=== PATIENT | male | born 1935 | race Caucasian/White ===

== ENCOUNTER 2020-06-28 17:13 | Outpatient (REF) | payer MEDICARE, SELFPAY | END 2020-06-28 17:14 | disposition home or self-care (01) | LOC: HO.LAB 17:13 | PROVIDERS: Visit Provider Internal Medicine | DX: Z20.828 Contact with and (suspected) exposure to other viral communicable diseases (principal) | CPT/HCPCS: C9803; U0003 ==

== ENCOUNTER 2020-11-05 11:07 | Outpatient (REF) | payer MEDICARE, SELFPAY ==
[2020-11-05 11:54] LABS: Estimated Average Glucose 114 mg/dL; Hemoglobin A1c % 5.6 %
[2020-11-05 12:15] LABS: Alanine Aminotransferase 16 U/L (0-40); Albumin Level 4.5 g/dL (3.5-5.0); Alkaline Phosphatase 118 U/L (39-117); Aspartate Amino Transferase 27 U/L (5-37); Bilirubin Direct 0.3 mg/dL (0.0-0.5); Bilirubin Total 0.9 mg/dL (0.0-1.0); Cholesterol 135 mg/dL; Glucose Fasting 92 mg/dL (60-99); HDL Cholesterol 53 mg/dL; LDL Cholesterol Calculated 69 mg/dl; Total Protein 6.8 g/dL (6.5-8.0); Triglycerides 65 mg/dL
[2020-11-05 13:54] LABS: Reflex LDLD? No
== END 2020-11-05 11:08 | disposition home or self-care (01) ==
LOC: HO.LNP 11:07
PROVIDERS: Visit Provider Internal Medicine
DX: R73.03 Prediabetes (principal); E78.00 Pure hypercholesterolemia, unspecified
CPT/HCPCS: 80061; 80076; 82947; 83036

== ENCOUNTER 2020-12-27 13:09 | Outpatient (REF) | payer MEDICARE, SELFPAY ==
--- NOTE | ~2020-12-27 | XR_ITS ---
EXAMINATION: XR CHEST CLINICAL INFORMATION: COPD COMPARISON: Previous chest x-ray August 2019 TECHNIQUE: 2 views of the chest were obtained. FINDINGS: The cardiac and mediastinal contours are stable. The lungs are well inflated. The lungs are clear. There is no pleural effusion or pneumothorax. There are degenerative changes of the spine. XR/XR chest 2V IMPRESSION: Well-inflated lungs. No evidence for acute disease in the chest.
== END 2020-12-27 13:10 | disposition home or self-care (01) ==
LOC: HO.XRAY 13:09
PROVIDERS: PCP Internal Medicine; Visit Provider Hospitalist
DX: J44.9 Chronic obstructive pulmonary disease, unspecified (principal); J84.9 Interstitial pulmonary disease, unspecified; Z79.82 Long term (current) use of aspirin; Z87.891 Personal history of nicotine dependence; Z79.51 Long term (current) use of inhaled steroids
CPT/HCPCS: 71046; 99202

== ENCOUNTER 2021-01-07 09:48 | Outpatient (REF) | payer MEDICARE, SELFPAY ==
--- NOTE | 2021-01-07 15:29 | PFT_ITS ---
Forced vital capacity moderately decreased. FEV1, YPB69-50, and MVV are markedly decreased. Post bronchodilator therapy, there is a minimal improvement in FEV1 and [id number]. Total lung capacity slightly increased. Residual volume is markedly increased. Diffusion capacity is markedly decreased. CONCLUSION: Severe obstructive airway disorder. There is evidence of air trapping. Minimal response to bronchodilator therapy is noted. Clinical correlation recommended. MD DOMINGO Villanueva/MODL / [id number]
== END 2021-01-07 09:49 | disposition home or self-care (01) ==
LOC: HO.RESP 09:48
PROVIDERS: Visit Provider Hospitalist
DX: J44.9 Chronic obstructive pulmonary disease, unspecified (principal); J84.9 Interstitial pulmonary disease, unspecified
CPT/HCPCS: 94060; 94727; 94729

== ENCOUNTER → 2021-01-14 14:05 | Outpatient (BNVA) | payer MEDICARE, SELFPAY | PROVIDERS: PCP Internal Medicine; Visit Provider Hospitalist | DX: J84.9 Interstitial pulmonary disease, unspecified (principal); J41.0 Simple chronic bronchitis; J96.11 Chronic respiratory failure with hypoxia; Z79.899 Other long term (current) drug therapy; Z87.891 Personal history of nicotine dependence | CPT/HCPCS: 99212 ==

== ENCOUNTER 2021-04-29 11:33 | Outpatient (REF) | payer MEDICARE, SELFPAY ==
[2021-04-29 11:38] LABS: MANUAL DIFF FLAG NO
[2021-04-29 11:44] LABS: Basophils Absolute Auto 0.1 X10*3/uL (0.0-0.2); Basophils Percent Auto 0.8 % (0-2); Eosinophils Absolute Auto 0.3 X10*3/uL (0.0-0.4); Eosinophils Percent Auto 3.2 % (0-4); Hematocrit 43.5 % (42-52); Hemoglobin 14.3 g/dl (14.0-18.0); Imm Gran Abs Auto 0.03 X10*3/uL (0.00-0.03); Imm Gran Pct Auto 0.3 % (0.0-0.4); Lymphocytes Absolute Auto 2.9 X10*3/uL (1.2-4.9); Lymphocytes Percent Auto 28.4 % (20-40); Mean Corpuscular HGB Conc 32.9 g/dl (31.0-36.0); Mean Corpuscular Hemoglobin 28.8 pg (27.0-33.0); Mean Corpuscular Volume 87.5 fL (80-98); Mean Platelet Volume 10.5 fL (9.4-12.4); Monocytes Absolute Auto 0.7 X10*3/uL (0.1-1.2); Monocytes Percent Auto 7.2 % (2-11); Neutrophils Absolute Auto 6.1 X10*3/uL (2.0-8.3); Neutrophils Percent Auto 60.1 % (45-73); Platelet Count 224 X10*3/uL (160-400); Red Blood Count 4.97 X10*6/uL (4.60-5.80); Red Cell Distribution Width 13.9 % (11.0-16.0); White Blood Count 10.2 X10*3/uL (4.8-10.8)
[2021-04-29 11:57] LABS: Estimated Average Glucose 120 mg/dL; Hemoglobin A1c % 5.8 %
[2021-04-29 11:58] LABS: Alanine Aminotransferase 22 U/L (0-40); Albumin Level 4.4 g/dL (3.5-5.0); Alkaline Phosphatase 118 U/L (39-117); Anion Gap 10 (12-20); Aspartate Amino Transferase 28 U/L (5-37); Bilirubin Total 1.1 mg/dL (0.0-1.0); Blood Urea Nitrogen 17 mg/dL (9-16); Calcium 9.5 mg/dL (8.4-10.2); Carbon Dioxide 29 mmol/L (22-29); Chloride 104 mmol/L (96-108); Cholesterol 121 mg/dL; Estimated Glomerular Filt Rate > 60; Glucose Fasting 98 mg/dL (60-99); HDL Cholesterol 49 mg/dL; LDL Cholesterol Calculated 61 mg/dl; Potassium 4.2 mmol/L (3.3-5.1); Sodium 139 mmol/L (135-145); Total Protein 6.7 g/dL (6.5-8.0); Triglycerides 55 mg/dL
[2021-04-29 12:06] LABS: Appearance Urine CLEAR; Color Urine YELLOW; Creatinine Urine 69.98 mg/dL; Glucose Urine UA NEG (NEG); Leukocyte Esterase Urine NEG (NEG); Microalbumin Urine < 5.0 mg/L; Nitrite Urine NEG (NEG); Specific Gravity - Urine 1.015 (1.005-1.025); Urine Blood NEG (NEG); Urine Ketones NEG (NEG); Urine Protein NEG (NEG-TRACE)
[2021-04-29 12:15] LABS: PSA,Total (Free>4and<10) 3.13 ng/mL (0.00-4.00)
== END 2021-04-29 11:34 | disposition home or self-care (01) ==
LOC: HO.LNP 11:33
PROVIDERS: Visit Provider Internal Medicine
DX: Z12.5 Encounter for screening for malignant neoplasm of prostate (principal); E78.00 Pure hypercholesterolemia, unspecified; R73.03 Prediabetes; I25.83 Coronary atherosclerosis due to lipid rich plaque; I10 Essential (primary) hypertension; N40.0 Benign prostatic hyperplasia without lower urinary tract symptoms
CPT/HCPCS: 80053; 80061; 81003; 82043; 83036; 84153; 85025

== ENCOUNTER 2021-06-04 14:24 | Inpatient (IN) | payer MEDICARE, SELFPAY ==
[2021-06-04] VITALS (10 sets, daily range): BP systolic 126–183; BP diastolic 55–85; PULSE 34–106; RESP 12–34; TEMP 36.4–36.9; O2SAT 87–95; BMI 22.3
--- NOTE | ~2021-06-04 | XR_ITS ---
EXAMINATION: XR CHEST CLINICAL INFORMATION: Shortness of breath COMPARISON: Chest x-ray on 12/27/2020 TECHNIQUE: Frontal view of the chest was obtained. FINDINGS: No significant abnormality is noted involving the heart, lungs, mediastinum, bony thorax or soft tissues. Mild chronic bilateral interstitial changes with mid and lower lung zone predominance. XR/XR chest 1V IMPRESSION: No acute disease.
--- NOTE | 2021-06-04 14:33 | ECG_ITS ---
Test Reason : SHORTNESS OF BREATH Blood Pressure : / mmHG Vent. Rate : 100 BPM Atrial Rate : 100 BPM P-R Int : 254 ms QRS Dur : 118 ms QT Int : 316 ms P-R-T Axes : 092 052 -67 degrees QTc Int : 407 ms Sinus rhythm with 1st degree A-V block Inferior infarct , age undetermined Intra-ventricular conduction delay Nonspecific T wave abnormality Inferior leads Abnormal ECG T wave inversion no longer evident in Lateral leads T wave inversion more evident in Inferior leads Premature ventricular complexes is no longer Present Referred By: Rosa Christianson Electronically Signed By:JAMES PINZON MD
--- NOTE | 2021-06-04 14:41 | ED.SOB ---
HPI - SOB/Dyspnea General Chief Complaint: Upper Respiratory Symptoms Stated Complaint: sob Time Seen by Provider: 06/04/21 14:32 Source: patient and EMS Mode of arrival: EMS Limitations: no limitations History of Present Illness HPI Narrative: 86-year-old male came in by ambulance for evaluation of shortness of breath. Patient with history of COPD follow with Dr. Valdovinos, patient normally uses 2 L of oxygen at home, for the past 2 days patient has been using his COPD treatment with no improvement, found to be hypoxic by EMS at 85% room air O2 oxygenation was improved with 4 L of oxygen given by the, and patient was given bronchodilator by EMS, patient reported no improvement, patient declined any chest pain or history of cardiac disease, no recent travel or lower extremity swelling or tenderness. No recent exposure to sick contacts, no fever, no chills. Coughing with yellow phlegm. Related Data Home Medications Medication Instructions Recorded Confirmed albuterol sulfate 90 mcg/actuation 2 puff INHALATION QID 12/27/20 06/04/21 aerosol inhaler atorvastatin 40 mg tablet 40 mg PO DAILY 12/27/20 06/04/21 budesonide-formoterol HFA 160 2 puff INHALATION BID 12/27/20 06/04/21 mcg-4.5 mcg/actuation aerosol inhaler (Symbicort) ipratropium 0.5 mg-albuterol 3 mg 3 ml INHALATION QID PRN 12/27/20 06/04/21 (2.5 mg base)/3 mL nebulization soln metoprolol succinate 25 mg 25 mg PO DAILY 12/27/20 06/04/21 tablet,extended release 24 hr tamsulosin 0.4 mg capsule 0.4 mg PO DAILY 12/27/20 06/04/21 umeclidinium 62.5 mcg/actuation 1 inh INHALATION DAILY 12/27/20 06/04/21 blister powder for inhalation (Incruse Ellipta) multivitamin 1 tab PO DAILY 06/04/21 06/04/21 Allergies Allergy/AdvReac Type Severity Reaction Status Date / Time No Known Allergies Allergy Verified 01/17/21 21:33 [No Known Allergies*] Review of Systems Review of Systems: All other systems are reviewed and are negative Constitutional: Reports as per HPI and Reports no additional constitutional complaints Eyes: Reports as per HPI and Reports no additional eye complaints Reports system reviewed and no additional complaints, except as documented Cardiovascular: Reports as per HPI and Reports no additional cardiovascular complaints Respiratory: Reports as per HPI and Reports no additional respiratory complaints Gastrointestinal: Reports as per HPI and Reports no additional gastrointestinal complaints Genitourinary: Reports no additional female genitourinary complaints Musculoskeletal: Reports no additional musculoskeletal complaints Skin/Breast: Reports system reviewed and no additional complaints, except as docu Psychiatric: Reports no additional psychiatric complaints Endocrine: Reports no additional endocrine complaints Hematologic/Lymphatic: Reports no additional hematologic/lymphatic complaints Allergic/Immunologic: Reports no additional allergic/immunologic complaints Reports system reviewed and no additional complaints, except as documented and Reports Abnormal speech present [facility] Past Medical History Medical History Chronic respiratory failure COPD (chronic obstructive pulmonary disease) ILD (interstitial lung disease) Family History Family History (Updated 06/04/21 @ 16:09 by Jose Luis Fisher MD) Sister Cancer Social History Social History Household Members: Spouse Patient Tobacco Use Status: Former Tobacco user Tobacco use type: Cigarette Years Smoked: 30 yrs Second Hand Smoke Exposure: No Advance Directives: No Advance Directives Information Provided: No Physical Exam Vital Signs: Vital Signs: Last Vital Signs Temp 98.4 F 06/04/21 14:36 Pulse 106 H 06/04/21 14:52 Resp 34 H 06/04/21 14:36 BP 183/85 H 06/04/21 14:36 Pulse Ox 92 06/04/21 14:36 Oxygen Flow Rate 4 06/04/21 14:36 Body Mass Index 22.3 Vital signs have been reviewed as appeared to be correct. Blood pressure elevated. Heart rate elevated. Respiration rate elevated. Temperature normal. Oxygen saturation normal. Appearance: Alert. Oriented X3. Moderate acute respiratory distress. Head: Normal external exam. Normocephalic. Atraumatic. No Santana signs noted. No raccoon eyes noted Eyes: PERRLA. EOMI. Conjunctiva and sclera normal. Eyelids normal. ENT: TM's Normal. Pharynx normal. Uvula midline. Moist mucous membranes. No trismus noted. No drooling noted. No muffled voice noted. Neck: Normal inspection. Neck supple. FROM. No adenopathy. Thyroid Normal. No meningeal signs. No neck mass noted. CVS: Normal heart rate and rhythm. Heart sound normal. No murmurs noted. Pulses normal throughout. Respiratory: Moderate respiratory distress. Painless inspiration. Breath sounds normal. Diffuse expiratory wheezing with prolonged expiratory phase, Chest nontender. accessory muscle usage was noted and decreased air movement noted. Abdomen: Soft and nontender. Bowel sounds normal in all 4 quadrants. No distention noted. No organomegaly noted. No visible injury noted. Back: No CVA tenderness. Full range of motion noted. Skin: Skin warm and dry. Normal skin color. Normal skin turgor. No rashes/lesions/lacerations noted. Extremities: No lower extremity edema. Extremities exhibit normal range of motion. Extremities nontender. Neuro: Oriented X 3. Cranial nerve exam: II-XII are grossly intact No motor deficit. No sensory deficit. Reflexes normal. Course Course Course Narrative: Assessment and plan. 86-year-old male with history of COPD came in with COPD exacerbation and hypoxia, patient received multiple doses of bronchodilator, magnesium, and Solu-Medrol, patient showing partial improvement, patient met SIRS criteria will give patient ceftriaxone, no septic shock or severe sepsis. MDM - SOB/Dyspnea Medical Records Attestation: I reviewed the patient's medical records. Lab Data Attestation: I reviewed the patient's lab results. Result diagrams: 06/04/21 15:20 06/04/21 15:19 Labs: Lab Results 06/04/21 06/04/21 06/04/21 Range/Units 14:57 15:19 15:19 WBC (4.8-10.8) X10*3/uL RBC (4.60-5.80) X10*6/uL Hgb (14.0-18.0) g/dl Hct (42-52) % MCV (80-98) fL MCH (27.0-33.0) pg MCHC (31.0-36.0) g/dl RDW (11.0-16.0) % Plt Count (160-400) X10*3/uL MPV (9.4-12.4) fL Immature Gran % (Auto) (0.0-0.4) % Neut % (Auto) (45-73) % Lymph % (Auto) (20-40) % [place] % (Auto) (2-11) % Eos % (Auto) (0-4) % Baso % (Auto) (0-2) % Lymph # (Auto) (1.2-4.9) X10*3/uL [place] # (Auto) (0.1-1.2) X10*3/uL Eos # (Auto) (0.0-0.4) X10*3/uL Baso # (Auto) (0.0-0.2) X10*3/uL Abs Immat Gran (auto) (0.00-0.03) X10*3/uL Absolute Neuts (auto) (2.0-8.3) X10*3/uL Absolute Nucleated RBC (0.0-0.012) X10*3/uL Nucleated RBC % (auto) (0.0-0.2) /100WBC O2 Saturation 96.0 % ABG pH at Pt Temp 7.43 (7.35-7.45) ABG pH (Temp Correct) 7.43 (7.35-7.45) ABG pCO2 at Pt Temp 34 (32-45) mmHg ABG pCO2 (Temp Corrct 33 (32-45) mmHg ABG pO2 at Pt Temp 91 (83-108) mmHg ABG pO2 (Temp Correct 91 (83-108) ABG HCO3 22 (22-26) mmol/L ABG Base Excess (Actual) -0.7 mmol/L Sodium 129 L (135-145) mmol/L Potassium 4.3 (3.3-5.1) mmol/L Chloride 93 L (96-108) mmol/L Carbon Dioxide 25 (22-29) mmol/L Anion Gap 15 (12-20) BUN 17 H (9-16) mg/dL Creatinine 0.81 (0.5-1.4) mg/dL Estim Creat Clear Calc 66.6 Estimated GFR > 60 Random Glucose 119 H (60-115) mg/dL Lactic Acid 1.1 (0.5-2.0) mmol/L Calcium 8.8 D (8.4-10.2) mg/dL Total Bilirubin 1.4 H (0.0-1.0) mg/dL Direct Bilirubin 0.6 H (0.0-0.5) mg/dL AST 37 (5-37) U/L ALT 22 (0-40) U/L Alkaline Phosphatase 114 (39-117) U/L Troponin I High Sens (<3.5-35.0) ng/L B-Natriuretic Peptide (<100) pg/mL Total Protein 6.8 (6.5-8.0) g/dL Albumin 4.4 (3.5-5.0) g/dL Lipase 11 (8-78) U/L COVID-19 (СЕРГЕЙ) (Negative) COVID-19 Clin Com 06/04/21 06/04/21 06/04/21 Range/Units 15:19 15:20 15:22 WBC 10.2 (4.8-10.8) X10*3/uL RBC 4.95 (4.60-5.80) X10*6/uL Hgb 14.4 (14.0-18.0) g/dl Hct 41.4 L (42-52) % MCV 83.6 (80-98) fL MCH 29.1 (27.0-33.0) pg MCHC 34.8 (31.0-36.0) g/dl RDW 12.9 (11.0-16.0) % Plt Count 185 (160-400) X10*3/uL MPV 9.7 (9.4-12.4) fL Immature Gran % (Auto) 0.3 (0.0-0.4) % Neut % (Auto) 77.4 H (45-73) % Lymph % (Auto) 15.4 L (20-40) % [place] % (Auto) 6.5 (2-11) % Eos % (Auto) 0.0 (0-4) % Baso % (Auto) 0.4 (0-2) % Lymph # (Auto) 1.6 (1.2-4.9) X10*3/uL [place] # (Auto) 0.7 (0.1-1.2) X10*3/uL Eos # (Auto) 0.0 (0.0-0.4) X10*3/uL Baso # (Auto) 0.0 (0.0-0.2) X10*3/uL Abs Immat Gran (auto) 0.03 (0.00-0.03) X10*3/uL Absolute Neuts (auto) 7.9 (2.0-8.3) X10*3/uL Absolute Nucleated RBC 0.000 (0.0-0.012) X10*3/uL Nucleated RBC % (auto) 0.0 (0.0-0.2) /100WBC O2 Saturation % ABG pH at Pt Temp (7.35-7.45) ABG pH (Temp Correct) (7.35-7.45) ABG pCO2 at Pt Temp (32-45) mmHg ABG pCO2 (Temp Corrct (32-45) mmHg ABG pO2 at Pt Temp (83-108) mmHg ABG pO2 (Temp Correct (83-108) ABG HCO3 (22-26) mmol/L ABG Base Excess (Actual) mmol/L Sodium (135-145) mmol/L Potassium (3.3-5.1) mmol/L Chloride (96-108) mmol/L Carbon Dioxide (22-29) mmol/L Anion Gap (12-20) BUN (9-16) mg/dL Creatinine (0.5-1.4) mg/dL Estim Creat Clear Calc Estimated GFR Random Glucose (60-115) mg/dL Lactic Acid (0.5-2.0) mmol/L Calcium (8.4-10.2) mg/dL Total Bilirubin (0.0-1.0) mg/dL Direct Bilirubin (0.0-0.5) mg/dL AST (5-37) U/L ALT (0-40) U/L Alkaline Phosphatase (39-117) U/L Troponin I High Sens 16.3 (<3.5-35.0) ng/L B-Natriuretic Peptide 171 H (<100) pg/mL Total Protein (6.5-8.0) g/dL Albumin (3.5-5.0) g/dL Lipase (8-78) U/L COVID-19 (СЕРГЕЙ) Negative (Negative) COVID-19 Clin Com See Note Imaging Data Chest x-ray: Radiologist's impression: No acute disease. ECG Data Interpretation: Sinus tachycardia at 100 beats per minutes with first-degree AV block, prolongation of QT is in diffuse ST-T changes, artifact patient is receiving albuterol. Discharge Plan Discharge Clinical Impression: COPD (chronic obstructive pulmonary disease) Patient Disposition: Admitted As Inpatient Prescriptions: No Action multivitamin Tablet 1 tab PO DAILY RF: 0 ipratropium-albuterol 0.5 mg-3 mg(2.5 mg base)/3 mL solution for nebulization 3 ml inhalation QID PRN (Reason: Wheezing) RF: 0 Incruse Ellipta 62.5 mcg/actuation blister with device 1 inh inhalation DAILY RF: 0 budesonide-formoterol [Symbicort] 160-4.5 mcg/actuation HFA aerosol inhaler 2 puff inhalation BID RF: 0 albuterol sulfate 90 mcg/actuation HFA aerosol inhaler 2 puff inhalation QID RF: 0 atorvastatin 40 mg tablet 40 mg PO DAILY RF: 0 metoprolol succinate 25 mg tablet extended release 24 hr 25 mg PO DAILY RF: 0 tamsulosin 0.4 mg capsule 0.4 mg PO DAILY RF: 0
[2021-06-04] MEDS: Albuterol/Iprat 2.5/0.5MG 3 ML AMPUL.NEB INHALE ×2 (14:50→20:02)
[2021-06-04] MEDS: Albuterol Sulfate (0.083%) 2.5 MG/3 ML VIAL.NEB INHALE (14:50)
[2021-06-04] MEDS: Albuterol Sulfate (0.083%) 2.5 MG/3 ML VIAL.NEB 5 MG INHALE (14:50)
[2021-06-04 15:03] LABS: ABG Base Excess -0.7 mmol/L; ABG HCO3 22 mmol/L (22-26); ABG pCO2 34 mmHg (32-45); ABG pCO2 TC 33 mmHg (32-45); ABG pH 7.43 (7.35-7.45); ABG pH TC 7.43 (7.35-7.45); ABG pO2 91 mmHg (83-108); ABG pO2 TC 91 (83-108)
[2021-06-04] MEDS: methylPREDNISolone Sod Succ 125 MG/2 ML VIAL IVPUSH (15:10)
[2021-06-04] MEDS: Magnesium Sulfate/H2O 2 GM/50 ML PIGGYBACK IV (15:10)
--- NOTE | 2021-06-04 15:21 | PHA.MEDREC ---
Pharmacy Consult ? Medication Reconciliation Pharmacy has completed the medication reconciliation. Patient reports taking a brown medication for his prostate. The only medication it could be is tamsulosin however it was last filled in December. It was filled for 180 tablet for 90 day so he could still be taking one tablet a day instead of 2. Amada Ziegler, PharmD
[2021-06-04 15:27] LABS: MANUAL DIFF FLAG NO
[2021-06-04 15:28] LABS: ABG Refer to POC result
[2021-06-04 15:31] LABS: Basophils Percent Auto 0.4 % (0-2); Hematocrit 41.4 % (42-52); Hemoglobin 14.4 g/dl (14.0-18.0); Imm Gran Abs Auto 0.03 X10*3/uL (0.00-0.03); Imm Gran Pct Auto 0.3 % (0.0-0.4); Lymphocytes Absolute Auto 1.6 X10*3/uL (1.2-4.9); Lymphocytes Percent Auto 15.4 % (20-40); Mean Corpuscular HGB Conc 34.8 g/dl (31.0-36.0); Mean Corpuscular Hemoglobin 29.1 pg (27.0-33.0); Mean Corpuscular Volume 83.6 fL (80-98); Mean Platelet Volume 9.7 fL (9.4-12.4); Monocytes Absolute Auto 0.7 X10*3/uL (0.1-1.2); Monocytes Percent Auto 6.5 % (2-11); Neutrophils Absolute Auto 7.9 X10*3/uL (2.0-8.3); Neutrophils Percent Auto 77.4 % (45-73); Platelet Count 185 X10*3/uL (160-400); Red Blood Count 4.95 X10*6/uL (4.60-5.80); Red Cell Distribution Width 12.9 % (11.0-16.0); White Blood Count 10.2 X10*3/uL (4.8-10.8)
[2021-06-04 15:39] LABS: Lactic Acid 1.1 mmol/L (0.5-2.0)
[2021-06-04 15:44] LABS: COVID-19 Test Negative (Negative)
[2021-06-04 15:50] LABS: Alanine Aminotransferase 22 U/L (0-40); Albumin Level 4.4 g/dL (3.5-5.0); Alkaline Phosphatase 114 U/L (39-117); Anion Gap 15 (12-20); Aspartate Amino Transferase 37 U/L (5-37); B Type Natriuretic Peptide 171 pg/mL (<100); Bilirubin Direct 0.6 mg/dL (0.0-0.5); Bilirubin Total 1.4 mg/dL (0.0-1.0); Blood Urea Nitrogen 17 mg/dL (9-16); Calcium 8.8 mg/dL (8.4-10.2); Carbon Dioxide 25 mmol/L (22-29); Chloride 93 mmol/L (96-108); Creatinine Clr Calc Pharmacy 66.6; Estimated Glomerular Filt Rate > 60; Glucose Random 119 mg/dL (60-115); Lipase 11 U/L (8-78); Potassium 4.3 mmol/L (3.3-5.1); Sodium 129 mmol/L (135-145); Total Protein 6.8 g/dL (6.5-8.0); Troponin-I High Sensitivity 16.3 ng/L (<3.5-35.0)
--- NOTE | 2021-06-04 16:35 | PM.IMHP ---
History of Present Illness Date of Service: 06/04/21 Chief Complaint: sob 86M with chronic hypoxic respiratory failure due to copd on 2L home o2, though does not always wear. complaining of 2 days shortness of breath, air hunger, desaturation, worse on exertion, only partially releived by rest. denies chest pain. notes spouse is sick with viral illness, has had subjective fevers, cough. Review of Systems Review of Systems: Constitutional: subjective fevers Eyes: denies blurry vision ENT: denies sore throat CVS: denies chest pain Respiratory: dyspnea GI: no abdominal pain : denies dysuria MSK: denies neck pain Skin: denies rash Neuro: denies specific motor weakness Psych: denies suicidal ideation Endocrine: denies heat/cold intolerance Hematologic: denies easy bleeding Allergy: denies hives [facility] [place] Medical History (Updated 06/04/21 @ 16:43 by Jose Luis Fisher MD) BPH (benign prostatic hyperplasia) Chronic respiratory failure COPD (chronic obstructive pulmonary disease) HLD (hyperlipidemia) HTN (hypertension) ILD (interstitial lung disease) Family History Sister Cancer Pertinent family history: . Social History (Updated 06/04/21 @ 16:40 by Jose Luis Fisher MD) Household Members: Spouse Alcohol intake: never Patient Tobacco Use Status: Former Tobacco user Tobacco use type: Cigarette Years Smoked: 30 yrs Second Hand Smoke Exposure: No Use of substances other than those prescribed or required for medical reasons: No Advance Directives: No Advance Directives Information Provided: No Meds Allergies Allergy/AdvReac Type Severity Reaction Status Date / Time No Known Allergies Allergy Verified 01/17/21 21:33 [No Known Allergies*] Active Medications: Current Medications Albuterol/Ipratropium (Albuterol/Iprat 2.5/0.5mg 3 Ml Ampul.Neb) 3 ml INHALE RQ4H WHILE AWAKE HOA Albuterol/Ipratropium (Albuterol/Iprat 2.5/0.5mg 3 Ml Ampul.Neb) 3 ml INHALE RQ4H PRN PRN Reason: sob Atorvastatin Calcium (Atorvastatin Calcium 40 Mg Tablet) 40 mg PO DAILY HOA Ceftriaxone Sodium 1 gm/ (Sodium Chloride) 50 mls @ 100 mls/hr IV ONCE ONE Stop: 06/04/21 16:58 Sodium Chloride (Ns) 1,000 mls @ 500 mls/hr IVCONT .Q2H [facility] Stop: 06/04/21 18:29 Methylprednisolone Sodium Succinate (Methylprednisolone Sod Succ 125 Mg/2 Ml Vial) 60 mg IVPUSH Q12H [facility] Metoprolol Succinate (Metoprolol Succinate Er 25 Mg Tab.Er.24h) 25 mg PO DAILY HOA; Protocol Morphine Sulfate (Morphine Sulfate 2 Mg/Ml Cartridge) 2 mg IVPUSH Q3H PRN; Protocol PRN Reason: sob Multivitamins/Vitamin C (Multivitamin Tablet) 1 tab PO DAILY [facility] Non-Formulary Medication (Budesonide-Formoterol [Symbicort]) 2 puff INHALE BID [facility] Non-Formulary Medication (Umeclidinium [Incruse Ellipta]) 1 inhalation INHALE DAILY [facility] Pharmacy Consult (Consult Rx Perform Med Rec) 1 each MISCELLANE ONCE PRN PRN Reason: Consult order Tamsulosin HCl (Tamsulosin Hcl 0.4 Mg Capsule) 0.4 mg PO DAILY [facility] Home Medications Medication Instructions Recorded Confirmed Last Taken Type albuterol sulfate 90 mcg/actuation 2 puff INHALATION QID 12/27/20 06/04/21 06/03/21 History aerosol inhaler atorvastatin 40 mg tablet 40 mg PO DAILY 12/27/20 06/04/21 06/03/21 History budesonide-formoterol HFA 160 2 puff INHALATION BID 12/27/20 06/04/21 06/03/21 History mcg-4.5 mcg/actuation aerosol inhaler (Symbicort) ipratropium 0.5 mg-albuterol 3 mg 3 ml INHALATION QID PRN 12/27/20 06/04/21 Unknown History (2.5 mg base)/3 mL nebulization soln metoprolol succinate 25 mg 25 mg PO DAILY 12/27/20 06/04/21 06/03/21 History tablet,extended release 24 hr tamsulosin 0.4 mg capsule 0.4 mg PO DAILY 12/27/20 06/04/21 06/03/21 History umeclidinium 62.5 mcg/actuation 1 inh INHALATION DAILY 12/27/20 06/04/21 06/03/21 History blister powder for inhalation (Incruse Ellipta) multivitamin 1 tab PO DAILY 06/04/21 06/04/21 06/03/21 History Physical Exam Vital Signs and Narrative: Vital Signs: Last Vital Signs Temp 98.4 F 06/04/21 14:36 Pulse 106 H 06/04/21 14:52 Resp 34 H 06/04/21 14:36 BP 183/85 H 06/04/21 14:36 Pulse Ox 92 06/04/21 14:36 Oxygen Flow Rate 4 06/04/21 14:36 Body Mass Index 22.3 General: dyspneic HEENT: atraumatic Neck: normal to visual inspection CVS: S1, S2, RRR Resp: diminished, wheezing, accessory muscles used Chest: non tender GI: soft, non tender, non distended : no CVA tenderness Skin: no rashes Extremities: no edema Neuro: Oriented X3, grossly intact Psych: cooperative Results Labs CBC and Chem 7: 06/04/21 15:20 06/04/21 15:19 Labs: Laboratory Results - last 24 hr 06/04/21 06/04/21 06/04/21 14:57 15:19 15:19 MCV MCH MCHC RDW Plt Count MPV Immature Gran % (Auto) Neut % (Auto) Lymph % (Auto) [place] % (Auto) Eos % (Auto) Baso % (Auto) Lymph # (Auto) [place] # (Auto) Eos # (Auto) Baso # (Auto) Abs Immat Gran (auto) Absolute Neuts (auto) Absolute Nucleated RBC Nucleated RBC % (auto) O2 Saturation 96.0 ABG pH at Pt Temp 7.43 ABG pH (Temp Correct) 7.43 ABG pCO2 at Pt Temp 34 ABG pCO2 (Temp Corrct 33 ABG pO2 at Pt Temp 91 ABG pO2 (Temp Correct 91 ABG HCO3 22 ABG Base Excess (Actual) -0.7 Anion Gap 15 Estim Creat Clear Calc 66.6 Estimated GFR > 60 Random Glucose 119 H Lactic Acid 1.1 Calcium 8.8 D Total Bilirubin 1.4 H Direct Bilirubin 0.6 H AST 37 ALT 22 Alkaline Phosphatase 114 Troponin I High Sens B-Natriuretic Peptide Total Protein 6.8 Albumin 4.4 Lipase 11 COVID-19 (СЕРГЕЙ) COVID-19 Clin Com 06/04/21 06/04/21 06/04/21 15:19 15:20 15:22 MCV 83.6 MCH 29.1 MCHC 34.8 RDW 12.9 Plt Count 185 MPV 9.7 Immature Gran % (Auto) 0.3 Neut % (Auto) 77.4 H Lymph % (Auto) 15.4 L [place] % (Auto) 6.5 Eos % (Auto) 0.0 Baso % (Auto) 0.4 Lymph # (Auto) 1.6 [place] # (Auto) 0.7 Eos # (Auto) 0.0 Baso # (Auto) 0.0 Abs Immat Gran (auto) 0.03 Absolute Neuts (auto) 7.9 Absolute Nucleated RBC 0.000 Nucleated RBC % (auto) 0.0 O2 Saturation ABG pH at Pt Temp ABG pH (Temp Correct) ABG pCO2 at Pt Temp ABG pCO2 (Temp Corrct ABG pO2 at Pt Temp ABG pO2 (Temp Correct ABG HCO3 ABG Base Excess (Actual) Anion Gap Estim Creat Clear Calc Estimated GFR Random Glucose Lactic Acid Calcium Total Bilirubin Direct Bilirubin AST ALT Alkaline Phosphatase Troponin I High Sens 16.3 B-Natriuretic Peptide 171 H Total Protein Albumin Lipase COVID-19 (СЕРГЕЙ) Negative COVID-19 Clin Com See Note Imaging Radiologist's Impressions: Impressions Chest X-Ray 06/04/21 14:33 IMPRESSION: No acute disease. Assessment and Plan (1) Acute on chronic respiratory failure with hypoxemia: Status: Acute (2) COPD (chronic obstructive pulmonary disease): Status: Acute (3) HLD (hyperlipidemia): Status: Acute (4) HTN (hypertension): Status: Acute (5) BPH (benign prostatic hyperplasia): Status: Acute 86M presented with sob sepsis due to copd exacerbation complicated by acute on chronic hypoxic respiratory failure solumedrol, duonebs, inhaled steroids, azithro, morphine, wean o2 as tolerated hld statin htn toprol bph flomax dvt prophylaxis - lovenox full code Quality Stroke Does the patient have a stroke diagnosis?: No VTE Prior VTE?: No VTE Risk Level:: Medical - moderate - high VTE Device Contraindication: Treatment Not Indicated VTE Drug Contraindication: N/A - Med Ordered
[2021-06-04] MEDS: cefTRIAXone sodium 1 GM in 0.9 % Sodium Chloride 50 ML IV (16:50)
[2021-06-04] MEDS: 0.9 % Sodium Chloride 1,000 ML 500 ML IVCONT (16:50)
[2021-06-04] MEDS: Enoxaparin Sodium 40 MG/0.4 ML SYRINGE SUBCUT (17:19)
--- NOTE | 2021-06-04 19:57 | PC.NURSE ---
RN assumed care at 1900. Pt alert and oriented x4, calm and cooperative. Pt denies pain, denies chest pain. Pt states SOB continues, denies distress at this time. Pt remains on 2 liters O2 nasal cannula. Pt resting in stretcher without issue, will continue to monitor.
[2021-06-04 20:50] LABS: Glucose, Whole Blood 234 mg/dL (60-115)
[2021-06-04] MEDS: methylPREDNISolone Sod Succ 125 MG/2 ML VIAL 60 MG IVPUSH (22:54)
[2021-06-04] MEDS: Morphine Sulfate 2 MG/ML CARTRIDGE IVPUSH (23:09)
[2021-06-05] VITALS (11 sets, daily range): BP systolic 115–147; BP diastolic 51–71; PULSE 83–103; RESP 16–22; TEMP 36.3–36.7; O2SAT 92–97
[2021-06-05] MEDS: Morphine Sulfate 2 MG/ML CARTRIDGE IVPUSH (02:24)
[2021-06-05] MEDS: Albuterol/Iprat 2.5/0.5MG 3 ML AMPUL.NEB INHALE ×5 (02:38→20:25)
[2021-06-05 06:14] LABS: Hematocrit 38.9 % (42-52); Hemoglobin 13.4 g/dl (14.0-18.0); Mean Corpuscular HGB Conc 34.4 g/dl (31.0-36.0); Mean Corpuscular Volume 84.2 fL (80-98); Mean Platelet Volume 9.7 fL (9.4-12.4); Platelet Count 204 X10*3/uL (160-400); Red Blood Count 4.62 X10*6/uL (4.60-5.80); Red Cell Distribution Width 12.9 % (11.0-16.0); White Blood Count 8.2 X10*3/uL (4.8-10.8)
[2021-06-05 06:31] LABS: Anion Gap 13 (12-20); Blood Urea Nitrogen 22 mg/dL (9-16); Calcium 8.7 mg/dL (8.4-10.2); Carbon Dioxide 27 mmol/L (22-29); Chloride 98 mmol/L (96-108); Creatinine Clr Calc Pharmacy 62.7; Estimated Glomerular Filt Rate > 60; Glucose Fasting 189 mg/dL (60-99); Potassium 4.9 mmol/L (3.3-5.1); Sodium 133 mmol/L (135-145)
[2021-06-05 08:07] LABS: Estimated Average Glucose 117 mg/dL; Hemoglobin A1c % 5.7 %
[2021-06-05] MEDS: Fluticasone/Vilanterol 200/25 BLST.W.DEV 1 PUFF INHALE (08:50)
[2021-06-05] MEDS: Metoprolol Succinate ER 25 MG TAB.ER.24H PO (09:03)
[2021-06-05] MEDS: Atorvastatin Calcium 40 MG TABLET PO (09:03)
[2021-06-05] MEDS: Multivitamin TABLET 1 TAB PO (09:03)
[2021-06-05] MEDS: Tamsulosin HCL 0.4 MG CAPSULE PO (09:03)
[2021-06-05] MEDS: Azithromycin 500 MG TABLET PO (09:03)
[2021-06-05] MEDS: methylPREDNISolone Sod Succ 125 MG/2 ML VIAL 60 MG IVPUSH ×2 (09:07→23:39)
--- NOTE | 2021-06-05 09:37 | P.PNIM_ITS ---
Subjective Subjective Date of Service: 06/05/21 Interval History: cc: sob interval history: a bit better, still very sob Cardiovascular Cardiovascular: Reports no additional cardiovascular complaints Gastrointestinal Gastrointestinal: Reports no additional gastrointestinal complaints Physical Exam Vital Signs: Vital Signs: Last Vital Signs Temp 97.6 F 06/05/21 08:00 Pulse 103 H 06/05/21 09:03 Resp 18 06/05/21 08:00 BP 147/71 H 06/05/21 09:03 Pulse Ox 94 06/05/21 08:00 Oxygen Flow Rate 2 06/04/21 17:32 Body Mass Index 22.3 General: AO X 3, dyspneic Resp: poor air movement, accessory muscles used CVS: S1,S2,RRR GI: soft, non tender, non distended Neuro: motor grossly intact, alert Psych: appropriate affect, appropriate insight Objective Data Active Medications Acetaminophen (Acetaminophen 325 Mg Tablet) 650 mg PO Q6H PRN PRN Reason: Pain, Mild (Pain Scale 1-3) Albuterol/Ipratropium (Albuterol/Iprat 2.5/0.5mg 3 Ml Ampul.Neb) 3 ml INHALE RQ4H WHILE AWAKE [facility] Last Admin: 06/05/21 08:56 Dose: 3 ml Documented by: JUAN ALBERTO Albuterol/Ipratropium (Albuterol/Iprat 2.5/0.5mg 3 Ml Ampul.Neb) 3 ml INHALE RQ4H PRN PRN Reason: sob Last Admin: 06/05/21 02:38 Dose: 3 ml Documented by: BOO Atorvastatin Calcium (Atorvastatin Calcium 40 Mg Tablet) 40 mg PO DAILY [facility] Last Admin: 06/05/21 09:03 Dose: 40 mg Documented by: CLAUDINE Azithromycin (Azithromycin 500 Mg Tablet) 500 mg PO DAILY [facility] Last Admin: 06/05/21 09:03 Dose: 500 mg Documented by: CLAUDINE Enoxaparin Sodium (Enoxaparin Sodium 40 Mg/0.4 Ml Syringe) 40 mg SUBCUT Q24H [facility] Last Admin: 06/04/21 17:19 Dose: 40 mg Documented by: BRADY Fluticasone/Vilanterol (Fluticasone/Vilanterol 200/25 Blst.W.Dev) 1 puff INHALE DAILY [facility] Last Admin: 06/05/21 08:50 Dose: 1 puff Documented by: JUAN ALBERTO Guaifenesin (Guaifenesin La 600 Mg Tab.Er.12h) 1,200 mg PO BID [facility] Methylprednisolone Sodium Succinate (Methylprednisolone Sod Succ 125 Mg/2 Ml Vial) 60 mg IVPUSH Q12H [facility] Last Admin: 06/05/21 09:07 Dose: 60 mg Documented by: CLAUDINE Metoprolol Succinate (Metoprolol Succinate Er 25 Mg Tab.Er.24h) 25 mg PO DAILY [facility]; Protocol Last Admin: 06/05/21 09:03 Dose: 25 mg Documented by: CLAUDINE Morphine Sulfate (Morphine Sulfate 2 Mg/Ml Cartridge) 2 mg IVPUSH Q3H PRN; Pr otocol PRN Reason: sob Last Admin: 06/05/21 02:24 Dose: 2 mg Documented by: XAVIER Multivitamins/Vitamin C (Multivitamin Tablet) 1 tab PO DAILY [facility] Last Admin: 06/05/21 09:03 Dose: 1 tab Documented by: CLAUDINE Non-Formulary Medication (Umeclidinium [Incruse Ellipta]) 1 inhalation INHALE DAILY [facility] Pharmacy Consult (Consult Rx Perform Med Rec) 1 each MISCELLANE ONCE PRN PRN Reason: Consult order Tamsulosin HCl (Tamsulosin Hcl 0.4 Mg Capsule) 0.4 mg PO DAILY [facility] Last Admin: 06/05/21 09:03 Dose: 0.4 mg Documented by: CLAUDINE Labs CBC & Chem 7: 06/05/21 05:43 06/05/21 05:43 Labs: Laboratory Results - last 24 hr 06/04/21 06/04/21 06/04/21 14:57 15:19 15:19 MCV MCH MCHC RDW Plt Count MPV Immature Gran % (Auto) Neut % (Auto) Lymph % (Auto) [place] % (Auto) Eos % (Auto) Baso % (Auto) Lymph # (Auto) [place] # (Auto) Eos # (Auto) Baso # (Auto) Abs Immat Gran (auto) Absolute Neuts (auto) Absolute Nucleated RBC Nucleated RBC % (auto) O2 Saturation 96.0 ABG pH at Pt Temp 7.43 ABG pH (Temp Correct) 7.43 ABG pCO2 at Pt Temp 34 ABG pCO2 (Temp Corrct 33 ABG pO2 at Pt Temp 91 ABG pO2 (Temp Correct 91 ABG HCO3 22 ABG Base Excess (Actual) -0.7 Anion Gap 15 Estim Creat Clear Calc 66.6 Estimated GFR > 60 POC Glucose Random Glucose 119 H Fasting Glucose Estimat Average Glucose Hemoglobin A1c % Lactic Acid 1.1 Calcium 8.8 D Total Bilirubin 1.4 H Direct Bilirubin 0.6 H AST 37 ALT 22 Alkaline Phosphatase 114 Troponin I High Sens B-Natriuretic Peptide Total Protein 6.8 Albumin 4.4 Lipase 11 COVID-19 (СЕРГЕЙ) COVID-[facility] 06/04/21 06/04/21 06/04/21 15:19 15:20 15:22 MCV 83.6 MCH 29.1 MCHC 34.8 RDW 12.9 Plt Count 185 MPV 9.7 Immature Gran % (Auto) 0.3 Neut % (Auto) 77.4 H Lymph % (Auto) 15.4 L [place] % (Auto) 6.5 Eos % (Auto) 0.0 Baso % (Auto) 0.4 Lymph # (Auto) 1.6 [place] # (Auto) 0.7 Eos # (Auto) 0.0 Baso # (Auto) 0.0 Abs Immat Gran (auto) 0.03 Absolute Neuts (auto) 7.9 Absolute Nucleated RBC 0.000 Nucleated RBC % (auto) 0.0 O2 Saturation ABG pH at Pt Temp ABG pH (Temp Correct) ABG pCO2 at Pt Temp ABG pCO2 (Temp Corrct ABG pO2 at Pt Temp ABG pO2 (Temp Correct ABG HCO3 ABG Base Excess (Actual) Anion Gap Estim Creat Clear Calc Estimated GFR POC Glucose Random Glucose Fasting Glucose Estimat Average Glucose Hemoglobin A1c % Lactic Acid Calcium Total Bilirubin Direct Bilirubin AST ALT Alkaline Phosphatase Troponin I High Sens 16.3 B-Natriuretic Peptide 171 H Total Protein Albumin Lipase COVID-19 (СЕРГЕЙ) Negative COVID-19 [facility] See Note 06/04/21 06/05/21 06/05/21 20:46 05:43 05:43 MCV 84.2 MCH 29.0 MCHC 34.4 RDW 12.9 Plt Count 204 MPV 9.7 Immature Gran % (Auto) Neut % (Auto) Lymph % (Auto) [place] % (Auto) Eos % (Auto) Baso % (Auto) Lymph # (Auto) [place] # (Auto) Eos # (Auto) Baso # (Auto) Abs Immat Gran (auto) Absolute Neuts (auto) Absolute Nucleated RBC 0.000 Nucleated RBC % (auto) 0.0 O2 Saturation ABG pH at Pt Temp ABG pH (Temp Correct) ABG pCO2 at Pt Temp ABG pCO2 (Temp Corrct ABG pO2 at Pt Temp ABG pO2 (Temp Correct ABG HCO3 ABG Base Excess (Actual) Anion Gap 13 Estim Creat Clear Calc 62.7 Estimated GFR > 60 POC Glucose 234 H Random Glucose Fasting Glucose 189 H D Estimat Average Glucose Hemoglobin A1c % Lactic Acid Calcium 8.7 Total Bilirubin Direct Bilirubin AST ALT Alkaline Phosphatase Troponin I High Sens B-Natriuretic Peptide Total Protein Albumin Lipase COVID-19 (СЕРГЕЙ) COVID-19 Clin Com 06/05/21 05:43 MCV MCH MCHC RDW Plt Count MPV Immature Gran % (Auto) Neut % (Auto) Lymph % (Auto) [place] % (Auto) Eos % (Auto) Baso % (Auto) Lymph # (Auto) [place] # (Auto) Eos # (Auto) Baso # (Auto) Abs Immat Gran (auto) Absolute Neuts (auto) Absolute Nucleated RBC Nucleated RBC % (auto) O2 Saturation ABG pH at Pt Temp ABG pH (Temp Correct) ABG pCO2 at Pt Temp ABG pCO2 (Temp Corrct ABG pO2 at Pt Temp ABG pO2 (Temp Correct ABG HCO3 ABG Base Excess (Actual) Anion Gap Estim Creat Clear Calc Estimated GFR POC Glucose Random Glucose Fasting Glucose Estimat Average Glucose 117 Hemoglobin A1c % 5.7 Lactic Acid Calcium Total Bilirubin Direct Bilirubin AST ALT Alkaline Phosphatase Troponin I High Sens B-Natriuretic Peptide Total Protein Albumin Lipase COVID-19 (СЕРГЕЙ) COVID-19 Clin Com Assessment and Plan (1) COPD (chronic obstructive pulmonary disease): Status: Acute (2) Acute on chronic respiratory failure with hypoxemia: Status: Acute Assessment and Plan: 66M presented with sob sepsis due to copd exacerbation complicated by acute on chronic hypoxic respiratory failure solumedrol, duonebs, inhaled steroids, azithro, morphine, wean o2 as tolerated having trouble getting stuff up , will add mucinex hld statin htn toprol bph flomax dvt prophylaxis - lovenox full code Quality Stroke Does the patient have a stroke diagnosis?: No VTE Prior VTE?: No VTE Risk Level:: Medical - moderate - high VTE Device Contraindication: Treatment Not Indicated VTE Drug Contraindication: N/A - Med Ordered
[2021-06-05] MEDS: guaiFENesin LA 600 MG TAB.ER.12H 1200 MG PO ×2 (10:38→23:40)
--- NOTE | 2021-06-05 12:40 | MHC.CM.PN ---
CASE MANAGEMENT MET WITH PATIENT AND DAUGHTER WITH PERMISSION FROM PATIENT.PATIENT LIVES WITH HIS /HCP (ON FILE AND VERIFIED) NO DME FOR AMBULATION AND NO VNA SERVICES IN THE HOME. HE DOES USE HOME O2 ON OCCASION BUT DOES NOT REMEMBER THE NAME OF THE COMPANY THAT SUPPLIES THIS. DAUGHTER JULIANN (IN ROOM) STATES THAT PATIENT AND HAVE BEEN VACCINATED AGAINST COVID-19 WITH BOTH DOSES CASE MANAGEMENT FOLLOWING FOR DISCHARGE PLANS. HE HOPES TO RETURN HOME WITH NO SERVICES. FAMILY TO TRANSPORT. IMM 06/05 IN CHART.
[2021-06-05] MEDS: Enoxaparin Sodium 40 MG/0.4 ML SYRINGE SUBCUT (15:27)
[2021-06-06] VITALS (8 sets, daily range): BP systolic 114–156; BP diastolic 64–80; PULSE 80–104; RESP 12–20; TEMP 36.2–36.5; O2SAT 93–97
[2021-06-06 06:19] LABS: Hematocrit 40.5 % (42-52); Mean Corpuscular HGB Conc 34.6 g/dl (31.0-36.0); Mean Corpuscular Hemoglobin 28.9 pg (27.0-33.0); Mean Corpuscular Volume 83.7 fL (80-98); Mean Platelet Volume 9.4 fL (9.4-12.4); Platelet Count 224 X10*3/uL (160-400); Red Blood Count 4.84 X10*6/uL (4.60-5.80); White Blood Count 17.5 X10*3/uL (4.8-10.8)
[2021-06-06 06:30] LABS: Anion Gap 12 (12-20); Blood Urea Nitrogen 21 mg/dL (9-16); Calcium 8.8 mg/dL (8.4-10.2); Carbon Dioxide 27 mmol/L (22-29); Chloride 99 mmol/L (96-108); Estimated Glomerular Filt Rate > 60; Glucose Fasting 148 mg/dL (60-99); Potassium 4.9 mmol/L (3.3-5.1); Sodium 133 mmol/L (135-145)
[2021-06-06] MEDS: Albuterol/Iprat 2.5/0.5MG 3 ML AMPUL.NEB INHALE ×4 (08:27→20:05)
[2021-06-06] MEDS: Fluticasone/Vilanterol 200/25 BLST.W.DEV 1 PUFF INHALE (08:27)
[2021-06-06] MEDS: Atorvastatin Calcium 40 MG TABLET PO (09:39)
[2021-06-06] MEDS: Azithromycin 500 MG TABLET PO (09:40)
[2021-06-06] MEDS: Metoprolol Succinate ER 25 MG TAB.ER.24H PO (09:41)
[2021-06-06] MEDS: Tamsulosin HCL 0.4 MG CAPSULE PO (09:42)
[2021-06-06] MEDS: Multivitamin TABLET 1 TAB PO (09:42)
[2021-06-06] MEDS: guaiFENesin LA 600 MG TAB.ER.12H 1200 MG PO ×2 (09:45→21:53)
[2021-06-06] MEDS: methylPREDNISolone Sod Succ 125 MG/2 ML VIAL 60 MG IVPUSH ×2 (10:00→21:54)
--- NOTE | 2021-06-06 10:18 | P.PNIM_ITS ---
Subjective Subjective Date of Service: 06/06/21 Interval History: cc: sob itnerval history: feeling better, still sob Cardiovascular Cardiovascular: Reports no additional cardiovascular complaints Respiratory Respiratory: Reports no additional respiratory complaints Physical Exam Vital Signs: Vital Signs: Last Vital Signs Temp 97.7 F 06/06/21 07:06 Pulse 85 06/06/21 08:28 Resp 18 06/06/21 07:06 BP 141/80 H 06/06/21 07:06 Pulse Ox 93 06/06/21 07:06 Oxygen Flow Rate 2 06/04/21 17:32 Body Mass Index 22.3 General: AO X 3, dyspneic Resp:? poor air movement, accessory muscles used CVS: S1,S2,RRR GI: soft, non tender, non distended Neuro:? motor grossly intact, alert Psych: appropriate affect, appropriate insight? Objective Data Active Medications Acetaminophen (Acetaminophen 325 Mg Tablet) 650 mg PO Q6H PRN PRN Reason: Pain, Mild (Pain Scale 1-3) Albuterol/Ipratropium (Albuterol/Iprat 2.5/0.5mg 3 Ml Ampul.Neb) 3 ml INHALE RQ4H WHILE AWAKE [facility] Last Admin: 06/06/21 08:27 Dose: 3 ml Documented by: KARLOS Albuterol/Ipratropium (Albuterol/Iprat 2.5/0.5mg 3 Ml Ampul.Neb) 3 ml INHALE RQ4H PRN PRN Reason: sob Last Admin: 06/05/21 02:38 Dose: 3 ml Documented by: BOO Atorvastatin Calcium (Atorvastatin Calcium 40 Mg Tablet) 40 mg PO DAILY [facility] Last Admin: 06/05/21 09:03 Dose: 40 mg Documented by: CLAUDINE Azithromycin (Azithromycin 500 Mg Tablet) 500 mg PO DAILY [facility] Last Admin: 06/05/21 09:03 Dose: 500 mg Documented by: CLAUDINE Enoxaparin Sodium (Enoxaparin Sodium 40 Mg/0.4 Ml Syringe) 40 mg SUBCUT Q24H [facility] Last Admin: 06/05/21 15:27 Dose: 40 mg Documented by: CLAUDINE Fluticasone/Vilanterol (Fluticasone/Vilanterol 200/25 Blst.W.Dev) 1 puff INHALE DAILY [facility] Last Admin: 06/06/21 08:27 Dose: 1 puff Documented by: KARLOS Guaifenesin (Guaifenesin La 600 Mg Tab.Er.12h) 1,200 mg PO BID [facility] Last Admin: 06/05/21 23:40 Dose: 1,200 mg Documented by: MARIANNA Methylprednisolone Sodium Succinate (Methylprednisolone Sod Succ 125 Mg/2 Ml Vial) 60 mg IVPUSH Q12H [facility] Last Admin: 06/05/21 23:39 Dose: 60 mg Documented by: MARIANNA Metoprolol Succinate (Metoprolol Succinate Er 25 Mg Tab.Er.24h) 25 mg PO DAILY [facility]; Protocol Last Admin: 06/05/21 09:03 Dose: 25 mg Documented by: CLAUDINE Morphine Sulfate (Morphine Sulfate 2 Mg/Ml Cartridge) 2 mg IVPUSH Q3H PRN; Protocol PRN Reason: sob Last Admin: 06/05/21 02:24 Dose: 2 mg Documented by: XAVIER Multivitamins/Vitamin C (Multivitamin Tablet) 1 tab PO DAILY [facility] Last Admin: 06/05/21 09:03 Dose: 1 tab Documented by: CLAUDINE Non-Formulary Medication (Umeclidinium [Incruse Ellipta]) 1 inhalation INHALE DAILY [facility] Pharmacy Consult (Consult Rx Perform Med Rec) 1 each MISCELLANE ONCE PRN PRN Reason: Consult order Tamsulosin HCl (Tamsulosin Hcl 0.4 Mg Capsule) 0.4 mg PO DAILY [facility] Last Admin: 06/05/21 09:03 Dose: 0.4 mg Documented by: CLAUDINE Labs CBC & Chem 7: 06/06/21 06:05 06/06/21 06:05 Labs: Laboratory Results - last 24 hr 06/06/21 06/06/21 06:05 06:05 MCV 83.7 MCH 28.9 MCHC 34.6 RDW 13.0 Plt Count 224 MPV 9.4 Absolute Nucleated RBC 0.000 Nucleated RBC % (auto) 0.0 Anion Gap 12 Estim Creat Clear Calc 65.0 Estimated GFR > 60 Fasting Glucose 148 H Calcium 8.8 Microbiology Microbiology Results: Microbiology 06/04/21 15:19 Blood Culture - Preliminary Blood - Venous No growth after 24 hours. 06/04/21 15:08 Blood Culture - Preliminary Blood - Venous No growth after 24 hours. Assessment and Plan (1) COPD (chronic obstructive pulmonary disease): Status: Acute (2) Acute on chronic respiratory failure with hypoxemia: Status: Acute Assessment and Plan: 66M presented with sob sepsis due to copd exacerbation complicated by acute on chronic hypoxic respiratory failure solumedrol, duonebs, inhaled steroids, azithro, morphine, wean o2 as tolerated reports some improvement, but still looks quite dyspneic and using accessory muscles, continue to monitor inpatient hld statin htn toprol bph flomax dvt prophylaxis - lovenox full code Quality Stroke Does the patient have a stroke diagnosis?: No VTE Prior VTE?: No VTE Risk Level:: Medical - moderate - high VTE Device Contraindication: Treatment Not Indicated VTE Drug Contraindication: N/A - Med Ordered
--- NOTE | 2021-06-06 11:40 | P.CDIC_ITS ---
CDI Concurrent Query Documentation Clarification: PHYSICIAN'S DOCUMENTATION REQUEST Date of Query: 06/06/21 1141 Patient Name: Rafael Franco Admit Date: 06/04/21 Dear Doctor, A review of the medical record indicates additional documentation may be needed. Please review below and update the documentation accordingly. Risk Factors/Clinical Indicators/Treatments NA 129 Received IVF normal saline Based on the above, could you clarify in the Progress Notes the appropriate diagnosis, if significant, that supports the above abnormalities and additional evaluation, monitoring, and/or treatment rendered: * Labs indicate a diagnosis of (please specify) * Other (please specify) * Unable to determine Use of terms such as suspected, likely, concern for, or probable (associated with a specific diagnosis that is being evaluated, monitored, or treated as if it exists) are acceptable and can be coded in the inpatient setting, when documented at the time of discharge. Thank you, Rochelle Gutierrez RN Extension: [phone] Please use your independent medical judgment in providing your response. THIS QUERY IS PART OF THE PERMANENT MEDICAL RECORD Provider Response: Other Other Diagnosis: mild hyponatremia, resolved
[2021-06-06] MEDS: Enoxaparin Sodium 40 MG/0.4 ML SYRINGE SUBCUT (15:52)
[2021-06-06] MEDS: Acetaminophen 325 MG TABLET 650 MG PO (18:19)
[2021-06-07] VITALS (8 sets, daily range): BP systolic 128–160; BP diastolic 73–84; PULSE 81–104; RESP 18–21; TEMP 36.4–36.8; O2SAT 90–98
[2021-06-07] MEDS: Fluticasone/Vilanterol 200/25 BLST.W.DEV 1 PUFF INHALE (07:41)
[2021-06-07] MEDS: Albuterol/Iprat 2.5/0.5MG 3 ML AMPUL.NEB INHALE ×4 (07:41→19:46)
[2021-06-07] MEDS: Azithromycin 500 MG TABLET PO (08:16)
[2021-06-07] MEDS: guaiFENesin LA 600 MG TAB.ER.12H 1200 MG PO ×2 (08:16→20:50)
[2021-06-07] MEDS: Multivitamin TABLET 1 TAB PO (08:16)
[2021-06-07] MEDS: Metoprolol Succinate ER 25 MG TAB.ER.24H PO (08:16)
[2021-06-07] MEDS: Tamsulosin HCL 0.4 MG CAPSULE PO (08:17)
[2021-06-07] MEDS: Atorvastatin Calcium 40 MG TABLET PO (08:17)
[2021-06-07] MEDS: methylPREDNISolone Sod Succ 125 MG/2 ML VIAL 60 MG IVPUSH ×2 (08:17→20:51)
[2021-06-07] MEDS: Acetaminophen 325 MG TABLET 650 MG PO (08:20)
--- NOTE | 2021-06-07 09:06 | P.PNIM_ITS ---
Subjective Subjective Date of Service: 06/07/21 Interval History: cc: sob interval history: notes sifnificant improvement, but not near baseline, normally able to do moderate activity (though with sob), now sob just talking Cardiovascular Cardiovascular: Reports no additional cardiovascular complaints Gastrointestinal Gastrointestinal: Reports no additional gastrointestinal complaints Physical Exam Vital Signs: Vital Signs: Last Vital Signs Temp 98.3 F 06/07/21 07:56 Pulse 81 06/07/21 07:56 Resp 21 H 06/07/21 07:56 BP 139/73 06/07/21 07:56 Pulse Ox 98 06/07/21 07:56 Oxygen Flow Rate 2 06/04/21 17:32 Body Mass Index 22.3 General: AO X 3, dyspneic Resp:? poor air movement, wheezing, accessory muscles used CVS: S1,S2,RRR GI: soft, non tender, non distended Neuro:? motor grossly intact, alert Psych: appropriate affect, appropriate insight? Objective Data Active Medications Acetaminophen (Acetaminophen 325 Mg Tablet) 650 mg PO Q6H PRN PRN Reason: Pain, Mild (Pain Scale 1-3) Last Admin: 06/07/21 08:20 Dose: 650 mg Documented by: JOSE Albuterol/Ipratropium (Albuterol/Iprat 2.5/0.5mg 3 Ml Ampul.Neb) 3 ml INHALE RQ4H WHILE AWAKE [facility] Last Admin: 06/07/21 07:41 Dose: 3 ml Documented by: KARLOS Albuterol/Ipratropium (Albuterol/Iprat 2.5/0.5mg 3 Ml Ampul.Neb) 3 ml INHALE RQ4H PRN PRN Reason: sob Last Admin: 06/05/21 02:38 Dose: 3 ml Documented by: BOO Atorvastatin Calcium (Atorvastatin Calcium 40 Mg Tablet) 40 mg PO DAILY [facility] Last Admin: 06/07/21 08:17 Dose: 40 mg Documented by: JOSE Azithromycin (Azithromycin 500 Mg Tablet) 500 mg PO DAILY [facility] Last Admin: 06/07/21 08:16 Dose: 500 mg Documented by: JOSE Enoxaparin Sodium (Enoxaparin Sodium 40 Mg/0.4 Ml Syringe) 40 mg SUBCUT Q24H [facility] Last Admin: 06/06/21 15:52 Dose: 40 mg Documented by: ALEJANDRA Fluticasone/Vilanterol (Fluticasone/Vilanterol 200/25 Blst.W.Dev) 1 puff INHALE DAILY [facility] Last Admin: 06/07/21 07:41 Dose: 1 puff Documented by: KARLOS Guaifenesin (Guaifenesin La 600 Mg Tab.Er.12h) 1,200 mg PO BID [facility] Last Admin: 06/07/21 08:16 Dose: 1,200 mg Documented by: JOSE Methylprednisolone Sodium Succinate (Methylprednisolone Sod Succ 125 Mg/2 Ml Vial) 60 mg IVPUSH Q12H [facility] Last Admin: 06/07/21 08:17 Dose: 60 mg Documented by: JOSE Metoprolol Succinate (Metoprolol Succinate Er 25 Mg Tab.Er.24h) 25 mg PO DAILY [facility]; Protocol Last Admin: 06/07/21 08:16 Dose: 25 mg Documented by: JOSE Morphine Sulfate (Morphine Sulfate 2 Mg/Ml Cartridge) 2 mg IVPUSH Q3H PRN; Protocol PRN Reason: sob Last Admin: 06/05/21 02:24 Dose: 2 mg Documented by: XAVIER Multivitamins/Vitamin C (Multivitamin Tablet) 1 tab PO DAILY [facility] Last Admin: 06/07/21 08:16 Dose: 1 tab Documented by: JOSE Non-Formulary Medication (Umeclidinium [Incruse Ellipta]) 1 inhalation INHALE DAILY [facility] Pharmacy Consult (Consult Rx Perform Med Rec) 1 each MISCELLANE ONCE PRN PRN Reason: Consult order Tamsulosin HCl (Tamsulosin Hcl 0.4 Mg Capsule) 0.4 mg PO DAILY [facility] Last Admin: 06/07/21 08:17 Dose: 0.4 mg Documented by: JOSE Labs CBC & Chem 7: 06/06/21 06:05 06/06/21 06:05 Microbiology Microbiology Results: Microbiology 06/04/21 15:19 Blood Culture - Preliminary Blood - Venous No growth after 48 hours. 06/04/21 15:08 Blood Culture - Preliminary Blood - Venous No growth after 48 hours. Assessment and Plan (1) COPD (chronic obstructive pulmonary disease): Status: Acute (2) Acute on chronic respiratory failure with hypoxemia: Status: Acute Assessment and Plan: 66M presented with sob sepsis due to copd exacerbation complicated by acute on chronic hypoxic respiratory failure (patient has o2 at home 2L, but doesnt always use) solumedrol, duonebs, inhaled steroids, azithro, morphine, wean o2 as tolerated reports some improvement, but still audibly wheezing, unable to talk fluently without stopping to catch breath and using accessory muscles hld statin htn toprol bph flomax dvt prophylaxis - lovenox full code Quality Stroke Does the patient have a stroke diagnosis?: No VTE Prior VTE?: No VTE Risk Level:: Medical - moderate - high VTE Device Contraindication: Treatment Not Indicated VTE Drug Contraindication: N/A - Med Ordered
[2021-06-07] MEDS: Enoxaparin Sodium 40 MG/0.4 ML SYRINGE SUBCUT (15:51)
[2021-06-08 04:29] LABS: Hematocrit 41.8 % (42-52); Hemoglobin 14.4 g/dl (14.0-18.0); Mean Corpuscular HGB Conc 34.4 g/dl (31.0-36.0); Mean Corpuscular Hemoglobin 28.9 pg (27.0-33.0); Mean Corpuscular Volume 83.8 fL (80-98); Mean Platelet Volume 9.6 fL (9.4-12.4); Platelet Count 257 X10*3/uL (160-400); Red Blood Count 4.99 X10*6/uL (4.60-5.80); Red Cell Distribution Width 13.1 % (11.0-16.0); White Blood Count 16.6 X10*3/uL (4.8-10.8)
[2021-06-08 04:52] LABS: Anion Gap 14 (12-20); Blood Urea Nitrogen 22 mg/dL (9-16); Calcium 9.1 mg/dL (8.4-10.2); Carbon Dioxide 30 mmol/L (22-29); Chloride 96 mmol/L (96-108); Creatinine Clr Calc Pharmacy 62.7; Estimated Glomerular Filt Rate > 60; Glucose Fasting 147 mg/dL (60-99); Potassium 4.5 mmol/L (3.3-5.1); Sodium 135 mmol/L (135-145)
[2021-06-08 07:29] VITALS: BP 154/86; PULSE 81; RESP 21; TEMP 36.3; O2SAT 93
[2021-06-08] MEDS: Atorvastatin Calcium 40 MG TABLET PO (07:29)
[2021-06-08] MEDS: methylPREDNISolone Sod Succ 125 MG/2 ML VIAL 60 MG IVPUSH (07:29)
[2021-06-08] MEDS: Tamsulosin HCL 0.4 MG CAPSULE PO (07:29)
[2021-06-08] MEDS: Multivitamin TABLET 1 TAB PO (07:29)
[2021-06-08] MEDS: guaiFENesin LA 600 MG TAB.ER.12H 1200 MG PO (07:29)
[2021-06-08] MEDS: Metoprolol Succinate ER 25 MG TAB.ER.24H PO (07:29)
[2021-06-08] MEDS: Azithromycin 500 MG TABLET PO (07:29)
--- NOTE | 2021-06-08 08:10 | PC.NURSE ---
Skin assessment completed. Patient has a bruise to bilateral upper extremities. Slight blanchable redness to buttocks. At this time no other skin issues noted.
[2021-06-08] MEDS: Albuterol/Iprat 2.5/0.5MG 3 ML AMPUL.NEB INHALE ×2 (08:52→11:44)
[2021-06-08] MEDS: Fluticasone/Vilanterol 200/25 BLST.W.DEV 1 PUFF INHALE (08:52)
[2021-06-08 08:54] VITALS: PULSE 98; O2SAT 93
[2021-06-08 11:46] VITALS: PULSE 100; O2SAT 94
--- NOTE | 2021-06-08 12:21 | PM.DS ---
DS: Providers Provider Date of Service: 06/08/21 Date of admission: 06/04/21 16:30 Date of discharge: 06/08/21 Primary care physician: Jarrell Morse MD DS: Diagnosis Discharge Diagnosis (1) COPD (chronic obstructive pulmonary disease): Status: Acute (2) Acute on chronic respiratory failure with hypoxemia: Status: Acute DS: Summary Hospital Course Hospital Course: This is a 46-year-old female with significant history of HIV who is not on any medications for the past 2 years presents to the hospital with complaints of headache.? Patient reports that her headache started about 10 days ago worsened in the past 3 days localized to the left temporal area, sharp, intermittent during the day and constant at night.? Associated with nausea but no vomiting, associated with photophobia.? Pain is 8/10. Patient denies having any chest pain, no shortness of breath, abdominal pain diarrhea constipation, no urinary symptoms and no lower extremity edema. On arrival to the ED patient vitals are significant for a temp of 98.4?, heart rate of 74, respiratory rate of 16, blood pressure of 103/71, satting 99% on room air Labs are significant for 3.7, hemoglobin of 11, ESR of 29, potassium of 3.2, labs otherwise unremarkable.? Had CT with contrast showed room enhancing lesions are seen in some of the areas of parenchymal edema.? Toxoplasmosis is a leading concern Hospital course Started on oral azithromycin/pulse dose steroids. Continued improved throughout hospital course and O2 was able to be titrated down to 2 liters/minute. At this point in time he has services and concentrator at home and wishes to be discharged. I believe he is medically stable for discharge to complete oral azithromycin and prednisone taper. Follow-up with PCP upon completion of therapies Time Spent with Patient Time attestation: Total time spent providing and/or coordinating discharge services: Discharge coordination time: Greater than 30 minutes Quality: Stroke Does the patient have a stroke diagnosis?: No Physical Exam Vital Signs: Vital Signs: Last Vital Signs Temp 97.4 F 06/08/21 07:29 Pulse 100 06/08/21 11:46 Resp 21 H 06/08/21 07:29 BP 154/86 H 06/08/21 07:29 Pulse Ox 93 06/08/21 07:29 Oxygen Flow Rate 2 06/04/21 17:32 Body Mass Index 22.3 Const: Other: No acute distress able speak in full sentences Resp: Other: Diminished at bases with scant expiratory wheezes throughout. Cardio: Other: No S4; positive S1-S2; no S3 murmurs of gallops GI: Other: Soft nontender nondistended with normoactive bowel sounds. Neuro: Other: Cranial nerves 2-12 grossly intact as tested. Motor 5/5 all extremities. Sensation is intact Extrem: Other: No edema bilaterally DS: Data Data Completed and Pending Labs on day of discharge: Laboratory Results - last 24 hr 06/08/21 06/08/21 04:18 04:18 WBC 16.6 H RBC 4.99 Hgb 14.4 Hct 41.8 L MCV 83.8 MCH 28.9 MCHC 34.4 RDW 13.1 Plt Count 257 MPV 9.6 Absolute Nucleated RBC 0.000 Nucleated RBC % (auto) 0.0 Sodium 135 Potassium 4.5 Chloride 96 Carbon Dioxide 30 H Anion Gap 14 BUN 22 H Creatinine 0.86 Estim Creat Clear Calc 62.7 Estimated GFR > 60 Fasting Glucose 147 H Calcium 9.1 Preliminary micro results at discharge 06/04/21 15:19 Blood Culture - Preliminary Blood - Venous No growth after 48 hours. 06/04/21 15:08 Blood Culture - Preliminary Blood - Venous No growth after 48 hours. Discharge Plan Discharge Patient Disposition: Home, Self-Care Discharge Diagnosis: COPD exacerbation Referrals: Jarrell Morse MD [Primary Care Provider] - 1 Week Discharge Medications: New ipratropium-albuterol 0.5 mg-3 mg(2.5 mg base)/3 mL Solution For Nebulization 3 ml inhalation RQ4H WHILE AWAKE Qty: 90 RF: 0 azithromycin 500 mg Tablet 500 mg PO DAILY Qty: 5 RF: 0 prednisone 10 mg tablet See Rx Instructions .Route .COMPLEX Qty: 45 RF: 0 Continued multivitamin Tablet 1 tab PO DAILY RF: 0 ipratropium-albuterol 0.5 mg-3 mg(2.5 mg base)/3 mL solution for nebulization 3 ml inhalation QID PRN (Reason: Wheezing) RF: 0 Incruse Ellipta 62.5 mcg/actuation blister with device 1 inh inhalation DAILY RF: 0 budesonide-formoterol [Symbicort] 160-4.5 mcg/actuation HFA aerosol inhaler 2 puff inhalation BID RF: 0 albuterol sulfate 90 mcg/actuation HFA aerosol inhaler 2 puff inhalation QID RF: 0 atorvastatin 40 mg tablet 40 mg PO DAILY RF: 0 metoprolol succinate 25 mg tablet extended release 24 hr 25 mg PO DAILY RF: 0 tamsulosin 0.4 mg capsule 0.4 mg PO DAILY RF: 0 Discharge Orders: Discharge Order (Routine); Ordered 06/08/21 Ordered By: Jimmy Carl Diet: advance to usual diet Activity on Discharge: As tolerated Stand Alone Forms: Patient Portal Discharge page Care Plan Goals: Maintain highest level of the of function Health Concerns: Titration of steroids Plan of Treatment: Resume home therapies Assessment: Improved
--- NOTE | 2021-06-08 13:32 | MHC.CM.PN ---
PATIENT IS DISCHARGED HOME- SELF CARE. HIS IS COMING IN TO PROVIDE TRANSPORT. IMM 06/07 IN CHART.
== END 2021-06-08 14:35 | disposition home or self-care (01) | DRG 871 ==
LOC: HO.ED 16:31 → HO.EDOVER 17:03 → HO.S3 19:54
PROVIDERS: Admitting Provider Internal Medicine; Emergency Provider Emergency Medicine; PCP Internal Medicine; Visit Provider Hospitalist
DX: A41.9 Sepsis, unspecified organism (principal); J96.21 Acute and chronic respiratory failure with hypoxia; J44.1 Chronic obstructive pulmonary disease with (acute) exacerbation; E87.1 Hypo-osmolality and hyponatremia; N40.0 Benign prostatic hyperplasia without lower urinary tract symptoms; E78.5 Hyperlipidemia, unspecified; Z91.14 Patient's other noncompliance with medication regimen; Z21 Asymptomatic human immunodeficiency virus [HIV] infection status; Z20.822 Contact with and (suspected) exposure to COVID-19; Z99.81 Dependence on supplemental oxygen; Z87.891 Personal history of nicotine dependence; Z79.899 Other long term (current) drug therapy
CPT/HCPCS: 36415; 71045; 80048; 80076; 82803; 82947; 83036; 83605; 83690; 83880; 84484; 85025; 85027; 87040; 87635; 93005; 94640; 94644; 99285; J0696; J1650; J2270; J2930; J3475

== ENCOUNTER → 2021-06-28 14:04 | Outpatient (BNVA) | payer MEDICARE, SELFPAY | PROVIDERS: PCP Internal Medicine; Visit Provider Hospitalist | DX: J84.9 Interstitial pulmonary disease, unspecified (principal); J44.9 Chronic obstructive pulmonary disease, unspecified; J96.11 Chronic respiratory failure with hypoxia | CPT/HCPCS: 99212 ==

== ENCOUNTER 2021-10-27 12:09 | Outpatient (REF) | payer MEDICARE, SELFPAY ==
[2021-10-27 12:57] LABS: Estimated Average Glucose 120 mg/dL; Hemoglobin A1c % 5.8 %
[2021-10-27 12:59] LABS: Alanine Aminotransferase 18 U/L (0-40); Albumin Level 4.3 g/dL (3.5-5.0); Alkaline Phosphatase 125 U/L (39-117); Aspartate Amino Transferase 31 U/L (5-37); Bilirubin Direct 0.3 mg/dL (0.0-0.5); Bilirubin Total 0.8 mg/dL (0.0-1.0); Cholesterol 133 mg/dL; Glucose Fasting 98 mg/dL (60-99); HDL Cholesterol 51 mg/dL; LDL Cholesterol Calculated 67 mg/dl; Total Protein 6.8 g/dL (6.5-8.0); Triglycerides 77 mg/dL
[2021-10-27 13:16] LABS: Reflex LDLD? No
== END 2021-10-27 12:10 | disposition home or self-care (01) ==
LOC: HO.LNP 12:09
PROVIDERS: Visit Provider Internal Medicine
DX: R73.03 Prediabetes (principal); E78.00 Pure hypercholesterolemia, unspecified
CPT/HCPCS: 80061; 80076; 82947; 83036

== ENCOUNTER → 2021-12-19 14:15 | Outpatient (BNVA) | payer MEDICARE, SELFPAY | PROVIDERS: PCP Internal Medicine; Visit Provider Hospitalist | DX: J84.9 Interstitial pulmonary disease, unspecified (principal); J44.9 Chronic obstructive pulmonary disease, unspecified; J96.11 Chronic respiratory failure with hypoxia | CPT/HCPCS: 99212 ==

== ENCOUNTER 2022-05-04 12:11 | Outpatient (REF) | payer MEDICARE, SELFPAY ==
[2022-05-04 12:15] LABS: MANUAL DIFF FLAG NO
[2022-05-04 12:24] LABS: Basophils Absolute Auto 0.1 X10*3/uL (0.0-0.2); Basophils Percent Auto 0.8 % (0-2); Eosinophils Absolute Auto 0.4 X10*3/uL (0.0-0.4); Eosinophils Percent Auto 4.1 % (0-4); Hematocrit 45.7 % (42.0-52.0); Hemoglobin 14.6 g/dl (14.0-18.0); Imm Gran Abs Auto 0.03 X10*3/uL (0.00-0.03); Imm Gran Pct Auto 0.3 % (0.0-0.4); Lymphocytes Absolute Auto 2.8 X10*3/uL (1.2-4.9); Lymphocytes Percent Auto 28.4 % (20-40); Mean Corpuscular HGB Conc 31.9 g/dl (31.0-36.0); Mean Corpuscular Hemoglobin 27.7 pg (27.0-33.0); Mean Corpuscular Volume 86.6 fL (80.0-98.0); Mean Platelet Volume 10.2 fL (9.4-12.4); Monocytes Absolute Auto 0.8 X10*3/uL (0.1-1.2); Monocytes Percent Auto 7.8 % (2-11); Neutrophils Absolute Auto 5.8 x10*3/uL (2.0-8.3); Neutrophils Percent Auto 58.6 % (45-73); Platelet Count 219 X10*3/uL (160-400); Red Blood Count 5.28 X10*6/uL (4.60-5.80); Red Cell Distribution Width 14.7 % (11.0-16.0); White Blood Count 9.9 X10*3/uL (4.8-10.8)
[2022-05-04 12:35] LABS: Alanine Aminotransferase 23 U/L (0-40); Albumin Level 4.4 g/dL (3.5-5.0); Alkaline Phosphatase 134 U/L (39-117); Anion Gap 14 (12-20); Aspartate Amino Transferase 32 U/L (5-37); Bilirubin Total 0.7 mg/dL (0.0-1.0); Blood Urea Nitrogen 19 mg/dL (9-16); Calcium 9.6 mg/dL (8.4-10.2); Carbon Dioxide 30 mmol/L (22-29); Chloride 99 mmol/L (96-108); Estimated Glomerular Filt Rate > 60; Glucose Fasting 94 mg/dL (60-99); Lipase 33 U/L (8-78); Potassium 4.6 mmol/L (3.3-5.1); Sodium 138 mmol/L (135-145); Total Protein 6.8 g/dL (6.5-8.0)
[2022-05-04 12:40] LABS: Appearance Urine Clear; Color Urine Yellow; Glucose Urine UA Negative (Negative); Leukocyte Esterase Urine Negative (Negative); Nitrite Urine Negative (Negative); PH 6.5 (5.0-9.0); Specific Gravity - Urine 1.015 (1.005-1.025); Urine Blood Negative (Negative); Urine Ketones Negative (Negative); Urine Protein Negative (Neg-Trace)
[2022-05-04 12:42] LABS: Bacteria Urine None Seen (None Seen); Estimated Average Glucose 120 mg/dL; Hemoglobin A1C 152.2689 umol/L; Hemoglobin A1c % 5.8 %; Hyaline Casts Urine 0-2 /LPF (0-2); RBC Urine 0-2 /HPF (0-2); Squamous Epithelial Cell Urine 0-2 /HPF (0-2); WBC Urine 0-5 /HPF (0-5)
[2022-05-04 12:55] LABS: PSA,Total (Free>4and<10) 2.92 ng/mL (0.00-4.00)
[2022-05-04 13:00] LABS: Creatinine Urine 73.19 mg/dL; Microalbumin Urine < 5.0 mg/L
== END 2022-05-04 12:12 | disposition home or self-care (01) ==
LOC: HO.LNP 12:11
PROVIDERS: Visit Provider Internal Medicine
DX: Z12.5 Encounter for screening for malignant neoplasm of prostate (principal); R73.03 Prediabetes; E78.00 Pure hypercholesterolemia, unspecified; I10 Essential (primary) hypertension; N40.0 Benign prostatic hyperplasia without lower urinary tract symptoms
CPT/HCPCS: 80053; 81001; 82043; 83036; 83690; 84153; 85025

== ENCOUNTER 2022-06-09 13:41 | Outpatient (REF) | payer MEDICARE, SELFPAY ==
--- NOTE | ~2022-06-09 | XR_ITS ---
EXAMINATION: XR HIP, LEFT CLINICAL INFORMATION: Left hip pain COMPARISON: None TECHNIQUE: Two views of the left hip. FINDINGS: Severe narrowing and osteophytosis of the left hip joint with subchondral cystic changes. No acute fracture or dislocation. 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
== END 2022-06-09 13:42 | disposition home or self-care (01) ==
LOC: HO.XRAY 13:41
PROVIDERS: PCP Internal Medicine; Visit Provider Internal Medicine
DX: M25.552 Pain in left hip (principal)
CPT/HCPCS: 73502

== ENCOUNTER → 2022-06-30 13:40 | Outpatient (BNVA) | payer MEDICARE, SELFPAY | PROVIDERS: PCP Internal Medicine; Visit Provider Hospitalist | DX: J43.9 Emphysema, unspecified (principal); J84.9 Interstitial pulmonary disease, unspecified; J96.11 Chronic respiratory failure with hypoxia; Z87.891 Personal history of nicotine dependence | CPT/HCPCS: 99212 ==

== ENCOUNTER 2022-07-11 | Outpatient (REF) | payer MEDICARE, SELFPAY ==
--- NOTE | ~2022-07-11 | XR_ITS ---
EXAMINATION: XR PELVIS CLINICAL INFORMATION: Pain. COMPARISON: 06/09/2022 TECHNIQUE: AP view of the pelvis. FINDINGS: Degenerative change at the lower lumbosacral spine level. The SI joints are patent. Degenerative change along the greater trochanters of the hips. The left hip show significant near-total loss of joint space superiorly and marginal osteophytes are present. The femoral head contour is fairly smooth. More [id number] degeneration in the right hip articulation. XR/XR pelvis 1-2V IMPRESSION: Degenerative changes as described. No acute finding. Once again significant degeneration left hip
== END 2022-07-11 00:01 ==
LOC: HO.HOSX
PROVIDERS: Visit Provider Physician Assistant
DX: M16.12 Unilateral primary osteoarthritis, left hip (principal)
CPT/HCPCS: 72170; 99202

== ENCOUNTER 2022-10-30 11:22 | Outpatient (REF) | payer MEDICARE, SELFPAY ==
[2022-10-30 12:46] LABS: Estimated Average Glucose 123 mg/dL; Hemoglobin A1C 150.5957 umol/L; Hemoglobin A1c % 5.9 %
[2022-10-30 13:25] LABS: Alanine Aminotransferase 16 U/L (0-40); Albumin Level 4.3 g/dL (3.5-5.0); Alkaline Phosphatase 135 U/L (39-117); Aspartate Amino Transferase 28 U/L (5-37); Bilirubin Direct 0.3 mg/dL (0.0-0.5); Bilirubin Total 1.2 mg/dL (0.0-1.0); Cholesterol 141 mg/dL; Glucose Fasting 91 mg/dL (60-99); HDL Cholesterol 48 mg/dL; LDL Cholesterol Calculated 81 mg/dl; Total Protein 6.5 g/dL (6.5-8.0); Triglycerides 64 mg/dL
[2022-10-30 13:56] LABS: Reflex LDLD? No
== END 2022-10-30 11:23 | disposition home or self-care (01) ==
LOC: HO.LNP 11:22
PROVIDERS: Visit Provider Internal Medicine
DX: R73.09 Other abnormal glucose (principal); E78.00 Pure hypercholesterolemia, unspecified
CPT/HCPCS: 80061; 80076; 82947; 83036

== ENCOUNTER → 2022-12-28 13:43 | Outpatient (BNVA) | payer MEDICARE, SELFPAY | PROVIDERS: PCP Internal Medicine; Visit Provider Hospitalist | DX: J96.11 Chronic respiratory failure with hypoxia (principal); J84.9 Interstitial pulmonary disease, unspecified; J44.9 Chronic obstructive pulmonary disease, unspecified; I10 Essential (primary) hypertension; Z87.891 Personal history of nicotine dependence | CPT/HCPCS: 99212 ==

== ENCOUNTER 2023-03-08 13:01 | Outpatient (AMB) | payer MEDICARE, SELFPAY ==
--- NOTE | 2023-03-08 13:21 | MHC.OFFVIS ---
Intake Vital Signs 03/08/23 13:23 Height 5 ft 10 in Weight 147 lb 11.355 oz BMI 21.2 BP 160/82 H Blood Pressure Location Lt brachial Position Sitting Pulse 63 Intake Visit Reasons: NPV/pre op/ DrTania Brothers/hip replacement Intake Note: NPV w/ EKG Guest Associate Required: No Accompanied by: Spouse Allergies No Known Allergies [No Known Allergies*] Allergy (Verified 03/08/23 13:26) Medication List - Last Reconciled 03/08/23 by Demetrius Zamora MD albuterol sulfate 90 mcg/actuation 2 puffs inhalation QID aspirin 81 mg PO DAILY atorvastatin 40 mg PO DAILY betamethasone dipropionate 0.05% 1 appl topical BID budesonide-formoterol 160-4.5 mcg/actuation (Symbicort) 2 puffs inhalation BID celecoxib 200 mg PO DAILY ipratropium-albuterol 0.5 mg-3 mg(2.5 mg base)/3 mL 3 mL inhalation RQ4H WHILE AWAKE lorazepam 0.5 mg PO DAILY PRN metoprolol succinate ER 25 mg PO DAILY multivitamin 1 tab PO DAILY nebulizers As directed tamsulosin 0.4 mg PO DAILY umeclidinium 62.5 mcg/actuation (Incruse Ellipta) 1 inh inhalation DAILY walker Folding front wheeled walker HPI HPI Comments History of Present Illness Details Rafael is here for consultation regarding preoperative risk stratification for hip surgery. We have seen him in consultation in the hospital in 2019. He has a history of COPD. In the , he apparently had cardiac arrest that led to catheterization. Unknown findings. 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 Overall, he is doing okay. No clear-cut angina within limits of his daily activity. Listed to have many comorbidities including COPD. Blood pressure is on the higher side today. [facility] Medical History (Updated 03/08/23 @ 13:44 by Demetrius Zamora MD) Atherosclerotic cardiovascular disease BPH (benign prostatic hyperplasia) Chronic respiratory failure COPD (chronic obstructive pulmonary disease) HLD (hyperlipidemia) HTN (hypertension) ILD (interstitial lung disease) Family History Sister Cancer Social History Household Members: Spouse Housing: House Do you presently have visiting nurse or other home services: No Alcohol intake: never Patient Tobacco Use Status: Former Tobacco user Tobacco use type: Cigarette Years Smoked: 30 yrs Second Hand Smoke Exposure: No Current occupational status: retired Review of Systems Const Denies chills, Denies daytime sleepiness, Denies fatigue, Denies fever(s), Denies frequent falls, Denies night sweats, Denies snoring, Denies weakness, Denies weight gain and Denies weight loss Eyes Denies loss of vision ENT Denies dizziness and Denies hearing loss Card Denies chest pain, Denies chest pain with activity, Denies syncope, Denies rapid heart rate, Denies edema, Denies claudication, Denies leg edema, Denies lightheadedness, Denies palpitations, Denies dyspnea, Denies dyspnea on exertion and Denies orthopnea Resp Denies cough, Denies excessive phlegm production, Denies dyspnea, Denies dyspnea on exertion, Denies snoring and Denies wheezing GI Denies abdominal pain, Denies hematochezia, Denies change in bowel habits, Denies change in stool character, Denies heartburn, Denies nausea and Denies vomiting Denies hematuria, Denies dysuria and Denies urinary frequency Musc Denies arthralgias, Denies muscle weakness, Denies numbness and Denies tingling Skin/Breast Denies nail changes and Denies rash Neuro Denies Abnormal speech present, Denies dizziness, Denies syncope, Denies frequent falls, Denies loss of vision, Denies memory loss, Denies numbness, Denies tingling and Denies weakness Psych Denies depression and Denies memory loss Endo Denies fatigue and Denies palpitations Aller/Immun Denies wheezing Physical Exam Vital Signs: Last Vital Signs Pulse 63 03/08/23 13:23 BP 160/82 H 03/08/23 13:23 BMI result Body Mass Index 21.2 Const General: comfortable and no acute distress Orientation/consciousness: patient oriented x3 HEENT Other: Unremarkable Head: Yes normal to inspection Neck Neck: Yes normal visual inspection Chest Chest palpation & inspection: normal inspection of the chest Resp Auscultation: rhonchi Cardio Other: Distant heart sounds and very difficult to listen for murmurs. Possibly from COPD. GI Palpation (GI): Soft to palpation Back/Spine/Pelvis Other: unremarkable Skin General skin exam: no rashes or lesions noted Neuro General: patient oriented x3 Speech: No Abnormal speech present Extrem General: Yes normal to inspection Psych Mental Status: mental status grossly normal Office Procedures EKG Details: EKG with sinus rhythm at 63/Min; PA prolongation to 334 millisecond; [place]. [address]-[id number], Complete Assessment & Plan Assessment & Plan (1) Preoperative cardiovascular examination: Code(s): Z01.810 - Encounter for preprocedural cardiovascular examination (2) Atherosclerotic cardiovascular disease: Code(s): I25.10 - Atherosclerotic heart disease of [place] coronary artery without angina pectoris (3) Non-rheumatic aortic stenosis: Code(s): I35.0 - Nonrheumatic aortic (valve) stenosis Plan In the last echocardiogram from 2019, LVEF about 50%. Difficult to assess wall motion but thought to have basal to mid inferior septal akinesis. Probable mild aortic stenosis. Moderate mitral annular calcification mild pulmonary hypertension. We need to repeat his echocardiogram for assessing LVEF/wall motion as well as the aortic stenosis again as it has been a few years. Following this, may need a diagnostic catheterization. To be decided. With regard to his medications, we will stop the beta-blockers as he already has fairly prolonged PA interval. Blood pressure is high today. The last few blood pressures are okay. Will need to be followed and may need meds for this. Discussed with significant other who came for appointment. Orders: Orders CA echo transthorac w con Today I25.10 - Atherosclerotic heart disease of [place] coronary artery without angina pectoris, I35.0 - Nonrheumatic aortic (valve) stenosis Coding Level of Care Code New Pt Level 4 (77549) Diagnoses Preoperative cardiovascular examination Z01.810 Atherosclerotic cardiovascular disease I25.10 Non-rheumatic aortic stenosis I35.0 CPT Codes EKG - CPT: 95445-[id number], Complete ([id number])
[2023-03-08 13:23] VITALS: BP 160/82; PULSE 63; BMI 21.2
== END 2023-03-08 14:00 | disposition home or self-care (01) ==
PROVIDERS: PCP Internal Medicine; Visit Provider Internal Medicine
DX: Z01.810 Encounter for preprocedural cardiovascular examination (principal); I25.10 Atherosclerotic heart disease of native coronary artery without angina pectoris; I35.0 Nonrheumatic aortic (valve) stenosis
CPT/HCPCS: 93010; 93306; 99204

== ENCOUNTER → 2023-03-08 13:01 | Outpatient (BNVA) | payer MEDICARE, SELFPAY | PROVIDERS: PCP Internal Medicine; Visit Provider Internal Medicine ==

== ENCOUNTER → 2023-03-08 14:05 | Outpatient (REF) | payer MEDICARE, SELFPAY ==
--- NOTE | 2023-03-08 14:24 | CA_ITS ---
Transthoracic Echocardiogram Patient (Last, First, Middle): Rafael Franco H Gender: Male Date of : 1935 Age: 87 Procedure Date: 03/08/2023 Procedure Type: Transthoracic Echocardiogram Location: OP Height: 177.8 cm Weight: 65.77 kg BSA: 1.82 m2 Heart Rate: bpm BP: 140 / 76 mmHg Pelt Dropper: YUMIKO Referring MD: Demetrius Zamora MD Symptoms: I25.10 - Atherosclerotic heart disease of [place] coronary artery without... Study Quality: Fair/Contrast ECG Rhythm: Sinus with first degree HB Conclusions: - The left ventricular systolic function is moderately decreased. The visually estimated ejection fraction is between 35-40%. - The basal inferior, mid inferior, basal anteroseptal, and mid anteroseptal segments are akinetic. - The inferoseptal wall is dyskinetic. - Paradoxical low-flow, low gradient, severe aortic stenosis. Findings Procedure Information Contrast agent, definity, is being given per protocol without apparent complications. Left Ventricle Normal left ventricular cavity size. There is normal left ventricular wall thickness. The left ventricular systolic function is moderately decreased. The visually estimated ejection fraction is between 35-40%. There is evidence of regional wall motion abnormalities. Evidence suggests grade I (mild) diastolic dysfunction. Wall Motion Rest Echo Findings The basal inferior, mid inferior, basal anteroseptal, and mid anteroseptal segments are akinetic. The inferoseptal wall is dyskinetic. Right Ventricle Normal right ventricular cavity size. There is low normal right ventricular systolic function. Atria The left atrium is normal in size. The right atrium is mildly dilated. Aortic Valve The aortic valve was not well visualized. There is moderate calcification of the aortic valve. The peak aortic gradient is 17 mmHg.The mean gradient is 9 mmHg. The aortic valve area is 0.84 cm2. Dimensionless index 0.84. Stroke volume index 24ml/m2. Paradoxical low-flow, low gradient, severe aortic stenosis. Mitral Valve There is mild mitral annular calcification. There is trace mitral valve regurgitation. There is no mitral valve stenosis. Pulmonic Valve The pulmonic valve is likely normal. Tricuspid Valve Normal tricuspid valve structure. There is mild tricuspid valve regurgitation. Mild pulmonary hypertension is present. Great Vessels The asc aorta is normal in size. Venous The inferior vena cava is mildly dilated and collapses greater than 50% with inspiration. Pericardium/Pleural There is no evidence of pericardial effusion. Prior Study Comparison Changes noted compared to prior study dated: 08/11/2019. LVEF lower. Progression of aortic stenosis. Measurements 2D Linear Measurements IVSd: 0.93 0.6-0.9/0.6-1.0 cm LVIDd: 4.61 3.9-5.3/4.2-5.9 cm LVIDd Index: 2.53 2.4-3.2/2.2-3.1 cm/m2 LVIDs: 3.46 2.0-3.6 cm LVPWd: 0.88 0.7-1.1 cm LA Diam: 3.10 2.7-3.8/3.0-4.0 cm LAIDs Index: 1.70 1.5-2.3 cm/m2 LV Mass: 173.43 67-162/88-224 g LV Mass Index: 95.29 43-95/49-115 g/m2 LVOT Diam: 2.00 3.0+(-)1.3 cm 2D Systolic Function EF 4C: 40.20 >55% Mitral Valve MV VTI: 0.36 MV Pk Jax: 1.01 MV Mn Jax: 0.65 MV Pk Grad: 4.00 MV Mn Grad: 2.00 MV Pk E: 0.69 MV PK A: 0.96 MV Decel Time: 202.00 E/A: 0.70 E'Lateral: 6.96 E'Medial: 5.22 E/E' Med: 13.20 E/E' Lat: 9.90 PHT: 59.00 MVA PHT: 3.73 MVA Continuity: 1.23 Decel [place]: 3.42 Aortic Valve AoV Pk Jax: 2.09 AoV Mn Jax: 1.39 AoV VTI: 0.53 AoV Pk Grad: 17.00 Aov Mn Grad: 9.00 JOHN Cont.VTI: 0.84 LVOT LVOT Pk Jax: 0.56 LVOT Mn Jax: 0.40 LVOT VTI: 0.14 LVOT Pk Grad: 1.00 LVOT Mn Grad: 1.00 LVOT Diam: 2.00 LVOT Area: 3.14 Diastolic Function MV Pk E: 0.69 MV Pk A: 0.96 E/A: 0.70 E'Medial: 5.22 E/E' Med: 13.20 E' Laterial: 6.96 E/E' Lat: 9.90 Right Ventricle TAPSE (mm): 18.40 TVS' Jax: 10.30 Tricuspid Valve TR Pk Jax: 2.75 TR Pk Grad: 30.00 RA Press: 8.00 RVSP: 38.00 Great Vessels Aorta Sinus of Valsalva: 3.58 2.0-3.[address] [place]: 2.60 1.7-3.4 cm Ao Asc: 3.20 2.1-3.4 cm Updated in Other Vendor System with Status of Final Demetrius Zamora MD electronically signed on 03/08/2023 4:55:46 PM with status of Final
== END ==
LOC: HO.CARD 14:05
PROVIDERS: PCP Internal Medicine; Visit Provider Internal Medicine
DX: I25.10 Atherosclerotic heart disease of native coronary artery without angina pectoris (principal); I35.0 Nonrheumatic aortic (valve) stenosis
CPT/HCPCS: 93005; 93306; 99202; Q9957

== ENCOUNTER 2023-03-16 10:38 | Outpatient (REF) | payer MEDICARE, SELFPAY ==
[2023-03-16 13:34] LABS: INTERNATIONAL NORM RATIO 1.1 (0.9-1.1); Prothrombin Time 12.9 SEC (11.1-13.3)
[2023-03-16 13:44] LABS: Hematocrit 42.6 % (42.0-52.0); Hemoglobin 13.9 g/dl (14.0-18.0); Mean Corpuscular HGB Conc 32.6 g/dl (31.0-36.0); Mean Corpuscular Volume 88.9 fL (80.0-98.0); Mean Platelet Volume 10.3 fL (9.4-12.4); Platelet Count 220 X10*3/uL (160-400); Red Blood Count 4.79 X10*6/uL (4.60-5.80); Red Cell Distribution Width 12.9 % (11.0-16.0); White Blood Count 9.6 X10*3/uL (4.8-10.8)
[2023-03-16 13:52] LABS: Anion Gap 13 (12-20); Blood Urea Nitrogen 21 mg/dL (9-16); Calcium 9.2 mg/dL (8.4-10.2); Carbon Dioxide 27 mmol/L (22-29); Chloride 100 mmol/L (96-108); Estimated Glomerular Filt Rate > 60; Glucose Random 137 mg/dL (60-115); Potassium 4.1 mmol/L (3.3-5.1); Sodium 136 mmol/L (135-145)
== END 2023-03-16 10:39 | disposition home or self-care (01) ==
LOC: HO.HMGCLDS 10:38
PROVIDERS: PCP Internal Medicine; Visit Provider Internal Medicine
DX: I25.10 Atherosclerotic heart disease of native coronary artery without angina pectoris (principal)
CPT/HCPCS: 36415; 80048; 85027; 85610

== ENCOUNTER → 2023-03-27 23:59 | Outpatient (BNV) | payer MEDICARE, SELFPAY | PROVIDERS: PCP Internal Medicine; Visit Provider Internal Medicine Cardiovascular Disease | DX: I50.20 Unspecified systolic (congestive) heart failure (principal); Z01.810 Encounter for preprocedural cardiovascular examination | CPT/HCPCS: 93460; 93566; 99152 ==

== ENCOUNTER 2023-04-04 10:18 | Outpatient (AMB) | payer MEDICARE, SELFPAY ==
[2023-04-04 10:42] VITALS: BP 140/74; PULSE 82; O2SAT 96; BMI 21.2
--- NOTE | 2023-04-04 10:42 | A.OFFVIS_ITS ---
Intake Vital Signs 04/04/23 10:42 Height 5 ft 10 in Weight 148 lb BMI 21.2 BP 140/74 H Pulse 82 Pulse Source Pulse Oximeter Pulse Oximetry (%) 96 Oxygen Delivery Method Room Air Intake Visit Reasons: [facility] - 05/03 Densitometer Reader Required: No Clinical Data Research: Clinical Data Research offered & declined Accompanied by: Spouse Allergies No Known Allergies [No Known Allergies*] Allergy (Verified 04/04/23 10:48) Medication List - Last Reconciled 04/04/23 by Missy Winslow, [employer] albuterol sulfate 90 mcg/actuation 2 puffs inhalation QID aspirin 81 mg PO DAILY atorvastatin 40 mg PO DAILY betamethasone dipropionate 0.05% 1 appl topical BID budesonide-formoterol 160-4.5 mcg/actuation (Symbicort) 2 puffs inhalation BID celecoxib 200 mg PO DAILY ipratropium-albuterol 0.5 mg-3 mg(2.5 mg base)/3 mL 3 mL inhalation RQ4H WHILE AWAKE lorazepam 0.5 mg PO DAILY PRN multivitamin 1 tab PO DAILY nebulizers As directed tamsulosin 0.4 mg PO DAILY umeclidinium 62.5 mcg/actuation (Incruse Ellipta) 1 inh inhalation DAILY walker Folding front wheeled walker HPI [facility] - 05/03 HPI Details Rafael is a very pleasant 87 year old male, former smoker, followed for severe COPD, interstitial lung disease, chronic respiratory failure and supplemental oxygen 2 L NOC. He reports his symptoms are well controlled on Incruse, Symbicort, duonebs and albuterol MDI. He reports dyspnea on exertion at baseline and intermittent productive cough with white sputum. He denies any wh eezing or chest tightness. He denies any recent respiratory infections. Today he presents for preoperative pulmonary evaluation for proposed left hip replacement scheduled on 05/03/[address] Sullivan at [facility] Medical History (Updated 04/04/23 @ 11:16 by Trang Peralta NP) Atherosclerotic cardiovascular disease BPH (benign prostatic hyperplasia) Chronic respiratory failure COPD (chronic obstructive pulmonary disease) HLD (hyperlipidemia) HTN (hypertension) ILD (interstitial lung disease) Family History Sister Cancer Social History (Updated 04/04/23 @ 10:47 by Missy Winslow LPN) Household Members: Spouse Housing: House Do you presently have visiting nurse or other home services: No Alcohol intake: never Patient Tobacco Use Status: Former Tobacco user Tobacco use type: Cigarette Years Smoked: 30 yrs Smoked in Last 30 Days: No Second Hand Smoke Exposure: No Current occupational status: retired Review of Systems Const Denies chills, Denies excessive sweating, Denies fever(s), Denies headache(s) and Denies night sweats Eyes Denies dry eyes, Denies irritation and Denies itchy eyes ENT Reports Normal hearing present, Denies headache(s), Denies nasal congestion, Denies nasal discharge, Denies post nasal drip and Denies sore throat Card Denies chest pain, Denies chest pain at rest, Denies chest pain with activity, Denies claudication, Denies leg edema, Denies orthopnea and Denies paroxysmal nocturnal dyspnea Resp Denies chest congestion, Denies excessive phlegm production, Denies pain on inspiration, Denies pain with cough, Denies stridor and Denies wheezing Neuro Reports Normal hearing present and Denies headache(s) Endo Denies excessive sweating Trevor/Lymph Denies lymphadenopathy Aller/Immun Denies itchy eyes, Denies seasonal rhinorrhea and Denies wheezing Physical Exam Vital Signs: Last Vital Signs Pulse 82 04/04/23 10:42 BP 140/74 H 04/04/23 10:42 Pulse Ox 96 04/04/23 10:42 Oxygen Delivery Method Room Air 04/04/23 10:42 BMI result Body Mass Index 21.2 Const General: cooperative, healthy appearing, comfortable, no acute distress, well developed and alert Orientation/consciousness: patient oriented x3 Limitations: ambulation with cane HEENT Head: Yes normal to inspection, Yes normocephalic and Yes atraumatic Ears: hearing grossly normal bilaterally and external ears normal Eyes General: appearance normal, both eyes and all related structures Eyelids: Yes eyelids normal Sclerae: sclerae normal EOM: EOMs intact bilaterally Neck Neck: Yes normal visual inspection and Yes no lymphadenopathy Lymphatic: no lymphadenopathy noted Chest Chest palpation & inspection: normal inspection of the chest Resp Effort & Inspection: normal respiratory effort, able to speak in complete sentences, no audible wheezes, no cough, no stridor, not tachypneic, no tripod positioning and no use of accessory muscles Auscultation: no crackles, no rhonchi, no wheezes and diminished lung sounds Cardio Jugular venous distension: no JVD Rate: regular rate Rhythm: regular rhythm Skin Other: warm, dry General skin exam: no rashes or lesions noted Neuro General: patient oriented x3 Cranial nerves: Yes Normal hearing present Cognition (Neuro): normal cognition Extrem General: Yes normal to inspection, Yes capillary refill normal, Yes no clubbing, cyanosis or edema and Yes no pedal edema Psych Appearance: grossly normal and well kempt Speech and movement: Normal speech and movement present and Clear speech present Affect: normal affect Attitude: cooperative Thought process: Normal thought process present Thought content: Normal thought content present Insight: Good insight present (Psych) Judgement: Good judgement present (Psych) Office Procedures 6 Minute Walk Time:: 11:15 SPO2 % at rest: 96 Pulse at rest: 83 SPO2 % during excercise: 89 Pulse during excercise: 110 SPO2 % after excercise: 91 Pulse after excercise: 98 Distance in yards walked: 150 Sarah Beth Score: 8 Performance Observations:: Patient walked on level ground using a cane for 150 yards. O2 saturation decreased to 89% with pulse of 110. Patient reports shortness of breath and alot of effort with walking which is worsened due to hip discomfort. 45559 - 6 Minute Walk Results Reviewed Results Reviewed: Assessment & Plan Assessment & Plan (1) Encounter for preoperative pulmonary examination: Code(s): Z01.811 - Encounter for preprocedural respiratory examination (2) COPD (chronic obstructive pulmonary disease): Code(s): J44.9 - Chronic obstructive pulmonary disease, unspecified (3) ILD (interstitial lung disease): Code(s): J84.9 - Interstitial pulmonary disease, unspecified (4) Chronic respiratory failure: Code(s): J96.10 - Chronic respiratory failure, unspecified whether with hypoxia or hy percapnia Qualifiers: Respiratory failure complication: hypoxia Qualified Code(s): J96.11 - Chronic respiratory failure with hypoxia (5) Nocturnal hypoxemia: Code(s): G47.34 - Idiopathic sleep related nonobstructive alveolar hypoventilation Plan Rafael presents for preoperative pulmonary evaluation. He reports dyspnea with moderate exertion and intermittent productive cough with white sputum at baselin e. Encouraged patient to use duoneb BID, as long as he can tolerate side effects and increase symbicort to BID. 6MWT was performed and his oxygen saturation did decrease to 89% and max heart rate of 110. He does use 2L of oxygen at [facility], otherwise does not require supplemental oxygen. Will send for overnight oximetry on 2L. Advised patient to maintain oxygen saturation of 90-92% postoperatively and encouraged deep breathing exercises as well as use of incentive spirometer. Secondary to patient's advanced COPD with severe decrease in diffusion capacity he is at high-risk for pulmonary perioperative complications including, but not limited to prolonged ventilatory support, for the proposed left hip arthroplasty with Dr. Sullivan. Consider use of bronchodilators in the perioperative period. Will follow up with Dr. Valdovinos for his regularly scheduled appointment in June or sooner if needed. Orders: Orders AMB 6 minute walk Today J44.9 - Chronic obstructive pulmonary disease, unspecified Coding Level of Care Code Est Pt Level 4 (18943) Diagnoses Encounter for preoperative pulmonary examination Z01.811 COPD (chronic obstructive pulmonary disease) J44.9 ILD (interstitial lung disease) J84.9 Chronic respiratory failure J96.11 Respiratory failure complication: hypoxia Nocturnal hypoxemia G47.34 CPT Codes Coding ([id number])
[2023-04-04 11:39] VITALS: PULSE 83; O2SAT 96
== END 2023-04-04 11:48 | disposition home or self-care (01) ==
PROVIDERS: PCP Internal Medicine; Visit Provider Nurse Practitioner Family
DX: Z01.811 Encounter for preprocedural respiratory examination (principal); J44.9 Chronic obstructive pulmonary disease, unspecified; J84.9 Interstitial pulmonary disease, unspecified; J96.11 Chronic respiratory failure with hypoxia; G47.34 Idiopathic sleep related nonobstructive alveolar hypoventilation
CPT/HCPCS: 94618; 99214

== ENCOUNTER → 2023-04-04 10:18 | Outpatient (BNVA) | payer MEDICARE, SELFPAY | PROVIDERS: PCP Internal Medicine; Visit Provider Nurse Practitioner Family | DX: J96.11 Chronic respiratory failure with hypoxia (principal); J44.9 Chronic obstructive pulmonary disease, unspecified; J84.9 Interstitial pulmonary disease, unspecified; G47.34 Idiopathic sleep related nonobstructive alveolar hypoventilation; Z87.891 Personal history of nicotine dependence | CPT/HCPCS: 94618; 99212 ==

== ENCOUNTER 2023-04-09 16:25 | Outpatient (AMB) | payer MEDICARE, SELFPAY ==
--- NOTE | 2023-04-09 16:45 | AM.OFFWIN_ITS ---
Intake Vital Signs 04/09/23 16:50 Height 5 ft 10 in Weight 149 lb BMI 21.4 BP 142/78 H Blood Pressure Location Rt brachial Position Sitting Pulse 68 Pulse Source Pulse Oximeter Temp 97.9 F Temp Source Temporal Artery Scan Pulse Oximetry (%) 97 Oxygen Delivery Method Room Air Intake Visit Reasons: EP, unable to pull out Left hearing aid Intake Note: pt is here for c/o hearing aid stuck in left ear Patient Tobacco Use Status: Former Tobacco user Allergies No Known Allergies [No Known Allergies*] Allergy (Verified 04/09/23 16:47) Do you need a note to return to daycare/school/sports/work: No HPI EP, unable to pull out Left hearing aid HPI Details 87-year-old male presents to the office for a sick visit. He has a piece of his hearing aid in the left ear canal stuck. [facility] Medical History (Updated 04/10/23 @ 09:13 by Armando French MD) Atherosclerotic cardiovascular disease BPH (benign prostatic hyperplasia) Chronic respiratory failure COPD (chronic obstructive pulmonary disease) HLD (hyperlipidemia) HTN (hypertension) ILD (interstitial lung disease) Family History Sister Cancer Social History (Updated 04/04/23 @ 10:47 by Missy Winslow LPN) Household Members: Spouse Housing: House Do you presently have visiting nurse or other home services: No Alcohol intake: never Patient Tobacco Use Status: Former Tobacco user Tobacco use type: Cigarette Years Smoked: 30 yrs Second Hand Smoke Exposure: No Current occupational status: retired Physical Exam Vital Signs: Last Vital Signs Temp 97.9 F 04/09/23 16:50 Pulse 68 04/09/23 16:50 BP 142/78 H 04/09/23 16:50 Pulse Ox 97 04/09/23 16:50 Oxygen Delivery Method Room Air 04/09/23 16:50 BMI result Body Mass Index 21.4 HEENT Other: Left ear: Ear canal: Plastic cup visualized. Office Procedures Foreign Body Removal Details: Left ear canal: Cup of the hearing aid in the ear canal. Using a pair of forceps and a flashlight, the hearing cup was removed. Patient tolerated the procedure well. 17109-Xiwzikc body removal, simple 84233 - Foreign body removal, external auditory canal Procedure code (CPT) selection complete Assessment & Plan Assessment & Plan (1) Foreign body in left ear, initial encounter: Code(s): T16.2XXA - Foreign body in left ear, initial encounter Plan: Patient tolerated the procedure well. Orders: Orders AMB Removal of foreign body Today T16.2XXA - Foreign body in left ear, initial encounter Coding Level of Care Code Est Pt Level 3 (45393) Diagnoses Foreign body in left ear, initial encounter T16.2XXA CPT Codes Details - Foreign body simple: 44475-Vwvusqy body removal, simple ([id number])
[2023-04-09 16:50] VITALS: BP 142/78; PULSE 68; TEMP 36.6; O2SAT 97; BMI 21.4
== END 2023-04-09 17:04 | disposition home or self-care (01) ==
PROVIDERS: PCP Internal Medicine; Visit Provider Internal Medicine
DX: T16.2XXA Foreign body in left ear, initial encounter (principal)
CPT/HCPCS: 99213

== ENCOUNTER 2023-04-12 12:44 | Outpatient (AMB) | payer MEDICARE, SELFPAY ==
[2023-04-12 12:47] VITALS: BP 142/60; PULSE 80; BMI 20.9
--- NOTE | 2023-04-12 12:47 | MHC.OFFVIS ---
Intake Vital Signs 04/12/23 12:47 Height 5 ft 10 in Weight 145 lb 8.081 oz BMI 20.9 BP 142/60 H Blood Pressure Location Lt brachial Position Sitting Pulse 80 Pulse Source Pulse Oximeter Intake Visit Reasons: Follow up post cardiac cath Intake Note: f/up after cath Community Arts Officer Required: No Allergies No Known Allergies [No Known Allergies*] Allergy (Verified 04/12/23 12:54) Medication List - Last Reconciled 04/12/23 by Nhung Nelson TIE IN MACHINE OPERATOR-C albuterol sulfate 90 mcg/actuation 2 puffs inhalation QID aspirin 81 mg PO DAILY atorvastatin 40 mg PO DAILY betamethasone dipropionate 0.05% 1 appl topical BID budesonide-formoterol 160-4.5 mcg/actuation (Symbicort) 2 puffs inhalation BID celecoxib 200 mg PO DAILY ipratropium-albuterol 0.5 mg-3 mg(2.5 mg base)/3 mL 3 mL inhalation RQ4H WHILE AWAKE lisinopril 5 mg PO DAILY lorazepam 0.5 mg PO DAILY PRN multivitamin 1 tab PO DAILY nebulizers As directed tamsulosin 0.4 mg PO DAILY umeclidinium 62.5 mcg/actuation (Incruse Ellipta) 1 inh inhalation DAILY walker Folding front wheeled walker HPI Follow up post cardiac cath HPI Details Rafael is an 87-year-old male with past medical history of hypertension, hyperlipidemia, COPD, remote cardiac arrest 1989, aortic stenosis who presents for follow-up after recent echocardiogram and cardiac catheterization. He is also preop for hip replacement surgery. Today he reports he has been doing well since his cardiac catheterization procedure. His right radial catheterization site feels good. He does not get chest discomfort at rest or with activity. His chronic shortness of breath with activity which he relates to his COPD. He has not had any recent changes to this symptom. He denies PND, orthopnea or edema. He has an intermittent chronic cough in the daytime. No dizziness, presyncope, syncope, falls. Takes his medications as directed. is present. Tells me that his hip surgery is scheduled for 05/03/2023 [facility] Medical History Atherosclerotic cardiovascular disease BPH (benign prostatic hyperplasia) Chronic respiratory failure COPD (chronic obstructive pulmonary disease) HLD (hyperlipidemia) HTN (hypertension) ILD (interstitial lung disease) Family History Sister Cancer Social History Household Members: Spouse Housing: House Do you presently have visiting nurse or other home services: No Alcohol intake: never Patient Tobacco Use Status: Former Tobacco user Tobacco use type: Cigarette Years Smoked: 30 yrs Second Hand Smoke Exposure: No Current occupational status: retired Review of Systems Const All systems reviewed & are unremarkable except as noted in HPI and below Card Reports dyspnea and Reports dyspnea on exertion Resp Reports cough, Reports dyspnea and Reports dyspnea on exertion Musc Details: uses cane. hip pain with walking Reports abnormal gait Neuro Reports abnormal gait Physical Exam Vital Signs: Last Vital Signs Pulse 80 04/12/23 12:47 BP 142/60 H 04/12/23 12:47 BMI result Body Mass Index 20.9 Const General: cooperative, comfortable and no acute distress Neck Neck: Yes normal visual inspection Resp Effort & Inspection: normal respiratory effort Auscultation: clear to auscultation bilaterally, no crackles, no rales, no rhonchi and no wheezes Cardio Jugular venous distension: no JVD Rate: regular rate Rhythm: regular rhythm Heart sounds: S1 normal heart sound present, S2 normal heart sound present, no gallops, Murmur heart sound present (Faint systolic) and no rubs GI Inspection: Yes normal to inspection Extrem General: Yes normal to inspection Psych Appearance: grossly normal Mental Status: mental status grossly normal Speech and movement: Normal speech and movement present Assessment & Plan Assessment & Plan (1) Non-rheumatic aortic stenosis: Code(s): I35.0 - Nonrheumatic aortic (valve) stenosis Plan: History of mild aortic stenosis as seen on echocardiogram 08/07/2019. Recent cardiac evaluation for preop hip surgery. He underwent echocardiogram on 03/08/2023 showing EF 35-40%, basal inferior mid inferior basal anterior septal and mid anterior septal akinetic, inferior septal dyskinetic, aortic valve area 0.89, mean gradient 9 mmHg, suspected low-flow severe . He then underwent cardiac catheterization on 03/27/2023 which included evaluation of aortic valve showing no gradient across valve. Findings discussed with Dr. Zamora. Patient likely has some degree of aortic stenosis however not severe. He has faint murmur on examination. Reviewed these findings with him. Signs and symptoms of severe reviewed. Cardiology follow-up in 6 months, sooner if needed. (2) Atherosclerotic cardiovascular disease: Code(s): I25.10 - Atherosclerotic heart disease of platinum coronary artery without angina pectoris Plan: Reported history of cardiac arrest 1989. Further details unknown to me at present. Recent echocardiogram with reduced EF and wall motion abnormality. He underwent cardiac catheterization on 03/27/2023 showing RCA proximal with CHILD PROTECTIVE INVESTIGATOR with right to right and left to right collaterals, no significant LAD or left circumflex disease. Patient is telling me at the time of his cardiac arrest he had cardiac catheterization that showed a blocked artery. He should continue aspirin indefinitely, atorvastatin 40 mg daily with LDL goal less than 70. He had been on beta-thaddeus however it was stopped recently due to a long [place] interval. He has no reports of anginal sounding symptoms. Signs and symptoms of angina reviewed. (3) Ischemic cardiomyopathy: Code(s): I25.5 - Ischemic cardiomyopathy Plan: Reduced EF, 35-40% on recent echocardiogram with wall motion abnormality. He denies history of congestive heart failure. He has chronic shortness of breath and cough from his COPD/interstitial lung disease. NYHA class 2 for this reason. He is not requiring diuretics. Beta-thaddeus recently stopped due to long [place] interval. Blood pressure is mildly elevated today. He is currently not on any antihypertensives. For neurohormonal modulation will add lisinopril 5 mg daily. Dose can be titrated upward as needed. (4) S/P cardiac catheterization: Comment: 03/27/2023, left main normal, lad minimal irregularities, left circumflex mild luminal irregularities, less than 30% stenosis, RCA proximal 100% stenosis, CHILD PROTECTIVE INVESTIGATOR, no gradient across the aortic valve Code(s): Z98.890 - Other specified postprocedural states Plan: Right radial catheterization site well healed (5) Preoperative cardiovascular examination: Code(s): Z01.810 - Encounter for preprocedural cardiovascular examination Plan: Preop for total hip replacement on May 03 at [facility] with Dr. Sullivan. Patient can proceed with planned surgery with intermediate cardiac risk. Condition optimized at present. Avoid fluid overload with his reduced EF. Aspirin can be held if needed and restarted once cleared by surgeon to do so. Continue statin and lisinopril. Call/consult Cardiology if needed (6) HTN (hypertension): Code(s): I10 - Essential (primary) hypertension Plan: As above (7) HLD (hyperlipidemia): Code(s): E78.5 - Hyperlipidemia, unspecified Plan: LDL goal less than 70. Last labs done 10/30/2022 show LDL 81. Prior LDLs on him have been in the 60s. Recommend recheck. Continue atorvastatin. (8) COPD (chronic obstructive pulmonary disease): Code(s): J44.9 - Chronic obstructive pulmonary disease, unspecified Plan: Follows with pulmonology, Dr. Valdovinos Orders: Orders Basic Metabolic Panel 1 Week I10 - Essential (primary) hypertension Medications: New lisinopril 5 mg PO DAILY 30 tabs 5RF Coding Level of Care Code Est Pt Level 4 (43813) Diagnoses Non-rheumatic aortic stenosis I35.0 Atherosclerotic cardiovascular disease I25.10 Ischemic cardiomyopathy I25.5 S/P cardiac catheterization Z98.890 Preoperative cardiovascular examination Z01.810 HTN (hypertension) I10 HLD (hyperlipidemia) E78.5 COPD (chronic obstructive pulmonary disease) J44.9 Time Spent (min) 28 Comment chart review, document, interview, assess
== END 2023-04-12 13:30 | disposition home or self-care (01) ==
PROVIDERS: PCP Internal Medicine; Referring Provider Internal Medicine; Visit Provider Nurse Practitioner Family
DX: I35.0 Nonrheumatic aortic (valve) stenosis (principal); I25.10 Atherosclerotic heart disease of native coronary artery without angina pectoris; I25.5 Ischemic cardiomyopathy; Z98.890 Other specified postprocedural states; Z01.810 Encounter for preprocedural cardiovascular examination; I10 Essential (primary) hypertension; E78.5 Hyperlipidemia, unspecified; J44.9 Chronic obstructive pulmonary disease, unspecified
CPT/HCPCS: 99214

== ENCOUNTER → 2023-04-12 12:44 | Outpatient (BNVA) | payer MEDICARE, SELFPAY | PROVIDERS: PCP Internal Medicine; Referring Provider Internal Medicine; Visit Provider Nurse Practitioner Family | DX: Z01.810 Encounter for preprocedural cardiovascular examination (principal); I35.0 Nonrheumatic aortic (valve) stenosis; I25.10 Atherosclerotic heart disease of native coronary artery without angina pectoris; I25.5 Ischemic cardiomyopathy; I10 Essential (primary) hypertension; J44.9 Chronic obstructive pulmonary disease, unspecified; E78.5 Hyperlipidemia, unspecified; Z98.890 Other specified postprocedural states | CPT/HCPCS: 99212 ==

== ENCOUNTER 2023-05-14 10:30 | Outpatient (REF) | payer MEDICARE, SELFPAY ==
[2023-05-14 16:26] LABS: Appearance Urine Clear; Color Urine Yellow; Glucose Urine UA Negative (Negative); Leukocyte Esterase Urine Negative (Negative); Nitrite Urine Negative (Negative); PH 6.5 (5.0-9.0); Urine Blood Negative (Negative); Urine Ketones Negative (Negative); Urine Protein Negative (Neg-Trace)
== END 2023-05-14 10:31 | disposition home or self-care (01) ==
LOC: HO.HMGCLNP 10:30
PROVIDERS: Visit Provider Internal Medicine
DX: N39.0 Urinary tract infection, site not specified (principal)
CPT/HCPCS: 81003

== ENCOUNTER 2023-06-18 15:01 | Outpatient (REF) | payer MEDICARE, SELFPAY ==
--- NOTE | ~2023-06-18 | US_ITS ---
EXAMINATION: US VENOUS ULTRASOUND WITH DOPPLER LOWER EXTREMITY, LEFT CLINICAL INFORMATION: Left leg edema. COMPARISON: None available. TECHNIQUE: Ultrasound of the deep veins is performed from the hip to the calf with compression sonography and color and pulse Doppler assessment. Spectral analysis with color-flow imaging is performed. FINDINGS: There is normal venous compression and respiratory variation and augmented flow. The visualized common femoral vein, superficial femoral vein, profunda femoral vein, popliteal vein, and the trifurcation region shows no evidence of deep venous thrombosis. There is no significant popliteal fossa cyst. If the patient's symptoms persist, followup ultrasound in 5 to 7 days might be of value to exclude proximal propagation from a nonvisualized calf vein. US/US venous duplex LE IMPRESSION: No DVT demonstrated in the left lower extremity.
== END 2023-06-18 15:02 | disposition home or self-care (01) ==
LOC: HO.HMGCX 15:01
PROVIDERS: PCP Internal Medicine; Visit Provider Internal Medicine
DX: R60.0 Localized edema (principal)
CPT/HCPCS: 93971

== ENCOUNTER 2023-06-26 10:49 | Outpatient (AMB) | payer MEDICARE, SELFPAY ==
[2023-06-26 10:54] VITALS: BP 104/62; PULSE 91; RESP 12; O2SAT 94; BMI 19.2
--- NOTE | 2023-06-26 10:54 | MHC.OFFVIS ---
Intake Vital Signs 06/26/23 10:54 Height 5 ft 10 in Weight 134 lb BMI 19.2 BP 104/62 Blood Pressure Location Rt brachial Position Sitting Respiration 12 Pulse 91 Pulse Source Pulse Oximeter Pulse Oximetry (%) 94 Oxygen Delivery Method Room Air Intake Visit Reasons: Emphysema Allergies No Known Allergies [No Known Allergies*] Allergy (Verified 06/26/23 10:54) Medication List - Last Reconciled 06/26/23 by Morena Maharaj LPN albuterol sulfate 90 mcg/actuation 2 puffs inhalation QID aspirin 81 mg PO DAILY atorvastatin 40 mg PO DAILY betamethasone dipropionate 0.05% 1 appl topical BID budesonide-formoterol 160-4.5 mcg/actuation (Symbicort) 2 puffs inhalation BID ipratropium-albuterol 0.5 mg-3 mg(2.5 mg base)/3 mL 3 mL inhalation RQ4H WHILE AWAKE lisinopril 5 mg PO DAILY lorazepam 0.5 mg PO DAILY PRN multivitamin 1 tab PO DAILY nebulizers As directed umeclidinium 62.5 mcg/actuation (Incruse Ellipta) 1 inh inhalation DAILY walker Folding front wheeled walker HPI HPI Comments History of Present Illness Details The patient is an 88-year-old gentleman with a known history of COPD. He was diagnosis COPD about 25 years ago. He is a former smoker. He also quit around the same . He has been complaining of worsening dyspnea on exertion. He states that before he could go per flutter stairs. But, now when he goes up a flight of stairs he gets very winded. Even walking holding on to 3 baskets resulting significant shortness of breath. He has had to called EMS to his house because of worsening shortness of breath. Back about a year year and a half he did go to the hospital had a chest x-ray done demonstrating some interstitial changes in addition to hyperinflated lungs consistent with COPD. He has tried multiple inhalers in the past with only partial improvement of the symptoms. He used to be an avid cyclist any states that he still can ride a bike for treated for miles without any significant shortness of breath, but, is mainly the walking. During the office visit we did go for 6 minutes walk test and the patient quickly desaturated down to about 85% with heart rate of 90 the patient was short of breath with the Sarah Beth score of 7/10. He was then placed on 2 L of oxygen maintaining a pulse ox of 91% with activity. He did feel better. The patient does qualify for oxygen. It is likely that he has combination of COPD and also interstitial lung disease. Therefore, additional testing is warranted. It appears that his respiratory therapies adequate at this time. I did recommend pulmonary rehabilitation to the patient and he is agreeable to this. Will have him undergo additional imaging testing and pulmonary function studies done will address the pulmonary rehab during the next visit. 01/14/2021 the patient is here for pulmonary follow-up visit. Overall he is feeling a little better on the respiratory medications. Continues to have dyspnea on exertion. He is starting to use the oxygen with activity with good effect. The oxygen supplementation be affecting beneficial for him. He did undergo a chest x-ray demonstrating no acute disease and also underwent pulmonary function studies demonstrating severe COPD with significant air trapping and significant for diffusion impairment. The patient is a great candidate for pulmonary rehabilitation at this time. Therefore will start the process and will get a call in order to start the program. In the meantime he is going to continue with his current respiratory regimen he continue using the oxygen with activity. 06/28/2021 the patient is here for a pulmonary follow-up visit. He recently was hospitalized at [place] with a COPD exacerbation. He was tested negative for COVID. He was likely a viral syndrome that may have exacerbated his COPD. He does have the oxygen he does use it with activity and also uses it with sleep. The therapy has been affecting beneficial. I did request a conserving valve in order for him to be able to use the oxygen with better portability outside of the home. He continues uses respiratory therapy including the Symbicort. He also has a nebulizer machine available. I did review his chest x-ray within demonstrating no acute disease. Otherwise patient is without any other complaints. His did mention that he has been more anxious lately and has required lorazepam. 12/19/2021 the patient is here for a pulmonary follow-up visit. Overall the patient has been doing well. He did have a very good response to the oxygen supplementation. However, he has not gotten the conserving valve. I will request again another conserving valve from her [employer] company, [employer]. Hopefully with the smaller be tanks he will have plan to portability outside of the home. He also continues to exercise regularly. the patient is exercising at home as he has completed pulmonary rehab. He has been having congested cough. He has been using Mucinex on a regular basis. Therefore, will go ahead and provide him with an Acapella valve to use instead of the Mucinex. He will leave the Mucinex to just as needed when he gets worse. I will request an Acapella valve from a local [employer] company. 06/30/2022 the patient is here for a pulmonary follow-up visit. He continues to uses oxygen with good effect. Does help him at nighttime and also uses it with activity. His major complaint still is productive cough. Moderate severity. He does use Mucinex on a regular basis with partial resolution of the symptoms. The mucus is usually yellowish in color. He is able to clear for most part. We did order a Acapella valve during the last visit but he has yet to receive it. Therefore we will reach out to the [employer] company again reorder. This time the hope that he gets a very good start more chest physical therapy for mucus clearance. In view of the ongoing symptoms we can also start him on a course of azithromycin just 4 months just to try to clear out some of the mucus burden. Then can stop it he does have a nebulizer and will start using the Acapella valve with hopes of providing better bronchopulmonary hygiene. The patient had an x-ray back about a year ago demonstrating no acute disease. if he continues to be symptomatic will have to repeat the chest x-ray. 12/28/2022 the patient is here for pulmonary follow-up visit. Overall the patient has been feeling better. He has a good regimen in the morning were uses the nebulizer 1st with albuterol. Followed by the Incruse inhaler and also 2 inhalations of Symbicort. After doing that he is able to go throughout the day without any significant issues. He did get the Acapella valve finally. He has not used it because he was not sure how the tenia. We did go to the instructions on how to do that. He will start using it twice a day. I do believe this will be a good exercise for his pulmonary muscles and I will be a good way to keep good bronchopulmonary hygiene. In the meantime the patient has a rescue inhaler that he has not required. He is dealing with some arthritis issues right now. Otherwise he is without any significant complaints. He has not had any x-rays in couple years therefore the patient will have 1 done hopefully soon. Will follow-up in 6-8 months or sooner if any new issues arise. 06/26/2023 the patient is here for a pulmonary follow-up visit. The patient is status post hip replacement. This was in April. He is doing better overall. He was hospitalized a little bit longer because he had other abnormalities suggest such as urinary retention and also issues with hyponatremia. During the postoperative. He did have a chest x-ray demonstrating some atelectasis. At this point clinically the patient is doing well and is not having any significant discolored phlegm or congestion. He is using the oxygen but sometimes he does not like to carry a. He has a hard time with the oxygen tanks. We did do a conserving device trial and he did well on 3 L pulse maintaining a pulse ox above 92%. Therefore, will go ahead and request a B-cell under with conserving valve but I do believe that he will do better with a battery operated portable oxygen concentrator because he has a hard time with the oxygen tanks as it is already and they do not provide enough portability for him. Therefore POC will be more effective for him. Will request both for now since the family is aware that it may take longer to get a POC from his [employer] company, [facility]. Will submit all the paperwork for them in order to start the process in the meantime. He is going to uses respiratory therapy and he knows he needs to use the oxygen because he desaturates so quickly. [facility], [facility] Medical History Atherosclerotic cardiovascular disease BPH (benign prostatic hyperplasia) Chronic respiratory failure COPD (chronic obstructive pulmonary disease) HLD (hyperlipidemia) HTN (hypertension) ILD (interstitial lung disease) Family History Sister Cancer Social History Household Members: Spouse Housing: House Do you presently have visiting nurse or other home services: No Alcohol intake: never Patient Tobacco Use Status: Former Tobacco user Tobacco use type: Cigarette Years Smoked: 30 yrs Second Hand Smoke Exposure: No Current occupational status: retired Review of Systems Const Denies night sweats ENT Denies change in voice, Denies lip swelling, Denies mouth pain, Reports nasal congestion, Reports nasal discharge and Denies tongue swelling Card Denies chest pain and Reports dyspnea on exertion Resp Denies chest congestion, Reports cough, Denies hemoptysis and Reports dyspnea on exertion GI Denies abdominal pain Musc Reports as per HPI Neuro Denies Neuro-related abnormal movements Psych Denies no additional complaints Trevor/Lymph Denies easy bleeding and Denies lymphadenopathy Aller/Immun Denies lip swelling and Denies tongue swelling Physical Exam Vital Signs: Last Vital Signs Pulse 91 06/26/23 10:54 Resp 12 06/26/23 10:54 BP 104/62 06/26/23 10:54 Pulse Ox 94 06/26/23 10:54 Oxygen Delivery Method Room Air 06/26/23 10:54 BMI result Body Mass Index 19.2 Const General: alert Neck Neck: Yes normal visual inspection, Yes full ROM and Yes no lymphadenopathy Chest Chest palpation & inspection: normal inspection of the chest Resp Auscultation: no rhonchi and diminished lung sounds Cardio Rate: regular rate Rhythm: regular rhythm Heart sounds: S1 normal heart sound present and S2 normal heart sound present GI Palpation (GI): Soft to palpation and nontender Auscultation: normal bowel sounds Skin General skin exam: rashes and/or lesions noted Office Procedures 6 Minute Walk Time:: 11:20 SPO2 % at rest: 94 Pulse at rest: 90 SPO2 % during excercise: 86 Pulse during excercise: 129 SPO2 % after excercise: 92 Pulse after excercise: 95 Distance in yards walked: 120 Sarah Beth Score: 5 Performance Observations:: Rafael walked on level ground without assistance, he walked for 2 minutes before his SPO2 decreased to 86% on room air. O2 started at setting 2 pulsed O2 his SPO2 recovered to 92% with exertion decreased to 87% O2 increased to setting 3 he maintained his SPO2 92-93% [id number] - 6 Minute Walk Assessment & Plan Assessment & Plan (1) ILD (interstitial lung disease): Code(s): J84.9 - Interstitial pulmonary disease, unspecified (2) COPD (chronic obstructive pulmonary disease): Code(s): J44.9 - Chronic obstructive pulmonary disease, unspecified Qualifiers: COPD type: chronic bronchitis Chronic bronchitis type: simple Qualified Code(s): J41.0 - Simple chronic bronchitis (3) Chronic respiratory failure: Code(s): J96.10 - Chronic respiratory failure, unspecified whether with hypoxia or hypercapnia Qualifiers: Respiratory failure complication: hypoxia Qualified Code(s): J96.11 - Chronic respiratory failure with hypoxia Plan Continue Symbicort Continue Incruse BENJAMIN as needed Oxygen supplementation with activity and sleep. Requesting conserving valve 2L/pulse with activity and 2L while sleeping. The patient requesting B cylinders with a conserving valve. Also requesiting battery operated POC based on his difficulties handleing the oxygen tanks. The POC will provide ease of use and better portability outside of the home. continue exercise at home continue acapella valve for CPT F/U 4-6 months Orders: Orders AMB 6 minute walk Today J44.9 - Chronic obstructive pulmonary disease, unspecified Coding Level of Care Code Est Pt Level 4 (63685) Diagnoses ILD (interstitial lung disease) J84.9 Simple chronic bronchitis J41.0 COPD type: chronic bronchitis Chronic bronchitis type: simple Chronic respiratory failure with hypoxia J96.11 Respiratory failure complication: hypoxia CPT Codes Coding ([id number]) Time Spent (min) 18
[2023-06-26 11:43] VITALS: PULSE 90; O2SAT 94
== END 2023-06-26 11:37 | disposition home or self-care (01) ==
PROVIDERS: PCP Internal Medicine; Visit Provider Hospitalist
DX: J84.9 Interstitial pulmonary disease, unspecified (principal); J41.0 Simple chronic bronchitis; J96.11 Chronic respiratory failure with hypoxia
CPT/HCPCS: 94618; 99213; 99214

== ENCOUNTER → 2023-06-26 10:49 | Outpatient (BNVA) | payer MEDICARE, SELFPAY | PROVIDERS: Visit Provider Hospitalist | DX: J98.2 Interstitial emphysema (principal); J41.0 Simple chronic bronchitis; J96.11 Chronic respiratory failure with hypoxia; Z87.891 Personal history of nicotine dependence; Z99.81 Dependence on supplemental oxygen | CPT/HCPCS: 94618; 99212 ==

== ENCOUNTER 2023-08-03 09:34 | Outpatient (REF) | payer MEDICARE, SELFPAY ==
[2023-08-03 13:28] LABS: MANUAL DIFF FLAG NO
[2023-08-03 13:41] LABS: Basophils Absolute Auto 0.1 X10*3/uL (0.0-0.2); Basophils Percent Auto 0.8 % (0-2); Eosinophils Absolute Auto 0.3 X10*3/uL (0.0-0.4); Eosinophils Percent Auto 2.5 % (0-4); Hematocrit 38.9 % (42.0-52.0); Hemoglobin 12.7 g/dl (14.0-18.0); Imm Gran Abs Auto 0.04 X10*3/uL (0.00-0.03); Imm Gran Pct Auto 0.4 % (0.0-0.4); Lymphocytes Absolute Auto 1.9 X10*3/uL (1.2-4.9); Lymphocytes Percent Auto 18.7 % (20-40); Mean Corpuscular HGB Conc 32.6 g/dl (31.0-36.0); Mean Corpuscular Hemoglobin 27.9 pg (27.0-33.0); Mean Corpuscular Volume 85.3 fL (80.0-98.0); Mean Platelet Volume 10.7 fL (9.4-12.4); Monocytes Absolute Auto 0.7 X10*3/uL (0.1-1.2); Monocytes Percent Auto 6.3 % (2-11); Neutrophils Absolute Auto 7.4 x10*3/uL (2.0-8.3); Neutrophils Percent Auto 71.3 % (45-73); Platelet Count 246 X10*3/uL (160-400); Red Blood Count 4.56 X10*6/uL (4.60-5.80); Red Cell Distribution Width 15.1 % (11.0-16.0); White Blood Count 10.4 X10*3/uL (4.8-10.8)
[2023-08-03 13:52] LABS: Appearance Urine Clear; Color Urine Yellow; Glucose Urine UA Negative (Negative); Leukocyte Esterase Urine Trace (Negative); Nitrite Urine Negative (Negative); PH 6.5 (5.0-9.0); Specific Gravity - Urine 1.015 (1.005-1.025); UMIC TRIGGER UACC YES; Urine Blood Negative (Negative); Urine Ketones Negative (Negative); Urine Protein Negative (Neg-Trace)
[2023-08-03 13:54] LABS: Estimated Average Glucose 117 mg/dL; Hemoglobin A1c % 5.7 % (<6.0)
[2023-08-03 13:58] LABS: Bacteria Urine None Seen (None Seen); Hyaline Casts Urine 0-2 /LPF (0-2); RBC Urine 0-2 /HPF (0-2); Squamous Epithelial Cell Urine 0-2 /HPF (0-2); WBC Urine 0-5 /HPF (0-5)
[2023-08-03 14:00] LABS: Creatinine Urine 78.98 mg/dL; Microalbum/Creatinine Ratio Ur 8.8 ug/mg cr (<30)
[2023-08-03 14:20] LABS: Alanine Aminotransferase 17 U/L (0-40); Albumin Level 4.1 g/dL (3.5-5.0); Alkaline Phosphatase 133 U/L (39-117); Anion Gap 11 (12-20); Aspartate Amino Transferase 25 U/L (5-37); Bilirubin Total 0.8 mg/dL (0.0-1.0); Blood Urea Nitrogen 15 mg/dL (9-16); Calcium 9.3 mg/dL (8.4-10.2); Carbon Dioxide 30 mmol/L (22-29); Chloride 99 mmol/L (96-108); Cholesterol 109 mg/dL (<200); Estimated Glomerular Filt Rate > 60; Glucose Random 85 mg/dL (60-115); HDL Cholesterol 56 mg/dL (>40); LDL Cholesterol Calculated 45 mg/dL (<100); Potassium 4.8 mmol/L (3.3-5.1); Sodium 135 mmol/L (135-145); Total Protein 6.7 g/dL (6.5-8.0); Triglycerides 40 mg/dL (<150)
== END 2023-08-03 09:35 | disposition home or self-care (01) ==
LOC: HO.HMGCLDS 09:34
PROVIDERS: PCP Internal Medicine; Visit Provider Internal Medicine
DX: I10 Essential (primary) hypertension (principal); E78.00 Pure hypercholesterolemia, unspecified; R73.09 Other abnormal glucose
CPT/HCPCS: 36415; 80053; 80061; 81001; 82043; 82570; 83036; 85025

== ENCOUNTER 2023-08-10 15:58 | Outpatient (REF) | payer MEDICARE, SELFPAY ==
[2023-08-10 16:59] LABS: PSA,Total (Free>4and<10) 3.34 ng/mL (0.00-4.00)
== END 2023-08-10 15:59 | disposition home or self-care (01) ==
LOC: HO.LNP 15:58
PROVIDERS: Visit Provider Internal Medicine
DX: N40.0 Benign prostatic hyperplasia without lower urinary tract symptoms (principal); Z12.5 Encounter for screening for malignant neoplasm of prostate
CPT/HCPCS: 84153

== ENCOUNTER 2023-10-09 12:45 | Outpatient (AMB) | payer MEDICARE, SELFPAY ==
[2023-10-09 12:54] VITALS: BP 164/76; PULSE 83; BMI 19.7
--- NOTE | 2023-10-09 12:54 | A.OFFVIS_ITS ---
Intake Vital Signs 10/09/23 12:54 Height 5 ft 10 in Weight 137 lb 2.04 oz BMI 19.7 BP 164/76 H Blood Pressure Location Lt brachial Position Sitting Pulse 83 Intake Visit Reasons: 6 month fu Intake Note: 6 month follow up Hyperion Administrator Required: No Accompanied by: Spouse Allergies No Known Allergies [No Known Allergies*] Allergy (Verified 10/09/23 12:56) Medication List - Last Reconciled 10/09/23 by Demetrius Zamora MD albuterol sulfate 90 mcg/actuation 2 puffs inhalation QID aspirin 81 mg PO DAILY atorvastatin 40 mg PO DAILY betamethasone dipropionate 0.05% 1 appl topical BID budesonide-formoterol 160-4.5 mcg/actuation (Symbicort) 2 puffs inhalation BID ipratropium-albuterol 0.5 mg-3 mg(2.5 mg base)/3 mL 3 mL inhalation RQ4H WHILE AWAKE lisinopril 5 mg PO DAILY lorazepam 0.5 mg PO DAILY PRN multivitamin 1 tab PO DAILY nebulizers As directed tamsulosin 0.4 mg PO BEDTIME umeclidinium 62.5 mcg/actuation (Incruse Ellipta) 1 inh inhalation DAILY walker Folding front wheeled walker HPI HPI Comments History of Present Illness Details Rafael returns for follow-up. Few months back, he was seen in consultation regarding preoperative risk stratification for hip surgery. That has now been completed. In the , he apparently had cardiac arrest that led to catheterization. Subsequently, he saw a assurance auditor for few years but none in the last 20+ years. Overall, doing well. No new complaints. Nothing cardiac. [facility] Medical History Atherosclerotic cardiovascular disease BPH (benign prostatic hyperplasia) Chronic respiratory failure COPD (chronic obstructive pulmonary disease) HLD (hyperlipidemia) HTN (hypertension) ILD (interstitial lung disease) Family History Sister Cancer Social History Household Members: Spouse Housing: House Do you presently have visiting nurse or other home services: No Alcohol intake: never Patient Tobacco Use Status: Former Tobacco user Tobacco use type: Cigarette Years Smoked: 30 yrs Second Hand Smoke Exposure: No Current occupational status: retired Review of Systems Const Denies weakness ENT Denies dizziness Card Denies chest pain, Denies chest pain with activity, Denies syncope, Denies rapid heart rate, Denies pedal edema, Denies edema, Denies leg edema, Denies lightheadedness, Denies palpitations, Denies dyspnea, Denies dyspnea on exertion and Denies orthopnea Resp Denies cough, Denies dyspnea and Denies dyspnea on exertion GI Denies hematochezia and Denies change in stool character Musc Denies abnormal gait, Denies muscle cramps, Denies muscle weakness, Denies numbness, Denies radiating pain into limb and Denies tingling Neuro Denies abnormal gait, Denies dizziness, Denies syncope, Denies numbness, Denies tingling and Denies weakness Endo Denies palpitations Physical Exam Vital Signs: Last Vital Signs Pulse 83 10/09/23 12:54 BP 164/76 H 10/09/23 12:54 BMI result Body Mass Index 19.7 Const General: comfortable and no acute distress Orientation/consciousness: patient oriented x3 HEENT Other: Unremarkable Head: Yes normal to inspection Neck Neck: Yes normal visual inspection Chest Chest palpation & inspection: normal inspection of the chest Resp Auscultation: clear to auscultation bilaterally Cardio Palpation: normal PMI Heart sounds: S1 normal heart sound present, S2 normal heart sound present, no gallops, no murmurs and no rubs GI Palpation (GI): Soft to palpation Back/Spine/Pelvis Other: unremarkable Skin General skin exam: no rashes or lesions noted Neuro General: patient oriented x3 Extrem General: Yes normal to inspection Psych Mental Status: mental status grossly normal Assessment & Plan Assessment & Plan (1) Atherosclerotic cardiovascular disease: Code(s): I25.10 - Atherosclerotic heart disease of [place] coronary artery without angina pectoris Plan: Recent cardiac catheterization reviewed. 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 Otherwise, no significant coronary disease. Clinically, he does not have any symptoms. Continue aspirin and statins. (2) Ischemic cardiomyopathy: Code(s): I25.5 - Ischemic cardiomyopathy Plan: In the echocardiogram, LVEF 35-40%; wall motion abnormalities from underlying coronary disease. Clinically, no symptoms or signs of congestive heart failure. Beta-blockers stopped in the past because of conduction system disease. He has on a small dose of lisinopril. (3) Non-rheumatic aortic stenosis: Code(s): I35.0 - Nonrheumatic aortic (valve) stenosis Plan: In the echocardiogram, thought to be paradoxical low gradient severe aortic stenosis but no significant evidence of the same on catheterization. No specific management. We can recheck on echocardiogram in a few months' time. (4) HTN (hypertension): Code(s): I10 - Essential (primary) hypertension Plan: He does run intermittently high blood pressures but when I review the home reading, they are mostly in the normal range and some are even low into the 80s/90s. Hence seems very labile. No new changes made today. Orders: Orders CA echo transthoracic complete 6 Months I25.10 - Atherosclerotic heart disease of [place] coronary artery without angina pectoris, I25.5 - Ischemic cardiomyopathy, I35.0 - Nonrheumatic aortic (valve) stenosis Coding Level of Care Code Est Pt Level 4 (42412) Diagnoses Atherosclerotic cardiovascular disease I25.10 Ischemic cardiomyopathy I25.5 Non-rheumatic aortic stenosis I35.0 HTN (hypertension) I10
== END 2023-10-09 13:16 | disposition home or self-care (01) ==
PROVIDERS: PCP Internal Medicine; Visit Provider Internal Medicine
DX: I25.10 Atherosclerotic heart disease of native coronary artery without angina pectoris (principal); I25.5 Ischemic cardiomyopathy; I35.0 Nonrheumatic aortic (valve) stenosis; I10 Essential (primary) hypertension
CPT/HCPCS: 99214

== ENCOUNTER → 2023-10-09 12:45 | Outpatient (BNVA) | payer MEDICARE, SELFPAY | PROVIDERS: PCP Internal Medicine; Visit Provider Internal Medicine | DX: I25.10 Atherosclerotic heart disease of native coronary artery without angina pectoris (principal); I25.5 Ischemic cardiomyopathy; I35.0 Nonrheumatic aortic (valve) stenosis; I10 Essential (primary) hypertension | CPT/HCPCS: 99212 ==

== ENCOUNTER 2023-10-22 13:04 | Outpatient (AMB) | payer MEDICARE, SELFPAY ==
[2023-10-22 13:11] VITALS: BP 120/70; PULSE 85; TEMP 37.3; O2SAT 96; BMI 20.1
--- NOTE | 2023-10-22 13:11 | AM.OFFWIN_ITS ---
Intake Vital Signs 10/22/23 13:11 Height 5 ft 10 in Weight 140 lb BMI 20.1 BP 120/70 Blood Pressure Location Lt brachial Position Sitting Pulse 85 Pulse Source Pulse Oximeter Temp 99.2 F Temp Source Temporal Artery Scan Pulse Oximetry (%) 96 Oxygen Delivery Method Room Air Intake Visit Reasons: EST/left ear blovked(lobby) Intake Note: pt is here today for lft ear blockage started 4 weeks ago Patient Tobacco Use Status: Former Tobacco user Allergies No Known Allergies [No Known Allergies*] Allergy (Verified 12/21/23 14:12) Do you need a note to return to daycare/school/sports/work: No HPI HPI Comments History of Present Illness Details 88-year-old man presents today complaini ng of decreased hearing on the left and is requesting ear lavage. He is a hearing aid user [facility] Medical History (Updated 04/16/24 @ 14:02 by AFTAB Mancuso) Chronic cough Atherosclerotic cardiovascular disease BPH (benign prostatic hyperplasia) HLD (hyperlipidemia) HTN (hypertension) Chronic respiratory failure ILD (interstitial lung disease) COPD (chronic obstructive pulmonary disease) Family History Sister Cancer Social History Household Members: Spouse Housing: House Do you presently have visiting nurse or other home services: No Alcohol intake: never Patient Tobacco Use Status: Former Tobacco user Tobacco use type: Cigarette Years Smoked: 30 yrs Second Hand Smoke Exposure: No Current occupational status: retired Review of Systems Const All systems reviewed & are unremarkable except as noted in HPI and below Physical Exam Vital Signs: Last Vital Signs Temp 99.2 F 10/22/23 13:11 Pulse 85 10/22/23 13:11 BP 120/70 10/22/23 13:11 Pulse Ox 96 10/22/23 13:11 Oxygen Delivery Method Room Air 10/22/23 13:11 BMI result Body Mass Index 20.1 Const General: healthy appearing and no acute distress HEENT Head: Yes normal to inspection, Yes normocephalic and Yes atraumatic Ears: Abnormal EAC present excessive cerumen bilateral General nose exam: Normal external nose present Face and sinus: Yes normal facial exam and Yes sinuses nontender Resp Effort & Inspection: normal respiratory effort Auscultation: clear to auscultation bilaterally Cardio Rate: regular rate Rhythm: regular rhythm Office Procedures Cerumen Removal From which ear canal was the cerumen removed: bilateral Removal: irrigation Notes: patient tolerated procedure well [id number] Irrigation/Lavage Assessment & Plan Assessment & Plan (1) Cerumen impaction: Code(s): H61.20 - Impacted cerumen, unspecified ear Plan: Ear canals irrigated without incident with good result. Plan See plan Medications: New carbamide peroxide 6.5% (Debrox) 5 drps otic (ears) DAILY PRN 15 mL 0RF cerumen impaction 1 week Coding Level of Care Code Est Pt Level 3 (96402) Diagnoses Cerumen impaction H61.20 CPT Codes Office Procedure - CPT: 54054-Aqc Irrigation/Lavage ([id number])
== END 2023-10-22 13:58 | disposition home or self-care (01) ==
PROVIDERS: PCP Internal Medicine; Visit Provider Physician Assistant Medical
DX: H61.23 Impacted cerumen, bilateral (principal)
CPT/HCPCS: 69209; 99213

== ENCOUNTER 2023-12-21 14:08 | Outpatient (REF) | payer MEDICARE, SELFPAY ==
--- NOTE | ~2023-12-21 | XR_ITS ---
EXAMINATION: XR CHEST CLINICAL INFORMATION: Reason for Exam R05.3 - Chronic cough COMPARISON: Chest radiograph 06/04/2021 TECHNIQUE: 2 views of the chest FINDINGS: Lines and tubes: None. A 1.2 cm nodular opacity overlying the right lung base which could reflect a pulmonary nodule, recommend correlation with dedicated CT chest. Blunting of the costophrenic angles which may reflect trace pleural effusions versus pleural parenchymal thickening. No pneumothorax. Unchanged cardiomediastinal silhouette. XR/XR chest 2V IMPRESSION: 1. A 1.2 cm nodular opacity overlying the right lung base which could reflect a pulmonary nodule, recommend correlation with dedicated CT chest. 2. Blunting of the costophrenic angles which may reflect trace pleural effusions versus pleural parenchymal thickening. A [facility] physician support system confirmed receipt of these findings and recommendations with Latisha Jett surgical services assistant at the office of ordering provider Dr. Jovanny Valdovinos, at 3:10 PM 12/28/2023 with read back confirmation and it was ascertained that the content and urgency of the report was understood at the time of direct communication.
== END 2023-12-21 14:09 | disposition home or self-care (01) ==
LOC: HO.XRAY 14:08
PROVIDERS: PCP Internal Medicine; Visit Provider Hospitalist
DX: R05.3 Chronic cough (principal)
CPT/HCPCS: 71046; 94618; 99212

== ENCOUNTER 2023-12-21 14:08 | Outpatient (AMB) | payer MEDICARE, SELFPAY ==
--- NOTE | 2023-12-21 14:11 | A.OFFVIS_ITS ---
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 He was diagnosis COPD about 25 years ago. He is a former smoker. He also quit around the same . He has been complaining of worsening dyspnea on exertion. He states that before he could go per flutter stairs. But, now when he goes up a flight of stairs he gets very winded. Even walking holding on to 3 baskets resulting significant shortness of breath. He has had to called EMS to his house because of worsening shortness of breath. Back about a year year and a half he did go to the hospital had a chest x-ray done demonstrating some interstitial changes in addition to hyperinflated lungs consistent with COPD. He has tried multiple inhalers in the past with only partial improvement of the symptoms. He used to be an avid cyclist any states that he still can ride a bike for treated for miles without any significant shortness of breath, but, is mainly the walking. During the office visit we did go for 6 minutes walk test and the patient quickly desaturated down to about 85% with heart rate of 90 the patient was short of breath with the Sarah Beth score of 7/10. He was then placed on 2 L of oxygen maintaining a pulse ox of 91% with activity. He did feel better. The patient does qualify for oxygen. It is likely that he has combination of COPD and also interstitial lung disease. Therefore, additional testing is warranted. It appears that his respiratory therapies adequate at this time. I did recommend pulmonary rehabilitation to the patient and he is agreeable to this. Will have him undergo additional imaging testing and pulmonary function studies done will address the pulmonary rehab during the next visit. 06/30/2022 the patient is here for a pulmonary follow-up visit. He continues to uses oxygen with good effect. Does help him at nighttime and also uses it with activity. His major complaint still is productive cough. Moderate severity. He does use Mucinex on a regular basis with partial resolution of the symptoms. The mucus is usually yellowish in color. He is able to clear for most part. We did order a Acapella valve during the last visit but he has yet to receive it. Therefore we will reach out to the [employer] again reorder. This time the hope that he gets a very good start more chest physical therapy for mucus clearance. In view of the ongoing symptoms we can also start him on a course of azithromycin just 4 months just to try to clear out some of the mucus burden. Then can stop it he does have a nebulizer and will start using the Acapella valve with hopes of providing better bronchopulmonary hygiene. The patient had an x-ray back about a year ago demonstrating no acute disease. if he continues to be symptomatic will have to repeat the chest x-ray. 12/28/2022 the patient is here for pulmonary follow-up visit. Overall the patient has been feeling better. He has a good regimen in the morning were uses the nebulizer 1st with albuterol. Followed by the Incruse inhaler and also 2 inhalations of Symbicort. After doing that he is able to go throughout the day without any significant issues. He did get the Acapella valve finally. He has not used it because he was not sure how the tenia. We did go to the instructions on how to do that. He will start using it twice a day. I do believe this will be a good exercise for his pulmonary muscles and I will be a good way to keep good bronchopulmonary hygiene. In the meantime the patient has a rescue inhaler that he has not required. He is dealing with some arthritis issues right now. Otherwise he is without any significant complaints. He has not had any x-rays in couple years therefore the patient will have 1 done hopefully soon. Will follow-up in 6-8 months or sooner if any new issues arise. 06/26/2023 the patient is here for a pulmonary follow-up visit. The patient is status post hip replacement. This was in April. He is doing better overall. He was hospitalized a little bit longer because he had other abnormalities suggest such as urinary retention and also issues with hyponatremia. During the postoperative. He did have a chest x-ray demonstrating some atelectasis. At this point clinically the patient is doing well and is not having any significant discolored phlegm or congestion. He is using the oxygen but sometimes he does not like to carry a. He has a hard time with the oxygen tanks. We did do a conserving device trial and he did well on 3 L pulse maintaining a pulse ox above 92%. Therefore, will go ahead and request a B-cell under with conserving valve but I do believe that he will do better with a battery operated portable oxygen concentrator because he has a hard time with the oxygen tanks as it is already and they do not provide enough portability for him. Therefore POC will be more effective for him. Will request both for now since the family is aware that it may take longer to get a POC from his DME company, [facility]. Will submit all the paperwork for them in order to start the process in the meantime. He is going to uses respiratory therapy and he knows he needs to use the oxygen because he desaturates so quickly. 12/21/2023 the patient is here for a pulmonary follow-up visit. Overall the patient is doing about the same. Still complaining of productive cough [id number] severity. In addition to that shortness of breath. Moderate severity. He does have the oxygen tank with him. Has a continuous valve and also is a medium-sized tank. Has a hard time carrying it. In addition to that he is forgetful. He does carry a but he has not using it. The is very concerned because he has really not aware of how to use it correctly. I do believe that is at this point cumbersome in dangerous. I did call the Written as I do believe he needs a portable oxygen concentrator with a conserving valve that is much marketing summer intern provides poor portability and will be easier for him to use. I did contact the Written they will see if he is eligible. I did taken for a walking oximetry. The patient did desaturate with activity and did benefit from the conserving tank. I will request again a portable oxygen concentrator for the patient and will send a script to the Written. If the Written can not provide him with a POC due to insurance issues they did mention that they will make sure to reach him how to use the oxygen tanks will provide him with the smallest tank possible, be cylinder with a conserving valve though be very like for him. based on his shortness of breath in his cough will go ahead and request a chest x-ray at this time. The patient will also continue with current respiratory therapy. COUNTS INCLUDE 234 BEDS AT THE [facility] Medical History (Updated 12/21/23 @ 14:34 by Jovanny Valdovinos MD) Chronic cough Atherosclerotic cardiovascular disease BPH (benign prostatic hyperplasia) HLD (hyperlipidemia) HTN (hypertension) Chronic respiratory failure ILD (interstitial lung disease) COPD (chronic obstructive pulmonary disease) Family History Sister Cancer Social History Household Members: Spouse Housing: House Do you presently have visiting nurse or other home services: No Alcohol intake: never Patient Tobacco Use Status: Former Tobacco user Tobacco use type: Cigarette Years Smoked: 30 yrs Second Hand Smoke Exposure: No Current occupational status: retired Review of Systems Const Denies night sweats ENT Denies change in voice, Denies lip swelling, Denies mouth pain, Reports nasal congestion, Reports nasal discharge and Denies tongue swelling Card Denies chest pain and Reports dyspnea on exertion Resp Reports chest congestion, Reports cough, Denies hemoptysis and Reports dyspnea on exertion GI Denies abdominal pain Musc Reports as per HPI Neuro Denies Neuro-related abnormal movements Psych Denies no additional complaints Trevor/Lymph Denies easy bleeding and Denies lymphadenopathy Aller/Immun Denies lip swelling and Denies tongue swelling Physical Exam Vital Signs: Last Vital Signs Pulse 90 12/21/23 14:12 BP 138/60 12/21/23 14:12 Pulse Ox 94 12/21/23 14:12 Oxygen Delivery Method Room Air 12/21/23 14:12 BMI result Body Mass Index 18.8 Const General: healthy appearing and no acute distress HEENT Head: Yes normal to inspection, Yes normocephalic and Yes atraumatic Ears: Abnormal EAC present excessive cerumen bilateral General nose exam: Normal external nose present Face and sinus: Yes normal facial exam and Yes sinuses nontender Resp Effort & Inspection: normal respiratory effort Auscultation: diminished lung sounds Cardio Rate: regular rate Rhythm: regular rhythm Office Procedures 6 Minute Walk Time:: 21:22 SPO2 % at rest: 93 Pulse at rest: 89 SPO2 % during excercise: 87 Pulse during excercise: 101 Distance in yards walked: 100 Sarah Beth Score: 6 Supplemental Oxygen: desaturated 87% on RA with activity, placed on 2L/pulse improving pox 94% with activity 97501 - 6 Minute Walk Assessment & Plan Assessment & Plan (1) ILD (interstitial lung disease): Code(s): J84.9 - Interstitial pulmonary disease, unspecified Category: Medical (2) COPD (chronic obstructive pulmonary disease): Code(s): J44.9 - Chronic obstructive pulmonary disease, unspecified Category: Medical Qualifiers: COPD type: chronic bronchitis Chronic bronchitis type: simple Qualified Code(s): J41.0 - Simple chronic bronchitis (3) Chronic respiratory failure: Code(s): J96.10 - Chronic respiratory failure, unspecified whether with hypoxia or hypercapnia Category: Medical Qualifiers: Respiratory failure complication: hypoxia Qualified Code(s): J96.11 - Chronic respiratory failure with hypoxia (4) Chronic cough: Code(s): R05.3 - Chronic cough Category: Medical Plan Continue Symbicort Continue Incruse BENJAMIN as needed Oxygen supplementation with activity and sleep. Requesting conserving valve / POC 2L/pulse with activity and 2L while sleeping. The POC will provide ease of use and better portability outside of the home. continue exercise at home continue acapella valve for CPT CXR F/U 4-6 months Orders: Orders XR chest 2V 12/21/23 R05.3 - Chronic cough Coding Level of Care Code Est Pt Level 4 (87267) Diagnoses ILD (interstitial lung disease) J84.9 Simple chronic bronchitis J41.0 COPD type: chronic bronchitis Chronic bronchitis type: simple Chronic respiratory failure with hypoxia J96.11 Respiratory failure complication: hypoxia Chronic cough R05.3 CPT Codes Coding ([id number]) Time Spent (min) 17
[2023-12-21 14:12] VITALS: BP 138/60; PULSE 90; O2SAT 94; BMI 18.8
[2023-12-23 21:21] VITALS: PULSE 89; O2SAT 93
== END 2023-12-21 14:38 | disposition home or self-care (01) ==
PROVIDERS: PCP Internal Medicine; Visit Provider Hospitalist
DX: J84.9 Interstitial pulmonary disease, unspecified (principal); J41.0 Simple chronic bronchitis; J96.11 Chronic respiratory failure with hypoxia
CPT/HCPCS: 94618; 99214

== ENCOUNTER 2024-01-31 16:41 | Outpatient (REF) | payer MEDICARE, SELFPAY ==
--- NOTE | ~2024-01-31 | CT_ITS ---
EXAMINATION: CT CHEST WITHOUT CONTRAST CLINICAL INFORMATION: Chronic cough. Other nonspecific abnormal finding of lung field. Possible right lateral costophrenic angle lung nodule seen on chest x-ray. COMPARISON: No prior CT. Chest x-ray 12/21/2023, and 06/04/2021. TECHNIQUE: Multidetector volumetric CT imaging of the chest was done. Axial MIP volume rendering provided. Sagittal and coronal reformatted images were obtained. This CT examination was performed using dose optimization techniques as appropriate, variously including the following: *Automated exposure control *Adjustment of mA and/or kV according to patient size (this includes techniques or standardized protocols for targeted exams where dose is matched to indication/reason for exam; i.e. extremities or head) *Use of iterative reconstruction technique DLP: 139 mGy-cm FINDINGS: LEAN MANUFACTURING COORDINATOR: Hyperaerated lung parenchyma. LUNGS: -There is moderate to severe centrilobular emphysema present, with upper lobe predominance. -There are scattered tiny calcified granulomata measuring 2-3 mm. -There is a 3 mm subpleural right upper lobe nodule laterally (series 5, image 356), nonspecific. -There is a 2 mm nodule in the posterior segment right upper lobe laterally (series 5, image 441), nonspecific. -There is a 5 mm pleural-based nodule in the anterior right middle lobe, (series 5, image 452), nonspecific. -Subpleural nodular scarring is present in the right costophrenic sulcus laterally, correlating with the abnormality seen on chest x-ray. This does not definitively represent a pulmonary nodule. Similar finding on the contralateral side, similar location. -Within the anterior superior segment left lower lobe, there is a consolidative irregular nodule with air bronchograms suggesting inflammatory/infectious etiology measuring 11 mm average diameter (series 5, image 495). -4 mm nodule posterior left upper lobe abutting the major fissure laterally (series 5, image 225) may be an intra-pulmonary lymph node, but is nonspecific. -In the far medial anterior left lower lobe, superior segment, there is a consolidative nodular focus measuring 1.7 x 1.7 cm (series 5, image 439), indeterminate. In addition, there are some more inferior reticulonodular changes in the anterior left costophrenic sulcus and slightly superior to this with some mild associated fissural retraction suggesting chronicity/fibrosis. Short interval follow-up recommended to ensure stability. MEDIASTINUM: -Thyroid appears small but normal. -Great vessels branch normally with mild to moderate calcification. -Aorta is uncoiled but normal in caliber, with moderate atheromatous calcification. No aneurysm. -Pulmonary artery is normal in size. -There are subcentimeter AP window and precarinal lymph nodes, presumably reactive. There is no pathologic mediastinal or hilar lymphadenopathy identified. Calcified right hilar lymph node is present, consistent with prior granulomatous exposure. The esophagus is normal in appearance. -Heart size is normal. There are significant aortic annular and mitral annular calcifications. CORONARY ARTERY CALCIFICATION: There are moderate to heavy three-vessel coronary calcifications. PLEURA: There is no pleural effusion. No pleural mass or thickening. AXILLA/CHEST WALL: No lymphadenopathy. Patient appears somewhat cachectic. UPPER ABDOMEN: Heavy calcification of the imaged abdominal aorta, which is nonaneurysmal. There are calcified gallstones in a partially imaged gallbladder. Remainder of the imaged upper abdominal contents demonstrate no abnormalities. OSSEOUS STRUCTURES: No suspicious lytic or blastic bone lesions. Degenerative changes of the spine, and sternoclavicular joints. There are scattered Schmorl's nodes in the vertebral body endplates. Sclerosis of the C6-C7 endplates with severe disc degeneration. Severe disc degeneration also noted T12-L1 and L1-L2. CT/CT chest wo IV con IMPRESSION: 1. Moderate to severe centrilobular emphysema with upper lobe predominance. 2. Scattered pulmonary nodules measuring up to 5 mm in the right middle lobe, and average diameter irregular nodule 11 mm in the anterior aspect superior segment left lower lobe. In addition there are reticulonodular type opacities inferior to this extending to the anterior left costophrenic margin. This could be postinflammatory scarring, although close interval follow-up recommended in [address] 3. Patient appears cachectic. 4. Scattered granulomata are present in both lungs. 5. Cholelithiasis. 6. Additional ancillary findings as described in the body of the report. Fleischner guidelines were followed.
== END 2024-01-31 16:42 | disposition home or self-care (01) ==
LOC: HO.CT 16:41
PROVIDERS: PCP Internal Medicine; Visit Provider Hospitalist
DX: R91.8 Other nonspecific abnormal finding of lung field (principal)
CPT/HCPCS: 71250

== ENCOUNTER → 2024-01-31 16:43 | Outpatient (BNV) | payer MEDICARE, SELFPAY | PROVIDERS: PCP Internal Medicine; Visit Provider Radiology Diagnostic Radiology | DX: R91.8 Other nonspecific abnormal finding of lung field (principal) | CPT/HCPCS: 71250 ==

== ENCOUNTER 2024-02-05 09:08 | Outpatient (REF) | payer MEDICARE, SELFPAY ==
[2024-02-05 10:50] LABS: Estimated Average Glucose 117 mg/dL; Hemoglobin A1c % 5.7 % (<6.0)
[2024-02-05 11:00] LABS: Alanine Aminotransferase 24 U/L (0-40); Albumin Level 3.9 g/dL (3.5-5.0); Alkaline Phosphatase 127 U/L (39-117); Aspartate Amino Transferase 31 U/L (5-37); Bilirubin Direct 0.2 mg/dL (0.0-0.5); Bilirubin Total 0.6 mg/dL (0.0-1.0); Cholesterol 104 mg/dL (<200); Glucose Fasting 99 mg/dL (60-99); HDL Cholesterol 48 mg/dL (>40); LDL Cholesterol Calculated 48 mg/dL (<100); Total Protein 6.8 g/dL (6.5-8.0); Triglycerides 41 mg/dL (<150)
[2024-02-05 12:56] LABS: Reflex LDLD? No
== END 2024-02-05 09:09 | disposition home or self-care (01) ==
LOC: HO.HMGCLDS 09:08
PROVIDERS: PCP Internal Medicine; Visit Provider Internal Medicine
DX: R73.09 Other abnormal glucose (principal); E78.00 Pure hypercholesterolemia, unspecified
CPT/HCPCS: 36415; 80061; 80076; 82947; 83036

== ENCOUNTER → 2024-03-20 10:38 | Outpatient (REF) | payer MEDICARE, SELFPAY ==
--- NOTE | 2024-03-20 10:41 | CA_ITS ---
Transthoracic Echocardiogram Patient (Last, First, Middle): Rafael Franco H Gender: Male Date of : 1935 Age: 88 Procedure Date: 03/20/2024 Procedure Type: Transthoracic Echocardiogram Location: OP Height: 177.8 cm Weight: 57.61 kg BSA: 1.72 m2 Heart Rate: bpm BP: 130 / 74 mmHg Storm Sash Maker: TO Referring MD: Demetrius Zamora MD Industrial Engineer: Estevan Multani MD Symptoms: I25.10 - Atherosclerotic heart disease of [place] coronary artery without... Study Quality: Fair/Contrast ECG Rhythm: Sinus Conclusions: - 1. Mildly reduced LV ejection fraction at 45-50% with underlying regional wall motion abnormality suggestive of coronary artery disease 2. Paradoxical low-flow moderate to severe aortic stenosis 3. Upper limits of normal RV systolic pressure with mildly dilated right atrial pressures 4. No gross pericardial effusion Findings Procedure Information Contrast agent, definity, is being given per protocol without apparent complications. Left Ventricle Normal left ventricular cavity size. There is normal left ventricular wall thickness. The left ventricular systolic function is mildly decreased. The visually estimated ejection fraction is between 45-50%. Spectral Doppler is indicative of an impaired relaxation filling pattern. E/E prime ratio is between 8 and 15 consistent with indeterminate filling pressures. Wall Motion Rest Echo Findings The basal anteroseptal segment is hypokinetic. The inferoseptal wall and basal inferior segment are akinetic. All other scored wall segments showed normal motion. Right Ventricle Mildly increased right ventricular cavity size. There is mildly decreased right ventricular systolic function. Atria The left atrium is mildly dilated. There is lipomatous hypertrophy of the interatrial septum. There is no evidence of interatrial shunt. The right atrium is moderately dilated. Aortic Valve There is moderate calcification of the aortic valve. There is moderate thickening of the aortic valve. There is severely restricted aortic valve cusp separation. There is moderate to severe aortic valve stenosis. The mean gradient is 10 mmHg. The aortic valve area is 1.05 cm2. There is no aortic valve regurgitation. Mitral Valve There is mild anterior and moderate posterior mitral leaflet thickening. There is moderate mitral annular calcification. There is trace mitral valve regurgitation. There is no mitral valve stenosis. Pulmonic Valve The pulmonic valve is likely normal. Tricuspid Valve Normal tricuspid valve structure. There is mild tricuspid valve regurgitation. Mildly elevated right atrial pressure. There is no evidence of pulmonary hypertension. Great Vessels The pulmonary artery was not well visualized. There is no dilatation of the ascending aorta measuring 3.20 cm. Venous The inferior vena cava is mildly dilated and collapses greater than 50% with inspiration. Pericardium/Pleural There is no evidence of pericardial effusion. Prior Study Comparison Changes noted compared to prior study dated: 03/08/2023. Improved LV systolic function. Aortic stenosis appears to be moderately severe on this study although with low gradients Measurements 2D Linear Measurements IVSd: 0.80 0.6-0.9/0.6-1.0 cm LVIDd: 4.16 3.9-5.3/4.2-5.9 cm LVIDd Index: 2.42 2.4-3.2/2.2-3.1 cm/m2 LVIDs: 3.24 2.0-3.6 cm LVPWd: 0.80 0.7-1.1 cm LA Diam: 3.10 2.7-3.8/3.0-4.0 cm LAIDs Index: 1.80 1.5-2.3 cm/m2 LV Mass: 124.29 67-162/88-224 g LV Mass Index: 72.26 43-95/49-115 g/m2 LVOT Diam: 2.30 3.0+(-)1.3 cm 2D Systolic Function EF 4C: 42.80 >55% EF 2C: 56.40 >55% EF BiP: 49.10 >55% Mitral Valve E'Lateral: 8.92 Aortic Valve AoV Pk Jax: 2.04 AoV Mn Jax: 1.53 AoV VTI: 0.49 AoV Pk Grad: 17.00 Aov Mn Grad: 10.00 JOHN Cont.VTI: 1.05 LVOT LVOT Pk Jax: 0.63 LVOT Mn Jax: 0.36 LVOT VTI: 0.12 LVOT Pk Grad: 2.00 LVOT Mn Grad: 1.00 LVOT Diam: 2.30 LVOT Area: 4.15 Diastolic Function E' Laterial: 8.92 Right Ventricle TAPSE (mm): 15.20 TVS' Jax: 9.90 Tricuspid Valve TR Pk Jax: 2.69 TR Pk Grad: 29.00 RA Press: 8.00 RVSP: 37.00 Great Vessels Aorta Sinus of Valsalva: 3.65 2.0-3.5 cm Ao Asc: 3.20 2.1-3.4 cm Updated in Other Vendor System with Status of Final Estevan Multani MD electronically signed on 03/21/2024 9:53:16 AM with status of Final
== END ==
LOC: HO.CARD 10:38
PROVIDERS: PCP Internal Medicine; Visit Provider Internal Medicine
DX: I25.10 Atherosclerotic heart disease of native coronary artery without angina pectoris (principal); I35.0 Nonrheumatic aortic (valve) stenosis; I25.5 Ischemic cardiomyopathy
CPT/HCPCS: 93306; Q9957

== ENCOUNTER → 2024-03-20 10:41 | Outpatient (BNV) | payer MEDICARE, SELFPAY | PROVIDERS: PCP Internal Medicine; Visit Provider Internal Medicine Cardiovascular Disease | DX: I35.0 Nonrheumatic aortic (valve) stenosis (principal); I35.8 Other nonrheumatic aortic valve disorders; I34.81 Nonrheumatic mitral (valve) annulus calcification; I36.1 Nonrheumatic tricuspid (valve) insufficiency | CPT/HCPCS: 93306 ==

== ENCOUNTER 2024-03-28 09:00 | Outpatient (REF) | payer MEDICARE, SELFPAY ==
[2024-03-28 13:06] LABS: Appearance Urine Clear; Color Urine Yellow; Glucose Urine UA Negative (Negative); Leukocyte Esterase Urine Negative (Negative); Nitrite Urine Negative (Negative); Urine Blood Negative (Negative); Urine Ketones Negative (Negative); Urine Protein Negative (Neg-Trace)
[2024-03-28 13:53] LABS: Creatinine Urine 64.88 mg/dL; Microalbumin Urine < 5.0 mg/L
== END 2024-03-28 09:01 | disposition home or self-care (01) ==
LOC: HO.HMGCLNP 09:00
PROVIDERS: Visit Provider Internal Medicine
DX: I10 Essential (primary) hypertension (principal); R73.09 Other abnormal glucose
CPT/HCPCS: 81003; 82043; 82570

== ENCOUNTER 2024-04-24 14:33 | Outpatient (AMB) | payer MEDICARE, SELFPAY ==
--- NOTE | 2024-04-24 14:47 | A.OFFVIS_ITS ---
Vital Signs 04/24/24 14:49 Height 5 ft 10 in Weight 135 lb 9.349 oz BMI 19.5 BP 128/60 Blood Pressure Location Rt brachial Position Sitting Pulse 78 Pulse Source Pulse Oximeter Pulse Oximetry (%) 95 Oxygen Delivery Method Room Air Intake Visit Reasons: Emphysema Gang Miner Required: No Allergies No Known Allergies [No Known Allergies*] Allergy (Verified 04/24/24 14:51) HPI Comments Details: The patient is an 89-year-old gentleman with a known history of COPD. He was diagnosis COPD about 25 years ago. He is a former smoker. He also quit around the same . He has been complaining of worsening dyspnea on exertion. He states that before he could go per flutter stairs. But, now when he goes up a flight of stairs he gets very winded. Even walking holding on to 3 baskets resulting significant shortness of breath. He has had to called EMS to his house because of worsening shortness of breath. Back about a year year and a half he did go to the hospital had a chest x-ray done demonstrating some interstitial changes in addition to hyperinflated lungs consistent with COPD. He has tried multiple inhalers in the past with only partial improvement of the symptoms. He used to be an avid cyclist any states that he still can ride a bike for treated for miles without any significant shortness of breath, but, is mainly the walking. During the office visit we did go for 6 minutes walk test and the patient quickly desaturated down to about 85% with heart rate of 90 the patient was short of breath with the Sarah Beth score of 7/10. He was then placed on 2 L of oxygen maintaining a pulse ox of 91% with activity. He did feel better. The patient does qualify for oxygen. It is likely that he has combination of COPD and also interstitial lung disease. Therefore, additional testing is warranted. It appears that his respiratory therapies adequate at this time. I did recommend pulmonary rehabilitation to the patient and he is agreeable to this. Will have him undergo additional imaging testing and pulmonary function studies done will address the pulmonary rehab during the next visit. 06/30/2022 the patient is here for a pulmonary follow-up visit. He continues to uses oxygen with good effect. Does help him at nighttime and also uses it with activity. His major complaint still is productive cough. Moderate severity. He does use Mucinex on a regular basis with partial resolution of the symptoms. The mucus is usually yellowish in color. He is able to clear for most part. We did order a Acapella valve during the last visit but he has yet to receive it. Therefore we will reach out to the [employer] again reorder. This time the hope that he gets a very good start more chest physical therapy for mucus clearance. In view of the ongoing symptoms we can also start him on a course of azithromycin just 4 months just to try to clear out some of the mucus burden. Then can stop it he does have a nebulizer and will start using the Acapella valve with hopes of providing better bronchopulmonary hygiene. The patient had an x-ray back about a year ago demonstrating no acute disease. if he continues to be symptomatic will have to repeat the chest x-ray. 12/28/2022 the patient is here for pulmonary follow-up visit. Overall the patient has been feeling better. He has a good regimen in the morning were uses the nebulizer 1st with albuterol. Followed by the Incruse inhaler and also 2 inhalations of Symbicort. After doing that he is able to go throughout the day without any significant issues. He did get the Acapella valve finally. He has not used it because he was not sure how the tenia. We did go to the instructions on how to do that. He will start using it twice a day. I do believe this will be a good exercise for his pulmonary muscles and I will be a good way to keep good bronchopulmonary hygiene. In the meantime the patient has a rescue inhaler that he has not required. He is dealing with some arthritis issues right now. Otherwise he is without any significant complaints. He has not had any x-rays in couple years therefore the patient will have 1 done hopefully soon. Will follow-up in 6-8 months or sooner if any new issues arise. 06/26/2023 the patient is here for a pulmonary follow-up visit. The patient is status post hip replacement. This was in April. He is doing better overall. He was hospitalized a little bit longer because he had other abnormalities suggest such as urinary retention and also issues with hyp onatremia. During the postoperative. He did have a chest x-ray demonstrating some atelectasis. At this point clinically the patient is doing well and is not having any significant discolored phlegm or congestion. He is using the oxygen but sometimes he does not like to carry a. He has a hard time with the oxygen tanks. We did do a conserving device trial and he did well on 3 L pulse maintaining a pulse ox above 92%. Therefore, will go ahead and request a B-cell under with conserving valve but I do believe that he will do better with a battery operated portable oxygen concentrator because he has a hard time with the oxygen tanks as it is already and they do not provide enough portability for him. Therefore POC will be more effective for him. Will request both for now since the family is aware that it may take longer to get a POC from his DME company, [facility]. Will submit all the paperwork for them in order to start the process in the meantime. He is going to uses respiratory therapy and he knows he needs to use the oxygen because he desaturates so quickly. 12/21/2023 the patient is here for a pulmonary follow-up visit. Overall the patient is doing about the same. Still complaining of productive cough [id number]-evqewlhb severity. In addition to that shortness of breath. Moderate severity. He does have the oxygen tank with him. Has a continuous valve and also is a medium-sized tank. Has a hard time carrying it. In addition to that he is forgetful. He does carry a but he has not using it. The is very concerned because he has really not aware of how to use it correctly. I do believe that is at this point cumbersome in dangerous. I did call the [employer] as I do believe he needs a portable oxygen concentrator with a conserving valve that is much shopper provides poor portability and will be easier for him to use. I did contact the [employer] company they will see if he is eligible. I did taken for a walking oximetry. The patient did desaturate with activity and did benefit from the conserving tank. I will request again a portable oxygen concentrator for the patient and will send a script to the [employer]. If the [employer] company can not provide him with a POC due to insurance issues they did mention that they will make sure to reach him how to use the oxygen tanks will provide him with the smallest tank possible, be cylinder with a conserving valve though be very like for him. based on his shortness of breath in his cough will go ahead and request a chest x-ray at this time. The patient will also continue with current respiratory therapy. 04/24/2024 the patient is here for a pulmonary follow-up visit. Overall he is doing okay. Continues to have dyspnea on exertion. Does use the oxygen with good effect. Has a hard time with the oxygen tanks. Partly due to his age. The patient should have a portable oxygen concentrator to provide ease on the use of the oxygen and provide better portability outside of the home. I will request 1 from his current [employer] company. In the meantime he did have a CT scan of the chest back in 02/07/2024. the patient did have a 11 mm pulmonary nodule recommended close follow-up. Therefore, will have him get a CT scan in the next 3 months. He will continue with current respiratory therapy. Will follow-up after his CT scan. [facility] Medical History (Updated 04/16/24 @ 14:02 by AFTAB Mancuso) Chronic cough Atherosclerotic cardiovascular disease BPH (benign prostatic hyperplasia) HLD (hyperlipidemia) HTN (hypertension) Chronic respiratory failure ILD (interstitial lung disease) COPD (chronic obstructive pulmonary disease) Family History Sister Cancer Social History Household Members: Spouse Housing: House Do you presently have visiting nurse or other home services: No Alcohol intake: never Patient Tobacco Use Status: Former Tobacco user Tobacco use type: Cigarette Years Smoked: 30 yrs Second Hand Smoke Exposure: No Current occupational status: retired Review of Systems Const Denies night sweats ENT Denies change in voice, Denies lip swelling, Denies mouth pain, Reports nasal congestion, Reports nasal discharge and Denies tongue swelling Card Denies chest pain and Reports dyspnea on exertion Resp Reports chest congestion, Reports cough, Denies hemoptysis and Reports dyspnea on exertion GI Denies abdominal pain Musc Reports as per HPI Neuro Denies Neuro-related abnormal movements Psych Denies no additional complaints Trevor/Lymph Denies easy bleeding and Denies lymphadenopathy Aller/Immun Denies lip swelling and Denies tongue swelling Physical Exam Vital Signs: Last Vital Signs Pulse 78 04/24/24 14:49 BP 128/60 04/24/24 14:49 Pulse Ox 95 04/24/24 14:49 Oxygen Delivery Method Room Air 04/24/24 14:49 BMI result Body Mass Index 19.5 Const General: healthy appearing and no acute distress HEENT Head: Yes normal to inspection, Yes normocephalic and Yes atraumatic Ears: Abnormal EAC present excessive cerumen bilateral General nose exam: Normal external nose present Face and sinus: Yes normal facial exam and Yes sinuses nontender Resp Effort & Inspection: normal respiratory effort Auscultation: diminished lung sounds Cardio Rate: regular rate Rhythm: regular rhythm Results Reviewed Results Reviewed: [address] [address] [address] Scan Report Signed Patient: Rafael Franco MR#: [id number] : 1935 Acct:[id number] Age/Sex: 88 / M ADM Date: 01/31/24 Loc: HO.CT Attending Dr: Jovanny Valdovinos MD Ordering Physician: Jovanny Valdovinos MD Date of Service: 01/31/24 Procedure(s): CT chest wo IV con Accession Number(s): [id number] cc: Jarrell Morse MD; Jovanny Valdovinos MD~ EXAMINATION: CT CHEST WITHOUT CONTRAST CLINICAL INFORMATION: Chronic cough. Other nonspecific abnormal finding of lung field. Possible right lateral costophrenic angle lung nodule seen on chest x-ray. COMPARISON: No prior CT. Chest x-ray 12/21/2023, and 06/04/2021. TECHNIQUE: Multidetector volumetric CT imaging of the chest was done. Axial MIP volume rendering provided. Sagittal and coronal reformatted images were obtained. This CT examination was performed using dose optimization techniques as appropriate, variously including the following: *Automated exposure control *Adjustment of mA and/or kV according to patient size (this includes techniques or standardized protocols for targeted exams where dose is matched to indication/reason for exam; i.e. extremities or head) *Use of iterative reconstruction technique DLP: 139 mGy-cm FINDINGS: KICK BOXER: Hyperaerated lung parenchyma. LUNGS: -There is moderate to severe centrilobular emphysema present, with upper lobe predominance. -There are scattered tiny calcified granulomata measuring 2-3 mm. -There is a 3 mm subpleural right upper lobe nodule laterally (series 5, image 356), nonspecific. -There is a 2 mm nodule in the posterior segment right upper lobe laterally (series 5, image 441), nonspecific. -There is a 5 mm pleural-based nodule in the anterior right middle lobe, (series 5, image 452), nonspecific. -Subpleural nodular scarring is present in the right costophrenic sulcus laterally, correlating with the abnormality seen on chest x-ray. This does not definitively represent a pulmonary nodule. Similar finding on the contralateral side, similar location. -Within the anterior superior segment left lower lobe, there is a consolidative irregular nodule with air bronchograms suggesting inflammatory/infectious etiology measuring 11 mm average diameter (series 5, image 495). -4 mm nodule posterior left upper lobe abutting the major fissure laterally (series 5, image 225) may be an intra-pulmonary lymph node, but is nonspecific. -In the far medial anterior left lower lobe, superior segment, there is a consolidative nodular focus measuring 1.7 x 1.7 cm (series 5, image 439), indeterminate. In addition, there are some more inferior reticulonodular changes in the anterior left costophrenic sulcus and slightly superior to this with some mild associated fissural retraction suggesting chronicity/fibrosis. Short interval follow-up recommended to ensure stability. MEDIASTINUM: -Thyroid appears small but normal. -Great vessels branch normally with mild to moderate calcification. -Aorta is uncoiled but normal in caliber, with moderate atheromatous calcification. No aneurysm. -Pulmonary artery is normal in size. -There are subcentimeter AP window and precarinal lymph nodes, presumably reactive. There is no pathologic mediastinal or hilar lymphadenopathy identified. Calcified right hilar lymph node is present, consistent with prior granulomatous exposure. The esophagus is normal in appearance. -Heart size is normal. There are significant aortic annular and mitral annular calcifications. CORONARY ARTERY CALCIFICATION: There are moderate to heavy three-vessel coronary calcifications. PLEURA: There is no pleural effusion. No pleural mass or thickening. AXILLA/CHEST WALL: No lymphadenopathy. Patient appears somewhat cachectic. UPPER ABDOMEN: Heavy calcification of the imaged abdominal aorta, which is nonaneurysmal. There are calcified gallstones in a partially imaged gallbladder. Remainder of the imaged upper abdominal contents demonstrate no abnormalities. OSSEOUS STRUCTURES: No suspicious lytic or blastic bone lesions. Degenerative changes of the spine, and sternoclavicular joints. There are scattered Schmorl's nodes in the vertebral body endplates. Sclerosis of the C6-C7 endplates with severe disc degeneration. Severe disc degeneration also noted T12-L1 and L1-L2. CT/CT chest wo IV con IMPRESSION: 1. Moderate to severe centrilobular emphysema with upper lobe predominance. 2. Scattered pulmonary nodules measuring up to 5 mm in the right middle lobe, and average diameter irregular nodule 11 mm in the anterior aspect superior segment left lower lobe. In addition there are reticulonodular type opacities inferior to this extending to the anterior left costophrenic margin. This could be postinflammatory scarring, although close interval follow-up recommended in [address] 3. Patient appears cachectic. 4. Scattered granulomata are present in both lungs. 5. Cholelithiasis. 6. Additional ancillary findings as described in the body of the report. Fleischner guidelines were followed. Dictated By: Walter Hale MD Signed By: <Electronically signed by Walter Hale MD in OV> 03/06/24 1118 DD/ 1718 TD/TT: House Cleaner Supervisor: Assessment & Plan Assessment & Plan (1) ILD (interstitial lung disease): Code(s): J84.9 - Interstitial pulmonary disease, unspecified Category: Medical (2) COPD (chronic obstructive pulmonary disease): Code(s): J44.9 - Chronic obstructive pulmonary disease, unspecified Category: Medical Qualifiers: COPD type: chronic bronchitis Chronic bronchitis type: simple Qualified Code(s): J41.0 - Simple chronic bronchitis (3) Chronic respiratory failure: Code(s): J96.10 - Chronic respiratory failure, unspecified whether with hypoxia or hypercapnia Category: Medical Qualifiers: Respiratory failure complication: hypoxia Qualified Code(s): J96.11 - Chronic respiratory failure with hypoxia (4) Chronic cough: Code(s): R05.3 - Chronic cough Category: Medical Plan Continue Symbicort Continue Incruse BENJAMIN as needed Oxygen supplementation with activity and sleep. Requesting conserving valve / POC 2L/pulse with activity and 2L while sleeping. The POC will provide ease of use and better portability outside of the home. continue exercise at home continue acapella valve for CPT CT chest F/U 6 months Orders: Orders CT chest wo IV con 3 Months R91.1 - Solitary pulmonary nodule Coding Level of Care Code Est Pt Level 4 (91677) Complex EM visit Add On G2211 Diagnoses ILD (interstitial lung disease) J84.9 Simple chronic bronchitis J41.0 COPD type: chronic bronchitis Chronic bronchitis type: simple Chronic respiratory failure with hypoxia J96.11 Respiratory failure complication: hypoxia Chronic cough R05.3 Time Spent (min) 17
[2024-04-24 14:49] VITALS: BP 128/60; PULSE 78; O2SAT 95; BMI 19.5
== END 2024-04-24 15:24 | disposition home or self-care (01) ==
PROVIDERS: PCP Internal Medicine; Visit Provider Hospitalist
DX: J84.9 Interstitial pulmonary disease, unspecified (principal); J41.0 Simple chronic bronchitis; J96.11 Chronic respiratory failure with hypoxia; R05.3 Chronic cough
CPT/HCPCS: 99214; G2211

== ENCOUNTER → 2024-04-24 14:33 | Outpatient (BNVA) | payer MEDICARE, SELFPAY | PROVIDERS: PCP Internal Medicine; Visit Provider Hospitalist | DX: J41.0 Simple chronic bronchitis (principal); J84.9 Interstitial pulmonary disease, unspecified; J96.11 Chronic respiratory failure with hypoxia; Z99.81 Dependence on supplemental oxygen | CPT/HCPCS: 99212 ==

== ENCOUNTER 2024-05-06 13:43 | Outpatient (AMB) | payer MEDICARE, SELFPAY ==
[2024-05-06 13:52] VITALS: BP 124/58; PULSE 74; BMI 19.5
--- NOTE | 2024-05-06 13:52 | A.OFFVIS_ITS ---
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: No Accompanied by: Spouse Allergies No Known Allergies [No Known Allergies*] Allergy (Verified 04/24/24 14:51) Medication List - Last Reconciled 05/06/24 by Demetrius Zamora MD albuterol sulfate 90 mcg/actuation 2 puffs inhalation QID aspirin 81 mg PO DAILY atorvastatin 40 mg PO DAILY betamethasone dipropionate 0.05% 1 appl topical BID fluticasone propion-salmeterol 500-50 mcg/dose (Wixela Inhub) inhalation ipratropium-albuterol 0.5 mg-3 mg(2.5 mg base)/3 mL 3 mL inhalation RQ4H WHILE AWAKE lisinopril 5 mg PO DAILY lorazepam 0.5 mg PO DAILY PRN multivitamin 1 tab PO DAILY nebulizers As directed Oxygen Home Use As directed tamsulosin 0.4 mg PO BEDTIME umeclidinium 62.5 mcg/actuation (Incruse Ellipta) 1 inh inhalation DAILY walker Folding front wheeled walker HPI Comments Details: Rafael returns for follow-up. In the past, he was seen in consultation regarding preoperative risk stratification for hip surgery. In the , he apparently had cardiac arrest that led to catheterization. 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 Since last seen, he states he is doing very well. No complaints like angina or shortness of breath or in fact anything cardiac sounding. Getting along fine. [facility] Medical History (Updated 05/06/24 @ 14:16 by Demetrius Zamora MD) Chronic cough Atherosclerotic cardiovascular disease BPH (benign prostatic hyperplasia) HLD (hyperlipidemia) HTN (hypertension) Chronic respiratory failure ILD (interstitial lung disease) COPD (chronic obstructive pulmonary disease) Family History (Updated 05/06/24 @ 13:58 by Shaila Sumner CMA) Sister Cancer Mother Stroke Father Stroke Social History Household Members: Spouse Housing: House Do you presently have visiting nurse or other home services: No Alcohol intake: never Patient Tobacco Use Status: Former Tobacco user Tobacco use type: Cigarette Years Smoked: 30 yrs Second Hand Smoke Exposure: No Current occupational status: retired Review of Systems Const Denies chills, Denies fatigue, Denies fever(s), Denies weight gain and Denies weight loss ENT Denies dizziness Card Denies chest pain, Denies leg edema, Denies lightheadedness, Denies palpitations, Denies dyspnea on exertion, Denies orthopnea and Denies other Resp Denies cough and Denies dyspnea on exertion GI Denies hematochezia and Denies change in stool character Musc Denies abnormal gait, Denies muscle weakness, Denies numbness, Denies radiating pain into limb and Denies tingling Neuro Denies abnormal gait, Denies dizziness, Denies numbness and Denies tingling Endo Denies fatigue and Denies palpitations Physical Exam Vital Signs: Last Vital Signs Pulse 74 05/06/24 13:52 BP 124/58 L 05/06/24 13:52 BMI result Body Mass Index 19.5 Const General: comfortable and no acute distress Orientation/consciousness: patient oriented x3 HEENT Other: Unremarkable Head: Yes normal to inspection Neck Neck: Yes normal visual inspection Chest Chest palpation & inspection: normal inspection of the chest Resp Auscultation: clear to auscultation bilaterally Cardio Other: Heart sounds are very distant and difficult to auscultate. GI Palpation (GI): Soft to palpation Back/Spine/Pelvis Other: unremarkable Skin General skin exam: no rashes or lesions noted Neuro General: patient oriented x3 Extrem General: Yes normal to inspection Psych Mental Status: mental status grossly normal Office Procedures EKG Details: EKG with underlying sinus rhythm at 74/Min; NE prolongation to 338 milliseconds; old inferior [place]. 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 Otherwise, no significant coronary disease. Clinically, he does not have any symptoms. Continue aspirin and statins. (2) Ischemic cardiomyopathy: Code(s): I25.5 - Ischemic cardiomyopathy Category: Medical Plan: In the recent echocardiogram, LVEF 45-50% with wall motion abnormalities from underlying coronary disease. Prior to that, LVEF 35-40%. Clinically, no symptoms or signs of congestive heart failure. Continue lisinopril. Not beta-blockers due to conduction system disease. (3) Non-rheumatic aortic stenosis: Code(s): I35.0 - Nonrheumatic aortic (valve) stenosis Category: Medical Plan: Discrepancy between echocardiogram and cardiac catheterization. On the echocardiogram, thought to be paradoxical low-flow, low gradient moderate to severe stenosis. However, not thought to be significant on catheterization. Difficult to auscultate as heart sounds are very distant. Any case, clinically he has got absolutely no symptoms. We can follow. (4) HTN (hypertension): Code(s): I10 - Essential (primary) hypertension Category: Medical Plan: Stable. (5) First degree heart block: Code(s): I44.0 - Atrioventricular block, first degree Category: Medical Plan: Avoid beta-blockers at this time. Can be followed for any progressive conduction system disease. Plan Discussed with significant other. Coding Level of Care Code Est Pt Level 4 (75427) Diagnoses Atherosclerotic cardiovascular disease I25.10 Ischemic cardiomyopathy I25.5 Non-rheumatic aortic stenosis I35.0 HTN (hypertension) I10 First degree heart block I44.0 CPT Codes EKG - CPT: 48040-[id number], Complete ([id number])
== END 2024-05-06 14:11 | disposition home or self-care (01) ==
PROVIDERS: PCP Internal Medicine; Visit Provider Internal Medicine
DX: I25.10 Atherosclerotic heart disease of native coronary artery without angina pectoris (principal); I25.5 Ischemic cardiomyopathy; I35.0 Nonrheumatic aortic (valve) stenosis; I10 Essential (primary) hypertension; I44.0 Atrioventricular block, first degree
CPT/HCPCS: 93010; 99214

== ENCOUNTER → 2024-05-06 13:43 | Outpatient (BNVA) | payer MEDICARE, SELFPAY | PROVIDERS: PCP Internal Medicine; Visit Provider Internal Medicine | DX: I25.10 Atherosclerotic heart disease of native coronary artery without angina pectoris (principal); I25.5 Ischemic cardiomyopathy; I35.0 Nonrheumatic aortic (valve) stenosis; I10 Essential (primary) hypertension; I44.0 Atrioventricular block, first degree | CPT/HCPCS: 93005; 99212 ==

== ENCOUNTER 2024-06-27 12:07 | Outpatient (AMB) | payer MEDICARE, SELFPAY ==
[2024-06-27 12:52] VITALS: BP 120/78; PULSE 85; O2SAT 95
--- NOTE | 2024-06-27 12:52 | AM.OFFWIN_ITS ---
Intake Vital Signs 06/27/24 12:52 Weight 135 lb BP 120/78 Blood Pressure Location Lt brachial Position Sitting Pulse 85 Pulse Source Pulse Oximeter Pulse Oximetry (%) 95 Oxygen Delivery Method Room Air Intake Visit Reasons: EP Hearing aid stuck in LT ear? Intake Note: Patient here because he believes part of his hearing aid is stuck in the left ear Patient Tobacco Use Status: Former Tobacco user Allergies No Known Allergies [No Known Allergies*] Allergy (Verified 06/27/24 12:53) Do you need a note to return to daycare/school/sports/work: No HPI HPI Comments History of Present Illness Details Patient is an 89-year-old male complaining of a piece of his hearing aid that came off and he thinks it is inside of his left ear canal. He tells me the piece is clear, and it is shaped like a cap. He states he took his hearing aid out any can not find it and he is not quite sure where else it would be. He denies any changes in his hearing or pain in his left ear [facility] Medical History (Updated 06/27/24 @ 13:16 by Sara Pedersen PA-C) Chronic cough Atherosclerotic cardiovascular disease BPH (benign prostatic hyperplasia) HLD (hyperlipidemia) HTN (hypertension) Chronic respiratory failure ILD (interstitial lung disease) COPD (chronic obstructive pulmonary disease) Family History (Updated 05/06/24 @ 13:58 by Shaila Sumner CMA) Sister Cancer Mother Stroke Father Stroke Social History Household Members: Spouse Housing: House Do you presently have visiting nurse or other home services: No Alcohol intake: never Patient Tobacco Use Status: Former Tobacco user Tobacco use type: Cigarette Years Smoked: 30 yrs Second Hand Smoke Exposure: No Current occupational status: retired Review of Systems Const All systems reviewed & are unremarkable except as noted in HPI and below Physical Exam Vital Signs: Last Vital Signs Pulse 85 06/27/24 12:52 BP 120/78 06/27/24 12:52 Pulse Ox 95 06/27/24 12:52 Oxygen Delivery Method Room Air 06/27/24 12:52 Const General: cooperative, healthy appearing, comfortable, no acute distress and well developed Orientation/consciousness: patient oriented x3 Limitations: no limitations HEENT Head: Yes normal to inspection Ears: external ears normal and Abnormal EAC present foreign body (Plastic piece from his hearing aid) on the left General nose exam: Normal external nose present Face and sinus: Yes normal facial exam Neck Neck: Yes normal visual inspection and Yes supple Neuro General: patient oriented x3 Office Procedures Cerumen Removal Details: Removed some cerumen able to visualize the piece of the hearing aid cap, using a Ana clamp, retrieved the plastic piece From which ear canal was the cerumen removed: left Removal: otoscope w/curette Notes: patient tolerated procedure well, no complications and ear canal clear [id number] Wax Removal by Spoon/Curette Assessment & Plan Assessment & Plan (1) Foreign body of ear, left: Code(s): T16.2XXA - Foreign body in left ear, initial encounter Qualifiers: Encounter type: initial encounter Qualified Code(s): T16.2XXA - Foreign body in left ear, initial encounter Plan: Had to remove some cerumen to be able to visualize the hearing aid piece, easily removed with Ana clamps. Plan See above Coding Level of Care Code New Pt Level 3 (12905) Diagnoses Foreign body of left ear, initial encounter T16.2XXA Encounter type: initial encounter CPT Codes Office Procedure - CPT: 20923-Hrm Wax Removal by Spoon/Curette ([id number])
== END 2024-06-27 13:19 | disposition home or self-care (01) ==
PROVIDERS: PCP Internal Medicine; Visit Provider Physician Assistant
DX: T16.2XXA Foreign body in left ear, initial encounter (principal)

== ENCOUNTER → 2024-06-27 12:07 | Outpatient (BNVA) | payer MEDICARE, SELFPAY | PROVIDERS: PCP Internal Medicine; Visit Provider Physician Assistant | DX: T16.2XXA Foreign body in left ear, initial encounter (principal) | CPT/HCPCS: 69200; 99202 ==

== ENCOUNTER 2024-08-05 13:57 | Outpatient (AMB) | payer MEDICARE, SELFPAY ==
--- OUTSIDE RECORDS SUMMARY | 2024-08-05 14:09 | XMS_ITS ---
Author Organization Jarrell Morse MD Address [address] [place], [place] [phone] Care Team Providers Care Line Leader Name Role Phone Jarrell Morse Primary Care Provider REASON FOR VISIT added lab test on orders Encounters Encounter Location Date Provider Diagnosis Jarrell Morse MD [address] [facility] [address] [place], [place] [phone] 07/31/2024 Jarrell Morse PLAN OF TREATMENT Next Appt Details Provider Name:Jarrell chow, 08/22/2024 01:00:00 PM, [address], [address], [place], [place], [phone],
--- OUTSIDE RECORDS SUMMARY | 2024-08-05 14:09 | XMS_ITS ---
Author Organization Jarrell Morse MD Address [address] [place], [place] [phone] Care Team Providers Care Press Setter Name Role Phone Jarrell Morse Primary Care Provider REASON FOR VISIT refill MEDICATIONS Medication SIG (Take, Route, Fr equency, Duration) Notes Start Date End Date Status LORazepam 0.5 MG TAKE 1 TABLET BY ALBERT TH TWICE A DAY Orally Twice a day for 30 days 07/31/2024 A ctive Encounters Encounter Location Date Provider Diagnosis Jarrell Morse MD [address] [facility] [address] [place], [place] [phone] 07/31/2024 Jarrell Morse PLAN OF TREATMENT Medication Medication Name Sig Start Date Stop Date Notes LORazepam 0.5 MG TAKE 1 TABLET BY ALBERT TH TWICE A DAY Orally Twice a day for 30 days 07/31/2024 Next Appt Details Provider Name:Jarrell chow, 08/22/2024 01:00:00 PM, [address] [facility], [address], [place], [place], [phone],
--- OUTSIDE RECORDS SUMMARY | 2024-08-05 14:09 | XMS_ITS ---
Author Organization Jarrell Morse MD Address [address] [place], [place] [phone] Care Team Providers Care Overnight Houseperson Name Role Phone Jarrell Morse Primary Care Provider [phone] REASON FOR VISIT FASTING LABS Encounters Encounter Location Date Provider Diagnosis Jarrell Morse MD [address] [place], [place] [phone] 08/04/2024 Jarrell Morse Panlobular emphysema J43.1 ; Prediabetes R73.09 ; Pure hypercholesterolemia E78.00 ; Essential hypertension I10 ; Prostatism N40.0 and Annual visit for general adult medical examination with abnormal findings Z00.01 ASSESSMENTS Encounter Date Diagnosis Assessment Notes Treatment Notes Treatment Clinical Notes 08/04/2024 Panlobular emphysema (ICD-10 - J43.1) 08/04/2024 Prediabetes (ICD-10 - R73.09) 08/04/2024 Pure hypercholestero lemia (ICD-10 - E78.00) 08/04/2024 Essential hypertensi on (ICD-10 - I10) 08/04/2024 Prostatism (ICD-10 - N40.0) 08/04/2024 Annual visit for gen eral adult medical examination with abnormal findings (ICD-10 - Z00.01) PLAN OF TREATMENT Pending Test Test Name Order Date Complete Blood Count Auto Diff Comprehensive [place]. Panel Fast Liver Panel 08/04/2024 Lipid Panel with Reflex 08/04/2024 PSA,Total (Free>4and<10) 08/04/2024 Microalbumin, Random 08/04/2024 Hemoglobin A1c 08/04/2024 UA ClnCatch+Micro w/rflx Cult 08/04/2024 Next Appt Details Provider Name:Jarrell chow, 08/22/2024 01:00:00 PM, [address], [address], [place], [place], [phone],
--- OUTSIDE RECORDS SUMMARY | 2024-08-05 14:10 | XMS_ITS | Patient Health Record ---
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 Subway Repair Supervisor Name Role Phone Jarrell Morse Primary Care Provider ALLERGIES Allergen (clinical drug ingredient) Drug/Non Drug Allergy documented on EMR Reaction Allergy Type Onset Date Status doxycycline Doxycycline diarrhea Drug Allergy Act kevin tiotropium Spiriva HandiHaler hoarse Drug Allergy Active RESULTS Component Value Reference Range Notes Hold Green Gel Reviewed date:08/10/2023 04:16:05 PM Interpretation: Performing Lab:[facility], [address] [place] [phone] Notes/Report: Hold Green Gel See Note Specimen held untested for 24 hours; Call to request Chemistry testing. Occult Blood, Stool, Guaiac Reviewed date:08/10/2023 02:04:56 PM Interpretation:Negative Performing Lab: Notes/Report: Negative Occult Blood, Stool, Guaiac Neg PSA,Total (Free>4and<10) Reviewed date:08/11/2023 03:47:43 PM Interpretation: Performing Lab:[facility], [address] [place] [phone] Notes/Report: PSA,Total (Free>4and<10) 3.34 0.00-4.00 ng/mL A Free PSA was not performed: The percentage of Free PSA can be used to enhance the differentiation of prostate cancer from benign prostatic disease in subjects whose PSA levels are between 4.0 and 10.0 ng/mL. For subjects whose PSA levels are below 4.0 or above 10.0 ng/mL, the risk of prostate cancer is determined on the basis of the PSA alone. Therefore the % Free PSA is recommended only for those subjects whose PSA levels are between 4.0 and 10.0 ng/mL. PSA methodology: Shipzi Alinity i Chemiluminescent Microparticle Immunoassay (CMIA) XR chest 2V Reviewed date:12/31/2023 09:15:12 AM Interpretation: Performing Lab: Notes/Report: [address] [address] XRay Report Signed Patient: Rafael Franco MR#: [id number] : 1935 Acct:[id number] Age/Sex: 88 / M ADM Date: 12/21/23 Loc: [facility] Attending Dr: Jovanny Valdovinos MD Ordering Physician: Jovanny Valdovinos MD Date of Service: 12/21/23 Procedure(s): XR chest 2V Accession Number(s): [id number] cc: Jarrell Morse MD; Jovanny Valdovinos MD EXAMINATION: XR CHEST CLINICAL INFORMATION: Reason for Exam R05.3 - Chronic cough COMPARISON: Chest radiograph 06/04/2021 TECHNIQUE: 2 views of the chest FINDINGS: Lines and tubes: None. A 1.2 cm nodular opacity overlying the right lung base which could reflect a pulmonary nodule, recommend correlation with dedicated CT chest. Blunting of the costophrenic angles which may reflect trace pleural effusions versus pleural parenchymal thickening. No pneumothorax. Unchanged cardiomediastinal silhouette. XR/XR chest 2V IMPRESSION: 1. A 1.2 cm nodular opacity overlying the right lung base which could reflect a pulmonary nodule, recommend correlation with dedicated CT chest. 2. Blunting of the costophrenic angles which may reflect trace pleural effusions versus pleural parenchymal thickening. A [facility] physician support system confirmed receipt of these findings and recommendations with Latisha Jett radiology physician assistant at the office of ordering provider Dr. Jovanny Valdovinos, at 3:10 PM 12/28/2023 with read back confirmation and it was ascertained that the content and urgency of the report was understood at the time of direct communication. 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 Other nonspecific abnormal finding of lung field. Possible right lateral costophrenic angle lung nodule seen on chest x-ray. COMPARISON: No prior CT. Chest x-ray 12/21/2023, and 06/04/2021. TECHNIQUE: Multidetector volumetric CT imaging of the chest was done. Axial MIP volume rendering provided. Sagittal and coronal reformatted images were obtained. This CT examination was performed using dose optimization techniques as appropriate, variously including the following: *Automated exposure control *Adjustment of mA and/or kV according to patient size (this includes techniques or standardized protocols for targeted exams where dose is matched to indication/reason for exam; i.e. 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 LUNGS: -There is moderate to severe centrilobular emphysema present, with upper lobe predominance. -There are scattered tiny calcified granulomata measuring 2-3 mm. -There is a 3 mm subpleural right upper lobe nodule laterally (series 5, image 356), nonspecific. -There is a 2 mm nodule in the posterior segment right upper lobe laterally (series 5, image 441), nonspecific. -There is a 5 mm pleural-based nodule in the anterior right middle lobe, (series 5, image 452), nonspecific. -Subpleural nodular scarring is present in the right costophrenic sulcus laterally, correlating with the abnormality seen on chest x-ray. This does not definitively represent a pulmonary nodule. Similar finding on the contralateral side, similar location. -Within the anterior superior segment left lower lobe, there is a consolidative irregular nodule with air bronchograms suggesting inflammatory/infectious etiology measuring 11 mm average diameter (series 5, image 495). -4 mm nodule posterior left upper lobe abutting the major fissure laterally (series 5, image 225) may be an intra-pulmonary lymph node, but is nonspecific. -In the far medial anterior left lower lobe, superior segment, there is a consolidative nodular focus measuring 1.7 x 1.7 cm (series 5, image 439), indeterminate. In addition, there are some more inferior reticulonodular changes in the anterior left costophrenic sulcus and slightly superior to this with some mild associated fissural retraction suggesting chronicity/fibrosis. Short interval follow-up recommended to ensure stability. MEDIASTINUM: -Thyroid appears small but normal. -Great vessels branch normally with mild to moderate calcification. -Aorta is uncoiled but normal in caliber, with moderate atheromatous calcification. No aneurysm. -Pulmonary artery is normal in size. -There are subcentimeter AP window and precarinal lymph nodes, presumably reactive. There is no pathologic mediastinal or hilar lymphadenopathy identified. Calcified right hilar lymph node is present, consistent with prior granulomatous exposure. The esophagus is normal in appearance. -Heart size is normal. There are significant aortic annular and mitral annular calcifications. CORONARY ARTERY CALCIFICATION: There are moderate to heavy three-vessel coronary calcifications. PLEURA: There is no pleural effusion. No pleural mass or thickening. AXILLA/CHEST WALL: No lymphadenopathy. Patient appears somewhat cachectic. UPPER ABDOMEN: Heavy calcification of the imaged abdominal aorta, which is nonaneurysmal. There are calcified gallstones in a partially imaged gallbladder. Remainder of the imaged upper abdominal contents demonstrate no abnormalities. OSSEOUS STRUCTURES: No suspicious lytic or blastic bone lesions. Degenerative changes of the spine, and sternoclavicular joints. There are scattered Schmorl's nodes in the vertebral body endplates. Sclerosis of the C6-C7 endplates with severe disc degeneration. Severe disc degeneration also noted T12-L1 and L1-L2. CT/CT chest wo IV con IMPRESSION: 1. Moderate to severe centrilobular emphysema with upper lobe predominance. 2. Scattered pulmonary nodules measuring up to 5 mm in the right middle lobe, and average diameter irregular nodule 11 mm in the anterior aspect superior segment left lower lobe. In addition there are reticulonodular type opacities inferior to this extending to the anterior left costophrenic margin. This could be postinflammatory scarring, although close interval follow-up recommended in [address] 3. Patient appears cachectic. 4. Scattered granulomata are present in both lungs. 5. Cholelithiasis. 6. Additional ancillary findings as described in the body of the report. Fleischner guidelines were followed. 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: Liver Panel Reviewed date:02/05/2024 04:29:22 PM Interpretation: Performing Lab:[address] [phone] Notes/Report: Bilirubin Total 0.6 0.0-1.0 mg/dL Bilirubin Direct 0.2 0.0-0.5 mg/dL Aspartate Amino Transferase 31 5-37 U/L Alanine Aminotransferase 24 0-40 U/L Total Protein 6.8 6.5-8.0 g/dL Albumin Level 3.9 3.5-5.0 g/dL Alkaline Phosphatase 127 39-117 U/L Glucose Fasting Reviewed date:02/05/2024 04:29:31 PM Interpretation: Performing Lab:[address] [address] Notes/Report: Glucose Fasting 99 60-99 mg/dL Lipid Panel with Reflex Reviewed date:02/05/2024 04:28:03 PM Interpretation: Performing Lab:[address] [address] Notes/Report: Triglycerides 41 <150 mg/dL Desirable Triglyceride: less than 150 mg/dL Borderline High Triglyceride 150-199 mg/dL High Triglyceride: 200-499 mg/dL Very High Triglyceride: greater than or equal to 5OO mg/dL Cholesterol 104 <200 mg/dL Desirable Cholesterol: less than 200 mg/dL Borderline High Cholesterol: 200-239 mg/dL High Cholesterol: greater than 239 mg/dL LDL Cholesterol Calculated 48 <100 mg/dL Desirable LDL: less than 100 mg/dL Near Optimal/Above Optimal LDL: 110-129 mg/dL Borderline High LDL: 130-159 mg/dL High LDL: 160-189 mg/dL Very High LDL: greater than or equal to 190 mg/dL HDL Cholesterol 48 >40 mg/dL Desirable HDL: greater than 40 mg/dL Note: This HDL assay may give artificially low results in patients with liver disease. Hemoglobin A1c Reviewed date:02/05/2024 12:31:30 PM Interpretation: Performing Lab:[address] [address] Notes/Report: Hemoglobin A1c % 5.7 <6.0 % Hemoglobin A1C Reference Range Adults: 4.8 - 6.0 % Non diabetic: < 6.0 % Goal: < 7.0 % Additional Action Suggested: > 8.0 % Note: Hemoglobin A1c results are invalid for patients with abnormal amounts of HbF. Blood transfusions may impact the HbA1c concentration in the patient sample. Estimated Average Glucose 117 eAG = Estimated average glucose which is %A1C expressed as average glucose, using the formula of the X7E-Tockhyz Average Glucose study (ADAG), Diabetes Care, Vol.31,#8, Mar. 2007 Microalbumin, Random Reviewed date:03/28/2024 03:30:57 PM Interpretation: Performing Lab:[facility], [address] [place] [phone] Notes/Report: Creatinine Urine 64.88 Microalbumin Urine < 5.0 Microalbum/Creatinine Ratio Ur TNP <30 ug/mg cr Unable to calculate albumin/creatinine ratio due to low microalbumin or creatinine result. UA CC w/rflx Micro + Cult Reviewed date:03/28/2024 03:37:44 PM Interpretation: Performing Lab:[facility], [address] [place] [phone] Notes/Report: Urine, Clean Catch Color Urine Yellow Appearance Urine Clear PH 6.0 5.0-9.0 Glucose Urine UA Negative Negative mg/dL Urine Blood Negative Negative Specific [place] - Urine 1.020 1.005-1.025 Urine Protein Negative Neg-Trace mg/dL Urine Ketones Negative Negative mg/dL Nitrite Urine Negative Negative Leukocyte Esterase Urine Negative Negative REASON FOR REFERRAL No Information MEDICATIONS Medication SIG (Take, Route, Frequency, Duration) Notes Start Date End Date Status Incruse Ellipta 62.5 MCG/ACT INHALE 1 PUFF DAILY FOR 90 DAYS Active LORazepam 0.5 MG TAKE 1 TABLET BY ALBERT TH TWICE A DAY Orally Twice a day for 30 days 07/31/2024 Active Wixela Inhub 500-50 MCG/ACT 1 puff Inhalation Twice a day 10/22/2023 Active Betamethasone Dipropionate 0.05 % as directed Externally daily for 90 days 10/26/2011 Active Metoprolol Succinate ER 25 MG TAKE 1 TABLET BY MOUTH EVERY DAY for 90 Not-Taking Viagra 50 MG 1 tablet as needed Orally Once a day as needed for 30 day(s) 12/14/2020 Not-Taking Atorvastatin Calcium 40 MG TAKE 1 TABLET BY MOUTH EVERY DAY Active PreserVision AREDS 2 - as directed Orally Active Symbicort 160-4.5 MCG/ACT INHALE TWO PUF FS BY MOUTH TWICE A DAY Not-Taking Ipratropium-Albuterol 0.5-2.5 (3) MG/3ML INHALE CONTENTS OF 1 AMP VIA NEBULIZER EVERY 6 HOURS Inhalation every 6 hrs Active Aspir-Low 81 MG 1 tablet Orally Once a day for 30 day(s) 09/19/2019 Active Celecoxib 200 MG 1 capsule with food Orally Once a day 03/14/2022 Not-Taking Albuterol Sulfate HFA 108 (90 Base) MCG/ACT inhale 2 puffs every 4 hours as needed Inhalation every 4 hrs Active Lisinopril 5 MG 1 tablet Orally Once a day for 30 day(s) Active Tamsulosin HCl 0.4 MG 1 capsule Orally T WICE PER DAY for 90 days Active Ventolin HFA * 108 (90 Base) MCG/ACT INHALE 2 PUFFS EVERY 4 HOURS NEEDED Active Sulfamethoxazole-Trimethop rim 800-160 MG TAKE 1 TABLET BY MOUTH TWICE A DAY FOR 10 DAYS Oral Twice a day for 10 days Not-Taking IMMUNIZATIONS Vaccine Route Administration Date Status Comme nts Flu Vaccine IM Intramuscular 05/09/2011 Administered Flu Vaccine IM Intramuscular 04/15/2012 Administered Prevnar 13 Unknown 06/27/2012 Administered TDaP Unknown 07/04/2012 Administered Shingles IM Intramuscular 10/10/2012 Administered Flu Vaccine IM Intramuscular 05/27/2013 Administered PPSV23 (Pnemovax) IM Intramuscular 06/05/2013 Administered Flu Vaccine Unknown 06/15/2014 Administered [facility] Fluarix Quadrivalent IM Intramuscular 05/06/2015 Administe red Fluarix Quadrivalent IM Intramuscular 06/23/2016 Administe red Fluarix Quadrivalent IM Intramuscular 10/11/2017 Administe red Fluarix Quadrivalent IM Intramuscular 04/30/2018 Administe red PPSV23 (Pnemovax) IM Intramuscular 10/15/2018 Administered Fluarix Quadrivalent IM Intramuscular 04/28/2019 Administe red Fluarix Quadrivalent IM Intramuscular 05/21/2020 Administe red SARS-COV-2 Pfizer Unknown 09/26/2020 Administered SARS-COV-2 Pfizer Unknown 10/18/2020 Administered Influenza High Dose IM Intramuscular 04/29/2021 Administer ed SARS-COV-2 Pfizer Unknown 07/27/2021 Administered Influenza High Dose IM Intramuscular 06/15/2023 Administer ed Fluarix Quadrivalent Unknown 10/01/2017 Refused SOCIAL HISTORY Tobacco Use: Social History Observation Description Date Details (start date - stop date) Former Smoker NA - NA Sex Assigned At : Social History Observation Description Sex Assigned At Unknown Tobacco Use/Smoking Question Answer Notes Patient is a former smoker How long has it been since y ou last smoked? > 10 years Additional Findings: Tobacco Non-User Fo rmer smoker, currently using no form of tobacco Alcohol Screen Question Answer Notes Did you have a drink containing alcohol in the p ast year? 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) Active confirmed 114 87773 Problem Anxiety (F41.9) Active confirmed 930728 02 Problem Hip arthritis (M19.90) Active confirmed Arthritis of hip (27889842) Problem 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 plaque (I25.83) Active confirmed 536674230413519 Problem Malignant neoplasm o f sigmoid colon (C18.7) Active confirmed 691972078 Problem 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) Active confirmed 8524009 Problem Centrilobular emphysema (J43.2) Active confirmed Centrilobu lar emphysema (46389930) Problem 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) Active confirmed 777925211 Problem Lumbar disc disease (M51.9) Active confirmed Disorder of lumbar disc (723354728) Problem Essential hypertensi on (I10) Active confirmed 45729903 Problem Psoriasis (L40.9) Active confirmed Psor iasis (3688166) Problem Prediabetes (R73.09) Active confirmed 9 886537 Problem Lung nodule (R91.1) Active confirmed So litary nodule of lung (989520121) Problem NSVT (nonsustained ventricular tachycardia) (I47.2) Active confirmed 123439186 Problem Sciatica of right si de (M54.31) Active confirmed 28940696 Problem Pure hypercholesterolemia (E78.00) Active confirmed 056187683 Problem COPD with acute exacerbation (J44.1) Active confirmed 831593979 Problem Hip arthritis (M16.10) Active confirmed 80786136 VITAL SIGNS Blood pressure diastolic 50 mm Hg 03/03/2024 jamey ght is down 11 pounds since 11-06-23 Height 71.50 in 03/03/2024 weight is down 11 pounds since 11-06-23 Blood pressure systolic 104 mm Hg 03/03/2024 weig ht is down 11 pounds since 11-06-23 Weight 131 lbs 03/03/2024 weight is down 11 pounds since 11-06-23 BMI 18.01 kg/m2 03/03/2024 weight is down 11 pounds since 11-06-23 Encounters Encounter Location Date Provider Diagnosis Jarrell Morse MD [address] [place] [id number] 08/10/2023 Jarrell Morse Panlobular emphysema J43.1 ; Prostatism N40.0 ; Prediabetes R73.09 ; Pure hypercholesterolemia E78.00 ; Colon cancer screening Z12.11 and Depression screening Z13.31 Jarrell Morse MD [address] [place] [id number] 11/06/2023 Jarrell Morse Impacted cerumen of left ear H61.22 Jarrell Morse MD [address] [place] [id number] 08/04/2024 Jarrell Morse Panlobular emphysema J43.1 ; Prediabetes R73.09 ; Pure hypercholesterolemia E78.00 ; Essential hypertension I10 ; Prostatism N40.0 and Annual visit for general adult medical examination with abnormal findings Z00.01 Jarrell Morse MD [address] [place] [id number] 02/04/2024 Jarrell Morse Prediabetes R73.09 a nd Pure hypercholesterolemia E78.00 Jarrell Morse MD [address] [place] [address] [id number] 03/28/2024 Jarrell Morse Essential hypertensi on I10 and Prediabetes R73.09 Jarrell Morse MD [address] [place] [address] [id number] 03/03/2024 Jarrell Morse Panlobular emphysema J43.1 ; Pure hypercholesterolemia E78.00 and Centrilobular emphysema J43.2 Jarrell Morse MD [address] [place] [address] [id number] 10/01/2023 Jarrell Morse MD [address] [place] [address] [id number] 10/22/2023 Jarrell Morse MD [address] [place] [address] [id number] 11/19/2023 Jarrell Morse MD [address] [place] [address] [id number] 12/31/2023 Jarrell Morse Lung nodule R91.1 Jarrell Morse MD [address] [place] [id number] 01/08/2024 Jarrell Morse MD [address] [place] [address] [id number] 03/06/2024 Jarrell Morse Lung nodule R91.1 Jarrell Morse MD [address] [place] [address] [id number] 04/18/2024 Jarrell Morse MD [address] [place] [address] [id number] 04/22/2024 Jarrell Morse MD [address] [place] [address] [id number] 05/09/2024 Jarrell Morse MD [address] [place] [address] [id number] 05/23/2024 Jarrell Morse MD [address] [place] [address] [id number] 07/31/2024 Jarrell Morse MD [address] [place] [address] [id number] 07/31/2024 Jarrell Morse ASSESSMENTS Encounter Date Diagnosis Assessment Notes Treatment Notes Treatment Clinical Notes 08/10/2023 Prostatism (ICD-10 - N40.0) stable, will continue current regiment 08/10/2023 Panlobular emphysema (ICD-10 - J43.1) stable, will continue current regiment 11/06/2023 Impacted cerumen of left ear (ICD-10 - H61.22) 08/04/2024 Panlobular emphysema (ICD-10 - J43.1) 02/04/2024 Prediabetes (ICD-10 - R73.09) 03/28/2024 Essential hypertensi on (ICD-10 - I10) 03/03/2024 Panlobular emphysema (ICD-10 - J43.1) with deep bronchitis cough, will continue current regiment and will continue to monitor 03/03/2024 Pure hypercholestero lemia (ICD-10 - E78.00) doing well on meds, will continue current regiment 03/06/2024 Lung nodule (ICD-10 - R91.1) 08/10/2023 Prediabetes (ICD-10 - R73.09) stable, no need for medication at this time 08/04/2024 Prediabetes (ICD-10 - R73.09) 02/04/2024 Pure hypercholestero lemia (ICD-10 - E78.00) 03/28/2024 Prediabetes (ICD-10 - R73.09) 03/03/2024 Centrilobular emphys tyra (ICD-10 - J43.2) stable. will continue current regiment 12/31/2023 Lung nodule (ICD-10 - R91.1) order made and faxed to [facility] Centralized Scheduling. They will contact the patient with an appointment. 08/10/2023 Pure hypercholestero lemia (ICD-10 - E78.00) stable, will continue current regiment 08/04/2024 Pure hypercholestero lemia (ICD-10 - E78.00) 08/10/2023 Colon cancer screeni ng (ICD-10 - Z12.11) guaiac negative 08/04/2024 Essential hypertensi on (ICD-10 - I10) 08/10/2023 Depression screening (ICD-10 - Z13.31) negative screen 08/04/2024 Prostatism (ICD-10 - N40.0) 08/04/2024 Annual visit for [facility] adult medical examination with abnormal findings (ICD-10 - Z00.01) PLAN OF TREATMENT Pending Test Test Name Order Date Electrocardiogram (EKG) 02/24/2016 Complete Blood Count Auto Diff 4 Comprehensive [place]. Panel Fast 4 Liver Panel 08/04/2024 Lipid Panel with Reflex 08/04/2024 PSA,Total (Free>4and<10) 08/04/2024 Microalbumin, Random 08/04/2024 CT chest wo con 12/31/2023 CT chest wo con 03/06/2024 US venous duplex UE BI 06/15/2023 US venous duplex LE BI 06/18/2023 Hemoglobin A1c 08/04/2024 UA ClnCatch+Micro w/rflx Cult 08/04/2024 Next Appt Details Provider Name:Jarrell chow, 08/22/2024 01:00:00 PM, [address] [place] [address] Drive, [address], [place], [place], [id number], Insurance Providers Payer Name Payer Address Payer Phone Subscriber Number Group Number Insured Name Patient Relationship to Insured Coverage Start Date Coverage End Date MEDICARE NHIC [facility] [address] [place] [address] [id number] Rafael Franco Self - patient is the insured [employer] OF [place] [address] [place] [phone] [id number] Rafael Franco Self - patient is the insured MEDICAL (GENERAL) HISTORY Medical History History ICD Code myocardial infarction colon cancer colonoscopy 2008 due 2012; c olonosscopy 06/25/2013; was told he needs no further colonoscopy per Dr. Marie
--- NOTE | 2024-08-05 14:53 | AM.OFFWIN_ITS ---
Intake Vital Signs 08/05/24 14:54 Weight 134 lb BP 110/64 Blood Pressure Location Lt brachial Position Sitting Pulse 74 Pulse Source Pulse Oximeter Pulse Oximetry (%) 89 L Oxygen Delivery Method Room Air Intake Visit Reasons: EP LT ear hearing aid plug ? needs to be removed Intake Note: Patient here for left ear plugged, he states he believes the plastic piece from his hearing aid may be in there. Patient Tobacco Use Status: Former Tobacco user Allergies No Known Allergies [No Known Allergies*] Allergy (Verified 08/05/24 14:54) Do you need a note to return to daycare/school/sports/work: No HPI EP LT ear hearing aid plug ? needs to be removed 2 HPI Details 89-year-old male presents to the office for a sick visit. He has part of a hearing aid remaining in the left ear that he would like removed. [facility] Medical History (Updated 06/27/24 @ 13:16 by Sara Pedersen PA-C) Chronic cough Atherosclerotic cardiovascular disease BPH (benign prostatic hyperplasia) HLD (hyperlipidemia) HTN (hypertension) Chronic respiratory failure ILD (interstitial lung disease) COPD (chronic obstructive pulmonary disease) Family History (Updated 05/06/24 @ 13:58 by Shaila Sumner CMA) Sister Cancer Mother Stroke Father Stroke Social History Household Members: Spouse Housing: House Do you presently have visiting nurse or other home services: No Alcohol intake: never Patient Tobacco Use Status: Former Tobacco user Tobacco use type: Cigarette Years Smoked: 30 yrs Second Hand Smoke Exposure: No Current occupational status: retired Physical Exam Vital Signs: Last Vital Signs Pulse 74 08/05/24 14:54 BP 110/64 08/05/24 14:54 Pulse Ox 89 L 08/05/24 14:54 Oxygen Delivery Method Room Air 08/05/24 14:54 Office Procedures AMB Foreign Body Removal Details: Left ear: Ear canal visualized and a small plastic tube identified. With forceps the foreign body was removed in its entirety. Patient tolerated the procedure well. Foreign Body Removal Simple: [id number], simple Foreign Body Removal, External Auditory Canal: 47314 - Foreign body removal, external auditory canal Procedure code (CPT) selection complete Assessment & Plan Assessment & Plan (1) Foreign body in left ear, initial encounter: Code(s): T16.2XXA - Foreign body in left ear, initial encounter Plan: Patient tolerated procedure well. Orders: Orders AMB Removal of foreign body Today T16.2XXA - Foreign body in left ear, initial encounter Coding Level of Care Code Est Pt Level 3 (56542) Diagnoses Foreign body in left ear, initial encounter T16.2XXA CPT Codes Details - Foreign body simple: [id number], simple ([id number]) Details - Foreign body removal, external auditory canal: 60409 - Foreign body removal, external auditory canal ([id number])
[2024-08-05 14:54] VITALS: BP 110/64; PULSE 74; O2SAT 89
== END 2024-08-05 15:38 | disposition home or self-care (01) ==
PROVIDERS: PCP Internal Medicine; Visit Provider Internal Medicine
DX: T16.2XXA Foreign body in left ear, initial encounter (principal)

== ENCOUNTER → 2024-08-05 13:57 | Outpatient (BNVA) | payer MEDICARE, SELFPAY | PROVIDERS: PCP Internal Medicine; Visit Provider Internal Medicine | DX: T16.2XXA Foreign body in left ear, initial encounter (principal); X58.XXXA Exposure to other specified factors, initial encounter; Y93.9 Activity, unspecified; Y92.9 Unspecified place or not applicable; Y99.9 Unspecified external cause status | CPT/HCPCS: 69200; 99212 ==

== ENCOUNTER 2024-08-18 08:51 | Outpatient (REF) | payer MEDICARE, SELFPAY ==
--- OUTSIDE RECORDS SUMMARY | 2024-08-18 08:54 | XMS_ITS ---
Author Organization Jarrell Morse MD Address [address] [place], [place] [phone] Care Team Providers Care Comber Tender Name Role Phone Jarrell Morse Primary Care Provider REASON FOR VISIT added lab test on orders Encounters Encounter Location Date Provider Diagnosis Jarrell Morse MD [address] [facility] [address] [place], [place] [phone] 07/31/2024 Jarrell Morse PLAN OF TREATMENT Next Appt Details Provider Name:Jarrell chow, 08/22/2024 01:00:00 PM, [address], [address], [place], [place], [phone],
--- OUTSIDE RECORDS SUMMARY | 2024-08-18 08:54 | XMS_ITS ---
Author Organization Jarrell Morse MD Address [address] [place], [place] [phone] Care Team Providers Care Lisw Name Role Phone Jarrell Morse Primary Care Provider [phone] REASON FOR VISIT FASTING LABS Encounters Encounter Location Date Provider Diagnosis Jarrell Morse MD [address] [place], [place] [phone] 08/04/2024 Jarrell Morse Panlobular emphysema J43.1 ; [...] Date Complete Blood Count Auto Diff Comprehensive [place]. Panel Fast Liver Panel 08/04/2024 Lipid Panel with Reflex 08/04/2024 PSA,Total (Free>4and<10) 08/04/2024 Microalbumin, Random 08/04/2024 Hemoglobin A1c 08/04/2024 UA ClnCatch+Micro w/rflx Cult 08/04/2024 Next Appt Details Provider Name:Jarrell chow, 08/22/2024 01:00:00 PM, [address], [address], [place], [place], [phone],
--- OUTSIDE RECORDS SUMMARY | 2024-08-18 08:54 | XMS_ITS ---
Author Organization Jarrell Morse MD Address [address] [place], [place] [phone] Care Team Providers Care Public Services Librarian Name Role Phone Jarrell Morse Primary Care Provider [phone] REASON FOR VISIT ? increase Lorazepam Encounters Encounter Location Date Provider Diagnosis Jarrell Morse MD [address] [facility] [address] [place], [place] [phone] 08/07/2024 Jarrell Morse PLAN OF TREATMENT Next Appt Details Provider Name:Jarrell chow, 08/22/2024 01:00:00 PM, [address] [place] [address], [address], [place], [place], [phone],
--- OUTSIDE RECORDS SUMMARY | 2024-08-18 08:55 | XMS_ITS | Patient Health Record ---
Author Organization Jarrell Morse MD Address [address] [place] [phone] Care Team Providers Care Seaweed Harvester Name Role Phone Mini Jarrell Primary Care Provider [phone] ALLERGIES Allergen (clinical drug ingredient) Drug/Non Drug Allergy documented on EMR Reaction Allergy Type Onset Date Status doxycycline Doxycycline diarrhea Drug Allergy Act kevin tiotropium Spiriva HandiHaler hoarse Drug Allergy Active RESULTS Component Value Reference Range Notes XR chest 2V Reviewed date:12/31/2023 09:15:12 AM Interpretation: Performing Lab: Notes/Report: [address] [address] XRay Report Signed Patient: Rafael Franco MR#: [id number] : 1935 Acct:[id number] Age/Sex: 88 / M ADM Date: 12/21/23 Loc: [facility] Attending Dr: Jovanny Valdovinos MD Ordering Physician: Jovanny Valdovinos MD Date of Service: 12/21/23 Procedure(s): XR chest 2V Accession Number(s): [id number] cc: Jarrell Morse MD; Jovanny Valdovinos MD [...] pleural effusions versus pleural parenchymal thickening. A [facility] physician support system confirmed receipt of these findings and recommendations with Latisha Jett office clerk assistant at the office of ordering provider Dr. Jovanny Valdovinos, at 3:10 PM 12/28/2023 with read back confirmation and it was ascertained that the content and urgency of the report was understood at the time of direct communication. Dictated By: Lisy Madera MD Signed By: <Electronically signed by Lisy Madera MD in OV> 12/28/23 1521 DD/ 1459 TD/TT: Director It: CT chest wo con Reviewed date:03/06/2024 01:08:48 PM Interpretation: Performing Lab: Notes/Report: [address] [address] [address] Scan Report Signed Patient: Rafael Franco MR#: [id number] : 1935 Acct:[id number] Age/Sex: 88 / M ADM Date: 01/31/24 Loc: HO.CT Attending Dr: Jovanny Valdovinos MD Ordering Physician: Jovanny Valdovinos MD Date of Service: 01/31/24 Procedure(s): CT chest wo IV con Accession Number(s): [id number] cc: Jarrell Morse MD; Jovanny Valdovinos MD [...] iterative reconstruction technique DLP: 139 mGy-cm FINDINGS: DRUG ABUSE SOCIAL WORKER: Hyperaerated lung parenchyma. LUNGS: -There is moderate [...] in OV> 03/06/24 1118 DD/ 1718 TD/TT: Director It: Liver Panel Reviewed date:02/05/2024 04:29:22 PM Interpretation: Performing Lab:[facility], [address] [place] [phone] Notes/Report: Bilirubin Total 0.6 0.0-1.0 mg/dL Bilirubin Direct 0.2 0.0-0.5 mg/dL Aspartate Amino Transferase 31 5-37 U/L Alanine Aminotransferase 24 0-40 U/L Total Protein 6.8 6.5-8.0 g/dL Albumin Level 3.9 3.5-5.0 g/dL Alkaline Phosphatase 127 39-117 U/L Glucose Fasting Reviewed date:02/05/2024 04:29:31 PM Interpretation: Performing Lab:[facility], [address] [place] [phone] Notes/Report: Glucose Fasting 99 60-99 mg/dL Lipid Panel with Reflex Reviewed date:02/05/2024 04:28:03 PM Interpretation: Performing Lab:[address] [phone] Notes/Report: Triglycerides 41 <150 mg/dL Desirable Triglyceride: [...] A1c Reviewed date:02/05/2024 12:31:30 PM Interpretation: Performing Lab:[address] [address] Notes/Report: Hemoglobin A1c % 5.7 <6.0 % [...] average glucose, using the formula of the K2A-Sxydgxe Average Glucose study (ADAG), Diabetes Care, Vol.31,#8, Mar. 2007 Microalbumin, Random Reviewed date:03/28/2024 03:30:57 PM Interpretation: Performing Lab:[facility], [address] [place] [phone] Notes/Report: Creatinine Urine 64.88 Microalbumin Urine < 5.0 Microalbum/Creatinine Ratio Ur TNP <30 ug/mg cr Unable to calculate albumin/creatinine ratio due to low microalbumin or creatinine result. UA CC w/rflx Micro + Cult Reviewed date:03/28/2024 03:37:44 PM Interpretation: Performing Lab:[facility], [address] [place] [phone] Notes/Report: Urine, Clean Catch Color Urine Yellow Appearance Urine Clear PH 6.0 5.0-9.0 Glucose Urine UA Negative Negative mg/dL Urine Blood Negative Negative Specific [place] - Urine 1.020 1.005-1.025 Urine Protein Negative [...] Notes Problem Prostatism (N40.0) Active confirmed 114 14177 Problem Anxiety (F41.9) Active confirmed 349370 02 Problem Hip arthritis (M19.90) Active confirmed Arthritis of hip (64073018) Problem 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 plaque (I25.83) Active confirmed 374837907316430 Problem Malignant neoplasm o f sigmoid colon (C18.7) Active confirmed 137844799 Problem 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) Active confirmed 1638610 Problem Centrilobular emphysema (J43.2) Active confirmed Centrilobu lar emphysema (53499172) Problem 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) Active confirmed 212582053 Problem Lumbar disc disease (M51.9) Active confirmed Disorder of lumbar disc (138518805) Problem Essential hypertensi on (I10) Active confirmed 26878918 Problem Psoriasis (L40.9) Active confirmed Psor iasis (8916435) Problem Prediabetes (R73.09) Active confirmed 9 992626 Problem Lung nodule (R91.1) Active confirmed So litary nodule of lung (538446794) Problem NSVT (nonsustained ventricular tachycardia) (I47.2) Active confirmed 041513737 Problem Sciatica of right si de (M54.31) Active confirmed 53259064 Problem Pure hypercholesterolemia (E78.00) Active confirmed 225318928 Problem COPD with acute exacerbation (J44.1) Active confirmed 871847325 Problem Hip arthritis (M16.10) Active confirmed 54571200 VITAL SIGNS Blood pressure diastolic 50 mm Hg 03/03/2024 jamey ght is down 11 pounds since 11-06-23 Height 71.50 in 03/03/2024 weight is down 11 pounds since 11-06-23 Blood pressure systolic 104 mm Hg 03/03/2024 margaret ht is down 11 pounds since 11-06-23 Weight 131 lbs 03/03/2024 weight is down 11 pounds since 11-06-23 BMI 18.01 kg/m2 03/03/2024 weight is down 11 pounds since 11-06-23 Encounters Encounter Location Date Provider Diagnosis Jarrell Morse MD [address] [place] [id number] 11/06/2023 Jarrell Morse Impacted cerumen of left ear H61.22 Jarrell Morse MD [address] [place] [id number] 08/04/2024 Jarrell Morse Panlobular emphysema J43.1 ; Prediabetes R73.09 ; Pure hypercholesterolemia E78.00 ; Essential hypertension I10 ; Prostatism N40.0 and Annual visit for general adult medical examination with abnormal findings Z00.01 Jarrell Morse MD [address] [place] [id number] 02/04/2024 Jarrell Morse Prediabetes R73.09 a nd Pure hypercholesterolemia E78.00 Jarrell Morse MD [address] [place] [id number] 03/28/2024 Jarrell Morse Essential hypertensi on I10 and Prediabetes R73.09 Jarrell Morse MD [address] [place] [id number] 03/03/2024 Jarrell Morse Panlobular emphysema J43.1 ; Pure hypercholesterolemia E78.00 and Centrilobular emphysema J43.2 Jarrell Morse MD [address] [place] [id number] 10/01/2023 Jarrell Morse MD [address] [place] [id number] 10/22/2023 Jarrell Morse MD [address] [place] [address] [id number] 11/19/2023 Jarrell Morse MD [address] [place] [id number] 12/31/2023 Jarrell Morse Lung nodule R91.1 Jarrell Morse MD [address] [place] [id number] 01/08/2024 Jarrell Morse MD [address] [place] [id number] 03/06/2024 Jarrell Morse Lung nodule R91.1 Jarrell Morse MD [address] [place] [address] [id number] 04/18/2024 Jarrell Morse MD [address] [place] [address] [id number] 04/22/2024 Jarrell Morse MD [address] [place] [address] [id number] 05/09/2024 Jarrell Morse MD [address] [place] [address] [id number] 05/23/2024 Jarrell Morse MD [address] [place] [id number] 07/31/2024 Jarrell Morse MD [address] [place] [address] [id number] 07/31/2024 Jarrell Morse MD [address] [place] [id number] 08/07/2024 Jarrell Morse ASSESSMENTS Encounter Date Diagnosis Assessment Notes Treatment Notes Treatment Clinical Notes 11/06/2023 Impacted cerumen of left ear (ICD-10 [...] regiment 03/06/2024 Lung nodule (ICD-10 - R91.1) 08/04/2024 Prediabetes (ICD-10 - R73.09) 02/04/2024 Pure hypercholestero lemia (ICD-10 - E78.00) 03/28/2024 Prediabetes (ICD-10 - R73.09) 03/03/2024 Centrilobular emphys tyra (ICD-10 - J43.2) stable. will continue current regiment 12/31/2023 Lung nodule (ICD-10 - R91.1) order made and faxed to [facility]. They will contact the patient with an appointment. 08/04/2024 Pure hypercholestero lemia (ICD-10 - E78.00) 08/04/2024 Essential hypertensi on (ICD-10 - I10) 08/04/2024 Prostatism (ICD-10 - N40.0) 08/04/2024 Annual visit for gen [facility] adult medical examination with abnormal findings (ICD-10 - Z00.01) PLAN OF TREATMENT Pending Test Test Name Order Date Electrocardiogram (EKG) 02/24/2016 Complete Blood Count Auto Diff 4 Comprehensive [place]. Panel Fast 4 Liver Panel 08/04/2024 Lipid Panel with Reflex 08/04/2024 PSA,Total (Free>4and<10) 08/04/2024 Microalbumin, Random 08/04/2024 CT chest wo con 12/31/2023 CT chest wo con 03/06/2024 US venous duplex UE BI 06/15/2023 US venous duplex LE BI 06/18/2023 Hemoglobin A1c 08/04/2024 UA ClnCatch+Micro w/rflx Cult 08/04/2024 Next Appt Details Provider Name:Jarrell casasr, 08/22/2024 01:00:00 PM, [address] [place] [address], [address], [place], [place], [phone], Insurance Providers Payer Name Payer Address Payer Phone Subscriber Number Group Number Insured Name Patient Relationship to Insured Coverage Start Date Coverage End Date [employer] [address] [place] [address] [id number] Rafael Franco Self - patient is the insured [employer] [place] [address] [place] [phone] [id number] Rafael Franco Self - patient is the insured MEDICAL (GENERAL) HISTORY Medical History History ICD Code myocardial infarction colon cancer colonoscopy 2008 due 2012; c olonosscopy 06/25/2013; was told he needs no further colonoscopy per Dr. Marie
[2024-08-18 09:59] LABS: MANUAL DIFF FLAG NO
[2024-08-18 10:04] LABS: Basophils Absolute Auto 0.1 X10*3/uL (0.0-0.2); Basophils Percent Auto 0.8 % (0-2); Eosinophils Absolute Auto 0.2 X10*3/uL (0.0-0.4); Hematocrit 38.6 % (42.0-52.0); Hemoglobin 12.4 g/dl (14.0-18.0); Imm Gran Abs Auto 0.04 X10*3/uL (0.00-0.03); Imm Gran Pct Auto 0.4 % (0.0-0.4); Lymphocytes Absolute Auto 2.1 X10*3/uL (1.2-4.9); Lymphocytes Percent Auto 22.4 % (20-40); Mean Corpuscular HGB Conc 32.1 g/dl (31.0-36.0); Mean Corpuscular Hemoglobin 28.2 pg (27.0-33.0); Mean Corpuscular Volume 87.7 fL (80.0-98.0); Mean Platelet Volume 10.1 fL (9.4-12.4); Monocytes Absolute Auto 0.7 X10*3/uL (0.1-1.2); Monocytes Percent Auto 7.4 % (2-11); Neutrophils Absolute Auto 6.1 x10*3/uL (2.0-8.3); Platelet Count 221 X10*3/uL (160-400); Red Cell Distribution Width 14.2 % (11.0-16.0); White Blood Count 9.1 X10*3/uL (4.8-10.8)
[2024-08-18 10:08] LABS: Appearance Urine Clear; Color Urine Yellow; Glucose Urine UA Negative (Negative); Leukocyte Esterase Urine Negative (Negative); Nitrite Urine Negative (Negative); PH 5.5 (5.0-9.0); Urine Blood Negative (Negative); Urine Ketones Negative (Negative); Urine Protein Negative (Neg-Trace)
[2024-08-18 10:30] LABS: Alanine Aminotransferase 32 U/L (0-40); Albumin Level 3.9 g/dL (3.5-5.0); Alkaline Phosphatase 134 U/L (39-117); Anion Gap 10 (12-20); Aspartate Amino Transferase 41 U/L (5-37); Bilirubin Direct 0.4 mg/dL (0.0-0.5); Bilirubin Total 0.9 mg/dL (0.0-1.0); Blood Urea Nitrogen 20 mg/dL (9-16); Calcium 9.1 mg/dL (8.4-10.2); Carbon Dioxide 29 mmol/L (22-29); Chloride 102 mmol/L (96-108); Cholesterol 108 mg/dL (<200); Estimated Average Glucose 120 mg/dL; Estimated Glomerular Filt Rate > 60; Glucose Fasting 101 mg/dL (60-99); HDL Cholesterol 57 mg/dL (>40); Hemoglobin A1C 121.3364 umol/L; Hemoglobin A1c % 5.8 % (<6.0); LDL Cholesterol Calculated 45 mg/dL (<100); Potassium 4.4 mmol/L (3.3-5.1); Sodium 137 mmol/L (135-145); Total Hemoglobin (HGBA1C) 3053.3916 umol/L; Total Protein 6.2 g/dL (6.5-8.0); Triglycerides 34 mg/dL (<150)
[2024-08-18 10:35] LABS: Reflex LDLD? No
[2024-08-18 10:36] LABS: PSA,Total (Free>4and<10) 3.09 ng/mL (0.00-4.00)
[2024-08-18 10:47] LABS: Creatinine Urine 100.97 mg/dL; Microalbum/Creatinine Ratio Ur 8.9 ug/mg cr (<30)
== END 2024-08-18 08:52 | disposition home or self-care (01) ==
LOC: HO.HMGCLDS 08:51
PROVIDERS: PCP Internal Medicine; Visit Provider Internal Medicine
DX: Z00.01 Encounter for general adult medical examination with abnormal findings (principal); J43.1 Panlobular emphysema; R73.09 Other abnormal glucose; E78.00 Pure hypercholesterolemia, unspecified; I10 Essential (primary) hypertension; N40.0 Benign prostatic hyperplasia without lower urinary tract symptoms; Z12.5 Encounter for screening for malignant neoplasm of prostate
CPT/HCPCS: 36415; 80053; 80061; 80076; 81003; 82043; 82248; 82570; 83036; 84153; 85025

== ENCOUNTER 2024-09-05 12:40 | Outpatient (REF) | payer MEDICARE, SELFPAY ==
--- NOTE | ~2024-09-05 | CT_ITS ---
EXAMINATION: CT CHEST WITHOUT IV CONTRAST INDICATION: R91.1 - Solitary pulmonary nodule COMPARISON: Comparison is made with the prior examination dated 01/31/2024. TECHNIQUE: Helical CT scan of the chest was performed without intravenous contrast. Coronal and sagittal reformatted images were generated and reviewed. This CT exam was performed with one or more of the following dose reduction techniques: automated exposure control, adjustment of the mA and/or kV according to patient size, use of iterative reconstruction technique. DLP: 120 mGy-cm CHEST: THYROID: The thyroid is unremarkable. LUNGS:Again seen is moderate to severe emphysema. A 5 mm subpleural nodule in the right middle lobe (series 4, image 114) is stable. A 4 mm nodule in the left upper lobe (series 4, image 78) is also stable. The previously seen nodular airspace opacities in the medial left lower lobe and lateral left lower lobe have resolved. No new pulmonary nodules are identified. MEDIASTINUM: There is no mediastinal lymphadenopathy. JEANNE: Evaluation of the hilar regions is limited by lack of intravenous contrast material. CARDIOVASCULATURE: The heart is normal in size. There is no pericardial effusion. The thoracic aorta is normal in caliber. DEGREE OF CORONARY CALCIFICATION: severe PLEURA: There is no pleural effusion. No pneumothorax. MAIN AIRWAYS: The mainstem bronchi and proximal branches are patent. AXILLA: There is no axillary lymphadenopathy. BONES AND SOFT TISSUES: There is degenerative disc disease of the spine. UPPER ABDOMEN: The visualized portions of the liver, spleen, and adrenals have an unremarkable appearance. There is cholelithiasis. CT/CT chest wo IV con IMPRESSION: Moderate to severe emphysema. Stable subcentimeter nodules in the right middle lobe and left upper lobe. Continued follow-up is recommended according to the Fleischner guidelines below. The previously seen nodular airspace opacities in the left lower lobe have resolved. Fleischner Criteria for pulmonary nodule follow-up SOLID NODULES: Low risk patient: <6mm: no follow-up 6-8mm: 6 month follow-up CT >8mm: PET/Biopsy/ 3 month follow-up CT High risk patient: <6mm: 12 month follow-up CT 6-8mm: 6 month follow-up CT >8mm: PET/Biopsy/ 3 month follow-up CT SUB-SOLID/GROUNDGLASS NODULES: All patients: > or = 6mm: 6 month follow-up CT *Please note that in patients in the following categories, the Fleischner criteria do not apply: Immunocompromised, lung cancer screening population, age below 35, and patients with known malignancy Electronically signed by: Chin Boyer MD 09/08/2024 07:10 AM TIARA
== END 2024-09-05 12:41 | disposition home or self-care (01) ==
LOC: HO.CT 12:40
PROVIDERS: PCP Internal Medicine; Visit Provider Hospitalist
DX: R91.1 Solitary pulmonary nodule (principal)
CPT/HCPCS: 71250

== ENCOUNTER → 2024-09-05 12:42 | Outpatient (BNV) | payer MEDICARE, SELFPAY | PROVIDERS: PCP Internal Medicine; Visit Provider Radiology Diagnostic Radiology | DX: R91.1 Solitary pulmonary nodule (principal) | CPT/HCPCS: 71250 ==

== ENCOUNTER 2024-09-12 14:19 | Outpatient (AMB) | payer MEDICARE, SELFPAY ==
[2024-09-12 14:22] VITALS: BP 110/48; PULSE 92; O2SAT 92; BMI 18.5
--- NOTE | 2024-09-12 14:22 | MHC.OFFVIS ---
Vital Signs 09/12/24 14:22 Height 5 ft 10 in Weight 128 lb 15.527 oz BMI 18.5 BP 110/48 L Blood Pressure Location Rt brachial Position Sitting Pulse 92 Pulse Source Pulse Oximeter Pulse Oximetry (%) 92 Oxygen Delivery Method Room Air Intake Visit Reasons: emphysema Allergies No Known Allergies [No Known Allergies*] Allergy (Verified 09/12/24 14:25) HPI Comments Details: The patient is an 89-year-old gentleman with a known history of COPD. He was diagnosis COPD about 25 years ago. He is a former smoker. He also quit around the same . He has been complaining of worsening dyspnea on exertion. He states that before he could go per flutter stairs. But, now when he goes up a flight of stairs he gets very winded. Even walking holding on to 3 baskets resulting significant shortness of breath. He has had to called EMS to his house because of worsening shortness of breath. Back about a year year and a half he did go to the hospital had a chest x-ray done demonstrating some interstitial changes in addition to hyperinflated lungs consistent with COPD. He has tried multiple inhalers in the past with only partial improvement of the symptoms. He used to be an avid cyclist any states that he still can ride a bike for treated for miles without any significant shortness of breath, but, is mainly the walking. During the office visit we did go for 6 minutes walk test and the patient quickly desaturated down to about 85% with heart rate of 90 the patient was short of breath with the Sarah Beth score of 7/10. He was then placed on 2 L of oxygen maintaining a pulse ox of 91% with activity. He did feel better. The patient does qualify for oxygen. It is likely that he has combination of COPD and also interstitial lung disease. Therefore, additional testing is warranted. It appears that his respiratory therapies adequate at this time. I did recommend pulmonary rehabilitation to the patient and he is agreeable to this. Will have him undergo additional imaging testing and pulmonary function studies done will address the pulmonary rehab during the next visit. 06/30/2022 the patient is here for a pulmonary follow-up visit. He continues to uses oxygen with good effect. Does help him at nighttime and also uses it with activity. His major complaint still is productive cough. Moderate severity. He does use Mucinex on a regular basis with partial resolution of the symptoms. The mucus is usually yellowish in color. He is able to clear for most part. We did order a Acapella valve during the last visit but he has yet to receive it. Therefore we will reach out to the [employer] company again reorder. This time the hope that he gets a very good start more chest physical therapy for mucus clearance. In view of the ongoing symptoms we can also start him on a course of azithromycin just 4 months just to try to clear out some of the mucus burden. Then can stop it he does have a nebulizer and will start using the Acapella valve with hopes of providing better bronchopulmonary hygiene. The patient had an x-ray back about a year ago demonstrating no acute disease. if he continues to be symptomatic will have to repeat the chest x-ray. 12/28/2022 the patient is here for pulmonary follow-up visit. Overall the patient has been feeling better. He has a good regimen in the morning were uses the nebulizer 1st with albuterol. Followed by the Incruse inhaler and also 2 inhalations of Symbicort. After doing that he is able to go throughout the day without any significant issues. He did get the Acapella valve finally. He has not used it because he was not sure how the tenia. We did go to the instructions on how to do that. He will start using it twice a day. I do believe this will be a good exercise for his pulmonary muscles and I will be a good way to keep good bronchopulmonary hygiene. In the meantime the patient has a rescue inhaler that he has not required. He is dealing with some arthritis issues right now. Otherwise he is without any significant complaints. He has not had any x-rays in couple years therefore the patient will have 1 done hopefully soon. Will follow-up in 6-8 months or sooner if any new issues arise. 06/26/2023 the patient is here for a pulmonary follow-up visit. The patient is status post hip replacement. This was in April. He is doing better overall. He was hospitalized a little bit longer because he had other abnormalities suggest such as urinary retention and also issues with hyponatremia. During the postoperative. He did have a chest x-ray demonstrating some atelectasis. At this point clinically the patient is doing well and is not having any significant discolored phlegm or congestion. He is using the oxygen but sometimes he does not like to carry a. He has a hard time with the oxygen tanks. We did do a conserving device trial and he did well on 3 L pulse maintaining a pulse ox above 92%. Therefore, will go ahead and request a B-cell under with conserving valve but I do believe that he will do better with a battery operated portable oxygen concentrator because he has a hard time with the oxygen tanks as it is already and they do not provide enough portability for him. Therefore POC will be more effective for him. Will request both for now since the family is aware that it may take longer to get a POC from his DME company, [facility]. Will submit all the paperwork for them in order to start the process in the meantime. He is going to uses respiratory therapy and he knows he needs to use the oxygen because he desaturates so quickly. 12/21/2023 the patient is here for a pulmonary follow-up visit. Overall the patient is doing about the same. Still complaining of productive cough [id number] severity. In addition to that shortness of breath. Moderate severity. He does have the oxygen tank with him. Has a continuous valve and also is a medium-sized tank. Has a hard time carrying it. In addition to that he is forgetful. He does carry a but he has not using it. The is very concerned because he has really not aware of how to use it correctly. I do believe that is at this point cumbersome in dangerous. I did call the [employer] as I do believe he needs a portable oxygen concentrator with a conserving valve that is much county home demonstration agent provides poor portability and will be easier for him to use. I did contact the [employer] they will see if he is eligible. I did taken for a walking oximetry. The patient did desaturate with activity and did benefit from the conserving tank. I will request again a portable oxygen concentrator for the patient and will send a script to the [employer]. If the [employer] can not provide him with a POC due to insurance issues they did mention that they will make sure to reach him how to use the oxygen tanks will provide him with the smallest tank possible, be cylinder with a conserving valve though be very like for him. based on his shortness of breath in his cough will go ahead and request a chest x-ray at this time. The patient will also continue with current respiratory therapy. 04/24/2024 the patient is here for a pulmonary follow-up visit. Overall he is doing okay. Continues to have dyspnea on exertion. Does use the oxygen with good effect. Has a hard time with the oxygen tanks. Partly due to his age. The patient should have a portable oxygen concentrator to provide ease on the use of the oxygen and provide better portability outside of the home. I will request 1 from his current [employer] company. In the meantime he did have a CT scan of the chest back in 02/07/2024. the patient did have a 11 mm pulmonary nodule recommended close follow-up. Therefore, will have him get a CT scan in the next 3 months. He will continue with current respiratory therapy. Will follow-up after his CT scan. 09/12/2024 the patient is here for a pulmonary follow-up visit. Overall he is doing okay although he is having hard time with the oxygen tanks there heavy. He has a hard time carrying them and his also has a hard time hearing them. We have requested a POC during the last visit. Will go ahead and request a again to provide better portability for the patient and avoid injury. The patient did have a repeat CT scan of the chest. We did review. His pulmonary nodules have been stable and he does have moderate to severe emphysema. Does have weight loss but he has good appetite. In part is probably due for the increased work of breathing because the significant emphysema. We did talk about ways to increase his caloric intake. Therefore, the patient will continue with current respiratory therapy will hold off on additional CT scans right now and will plan to follow-up in 6 months. If he has any issues prior to that he will call for an earlier assessment. [facility] Medical History (Updated 06/27/24 @ 13:16 by Sara Pedersen PA-C) Chronic cough Atherosclerotic cardiovascular disease BPH (benign prostatic hyperplasia) HLD (hyperlipidemia) HTN (hypertension) Chronic respiratory failure ILD (interstitial lung disease) COPD (chronic obstructive pulmonary disease) Family History (Updated 05/06/24 @ 13:58 by Shaila Sumner CMA) Sister Cancer Mother Stroke Father Stroke Social History Household Members: Spouse Housing: House Do you presently have visiting nurse or other home services: No Alcohol intake: never Patient Tobacco Use Status: Former Tobacco user Tobacco use type: Cigarette Years Smoked: 30 yrs Second Hand Smoke Exposure: No Current occupational status: retired Review of Systems Const Denies night sweats ENT Denies change in voice, Denies lip swelling, Denies mouth pain, Reports nasal congestion, Reports nasal discharge and Denies tongue swelling Card Denies chest pain and Reports dyspnea on exertion Resp Reports chest congestion, Reports cough, Denies hemoptysis and Reports dyspnea on exertion GI Denies abdominal pain Musc Reports as per HPI Neuro Denies Neuro-related abnormal movements Psych Denies no additional complaints Trevor/Lymph Denies easy bleeding and Denies lymphadenopathy Aller/Immun Denies lip swelling and Denies tongue swelling Physical Exam Vital Signs: Last Vital Signs Pulse 92 09/12/24 14:22 BP 110/48 L 09/12/24 14:22 Pulse Ox 92 09/12/24 14:22 Oxygen Delivery Method Room Air 09/12/24 14:22 BMI result Body Mass Index 18.5 Const General: healthy appearing and no acute distress HEENT Head: Yes normal to inspection, Yes normocephalic and Yes atraumatic Ears: Abnormal EAC present excessive cerumen bilateral General nose exam: Normal external nose present Face and sinus: Yes normal facial exam and Yes sinuses nontender Neck Neck: Yes supple Chest Chest palpation & inspection: normal inspection of the chest Resp Effort & Inspection: normal respiratory effort Auscultation: diminished lung sounds Cardio Rate: regular rate Rhythm: regular rhythm Assessment & Plan Assessment & Plan (1) ILD (interstitial lung disease): Code(s): J84.9 - Interstitial pulmonary disease, unspecified Category: Medical (2) COPD (chronic obstructive pulmonary disease): Code(s): J44.9 - Chronic obstructive pulmonary disease, unspecified Category: Medical Qualifiers: COPD type: chronic bronchitis Chronic bronchitis type: simple Qualified Code(s): J41.0 - Simple chronic bronchitis (3) Chronic respiratory failure: Code(s): J96.10 - Chronic respiratory failure, unspecified whether with hypoxia or hypercapnia Category: Medical Qualifiers: Respiratory failure complication: hypoxia Qualified Code(s): J96.11 - Chronic respiratory failure with hypoxia (4) Chronic cough: Code(s): R05.3 - Chronic cough Category: Medical Plan Continue Symbicort Continue Incruse BENJAMIN as needed Oxygen supplementation with activity and sleep. Requesting conserving valve / POC 2L/pulse with activity and 2L while sleeping. The POC will provide ease of use and better portability outside of the home. continue exercise at home continue acapella valve for CPT F/U 6 months Coding Level of Care Code Est Pt Level 4 (13020) Complex EM visit Add On G2211 Diagnoses ILD (interstitial lung disease) J84.9 Simple chronic bronchitis J41.0 COPD type: chronic bronchitis Chronic bronchitis type: simple Chronic respiratory failure with hypoxia J96.11 Respiratory failure complication: hypoxia Chronic cough R05.3 Time Spent (min) 17
== END 2024-09-12 14:56 | disposition home or self-care (01) ==
PROVIDERS: PCP Internal Medicine; Visit Provider Hospitalist
DX: J84.9 Interstitial pulmonary disease, unspecified (principal); J41.0 Simple chronic bronchitis; J96.11 Chronic respiratory failure with hypoxia
CPT/HCPCS: 99214; G2211

== ENCOUNTER → 2024-09-12 14:19 | Outpatient (BNVA) | payer MEDICARE, SELFPAY | PROVIDERS: PCP Internal Medicine; Visit Provider Hospitalist | DX: J96.11 Chronic respiratory failure with hypoxia (principal); J41.0 Simple chronic bronchitis; J84.9 Interstitial pulmonary disease, unspecified | CPT/HCPCS: 99212 ==

== ENCOUNTER 2024-10-31 12:55 | Outpatient (AMB) | payer MEDICARE, SELFPAY ==
--- NOTE | 2024-10-31 13:14 | A.OFFVIS_ITS ---
Vital Signs 10/31/24 13:15 Height 5 ft 10 in Weight 128 lb BMI 18.4 BP 122/62 Blood Pressure Location Lt brachial Position Sitting Pulse 76 Pulse Source Pulse Oximeter Intake Visit Reasons: 6 mth f/up Allergies No Known Allergies [No Known Allergies*] Allergy (Verified 09/12/24 14:25) Medication List - Last Reconciled 10/31/24 by Demetrius Zamora MD albuterol sulfate 90 mcg/actuation 2 puffs inhalation QID aspirin 81 mg PO DAILY atorvastatin 40 mg PO DAILY betamethasone dipropionate 0.05% 1 appl topical BID fluticasone propion-salmeterol 500-50 mcg/dose (Wixela Inhub) inhalation ipratropium-albuterol 0.5 mg-3 mg(2.5 mg base)/3 mL 3 mL inhalation RQ4H WHILE AWAKE lisinopril 5 mg PO DAILY lorazepam 0.5 mg PO DAILY PRN multivitamin 1 tab PO DAILY nebulizers As directed Oxygen Home Use As directed tamsulosin 0.4 mg PO BEDTIME umeclidinium 62.5 mcg/actuation (Incruse Ellipta) 1 inh inhalation DAILY walker Folding front wheeled walker HPI Comments Details: Rafael returns for follow-up. In the past, he was seen in consultation regarding preoperative risk stratification for hip surgery. In the , he apparently had cardiac arrest that led to catheterization. S ubsequently, he saw a cardiothoracic anesthesia technician for few years but none in the last 20+ years till he was seen here. Overall, he states he feels good. He has had some shortness of breath long-term and that is about the same as before. He thinks it is because of smoking history. Otherwise, feels fine. [facility] Medical History (Updated 06/27/24 @ 13:16 by Sara Pedersen PA-C) Chronic cough Atherosclerotic cardiovascular disease BPH (benign prostatic hyperplasia) HLD (hyperlipidemia) HTN (hypertension) Chronic respiratory failure ILD (interstitial lung disease) COPD (chronic obstructive pulmonary disease) Family History (Updated 05/06/24 @ 13:58 by Shaila Sumner CMA) Sister Cancer Mother Stroke Father Stroke Social History Household Members: Spouse Housing: House Do you presently have visiting nurse or other home services: No Alcohol intake: never Patient Tobacco Use Status: Former Tobacco user Tobacco use type: Cigarette Years Smoked: 30 yrs Second Hand Smoke Exposure: No Current occupational status: retired Review of Systems Const Denies weakness ENT Denies dizziness Card Denies chest pain, Denies chest pain with activity, Denies syncope, Denies rapid heart rate, Denies pedal edema, Denies edema, Denies leg edema, Denies lightheadedness, Denies palpitations, Denies dyspnea, Denies dyspnea on exertion and Denies orthopnea Resp Denies cough, Denies dyspnea and Denies dyspnea on exertion GI Denies hematochezia and Denies change in stool character Musc Denies abnormal gait, Denies muscle cramps, Denies muscle weakness, Denies numbness, Denies radiating pain into limb and Denies tingling Neuro Denies abnormal gait, Denies dizziness, Denies syncope, Denies numbness, Denies tingling and Denies weakness Endo Denies palpitations Physical Exam Vital Signs: Last Vital Signs Pulse 76 10/31/24 13:15 BP 122/62 10/31/24 13:15 BMI result Body Mass Index 18.4 Const General: comfortable and no acute distress Orientation/consciousness: patient oriented x3 HEENT Other: Unremarkable Head: Yes normal to inspection Neck Neck: Yes normal visual inspection Chest Chest palpation & inspection: normal inspection of the chest Resp Auscultation: clear to auscultation bilaterally Cardio Other: Heart sounds are very distant and difficult to auscultate. GI Palpation (GI): Soft to palpation Back/Spine/Pelvis Other: unremarkable Skin General skin exam: no rashes or lesions noted Neuro General: patient oriented x3 Extrem General: Yes normal to inspection Psych Mental Status: mental status grossly normal Assessment & Plan Assessment & Plan (1) Atherosclerotic cardiovascular disease: Code(s): I25.10 - Atherosclerotic heart disease of [place] coronary artery without angina pectoris Category: Medical Plan: Cardiac catheterization 2022- proximal RCA with 100% stenosis, HEEL SPRAYER. Otherwise, no significant coronary disease. Clinically, no angina. Continue aspirin and statins. (2) Ischemic cardiomyopathy: Code(s): I25.5 - Ischemic cardiomyopathy Category: Medical Plan: In the recent echocardiogram, LVEF 45-50% with wall motion abnormalities from underlying coronary disease. Prior to that, LVEF 35-40%. Clinically, no symptoms or signs of congestive heart failure. Continue lisinopril. Not beta-blockers due to conduction system disease. (3) Non-rheumatic aortic stenosis: Code(s): I35.0 - Nonrheumatic aortic (valve) stenosis Category: Medical Plan: Discrepancy between echocardiogram and cardiac catheterization. On the echocardiogram, thought to be paradoxical low-flow, low gradient moderate to severe stenosis. However, not thought to be significant on catheterization. Difficult to auscultate as heart sounds are very distant. We will repeat an echo in 6 months. (4) HTN (hypertension): Code(s): I10 - Essential (primary) hypertension Category: Medical Plan: Stable. (5) First degree heart block: Code(s): I44.0 - Atrioventricular block, first degree Category: Medical Plan: Avoid beta-blockers at this time. Can be followed for any progressive conduction system disease. Plan Discussed with significant other. They will contact us with any ongoing issues. Orders: Orders CA echo transthoracic complete 6 Months I35.0 - Nonrheumatic aortic (valve) stenosis Coding Level of Care Code Est Pt Level 4 (85053) Complex EM visit Add On G2211 Diagnoses Atherosclerotic cardiovascular disease I25.10 Ischemic cardiomyopathy I25.5 Non-rheumatic aortic stenosis I35.0 HTN (hypertension) I10 First degree heart block I44.0
[2024-10-31 13:15] VITALS: BP 122/62; PULSE 76; BMI 18.4
--- OUTSIDE RECORDS SUMMARY | 2024-10-31 14:26 | XMS_ITS ---
Author Organization Jarrell Morse MD Address [address] [place], [place] [phone] Care Team Providers Care Cableway Operator Name Role Phone Jarrell Morse Primary [...] Location Date Provider Diagnosis Jarrell Morse MD [address] [place] [address] [address] [place], [place] [phone] 08/22/2024 Jarrell Morse Panlobular emphysema J43.1 ; [...] for ear, Reason: Provider Name:Jarrell Mckeon ier, 11/21/2024 01:30:00 PM, [address] [place] [address], Suite [facility], [place], [place], [phone], Provider Name:Jarrell Mckeon ier, 02/27/2025 08:15:00 AM, [address] [place] [address], Suite [facility], [place], [place], [phone], Provider Name:Jarrell Mckeon ier, 08/18/2025 08:00:00 AM, [address] [place] [address], Suite [facility], [place], [place], [phone], Provider Name:Jarrell Mckeon ier, 08/27/2025 01:00:00 PM, [address] [place] [address], Suite [facility], [place], [place], [phone], Procedure Notes * Category Sub-Category Detail Notes Cerumen removal Procedure under direct vis ualization , left ear , irrigated with water/H2O2 , right ear , irrigated with water/H2O2 Post-procedure Pt tolerated procedu re well left air unsuccessful to use debrox and return in 2 weeks/ rt air did well Progress Notes * Rafael TORRES HDOB:[birth year] (89 yo M)Acc No.[id number]:08/22/2024 Patient:?Rafael Torres Provider:?Jarrell Morse MD :1935???Age:89 Y???Sex:Male Aiden e:08/22/2024 Address:[address] [place] [address] YVES [phone] Subjective: * Chief Complaints: * ???Review labs * HPI: ???Depression Screening:?PHQ-9?Little interest or pleasure in doing things?Not at all,?Feeling down, depressed, or hopeless?Not at all,?Trouble falling or staying asleep, or sleeping too much?Not at all,?Feeling tired or having little energy?Not at all,?Poor appetite or overeating?Not at all,?Feeling bad about yourself or that you are a failure, or have let yourself or your family down?Not at all,?Trouble concentrating on things, such as reading the newspaper or watching television?Not at all,?Moving or speaking so slowly that other people could have noticed; or the opposite, being so fidgety or restless that you have been moving around a lot more than usual?Not at all,?Thoughts that you would be better off or of hurting yourself in some way?Not at all,?Total Score?0.?Interpretation and Intervention?Depression Screening Findings?Negative,?Follow-Up for Depression?: review of PHQ-9 found negative result, no follow-up needed.? pt is an 89 yo male here for follow up of chronic illnesses. ???Communication Needs:?Communication Needs?Does the patient have a hearing impairment?Yes,?If yes, what is the hearing impairment??Hard of hearing, Hearing Aids,?Does the patient have a vision impairment??Yes,?If yes, what is the vision impairment??Glasses,?Does the patient have a cognition impairment??No.?Fall Risk:?History?Have you had any falls with injury in the past year??No,?Have you had two or more falls in the past year??No.?SDOH Questions:?SDOH Questions?In the past year have you been worried about losing housing??No,?In the past year have you or any family members you live with been unable to get any of the following when it was really needed? Check all that apply:?None.? * ROS:?General/Constitutional:?Change in appetite?denies.?Chills?denies.?Fever?denies.?Ophthalmologic:?Blurred vision?denies.?Discharge?denies.?Pain?denies.?ENT:?Decreased hearing?denies.?Sore throat?denies.?Swollen glands?denies.?Endocrine:?Cold intolerance?denies.?Excessive thirst?denies.?Heat intolerance?denies.?Weight loss?denies.?Respiratory:?Cough?denies.?Shortness of breath at rest?denies.?Shortness of breath with exertion?denies.?Wheezing?denies.?Cardiovascular:?Chest pain at rest?denies.?Chest pain with exertion?denies.?Irregular heartbeat?denies.?Shortness of breath?denies.?Gastrointestinal:?Abdominal pain?denies.?Change in bowel habits?denies.?Diarrhea?denies.?Nausea?denies.?Rectal bleeding?denies.?Vomiting?denies .?Genitourinary:?Blood in urine?denies.?Difficulty urinating?denies.?Frequent urination?denies.?Musculoskeletal:?Painful joints?denies.?Weakness?denies.?Skin:?Dry skin?denies.?Itching?denies.?Denies?Mole(s),? changes in moles, new moles or any lesions of concern.?Denies?Photosensitivity.?Rash?denies.?Neurologic:?Dizziness?denies.?Fainting?denies.?Headache?denies.? * Medical History:? * Surgical History:? * Hospitalization/Major Diagno stic Procedure:? * Family History:?Father: dece ased 75 yrs.?Mother: 83 yrs, family history unknown .?1 sister(s) . 3 daughter(s) - healthy. .? father, CVA 1 sister at 53, [place], Denies mental health/substance abuse family history, Denies mental health/substance abuse family history, No pertinent family medical history, Denies mental health/substance abuse family history. * Social History:?Tobacco Use:?Tobacco Use/Smoking?Patient is a?former smoker,?How long has it been since you last smoked??> 10 years,?Additional Findings: Tobacco Non-User?Former smoker, currently using no form of tobacco.?Drugs/Alcohol:?Alcohol Screen?Did you have a drink containing alcohol in the past year??No,?Points?0,?Interpretation?Negative.?Miscellaneous:?Caffeine: yes, frequency:, 2 cups per day. Children: yes. no Community involvements. Exercise: yes, stretching and dancing. Home smoke detector use: yes. Housing: owning. Living with: spouse. Marital status: . Occupation: retired. Pets: none. no Travel outside of the [place]. * Medications:?TakingLisinopri l 5 MG Tablet 1 tablet Orally Once [...] reviewed and reconciled with the patient * Allergies:?Spiriva HandiHale r: hoarseDoxycycline: diarrheayes[Allergies Verified] Objective: * Vitals:?Ht: 71.50, Wt:130, B LA:17.88, BP:122/60. * ???Past Orders: ???Lab:PSA,Total (Free>4and< 10) (Order Date - 08/18/2024) (Collection Date - 08/18/2024) ? Value Reference Range ?PSA,Total (Free>4and<10) 3.09 0.00-4.00 - ng/mL ???Lab:Microalbumin, Random (Order Date - 08/18/2024) (Collection Date - 08/18/2024) ? Value Reference Range ?Creatinine Urine 100.97 - m g/dL ?Microalbumin Urine 9.0 - mg/L ?Microalbum Creatinine Ratio Ur 8.9 <30 - ug/mg cr ???Lab:Complete Blood Count Auto Diff (Order Date - 08/18/2024) (Collection Date - 08/18/2024) ? Value Reference Range ?White Blood Count 9.1 4. 8-10.8 - X10*3/uL ?Red Blood Count 4.40 L 4.60 -5.80 - X10*6/uL ?Hemoglobin 12.4 L 14.0-18.0 - g/dl ?Hematocrit 38.6 L 42.0-52.0 - % ?Mean Corpuscular Volume 87.7 80.0-98.0 - fL ?Mean Corpuscular Hemoglobin 28.2 27.0-33.0 - pg ?Mean Corpuscular HGB Conc 32.1 31.0-36.0 - g/dl ?Red Cell Distribution Width 14.2 11.0-16.0 - % ?Platelet Count 221 160-4 00 - X10*3/uL ?Mean Platelet Volume 10.1 9.4-12.4 - fL ?Neutrophils Percent Auto 67.0 45-73 - % ?Imm Gran Pct Auto 0.4 0. 0-0.4 - % ?Lymphocytes Percent Auto 22.4 20-40 - % ?Monocytes Percent Auto 7.4 2-11 - % ?Eosinophils Percent Auto 2.0 0-4 - % ?Basophils Percent Auto 0.8 0-2 - % ?NRBC Pct Auto 0.0 0.0-0. 2 - /100WBC ?Neutrophils Absolute Auto 6.1 2.0-8.3 - x10*3/uL ?Imm Gran Abs Auto 0.04 H 0. 00-0.03 - X10*3/uL ?Lymphocytes Absolute Auto 2.1 1.2-4.9 - X10*3/uL ?Monocytes Absolute Auto 0.7 0.1-1.2 - X10*3/uL ?Eosinophils Absolute Auto 0.2 0.0-0.4 - X10*3/uL ?Basophils Absolute Auto 0.1 0.0-0.2 - X10*3/uL ?NRBC Abs Auto 0.000 0.0-0. 012 - X10*3/uL ???Lab:Hemoglobin A1c (Order Date - 08/18/2024) (Collection Date - 08/18/2024) ? Value Reference Range ?Hemoglobin A1c % 5.8 <6. 0 - % ?Estimated Average Glucose 120 - mg/dL ???Lab:Comprehensive [place]. P gloria Fast (Order Date - 08/18/2024) (Collection Date - 08/18/2024) ? Value Reference Range ?Sodium 137 135-145 - mmo l/L ?Bilirubin Total 0.9 0.0- 1.0 - mg/dL ?Aspartate Amino Transferase 41 H 5-37 - U/L ?Alanine Aminotransferase 32 0-40 - U/L ?Total Protein 6.2 L 6.5-8. 0 - g/dL ?Albumin Level 3.9 3.5-5. 0 - g/dL ?Alkaline Phosphatase 134 H 39-117 - U/L ?Potassium 4.4 3.3-5.1 - mmol/L ?Chloride 102 96-108 - mm ol/L ?Carbon Dioxide 29 22-29 - mmol/L ?Anion Gap 10 L 12-20 - ?Blood Urea Nitrogen 20 H 9-16 - mg/dL ?Creatinine 0.84 0.5-1.4 - mg/dL ?Estimated Glomerular Filt Rate > 60 - ?Glucose Fasting 101 H 60-9 9 - mg/dL ?Calcium 9.1 8.4-10.2 - m g/dL ???Lab:UA CC w/rflx Micro + Cult (Order Date - 08/18/2024) (Collection Date - 08/18/2024) ? Value Reference Range ?Color Urine Yellow - ?Appearance Urine Clear - ?PH 5.5 5.0-9.0 - ?Glucose Urine UA Negative Neg ative - mg/dL ?Urine Blood Negative Negative - ?Specific [place] - Urine 1.020 1.005-1.025 - ?Urine Protein Negative Neg-Tr gaston - mg/dL ?Urine Ketones Negative Negati ve - mg/dL ?Nitrite Urine Negative Negati ve - ?Leukocyte Esterase Urine Negative Negative - ???Lab:Liver Panel (Order Da te - 08/18/2024) (Collection Date - 08/18/2024) ? Value Reference Range ?Bilirubin Direct 0.4 0.0 -0.5 - mg/dL ???Lab:Lipid Panel with Refl ex (Order Date - 08/18/2024) (Collection Date - 08/18/2024) ? Value Reference Range ?Triglycerides 34 <150 - mg/dL ?Cholesterol 108 <200 - m g/dL ?LDL Cholesterol Calculated 45 <100 - mg/dL ?HDL Cholesterol 57 >40 - mg/dL * Examination: ???General Examination: ?GENERAL APPEARANCE:?well developed, well nourished, in no acute distress.?HEAD:?normocephalic, atraumatic.?EYES:?pupils equal, round, reactive to light and accommodation, sclera non-icteric.?EARS:?, BOTH EARS , auditory canal obscured with wax.?ORAL CAVITY:?mucosa moist.?THROAT:?clear.?NECK/THYROID:?neck supple, full range of motion, no cervical lymphadenopathy, no bruits.?SKIN:?warm and dry, no suspicious lesions.?HEART:?regular rate and rhythm, S1, S2 normal, no murmurs.?LUNGS:?clear to auscultation bilaterally.?ABDOMEN:?soft, nontender, nondistended, bowel sounds present, normal, no organomegaly , no masses palpable.?RECTAL EXAM:?normal tone, no external hemorrhoids, no masses palpable, prostate normal, stool guaiac negative.?MALE GENITOURINARY:?not examined.?EXTREMITIES:?no clubbing, cyanosis, or edema.?NEUROLOGIC:?nonfocal, motor strength normal upper and lower extremities, sensory exam intact.? 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 Plan: * Treatment: 2.?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 plaque? Notes: no pains?? 3.?Anxiety? Notes: doing well on ativan, will continue current regiment?? 4.?Prediabetes? Notes: no need for medication at this time?? 5.?Pure hypercholesterolemia ? Continue Atorvastatin Calcium Tablet, 40 MG, TAKE 1 TABLET BY MOUTH EVERY DAY.?? Notes: stable, will continue current regiment?? 6.?Essential hypertension? Continue Lisinopril Tablet, 5 MG, 1 tablet, Orally, Once a day.?? Notes: stable, will cntinue current regiment?? 7.?Colon cancer screening?LAB: Occult Blood, Stool, Guaiac?Negative ? Value Reference Range ?Occult Blood, Stool, Guaiac Neg Notes: guaiac negative??8.?Depression screening? Notes: negative screen?? * Procedures:?Cerumen removal:?Procedure?under direct visualization , left ear , irrigated with water/H2O2 , right ear , irrigated with water/H2O2.?Post-procedure?Pt tolerated procedure well left air unsuccessful to use debrox and return in 2 weeks/ rt air did well.? * Procedure Codes:?07007 TEST FOR BLOOD, [id number] Complex e/m visit add on * Preventive Medicine:? ??Counseling:?Care goal follow-up plan:?Counseling for abnormal BMI provided?Yes,?Below Normal BMI Follow-up?Nutrition / feeding management.? ??COPD Care Plan:?Patient Lifestyle Goals?Reduce number of ED and hospitalizations.?Treatment Goals?take medicine exactly as precribed and plan for RX refills.?Barriers?No Specific barriers.?Self-Managment Plan?Eat a healthy diet.?Expected Outcome?improving quality of life.? * Follow Up:?3 Months,2 Weeks for ear * * Sign off status: Completed true * Provider:?Jarrell Morse MD Date:?0 08/22/2024 Generated for Javi griggs/Cesia/eTransmitting on:?10/31/2024 02:26 PM EDT History and Physical Notes * HPI (History [...] Total Score: 0 Interpretation and Intervention Depression Elsa mtz Findings: Negative Follow-Up for Depression: : review [...] the patient have a hearing impairment: Yes ?If yes, what is the hearing impairment? : Hard of hearing, Hearing Aids Does the patient have a vision impairmen t?: Yes ?If yes, what is the vision impairment?: Glasses Does the patient have a cognition impair ment?: No Examination Category Sub-Category Detail Notes Category Not es General Examination GENERAL APPEARANCE: well dev eloped, well nourished, in no acute distress HEAD: normocephalic, atrau matic EYES: pupils equal, round, reactive to light and accommodation, sclera non- icteric EARS: , BOTH EARS , audito ry [...]
--- OUTSIDE RECORDS SUMMARY | 2024-10-31 14:26 | XMS_ITS ---
Author Organization Jarrell Morse MD Address [address] [place] [phone] Care Team Providers Care Core Winding Operator Name Role Phone Jarrell Morse Primary Care Provider REASON FOR VISIT refill Medications Medication SIG (Take, Route, Fr equency, Duration) Notes Start Date End Date Status LORazepam 0.5 MG TAKE 1 TABLET BY ALBERT TH TWICE A DAY Orally Twice a day for 30 days 10/03/2024 A ctive Encounters Encounter Location Date Provider Diagnosis Jarrell Morse MD [address] [facility] [address] [place] [phone] 10/03/2024 Jarrell Morse Plan Of Treatment Medication Medication Name Sig Start Date Stop Date Notes LORazepam 0.5 MG TAKE 1 TABLET BY ALBERT TH TWICE A DAY Orally Twice a day for 30 days 10/03/2024 Next Appt Details Provider Name:Jarrell chow, 11/21/2024 01:30:00 PM, [address] [facility], Suite [facility], [place], [place], [phone], Provider Name:Jarrell chow, 02/27/2025 08:15:00 AM, [address] [facility], [address], [place], [phone], Provider Name:Jarrell Mckeon geraldo, 08/18/2025 08:00:00 AM, [address] [facility], [address], [place], [place], [phone], Provider Name:Jarrell Mckeon geraldo, 08/27/2025 01:00:00 PM, [address] [place] [address], [address], [place], [place], [phone], Progress Notes * Rafael TORRES HDOB:[birth year] (89 yo M)Acc No.[id number]:10/03/2024 Patient:?Rafael TORRES H :1935???Age:89 Y???Sex:Male Address:[address] [place] [phone] * Refills? Refill LORazepam Tablet, 0.5 MG, Orally, 60, TAKE 1 TABLET BY MOUTH TWICE A DAY, Twice a day, 30 days, Refills=0 * true * Date:? Generated for Javi griggs/Cesia/Jackiesmitting on:?10/31/2024 02:26 PM EDT
--- OUTSIDE RECORDS SUMMARY | 2024-10-31 14:26 | XMS_ITS | Clinical Summary ---
Author Organization [facility] Facility Address [address] [place] [address] Care Team Providers Care Hogshead Hand Name Role Phone Jarrell Morse MD Primary Care Provider [phone] Social History Tobacco Use Types Packs/Day Years Used Date Smoking Tobacco: Never Assessed Sex and Gender Information Value Date Recorded Sex Assigned at Not on file Legal Sex Male 10:06 AM EDT Gender Identity Not on file Sexual Orientation Not on file Plan of Treatment Health Maintenance Due Date Last Done Comments Pneumococcal Vaccine: 65+ Ye ars (1 of 2 - PCV) 1941 Influenza Vaccine (#1) 2024 Hepatitis B Vaccine Aged Out No longe r eligible based on patient's age to complete this topic Insurance MEDICARE [facility] Care Teams Hogshead Hand Relationship Specialty Start Date End Date Jarrell Morse MD [address] [place] [address] [address] [place], [place] PCP - General Internal Medicine 05/10/23
--- OUTSIDE RECORDS SUMMARY | 2024-10-31 14:26 | XMS_ITS ---
Author Organization Jarrell Morse MD Address [address] [place], [place] [phone] Care Team Providers Care Behavior Management Specialist Name Role Phone Jarrell Morse Primary [...] kg/m2 09/15/2024 weight is down 4 pounds [facility] e 08-22-24 Encounters Encounter Location Date Provider Diagnosis Jarrell Morse MD [address] [place] [address] [place] [phone] 09/15/2024 Jarrell Morse Impacted cerumen of left [...] aids Next Appt Details Provider Name:Jarrell chow, 11/21/2024 01:30:00 PM, [address] [place] [address], [address], [place], [phone], Provider Name:Jarrell cMkeon ier, 02/27/2025 08:15:00 AM, [address] [facility], [address], [place], [phone], Provider Name:Jarrell Mckeon ier, 08/18/2025 08:00:00 AM, [address] [facility], [address], [place], [phone], Provider Name:Jarrell Mckeon ier, 08/27/2025 01:00:00 PM, [address] [facility], [address], [place], [phone], Procedure Notes * Category Sub-Category Detail Notes Cerumen removal Procedure under direct vis ualization, left ear, irrigated with water/H2O2 Post-procedure Pt tolerated procedu re well Progress Notes * Rafael TORRES HDOB:[birth year] (89 yo M)Acc No.[id number]:09/15/2024 Progress Notes Patient:?Rafael TORRES Provider:?Jarrell Morse MD :1935???Age:89 Y???Sex:Male Aiden e:09/15/2024 Address:[address] [place] [address] [place], [id number] Subjective: * Chief Complaints: * ???EARS CLEANED * HPI: ???Symptom(s):? patient is a 89 yo male here with complaint of needing wax removed. * ROS:?General/Constitutional:?Denies?Chills.?Denies?Fatigue.?Denies?Fever.?Denies?Headache.?ENT:?Patient denies?decreased sense of smell, any loss of taste, sore throat.?Denies?Sore throat.?Respiratory:?Denies?Cough.?Denies?Shortness of breath at rest.?Denies?Shortness of breath with exertion.?Gastrointestinal:?Denies?Diarrhea.?Denies?Nausea.?Musculoskeletal:?Patient denies?muscle aches.?Peripheral Vascular:?Patient denies?red and blue toes.? * Medical History:? * Surgical History:? * Hospitalization/Major Diagno stic Procedure:? * Medications:?TakingPreserVis ion AREDS 2 - Tablet Chewable as directed [...] - Tablet Chewable as directed Orally Taking Aspir- Low 81 MG Tablet Delayed Release 1 tablet [...] hoarseDoxycycline: diarrheayes[Allergies Verified] Objective: * Vitals:?Ht: 71.50, Wt: 126, BMI:17.33, BP:112/40, Wt-k.15. weight is down 4 pounds since 08-22-24. * Examination: ???General Examination: ?GENERAL APPEARANCE:?alert, well hydrated, in no distress.?EARS:?RIGHT EAR, normal, auditory canal clear, LEFT EAR, abnormal with cerumen impacted.? Assessment: * Assessment: 1.?Impacted cerumen of left ear - H61.22 (Primary)??? Plan: * Treatment: * Procedures:?Cerumen removal:?Procedure?under direct visualization, left ear, irrigated with water/H2O2.?Post-procedure?Pt tolerated procedure well.? * Procedure Codes:? * * Sign off status: Completed true * Provider:?Jarrell Morse MD Date:?0 09/15/2024 Generated for Javi griggs/Cesia/eTransmitting on:?10/31/2024 02:25 PM EDT History and Physical Notes * [...]
== END 2024-10-31 13:35 | disposition home or self-care (01) ==
LOC: HO.HCS 12:56
PROVIDERS: PCP Internal Medicine; Visit Provider Internal Medicine
DX: I25.10 Atherosclerotic heart disease of native coronary artery without angina pectoris (principal); I25.5 Ischemic cardiomyopathy; I35.0 Nonrheumatic aortic (valve) stenosis; I10 Essential (primary) hypertension; I44.0 Atrioventricular block, first degree
CPT/HCPCS: 99214; G2211

== ENCOUNTER → 2024-10-31 12:55 | Outpatient (BNVA) | payer MEDICARE, SELFPAY | PROVIDERS: PCP Internal Medicine; Visit Provider Internal Medicine | DX: I25.10 Atherosclerotic heart disease of native coronary artery without angina pectoris (principal); I25.5 Ischemic cardiomyopathy; I35.0 Nonrheumatic aortic (valve) stenosis; I10 Essential (primary) hypertension; I44.0 Atrioventricular block, first degree; Z87.891 Personal history of nicotine dependence | CPT/HCPCS: 99212 ==

== ENCOUNTER 2025-02-10 14:15 | Outpatient (AMB) | payer MEDICARE, SELFPAY ==
[2025-02-10 14:21] VITALS: BP 128/62; PULSE 83; O2SAT 94; BMI 18.3
--- NOTE | 2025-02-10 14:21 | MHC.OFFVIS ---
Vital Signs 02/10/25 14:21 Height 5 ft 10 in Weight 127 lb 13.89 oz BMI 18.3 BP 128/62 Blood Pressure Location Lt brachial Position Sitting Pulse 83 Pulse Source Pulse Oximeter Pulse Oximetry (%) 94 Oxygen Delivery Method Room Air Intake Visit Reasons: Emphysema Dexigraph Operator Required: No Accompanied by: Spouse Allergies No Known Allergies (No Known Allergies*) Allergy (Verified 02/10/25 14:25) HPI Comments Details: The patient is an 89-year-old gentleman with a known history of COPD. He was diagnosis COPD about 25 years ago. He is a former smoker. He also quit around the same . He has been complaining of worsening dyspnea on exertion. He states that before he could go per flutter stairs. But, now when he goes up a flight of stairs he gets very winded. Even walking holding on to 3 baskets resulting significant shortness of breath. He has had to called EMS to his house because of worsening shortness of breath. Back about a year year and a half he did go to the hospital had a chest x-ray done demonstrating some interstitial changes in addition to hyperinflated lungs consistent with COPD. He has tried multiple inhalers in the past with only partial improvement of the symptoms. He used to be an avid cyclist any states that he still can ride a bike for treated for miles without any significant shortness of breath, but, is mainly the walking. During the office visit we did go for 6 minutes walk test and the patient quickly desaturated down to about 85% with heart rate of 90 the patient was short of breath with the Sarah Beth score of 7/10. He was then placed on 2 L of oxygen maintaining a pulse ox of 91% with activity. He did feel better. The patient does qualify for oxygen. It is likely that he has combination of COPD and also interstitial lung disease. Therefore, additional testing is warranted. It appears that his respiratory therapies adequate at this time. I did recommend pulmonary rehabilitation to the patient and he is agreeable to this. Will have him undergo additional imaging testing and pulmonary function studies done will address the pulmonary rehab during the next visit. 06/30/2022 the patient is here for a pulmonary follow-up visit. He continues to uses oxygen with good effect. Does help him at nighttime and also uses it with activity. His major complaint still is productive cough. Moderate severity. He does use Mucinex on a regular basis with partial resolution of the symptoms. The mucus is usually yellowish in color. He is able to clear for most part. We did order a Acapella valve during the last visit but he has yet to receive it. Therefore we will reach out to the [employer] company again reorder. This time the hope that he gets a very good start more chest physical therapy for mucus clearance. In view of the ongoing symptoms we can also start him on a course of azithromycin just 4 months just to try to clear out some of the mucus burden. Then can stop it he does have a nebulizer and will start using the Acapella valve with hopes of providing better bronchopulmonary hygiene. The patient had an x-ray back about a year ago demonstrating no acute disease. if he continues to be symptomatic will have to repeat the chest x-ray. 12/28/2022 the patient is here for pulmonary follow-up visit. Overall the patient has been feeling better. He has a good regimen in the morning were uses the nebulizer 1st with albuterol. Followed by the Incruse inhaler and also 2 inhalations of Symbicort. After doing that he is able to go throughout the day without any significant issues. He did get the Acapella valve finally. He has not used it because he was not sure how the tenia. We did go to the instructions on how to do that. He will start using it twice a day. I do believe this will be a good exercise for his pulmonary muscles and I will be a good way to keep good bronchopulmonary hygiene. In the meantime the patient has a rescue inhaler that he has not required. He is dealing with some arthritis issues right now. Otherwise he is without any significant complaints. He has not had any x-rays in couple years therefore the patient will have 1 done hopefully soon. Will follow-up in 6-8 months or sooner if any new issues arise. 06/26/2023 the patient is here for a pulmonary follow-up visit. The patient is status post hip replacement. This was in April. He is doing better overall. He was hospitalized a little bit longer because he had other abnormalities suggest such as urinary retention and also issues with hyponatremia. During the postoperative. He did have a chest x-ray demonstrating some atelectasis. At this point clinically the patient is doing well and is not having any significant discolored phlegm or congestion. He is using the oxygen but sometimes he does not like to carry a. He has a hard time with the oxygen tanks. We did do a conserving device trial and he did well on 3 L pulse maintaining a pulse ox above 92%. Therefore, will go ahead and request a B-cell under with conserving valve but I do believe that he will do better with a battery operated portable oxygen concentrator because he has a hard time with the oxygen tanks as it is already and they do not provide enough portability for him. Therefore POC will be more effective for him. Will request both for now since the family is aware that it may take longer to get a POC from his DME company, [facility]. Will submit all the paperwork for them in order to start the process in the meantime. He is going to uses respiratory therapy and he knows he needs to use the oxygen because he desaturates so quickly. 12/21/2023 the patient is here for a pulmonary follow-up visit. Overall the patient is doing about the same. Still complaining of productive cough [id number] severity. In addition to that shortness of breath. Moderate severity. He does have the oxygen tank with him. Has a continuous valve and also is a medium-sized tank. Has a hard time carrying it. In addition to that he is forgetful. He does carry a but he has not using it. The is very concerned because he has really not aware of how to use it correctly. I do believe that is at this point cumbersome in dangerous. I did call the [employer] as I do believe he needs a portable oxygen concentrator with a conserving valve that is much balancer scale provides poor portability and will be easier for him to use. I did contact the [employer] company they will see if he is eligible. I did taken for a walking oximetry. The patient did desaturate with activity and did benefit from the conserving tank. I will request again a portable oxygen concentrator for the patient and will send a script to the [employer]. If the [employer] can not provide him with a POC due to insurance issues they did mention that they will make sure to reach him how to use the oxygen tanks will provide him with the smallest tank possible, be cylinder with a conserving valve though be very like for him. based on his shortness of breath in his cough will go ahead and request a chest x-ray at this time. The patient will also continue with current respiratory therapy. 04/24/2024 the patient is here for a pulmonary follow-up visit. Overall he is doing okay. Continues to have dyspnea on exertion. Does use the oxygen with good effect. Has a hard time with the oxygen tanks. Partly due to his age. The patient should have a portable oxygen concentrator to provide ease on the use of the oxygen and provide better portability outside of the home. I will request 1 from his current [employer] company. In the meantime he did have a CT scan of the chest back in 02/07/2024. the patient did have a 11 mm pulmonary nodule recommended close follow-up. Therefore, will have him get a CT scan in the next 3 months. He will continue with current respiratory therapy. Will follow-up after his CT scan. 09/12/2024 the patient is here for a pulmonary follow-up visit. Overall he is doing okay although he is having hard time with the oxygen tanks there heavy. He has a hard time carrying them and his also has a hard time hearing them. We have requested a POC during the last visit. Will go ahead and request a again to provide better portability for the patient and avoid injury. The patient did have a repeat CT scan of the chest. We did review. His pulmonary nodules have been stable and he does have moderate to severe emphysema. Does have weight loss but he has good appetite. In part is probably due for the increased work of breathing because the significant emphysema. We did talk about ways to increase his caloric intake. Therefore, the patient will continue with current respiratory therapy will hold off on additional CT scans right now and will plan to follow-up in 6 months. If he has any issues prior to that he will call for an earlier assessment. [id number] the patient is here for pulmonary follow-up visit. Overall the patient is doing well. He continues to use his respiratory medications as prescribed. He has had issues with dyspnea on exertion. Ouwq-ci-cnsrhcta severity. He does have a harmonica. He is going to start playing it to work on his air trapping. He did have a CT scan of the chest back in August 2024 demonstrating stable pulmonary nodules and extensive emphysema. No additional imaging studies warranted at this time. Will follow-up in the springtime. In the meantime he will continue with his current respiratory regimen. [facility] Medical History (Updated 06/27/24 @ 13:16 by Sara Pedersen PA-C) Chronic cough Atherosclerotic cardiovascular disease BPH (benign prostatic hyperplasia) HLD (hyperlipidemia) HTN (hypertension) Chronic respiratory failure ILD (interstitial lung disease) COPD (chronic obstructive pulmonary disease) Family History (Updated 05/06/24 @ 13:58 by Shaila Sumner CMA) Sister Cancer Mother Stroke Father Stroke Social History Household Members: Spouse Housing: House Do you presently have visiting nurse or other home services: No Alcohol intake: never Patient Tobacco Use Status: Former Tobacco user Tobacco use type: Cigarette Years Smoked: 30 yrs Second Hand Smoke Exposure: No Current occupational status: retired Review of Systems Const Denies night sweats ENT Denies change in voice, Denies lip swelling, Denies mouth pain, Reports nasal congestion, Reports nasal discharge and Denies tongue swelling Card Denies chest pain and Reports dyspnea on exertion Resp Reports chest congestion, Reports cough, Denies hemoptysis and Reports dyspnea on exertion GI Denies abdominal pain Musc Reports as per HPI Neuro Denies Neuro-related abnormal movements Psych Denies no additional complaints Trevor/Lymph Denies easy bleeding and Denies lymphadenopathy Aller/Immun Denies lip swelling and Denies tongue swelling Physical Exam Vital Signs: Last Vital Signs Pulse 83 02/10/25 14:21 BP 128/62 02/10/25 14:21 Pulse Ox 94 02/10/25 14:21 Oxygen Delivery Method Room Air 02/10/25 14:21 BMI result Body Mass Index 18.3 Const General: healthy appearing and no acute distress HEENT Head: Yes normal to inspection, Yes normocephalic and Yes atraumatic Ears: Abnormal EAC present excessive cerumen bilateral General nose exam: Normal external nose present Face and sinus: Yes normal facial exam and Yes sinuses nontender Neck Neck: Yes supple Chest Chest palpation & inspection: normal inspection of the chest Resp Effort & Inspection: normal respiratory effort Auscultation: diminished lung sounds Cardio Rate: regular rate Rhythm: regular rhythm Assessment & Plan Assessment & Plan (1) ILD (interstitial lung disease): Code(s): J84.9 - Interstitial pulmonary disease, unspecified Category: Medical (2) COPD (chronic obstructive pulmonary disease): Code(s): J44.9 - Chronic obstructive pulmonary disease, unspecified Category: Medical Qualifiers: COPD type: chronic bronchitis Chronic bronchitis type: simple Qualified Code(s): J41.0 - Simple chronic bronchitis (3) Chronic respiratory failure: Code(s): J96.10 - Chronic respiratory failure, unspecified whether with hypoxia or hypercapnia Category: Medical Qualifiers: Respiratory failure complication: hypoxia Qualified Code(s): J96.11 - Chronic respiratory failure with hypoxia (4) Chronic cough: Code(s): R05.3 - Chronic cough Category: Medical Plan Continue Wixela Continue Incruse BENJAMIN as needed Oxygen supplementation with activity and sleep. Requesting conserving valve / POC 2L/pulse with activity and 2L while sleeping. The POC will provide ease of use and better portability outside of the home. continue exercise at home continue acapella valve for CPT F/U 8-10 months Coding Level of Care Code Est Pt Level 4 (86703) Complex EM visit Add On G2211 Diagnoses ILD (interstitial lung disease) J84.9 Simple chronic bronchitis J41.0 COPD type: chronic bronchitis Chronic bronchitis type: simple Chronic respiratory failure with hypoxia J96.11 Respiratory failure complication: hypoxia Chronic cough R05.3
--- OUTSIDE RECORDS SUMMARY | 2025-02-10 17:22 | XMS_ITS | Patient Health Record ---
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 Name Role Phone Jarrell Morse Primary Care Provider Allergies Allergen (clinical drug ingredient) Drug/Non Drug Allergy documented on EMR Reaction Allergy Type Onset Date Status doxycycline Doxycycline diarrhea Drug Allergy Act kevin tiotropium Spiriva HandiHaler hoarse Drug Allergy Active Results Component Value Reference Range Notes Hemoglobin A1c Reviewed date:11/21/2024 10:27:43 AM Interpretation: Performing Lab: Notes/Report: Hemoglobin A1c 5.7 Occult Blood, Stool, Guaiac Reviewed date:08/22/2024 02:12:04 PM Interpretation:Negative Performing Lab: Notes/Report: Negative Occult Blood, Stool, Guaiac Neg Glucose, finger stick Reviewed date:11/21/2024 10:20:03 AM Interpretation: Performing Lab: Notes/Report: Value 104 UA CC w/rflx Micro + Cult Reviewed date:03/28/2024 03:37:44 PM Interpretation: Performing Lab:[facility], [address] [place] [phone] Notes/Report: Urine, Clean Catch Color Urine Yellow Appearance Urine Clear PH 6.0 5.0-9.0 Glucose Urine UA Negative Negative mg/dL Urine Blood Negative Negative Specific [place] - Urine 1.020 1.005-1.025 Urine Protein Negative Neg-Trace mg/dL Urine Ketones Negative Negative mg/dL Nitrite Urine Negative Negative Leukocyte Esterase Urine Negative Negative Complete Blood Count Auto Di ff Reviewed date:08/19/2024 04:34:24 PM Interpretation: Performing Lab:[facility], [address] [place] [phone] Notes/Report: White Blood Count 9.1 4.8-10.8 X10*3/uL Red Blood Count 4.40 4.60-5.80 X10*6/uL Hemoglobin 12.4 14.0-18.0 g/dl Hematocrit 38.6 42.0-52.0 % Mean Corpuscular Volume 87.7 80.0-98.0 fL Mean Corpuscular Hemoglobin 28.2 27.0-33.0 pg Mean Corpuscular HGB Conc 32.1 31.0-36.0 g/dl Red Cell Distribution Width 14.2 11.0-16.0 % Platelet Count 221 160-400 X10*3/uL Mean Platelet Volume 10.1 9.4-12.4 fL Neutrophils Percent Auto 67.0 45-73 % Imm Gran Pct Auto 0.4 0.0-0.4 % Lymphocytes Percent Auto 22.4 20-40 % Monocytes Percent Auto 7.4 2-11 % Eosinophils Percent Auto 2.0 0-4 % Basophils Percent Auto 0.8 0-2 % NRBC Pct Auto 0.0 0.0-0.2 /100WBC Neutrophils Absolute Auto 6.1 2.0-8.3 x10*3/u L Imm Gran Abs Auto 0.04 0.00-0.03 X10*3/uL Lymphocytes Absolute Auto 2.1 1.2-4.9 X10*3/u L Monocytes Absolute Auto 0.7 0.1-1.2 X10*3/uL Eosinophils Absolute Auto 0.2 0.0-0.4 X10*3/u L Basophils Absolute Auto 0.1 0.0-0.2 X10*3/uL NRBC Abs Auto 0.000 0.0-0.012 X10*3/uL Comprehensive [place]. Panel Fa st Reviewed date:08/19/2024 04:37:15 PM Interpretation: Performing Lab:[facility], [address] [place] [phone] Notes/Report: Sodium 137 135-145 mmol/L Potassium 4.4 3.3-5.1 mmol/L Chloride 102 96-108 mmol/L Carbon Dioxide 29 22-29 mmol/L Anion Gap 10 12-20 Blood Urea Nitrogen 20 9-16 mg/dL Creatinine 0.84 0.5-1.4 mg/dL Estimated Glomerular Filt Rate > 60 Chronic Kidney Disease: Estimated GFR < 60 mL/min/1.73m2 Severe Kidney Disease: Estimated GFR < 15 mL/min/1.73m2 Glucose Fasting 101 60-99 mg/dL A fasting glucose from 100-125 mg/dl is considered impaired (pre-diabetes). Calcium 9.1 8.4-10.2 mg/dL Bilirubin Total 0.9 0.0-1.0 mg/dL Aspartate Amino Transferase 41 5-37 U/L Alanine Aminotransferase 32 0-40 U/L Total Protein 6.2 6.5-8.0 g/dL Albumin Level 3.9 3.5-5.0 g/dL Alkaline Phosphatase 134 39-117 U/L Liver Panel Reviewed date:08/19/2024 04:30:04 PM Interpretation: Performing Lab:[facility], [address] [place] [phone] Notes/Report: Bilirubin Direct 0.4 0.0-0.5 mg/dL Lipid Panel with Reflex Reviewed date:08/19/2024 04:32:44 PM Interpretation: Performing Lab:[facility], [address] [place] [phone] Notes/Report: Triglycerides 34 <150 mg/dL Desirable Triglyceride: less than 150 mg/dL Borderline High Triglyceride 150-199 mg/dL High Triglyceride: 200-499 mg/dL Very High Triglyceride: greater than or equal to 5OO mg/dL Cholesterol 108 <200 mg/dL Desirable Cholesterol: less than 200 mg/dL Borderline High Cholesterol: 200-239 mg/dL High Cholesterol: greater than 239 mg/dL LDL Cholesterol Calculated 45 <100 mg/dL Desirable LDL: less than 100 mg/dL Near Optimal/Above Optimal LDL: 110-129 mg/dL Borderline High LDL: 130-159 mg/dL High LDL: 160-189 mg/dL Very High LDL: greater than or equal to 190 mg/dL HDL Cholesterol 57 >40 mg/dL Desirable HDL: greater than 40 mg/dL Note: This HDL assay may give artificially low results in patients with liver disease. PSA,Total (Free>4and<10) Reviewed date:08/19/2024 04:30:14 PM Interpretation: Performing Lab:[address] [phone] Notes/Report: PSA,Total (Free>4and<10) 3.09 0.00-4.00 ng/mL A Free PSA was not [...] between 4.0 and 10.0 ng/mL. PSA methodology: Gomez Alinity i Chemiluminescent Microparticle Immunoassay (CMIA) Microalbumin, Random Reviewed date:08/19/2024 04:39:28 PM Interpretation: Performing Lab:[address] [address] Notes/Report: Creatinine Urine 100.97 Microalbumin Urine 9.0 Microalbum/Creatinine Ratio Ur 8.9 <30 ug/mg cr Albumin/Creatinine Ratio Reference Ranges: Normal: < 30 ug/mg creatinine Microalbuminuria: 30 - 300 ug/mg creatinine Clinical Albuminuria: > 300 ug/mg creatinine Hemoglobin A1c Reviewed date:08/19/2024 04:30:37 PM Interpretation: Performing Lab:[address] [phone] Notes/Report: Hemoglobin A1c % 5.8 <6.0 % Hemoglobin A1C Reference Range Adults: 4.8 - 6.0 % Non diabetic: < 6.0 % Goal: < 7.0 % Additional Action Suggested: > 8.0 % Note: Hemoglobin A1c results are invalid for patients with abnormal amounts of HbF. Blood transfusions may impact the HbA1c concentration in the patient sample. Estimated Average Glucose 120 eAG = Estimated average glucose which is %A1C expressed as average glucose, using the formula of the E4R-Uppojqx Average Glucose study (ADAG), Diabetes Care, Vol.31,#8, 2007 UA CC w/rflx Micro + Cult Reviewed date:08/19/2024 04:34:44 PM Interpretation: Performing Lab:[facility], [address] [place] [phone] Notes/Report: Urine, Clean Catch Color Urine Yellow Appearance Urine Clear PH 5.5 5.0-9.0 Glucose Urine UA Negative Negative mg/dL Urine Blood Negative Negative Specific Kiron - Urine 1.020 1.005-1.025 Urine Protein Negative Neg-Trace mg/dL Urine Ketones Negative Negative mg/dL Nitrite Urine Negative Negative Leukocyte Esterase Urine Negative Negative CT chest wo con Reviewed date:09/08/2024 02:54:28 PM Interpretation: Performing Lab: Notes/Report: [address] [address] [address] Scan Report Signed Patient: Rafael Franco MR#: [id number] : 1935 Acct:[id number] Age/Sex: 89 / M ADM Date: 09/05/24 Loc: HO.CT Attending Dr: Jovanny Valdovinos MD Ordering Physician: Jovanny Valdovinos MD Date of Service: 09/05/24 Procedure(s): CT chest wo IV con Accession Number(s): [id number] cc: Jarrell Morse MD; Jovanny Valdovinos MD Report Number: [id number]: Total DLP = 120.00 mGy-cm EXAMINATION: CT CHEST WITHOUT IV CONTRAST INDICATION: R91.1 - Solitary pulmonary nodule COMPARISON: Comparison is made with the prior examination dated 01/31/2024. TECHNIQUE: Helical CT scan of the chest was performed without intravenous contrast. Coronal and sagittal reformatted images were generated and reviewed. This CT exam was performed with one or more of the following dose reduction techniques: automated exposure control, adjustment of the mA and/or kV according to patient size, use of iterative reconstruction technique. DLP: 120 mGy-cm CHEST: THYROID: The thyroid is unremarkable. LUNGS:Again seen is moderate to severe emphysema. A 5 mm subpleural nodule in the right middle lobe (series 4, image 114) is stable. A 4 mm nodule in the left upper lobe (series 4, image 78) is also stable. The previously seen nodular airspace opacities in the medial left lower lobe and lateral left lower lobe have resolved. No new pulmonary nodules are identified. MEDIASTINUM: There is no mediastinal lymphadenopathy. JEANNE: Evaluation of the hilar regions is limited by lack of intravenous contrast material. CARDIOVASCULATURE: The heart is normal in size. There is no pericardial effusion. The thoracic aorta is normal in caliber. DEGREE OF CORONARY CALCIFICATION: severe PLEURA: There is no pleural effusion. No pneumothorax. MAIN AIRWAYS: The mainstem bronchi and proximal branches are patent. AXILLA: There is no axillary lymphadenopathy. BONES AND SOFT TISSUES: There is degenerative disc disease of the spine. UPPER ABDOMEN: The visualized portions of the liver, spleen, and adrenals have an unremarkable appearance. There is cholelithiasis. CT/CT chest wo IV con IMPRESSION: Moderate to severe emphysema. Stable subcentimeter nodules in the right middle lobe and left upper lobe. Continued follow-up is recommended according to the Fleischner guidelines below. The previously seen nodular airspace opacities in the left lower lobe have resolved. Fleischner Criteria for pulmonary nodule follow-up SOLID NODULES: Low risk patient: <6mm: no follow-up 6-8mm: 6 month follow-up CT >8mm: PET/Biopsy/ 3 month follow-up CT High risk patient: <6mm: 12 month follow-up CT 6-8mm: 6 month follow-up CT >8mm: PET/Biopsy/ 3 month follow-up CT SUB-SOLID/GROUNDGLASS NODULES: All patients: > or = 6mm: 6 month follow-up CT *Please note that in patients in the following categories, the Fleischner criteria do not apply: Immunocompromised, lung cancer screening population, age below 35, and patients with known malignancy Electronically signed by: Chin Boyer MD 09/08/2024 07:10 AM [facility] Dictated By: Chin Boyer MD Signed By: <Electronically signed by Chin Boyer MD in OV> 09/08/24 0710 DD/ 1254 TD/TT: 09/05/24 1413 Load Tallier: [address] [address] [address] Scan Report Signed Patient: Rafael Franco MR#: [id number] : 1935 Acct:[id number] Age/Sex: 89 / M ADM Date: 09/05/24 Loc: HO.CT Attending Dr: Jovanny Valdovinos MD Ordering Physician: Jovanny Valdovinos MD Date of Service: 09/05/24 Procedure(s): CT lui st wo IV con Accession Number(s): [id number] cc: Jarrell Morse MD; Jovanny Valdovinos MD Report Number: [id number]: Total DLP = 120.00 mGy-cm EXAMINATION: CT CHES T WITHOUT IV CONTRAST INDICATION: R91.1 - Solitary pulmonary nodule COMPARISON: Comparis on is made with the prior examination dated 01/31/2024. TECHNIQUE: Helical C T scan of the chest was performed without intravenous contrast . Coronal and sagittal reformatted images were generated and reviewed. This CT exam was performed with one or more of the following dose reduction techniques : automated exposure control, adjustment of the mA and/or kV according to patient size, use of iterative reconstruction technique. DLP: 120 mGy-cm CHEST: THYROID: The thyroid is unremarkable. LUNGS:Again seen is moderate to severe emphysema. A 5 mm subpleural nodule in the right middle lobe (series 4, image 114) is stable. A 4 mm nodule in the left upper lobe (series 4, image 78) is also stable. The previously seen nodular airspace opacities in the medial left lower lobe and lateral lef t lower lobe have resolved. No new pulmonary nodules are identified. MEDIASTINUM: There i s no mediastinal lymphadenopathy. JEANNE: Evaluation of the hilar regions is limited by lack of intravenous contrast material. CARDIOVASCULATURE: T he heart is normal in size. There is no pericardial effusion . The thoracic aorta is normal in caliber. DEGREE OF CORONARY CALCIFICATION: severe PLEURA: There is no pleural effusion. No pneumothorax. MAIN AIRWAYS: The mainstem bronchi and proximal branches are patent. AXILLA: There is no axillary lymphadenopathy. BONES AND SOFT TISSUES: There is degenerative disc disease of the spine. UPPER ABDOMEN: The visualized portions of the liver, spleen, and adrenals have an unremarkable appearance. There is cholelithiasis. __ CT/CT chest wo IV con IMPRESSION: Moderate to severe emphysema. Stable subcentimeter nodules in the right middle lobe and left upper lobe. Continued follow-up is recommended according to the Fleischner guidelines below. The previously seen nodular airspace opacities in the left lower lobe have resolved. Fleischner Criteria for pulmonary nodule follow-up SOLID NODULES: Low risk patient: <6mm: no follow-up 6-8mm: 6 month follow-up CT >8mm: PET/Biopsy/ 3 month follow-up CT High risk patient: <6mm: 12 month follow-up CT 6-8mm: 6 month follow-up CT >8mm: PET/Biopsy/ 3 month follow-up CT SUB-SOLID/GROUNDGLAS S NODULES: All patients: > or = 6mm: 6 month follow-up CT *Please note that in patients in the following categories, the Fleischner criteria do not apply: Immunocompromised, lung cancer screening population , age below 35, and patients with known malignancy Electronically fermín d by: Chin Boyer MD 09/08/2024 07:10 AM [facility] Dictated By: Chin Boyer MD Signed By: <Electronically signed by Chin Boyer MD in OV> 09/08/24 0710 DD/ 1254 TD/TT: 09/05/24 1413 Load Tallier: Reason For Referral No Information Medications Medication SIG (Take, Route, Frequency, Duration) Notes Start Date End Date Status Ventolin HFA * 108 (90 Base) MCG/ACT INHALE 2 PUFFS EVERY 4 HOURS NEEDED 54 for 50 Active Sulfamethoxazole-Trimethop rim 800-160 MG TAKE 1 TABLET BY MOUTH TWICE A DAY FOR 10 DAYS Oral Twice a day for 10 days Not-Taking Lisinopril 5 MG 1 tablet Orally Once a day Active Viagra 50 MG 1 tablet as needed Orally Once a day as needed for 30 day(s) 12/14/2020 Not-Taking Metoprolol Succinate ER 25 MG TAKE 1 TABLET BY MOUTH EVERY DAY for 90 Not-Taking Wixela Inhub 500-50 MCG/ACT INHALE 1 PUFF INTO THE LUNGS TWICE A DAY FOR 30 DAYS Active Betamethasone Dipropionate 0.05 % as directed Externally daily for 90 days 10/26/2011 Active Celecoxib 200 MG 1 capsule with food Orally Once a day 03/14/2022 Not-Taking Aspir-Low 81 MG 1 tablet Orally Once a day for 30 day(s) 09/19/2019 Active Symbicort 160-4.5 MCG/ACT INHALE TWO PUF FS BY MOUTH TWICE A DAY Not-Taking PreserVision AREDS 2 - as directed Orally Active Atorvastatin Calcium 40 MG TAKE 1 TABLET BY MOUTH EVERY DAY for 90 Active Ipratropium-Albuterol 0.5-2.5 (3) MG/3ML INHALE CONTENTS OF 1 AMP VIA NEBULIZER EVERY 6 HOURS Inhalation every 6 hrs for 90 days Active LORazepam 0.5 MG TAKE 1 TABLET BY ALBERT TH TWICE A DAY for 30 12/08/2024 Active Incruse Ellipta 62.5 MCG/ACT INHALE 1 PUFF DAILY for 90 Active Tamsulosin HCl 0.4 MG TAKE 1 CAPSULE BY MOUTH TWICE A DAY for 90 Active Ipratropium [place] 0.06 % 2 sprays in e ach nostril Nasally Four times a day for 30 days 11/21/2024 Active Immunizations Vaccine Route Administration Date Status Comme nts Flu Vaccine IM Intramuscular 05/09/2011 Administered Flu Vaccine IM Intramuscular 04/15/2012 Administered Prevnar 13 Unknown 06/27/2012 Administered TDaP Unknown 07/04/2012 Administered Shingles IM Intramuscular 10/10/2012 Administered Flu Vaccine IM Intramuscular 05/27/2013 Administered PPSV23 (Pnemovax) IM Intramuscular 06/05/2013 Administered Flu Vaccine Unknown 06/15/2014 Administered Bradly's Fluarix Quadrivalent IM Intramuscular 05/06/2015 Administe red [...] Administer ed Fluarix Quadrivalent Unknown 10/01/2017 Refused Social History Tobacco Use: Social History Observation [...] ast year? 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 sigmoid colon (C18.7) Active confirmed Problem 9302518 Panlobular emphy sema (J43.1) Active confirmed Problem Centrilobular emphysema (04542592) Centrilobular emphysema (J43.2) Active confirmed Problem 414033511 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 Problem Disorder of lumbar disc (647129317) Lumbar disc disease (M51.9) Active confirmed Problem 04686640 Essential hypert ension (I10) Active confirmed Problem Psoriasis (2594331) Psoriasis (L40.9) Active confirmed Problem 5840367 Prediabetes (R73.09) Active confirmed Problem Lung nodule (R91.1) Active confirmed Problem Rhinitis (59168932) Rhinitis (J31.0) Active confirmed Problem 351126580 NSVT (nonsustain ed ventricular tachycardia) (I47.2) Active confirmed Problem 37616886 Sciatica of righ t side (M54.31) Active confirmed Problem 933715215 Pure hypercholesterolemia (E78.00) Active confirmed Problem 956148870 COPD with acute exacerbation (J44.1) Active confirmed Problem 61169485 Hip arthritis (M16.10) Active confirme d Vital Signs Blood pressure diastolic 54 mm Hg 11/21/2024 jamey ght is down 4 pounds since 09-15-24 Height 71.50 in 11/21/2024 weight is down 4 pounds since 09-15-24 Blood pressure systolic 122 mm Hg 11/21/2024 weig ht is down 4 pounds since 09-15-24 Weight 122 lbs 11/21/2024 weight is down 4 pounds since 09-15-24 BMI 16.78 kg/m2 11/21/2024 weight is down 4 pounds since 09-15-24 Encounters Encounter Location Date Provider Diagnosis Jarrell Morse MD [address] [place] [id number] 03/03/2024 Jarrell Morse Panlobular emphysema J43.1 ; Pure hypercholesterolemia E78.00 and Centrilobular emphysema J43.2 Jarrell Morse MD [address] [place] [id number] 08/22/2024 Jarrell Morse Panlobular emphysema J43.1 ; 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 plaque I25.83 ; Anxiety F41.9 ; Prediabetes R73.09 ; Pure hypercholesterolemia E78.00 ; Essential hypertension I10 ; Colon cancer screening Z12.11 and Depression screening Z13.31 Jarrell Morse MD [address] [place] [id number] 09/15/2024 Jarrell Morse Impacted cerumen of left ear H61.22 Jarrell Morse MD [address] [place] [id number] 11/21/2024 Jarrell Morse Prediabetes R73.09 ; Weight loss R63.4 ; Rhinitis J31.0 and Panlobular emphysema J43.1 Jarrell Morse MD [address] [place] [id number] 03/06/2024 Jarrell Morse Lung nodule R91.1 Jarrell Morse MD [address] [place] [id number] 04/18/2024 Jarrell Morse MD [address] [place] [id number] 04/22/2024 Jarrell Morse MD [address] [place] [id number] 05/09/2024 Jarrell Morse MD [address] [place] [id number] 05/23/2024 Jarrell Morse MD [address] [place] [id number] 07/31/2024 Jarrell Morse MD [address] [place] [id number] 07/31/2024 Jarrell Morse MD [address] [place] [id number] 08/07/2024 Jarrell Morse MD [address] [place] [id number] 10/03/2024 Jarrell Morse MD [address] [place] [id number] 12/04/2024 Jarrell Morse Rhinitis J31.0 Assessments Encounter Date Diagnosis (ICD Code) Assessment Notes Treatment Notes Treatment Clinical Notes Section Notes 03/03/2024 Panlobular emphysema (ICD-10 - J43.1) with deep bronchitis cough, will continue current regiment and will continue to monitor 03/03/2024 Pure hypercholesterolemia (ICD-10 - E78.00) doing well on meds, will continue current regiment 08/22/2024 Panlobular emphysema (ICD-10 - J43.1) continue with present meds and oxygen 08/22/2024 Coronary atheroscler osis due to lipid rich plaque (ICD-10 - I25.83) no pains 09/15/2024 Impacted cerumen of left ear (ICD-10 - H61.22) cerumen removed and did well. still little cerumen but not enough to effect hearing aids 11/21/2024 Prediabetes (ICD-10 - R73.09) stable, no need for medication at this time 11/21/2024 Weight loss (ICD-10 - R63.4) starting to eat more and taking some protein drinks. , will continue to monitor 03/06/2024 Lung nodule (ICD-10 - R91.1) 12/04/2024 Rhinitis (ICD-10 - J31.0) 03/03/2024 Centrilobular emphys tyra (ICD-10 - J43.2) stable. will continue current regiment 08/22/2024 Anxiety (ICD-10 - F41.9) doi ng well on ativan, will continue current regiment 11/21/2024 Rhinitis (ICD-10 - J31.0) 08/22/2024 Prediabetes (ICD-10 - R73.09) no need for medication at this time 11/21/2024 Panlobular emphysema (ICD-10 - J43.1) good values.will continue current regiment 08/22/2024 Pure hypercholesterolemia (ICD-10 - E78.00) stable, will continue current regiment 08/22/2024 Essential hypertensi on (ICD-10 - I10) stable, will cntinue current regiment 08/22/2024 Colon cancer screeni ng (ICD-10 - Z12.11) guaiac negative 08/22/2024 Depression screening (ICD-10 - Z13.31) negative screen Plan Of Treatment Pending Test Test Name Order Date Electrocardiogram (EKG) 02/24/2016 CT chest wo con 12/31/2023 CT chest wo con 03/06/2024 US venous duplex UE BI 06/15/2023 US venous duplex LE BI 06/18/2023 Next Appt Details Provider Name:Jarrell Mckeon ier, 02/27/2025 08:15:00 AM, [address] [place] [address], [address], [place], [place], [phone], Provider Name:Jarrell casasr, 03/09/2025 01:45:00 PM, [address] [place] [address], [address], [place], [place], [phone], Provider Name:Jarrell casasr, 08/18/2025 08:00:00 AM, [address] [place] [address], [address], [place], [place], [phone], Provider Name:Jarrell chow, 08/27/2025 01:00:00 PM, [address] [facility], [address], [place], [place], [phone], Insurance Providers Payer Name Payer Address Payer Phone Subscriber Number Group Number Insured Name Patient Relationship to Insured Coverage Start Date Coverage End Date MEDICARE [employer] [address] [place] [address] [id number] Salvador Rafael Self - patient is the insured MEDEX BCBS OF [facility] [id number] [place] [address] [id number] EleazarhedyRafael segura Self - patient is the insured Medical (General) History Medical History History ICD Code myocardial infarction colon cancer colonoscopy 2008 due 2012; c olonosscopy 06/25/2013; was told he needs no further colonoscopy per Dr. Marie
== END 2025-02-10 15:09 | disposition home or self-care (01) ==
LOC: HO.HPS 14:15
PROVIDERS: PCP Internal Medicine; Visit Provider Hospitalist
DX: J84.9 Interstitial pulmonary disease, unspecified (principal); J41.0 Simple chronic bronchitis; J96.11 Chronic respiratory failure with hypoxia
CPT/HCPCS: 99214; G2211

== ENCOUNTER → 2025-02-10 14:15 | Outpatient (BNVA) | payer MEDICARE, SELFPAY | PROVIDERS: PCP Internal Medicine; Visit Provider Hospitalist | DX: J96.11 Chronic respiratory failure with hypoxia (principal); J84.9 Interstitial pulmonary disease, unspecified; J41.0 Simple chronic bronchitis | CPT/HCPCS: 99212 ==

== ENCOUNTER 2025-02-27 09:32 | Outpatient (REF) | payer MEDICARE, SELFPAY ==
--- OUTSIDE RECORDS SUMMARY | 2025-02-27 09:48 | XMS_ITS | Patient Health Record ---
Author Organization [facility] Address [address] [place] [address] Care Team Providers Care Organ Tuner Name Role Phone Jarrell Morse MD Primary Care Provider Chin Healy Unavailable [phone] Reason For Referral No Information Medications Medication SIG (Take, Route, Frequency, Duration) Notes Start Date End Date Status Ventolin HFA Active Dulera Active Multi Vitamin/Minerals 08/20/20242024 Active Lipitor 40mg Active Aspir-81 81mg Active Fish Oil Active Problems Problem Type SNOMED Code ICD Code Onset Dates Problem Status W/U Status Risk Notes Problem Colon cancer screening (373073362) Colon cancer screening (V76.51) Active confirmed Problem History of adenomatous polyp of colon (693013016) History of adenomatous polyp of colon (V12.72) Active confirmed Problem History of malignant neoplasm of colon (756080112) H/O malignant neoplasm of colon (V10.05) Active confirmed Problem Long-term current use of aspirin (461615825960443 ) Aspirin long-term use (V58.66) Active confirmed Plan Of Treatment Future Test Test Name Order Date COLONOSCOPY 03/07/2013 Insurance Providers Payer Name Payer Address Payer Phone Subscriber Number Group Number Insured Name Patient Relationship to Insured Coverage Start Date Coverage End Date MEDICARE OF [place] [address] [place] [id number] AAYUSH TORRES Self - patient is the insured MEDEX ATTN CLAIMS [address] [place] [address] [phone] [id number] AAYUSH TORRES Self - patient is the insured Medical (General) History Medical History History ICD Code Last colonoscopy 07-22-2009--negative colon polyps-tubular adenomas [place] in 1995-cardiac arrest-had a cath, bu t no intervention COPD colon cancer--malignant polyp removed fr om sigmoid colon Denies DM,CVA,renal disease Surgical History Surgery Date(Month/Year) Sigmoid resection for malignant polyp in 09/2001 knee surgery( left) fistula repair
--- OUTSIDE RECORDS SUMMARY | 2025-02-27 09:48 | XMS_ITS | Patient Health Record ---
Author Organization Jarrell Morse MD Address [address] [place], [place] [phone] Care Team Providers Care Blockmason Name Role Phone Jarrell Morse Primary Care [...] Cult Reviewed date:03/28/2024 03:37:44 PM Interpretation: Performing Lab:[facility], [address] [place] [phone] Notes/Report: Urine, Clean Catch Color Urine Yellow Appearance Urine Clear PH 6.0 5.0-9.0 Glucose Urine UA Negative Negative mg/dL Urine Blood Negative Negative Specific [place] - Urine 1.020 1.005-1.025 Urine Protein Negative Neg-Trace mg/dL Urine Ketones Negative Negative mg/dL Nitrite Urine Negative Negative Leukocyte Esterase Urine Negative Negative Complete Blood Count Auto Di ff Reviewed date:08/19/2024 04:34:24 PM Interpretation: Performing Lab:[facility], [address] [place] [phone] Notes/Report: White Blood Count 9.1 4.8-10.8 X10*3/uL [...] NRBC Abs Auto 0.000 0.0-0.012 X10*3/uL Comprehensive [place]. Panel Fa st Reviewed date:08/19/2024 04:37:15 PM Interpretation: Performing Lab:[facility], [address] [place] [phone] Notes/Report: Sodium 137 135-145 mmol/L Potassium 4.4 [...] Panel Reviewed date:08/19/2024 04:30:04 PM Interpretation: Performing Lab:[facility], [address] [place] [phone] Notes/Report: Bilirubin Direct 0.4 0.0-0.5 mg/dL Lipid Panel with Reflex Reviewed date:08/19/2024 04:32:44 PM Interpretation: Performing Lab:[facility], [address] [place] [phone] Notes/Report: Triglycerides 34 <150 mg/dL Desirable Triglyceride: [...] (Free>4and<10) Reviewed date:08/19/2024 04:30:14 PM Interpretation: Performing Lab:[address] [phone] Notes/Report: PSA,Total (Free>4and<10) 3.09 0.00-4.00 ng/mL A [...] Random Reviewed date:08/19/2024 04:39:28 PM Interpretation: Performing Lab:[address] [phone] Notes/Report: Creatinine Urine 100.97 Microalbumin Urine 9.0 Microalbum/Creatinine Ratio Ur 8.9 <30 ug/mg cr Albumin/Creatinine Ratio Reference Ranges: Normal: < 30 ug/mg creatinine Microalbuminuria: 30 - 300 ug/mg creatinine Clinical Albuminuria: > 300 ug/mg creatinine Hemoglobin A1c Reviewed date:08/19/2024 04:30:37 PM Interpretation: Performing Lab:[address] [phone] Notes/Report: Hemoglobin A1c % 5.8 <6.0 % [...] average glucose, using the formula of the N7H-Glvfzil Average Glucose study (ADAG), Diabetes Care, Vol.31,#8, 2007 UA CC w/rflx Micro + Cult Reviewed date:08/19/2024 04:34:44 PM Interpretation: Performing Lab:[facility], [address] [place] [phone] Notes/Report: Urine, Clean Catch Color Urine Yellow Appearance Urine Clear PH 5.5 5.0-9.0 Glucose Urine UA Negative Negative mg/dL Urine Blood Negative Negative Specific [place] - Urine 1.020 1.005-1.025 Urine Protein Negative Neg-Trace mg/dL Urine Ketones Negative Negative mg/dL Nitrite Urine Negative Negative Leukocyte Esterase Urine Negative Negative CT chest wo con Reviewed date:09/08/2024 02:54:28 PM Interpretation: Performing Lab: Notes/Report: [address] [address] [address] Scan Report Signed Patient: Rafael Franco MR#: [id number] : 1935 Acct:[id number] Age/Sex: 89 / M ADM Date: 09/05/24 Loc: HO.CT Attending Dr: Jovanny Valdovinos MD Ordering Physician: Jovanny Valdovinos MD Date of Service: 09/05/24 Procedure(s): CT chest wo IV con Accession Number(s): [id number] cc: Jarrell Morse MD; Jovanny Valdovinos MD Report Number: [id number]: Total DLP = 120.00 mGy-cm EXAMINATION: CT [...] by: Chin Boyer MD 09/08/2024 07:10 AM [facility] Dictated By: Chin Boyer MD Signed By: <Electronically signed by Chin Boyer MD in OV> 09/08/24 0710 DD/ 1254 TD/TT: 09/05/24 1413 Splash Line Operator: [address] [address] [address] Scan Report Signed Patient: Rafael Franco MR#: [id number] : 1935 Acct:[id number] Age/Sex: 89 / M ADM Date: 09/05/24 Loc: HO.CT Attending Dr: Jovanny Valdovinos MD Ordering Physician: Jovanny Valdovinos MD Date of Service: 09/05/24 Procedure(s): CT lui st wo IV con Accession Number(s): [id number] cc: Jarrell Morse MD; Jovanny Valdovinos MD Report Number: [id number]: Total DLP = 120.00 mGy-cm EXAMINATION: CT [...] by: Chin Boyer MD 09/08/2024 07:10 AM [facility] Dictated By: Chin Boyer MD Signed By: <Electronically signed by Chin Boyer MD in OV> 09/08/24 0710 DD/ 1254 TD/TT: 09/05/24 1413 Splash Line Operator: Reason For Referral No Information Medications Medication [...] TWICE A DAY for 90 Active Ipratropium [place] 0.06 % 2 sprays in e ach [...] Problem Status W/U Status Risk Notes Problem 03502024 Prostatism (N40.0) Active confirmed Problem 31147153 Anxiety (F41.9) Active confirmed Problem Arthritis of hip (36038008) Hip arthritis (M19.90) Active confirmed Problem 639409569435796 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 plaque (I25.83) Active confirmed Problem 783339887 Malignant neopla sm of sigmoid colon (C18.7) Active confirmed Problem 3911092 Panlobular emphy sema (J43.1) Active confirmed Problem Centrilobular emphysema (17714656) Centrilobular emphysema (J43.2) Active confirmed Problem 421567700 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 Problem Disorder of lumbar disc (031367014) Lumbar disc disease (M51.9) Active confirmed Problem 06008222 Essential hypert ension (I10) Active confirmed Problem Psoriasis (6771422) Psoriasis (L40.9) Active confirmed Problem 2164131 Prediabetes (R73.09) Active confirmed Problem Solitary nodule of lung (428728186) Lung nodule (R91.1) Active confirmed Problem Rhinitis (08347081) Rhinitis (J31.0) Active confirmed Problem 661655456 NSVT (nonsustain ed ventricular tachycardia) (I47.2) Active confirmed Problem 89916055 Sciatica of righ t side (M54.31) Active confirmed Problem 619914641 Pure hypercholesterolemia (E78.00) Active confirmed Problem 485817330 COPD with acute exacerbation (J44.1) Active confirmed Problem 28089533 Hip arthritis (M16.10) Active confirme d Vital [...] Jarrell Morse MD [address] [place] [id number] 03/03/2024 Jarrell Morse Panlobular emphysema J43.1 ; Pure hypercholesterolemia E78.00 and Centrilobular emphysema J43.2 Jarrell Morse MD [address] [place] [address] Drive [address] [place] [id number] 08/22/2024 Jarrell Morse Panlobular emphysema J43.1 ; 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 plaque I25.83 ; Anxiety F41.9 ; Prediabetes R73.09 ; Pure hypercholesterolemia E78.00 ; Essential hypertension I10 ; Colon cancer screening Z12.11 and Depression screening Z13.31 Jarrell Morse MD [address] [place] [id number] 09/15/2024 Jarrell Morse Impacted cerumen of left ear H61.22 Jarrell Morse MD [address] [place] [id number] 11/21/2024 Jarrell Morse Prediabetes R73.09 ; Weight loss R63.4 ; Rhinitis J31.0 and Panlobular emphysema J43.1 Jarrell Morse MD [address] [place] [id number] 03/06/2024 Jarrell Morse Lung nodule R91.1 Jarrell Morse MD [address] [place] [id number] 04/18/2024 Jarrell Morse MD [address] [place] [id number] 04/22/2024 Jarrell Morse MD [address] [place] [id number] 05/09/2024 Jarrell Morse MD [address] [place] [id number] 05/23/2024 Jarrell Morse MD [address] [place] [id number] 07/31/2024 Jarrell Morse MD [address] [place] [id number] 07/31/2024 Jarrell Morse MD [address] [place] [id number] 08/07/2024 Jarrell Morse MD [address] [place] [id number] 10/03/2024 Jarrell Morse MD [address] [place] [id number] 12/04/2024 Jarrell Morse Rhinitis J31.0 Assessments Encounter [...] Electrocardiogram (EKG) 02/24/2016 CT chest wo con 03/06/2024 CT chest wo con 12/31/2023 US venous duplex UE BI 06/15/2023 US venous duplex LE BI 06/18/2023 Next Appt Details Provider Name:Jarrell chow, 03/09/2025 01:45:00 PM, [address] [place] [address], [address], [place], [place], [phone], Provider Name:Jarrell chow, 08/18/2025 08:00:00 AM, [address] [place] [address], [address], [place], [place], [phone], Provider Name:Jarrell chow, 08/27/2025 01:00:00 PM, [address], [address], [place], [place], [phone], Insurance Providers Payer Name Payer Address Payer Phone Subscriber Number Group Number Insured Name Patient Relationship to Insured Coverage Start Date Coverage End Date MED[employer] [address] [place] [address] [id number] Rafael Franco Self - patient is the insured MEDEX BC OF [facility] P [facility] [id number] [place] [phone] [id number] Rafael Franco Self - patient is the insured Medical (General) History Medical History History ICD Code myocardial infarction colon cancer colonoscopy 2008; c olonosscopy 06/25/2013; was told he needs no further colonoscopy per Dr. Marie
--- OUTSIDE RECORDS SUMMARY | 2025-02-27 09:48 | XMS_ITS | Clinical Summary ---
Author Organization [facility] Facility Address [address] [place] [address] Care Team Providers Care Business Management Professor Name Role Phone Jarrell Morse MD Primary Care Provider [phone] Social History Tobacco Use Types Packs/Day Years Used Date Smoking Tobacco: Never Assessed Sex and Gender Information Value Date Recorded Sex Assigned at Not on file Legal Sex Male 10:06 AM EDT Gender Identity Not on file Sexual Orientation Not on file Plan of Treatment Health Maintenance Due Date Last Done Comments Pneumococcal Vaccine: 50+ Ye ars (1 of 2 - PCV) 1954 Influenza Vaccine (#1) 2025 Hepatitis B Vaccine Aged Out No longe r eligible based on patient's age to complete this topic Insurance Medicare [facility] Care Teams Business Management Professor Relationship Specialty Start Date End Date Jarrell Morse MD [address] [place] [address] [address] [place], [place] PCP - General Internal Medicine 05/10/23
[2025-02-27 10:55] LABS: Hemoglobin A1C 130.1347 umol/L; Total Hemoglobin (HGBA1C) 3332.6638 umol/L
[2025-02-27 11:20] LABS: Alanine Aminotransferase 30 U/L (0-40); Albumin Level 4.1 g/dL (3.5-5.0); Alkaline Phosphatase 122 U/L (39-117); Aspartate Amino Transferase 42 U/L (5-37); Cholesterol 112 mg/dL (<200); HDL Cholesterol 56 mg/dL (>40); Total Protein 6.6 g/dL (6.5-8.0); Triglycerides 43 mg/dL (<150)
[2025-02-27 12:48] LABS: Reflex LDLD? No
== END 2025-02-27 09:33 | disposition home or self-care (01) ==
LOC: HO.HMGCLDS 09:32
PROVIDERS: PCP Internal Medicine; Visit Provider Internal Medicine
DX: R73.09 Other abnormal glucose (principal); E78.00 Pure hypercholesterolemia, unspecified
CPT/HCPCS: 36415; 80061; 80076; 82947; 83036

== ENCOUNTER → 2025-04-24 12:41 | Outpatient (REF) | payer MEDICARE, SELFPAY ==
--- OUTSIDE RECORDS SUMMARY | 2024-10-03 07:34 | XMS_ITS ---
Author Organization Jarrell Morse MD Address [address] [place] [phone] Care Team Providers Care Sprinkler Installer Name Role Phone Jarrell Morse Primary Care Provider REASON FOR VISIT refill Medications Medication SIG (Take, Route, Fr equency, Duration) Notes Start Date End Date Status LORazepam 0.5 MG TAKE 1 TABLET BY ALBERT TH TWICE A DAY Orally Twice a day for 30 days 10/03/2024 A ctive Encounters Encounter Location Date Provider Diagnosis Jarrell Morse MD [address] [place] [address] [place] [phone] 10/03/2024 Jarrell Morse Plan Of Treatment Medication Medication Name Sig Start Date Stop Date Notes LORazepam 0.5 MG TAKE 1 TABLET BY ALBERT TH TWICE A DAY Orally Twice a day for 30 days 10/03/2024 Next Appt Details Provider Name:Jarrell chow, 08/18/2025 08:00:00 AM, [address] [place] [address], Suite [facility], [place], [place], [phone], Provider Name:Jarrell chow, 08/27/2025 01:00:00 PM, [address], [address], [place], [place], [phone], Progress Notes * Rafael TORRES HDOB:[birth year] (89 yo M)Acc No.[id number]:10/03/2024 Patient: Rafael KOVACS :1935 A ge:89 Y S ex:Male Address:[address] [place] [phone] * Refills Refill LORazepam Tablet, 0.5 MG, Orally, 60, TAKE 1 TABLET BY MOUTH TWICE A DAY, Twice a day, 30 days, Refills=0 * true * Date: Generated for Javi griggs/Cesia/Bobitting on: 0 04/24/2025 12:56 PM EDT
--- OUTSIDE RECORDS SUMMARY | 2024-11-21 06:15 | XMS_ITS ---
Author Organization Jarrell Morse MD Address [address] [place], [place] [phone] Care Team Providers Care Supervisor Particleboard Name Role Phone Jarrell Morse Primary Care [...] a day for 10 days Not-Taking Ipratropium [place] 0.06 % 4 2 sprays in each nostril Nasally Four times a day for 30 days 11/21/2024 Active Ipratropium-Albuterol 0.5-2.5 (3) MG/3ML INHALE CONTENTS OF 1 AMP VIA NEBULIZER EVERY 6 HOURS Inhalation every 6 hrs for 90 days Active Problems Problem Type SNOMED Code ICD Code Onset Dates Problem Status W/U Status Risk Notes Problem Rhinitis (25009112) Rhinitis (J31.0) Active confirmed Vital Signs Blood pressure systolic 122 mm Hg 11/22/19 25 Blood pressure diastolic 54 mm Hg 025 Height 71.50 in 11/21/2024 Weight 122 lbs 11/21/2024 BMI 16.78 kg/m2 11/21/2024 weight is down 4 pounds sin e 09-15-24 Encounters Encounter Location Date Provider Diagnosis Jarrell Morse MD [address] [place] [address] [address] [place], [place] [phone] 11/21/2024 Jarrell Morse Prediabetes R73.09 ; Weight [...] 2 PUFFS EVERY 4 HOURS NEEDED Ipratropium [place] 0.06 % 4 2 sprays in each [...] Reason: Provider Name:Jarrell chow, 08/18/2025 08:00:00 AM, [address] [place] [address], [address], [phone], Provider Name:Jarrell chow, 08/27/2025 01:00:00 PM, [address] [place] [address], Suite [facility], [place], [place], [phone], Progress Notes * Rafael TORRES HDOB:[birth year] (89 yo M)Acc No.[id number]:11/21/2024 Progress Notes Patient: Rafael KOVACS Provider: Estrella [...] , will continue to monitor??3.?Rhinitis? Start Ipratropium [place] Solution, 0.06 %, 4 2 sprays in [...] 2947 ASSAY, GLUCOSE, BLOOD QUANT, Modifiers: QW 13228 GLYCATED HEMOGLOBIN TEST, Modifiers: QW * Follow Up: 3 Months * * Sign off status: Completed true * Provider: Estrella Morse MD Date: 0 11/21/2024 Generated for Javi griggs/Cesia/Bobitting on: 0 04/24/2025 12:56 PM EDT History and Physical Notes * [...]
--- OUTSIDE RECORDS SUMMARY | 2024-12-04 06:22 | XMS_ITS ---
Author Organization Jarrell Morse MD Address [address] [place], [place] [phone] Care Team Providers Care Scientific Software Engineer Name Role Phone Jarrell Morse Primary Care Provider REASON FOR VISIT med issue Medications Medication SIG (Take, Route, Frequency, Duration) Notes Start Date End Date Status Ipratropium [place] 0.06 % 2 sprays in e ach nostril Nasally Four times a day for 30 days 11/21/2024 Active Encounters Encounter Location Date Provider Diagnosis Jarrell Morse MD [address] [place] [phone] 12/04/2024 Jarrell Morse Rhinitis J31.0 Assessments Encounter Date Diagnosis (ICD Code) Assessment Notes Treatment Notes Treatment Clinical Notes Section Notes 12/04/2024 Rhinitis (ICD-10 - J31.0) Plan Of Treatment Medication Medication Name Sig Start Date Stop Date Notes Ipratropium [place] 0.06 % 2 sprays in e ach nostril Nasally Four times a day for 30 days 11/21/2024 Next Appt Details Provider Name:Jarrell chow, 08/18/2025 08:00:00 AM, [address], [address], [place], [place], [phone], Provider Name:Jarrell Mckeon ier, 08/27/2025 01:00:00 PM, [address], [address], [place], [phone], Progress Notes * Rafael TORRES HDOB:[birth year] (89 yo M)Acc No.[id number]:12/04/2024 Patient: Rafael KOVACS :1935 A ge:89 Y S ex:Male Address:[address] [place] [phone] * Refills Refill Ipratropium [place] Solution, 0.06 %, Nasally, 1, 2 sprays in each nostril, Four times a day, 30 days, Refills=11 * true * Date: Generated for Javi griggs/Cesia/Bobitting on: 0 04/24/2025 12:56 PM EDT
--- OUTSIDE RECORDS SUMMARY | 2025-02-27 04:15 | XMS_ITS ---
Author Organization Jarrell Morse MD Address [address] [place], [place] [phone] Care Team Providers Care Tourist Information Assistant Name Role Phone Jarrell Morse Primary Care Provider Results Component Value Reference Range Notes Liver Panel Reviewed date:02/27/2025 12:50:57 PM Interpretation: Performing Lab:[facility], [address] [place] [phone] Notes/Report: Bilirubin Total 0.8 0.0-1.0 mg/dL Bilirubin Direct 0.3 0.0-0.5 mg/dL Aspartate Amino Transferase 42 5-37 U/L Alanine Aminotransferase 30 0-40 U/L Total Protein 6.6 6.5-8.0 g/dL Albumin Level 4.1 3.5-5.0 g/dL Alkaline Phosphatase 122 39-117 U/L Glucose Fasting Reviewed date:02/27/2025 12:50:19 PM Interpretation: Performing Lab:[facility], [address] [place] [phone] Notes/Report: Glucose Fasting 91 60-99 mg/dL Lipid Panel with Reflex Reviewed date:02/27/2025 12:54:19 PM Interpretation: Performing Lab:[facility], [address] [place] [phone] Notes/Report: Triglycerides 43 <150 mg/dL Desirable Triglyceride: [...] A1c Reviewed date:02/27/2025 12:46:48 PM Interpretation: Performing Lab:[facility], [address] [place] [phone] Notes/Report: Hemoglobin A1c % 5.7 <6.0 % [...] average glucose, using the formula of the T5B-Gwhcrnw Average Glucose study (ADAG), Diabetes Care, Vol.31,#8, Mar. 2007 REASON FOR VISIT FASTING LIPIDS Encounters Encounter Location Date Provider Diagnosis Jarrell Morse MD [address] [place] [address] Drive [address] [place], [place] [phone] 02/27/2025 Jarrell Morse Pure hypercholestero lemia E78.00 and Prediabetes R73.09 Assessments Encounter Date Diagnosis (ICD Code) Assessment Notes Treatment Notes Treatment Clinical Notes Section Notes 02/27/2025 Pure hypercholesterolemia (ICD-10 - E78.00) 02/27/2025 Prediabetes (ICD-10 - R73.09) Plan Of Treatment Next Appt Details Provider Name:Jarrell Mckeon ier, 08/18/2025 08:00:00 AM, [address], [address], [place], [place], [phone], Provider Name:Jarrell Mckeon ier, 08/27/2025 01:00:00 PM, [address], [address], [place], [place], [phone], Progress Notes * Rafael TORRES HDOB:[birth year] (89 yo M)Acc No.[id number]:02/27/2025 Progress Note Patient: Rafael KOVACS Provider: Estrella Morse MD :1935 A ge:89 Y S ex:Male Date:02/27/2025 Address:[address] [place], [place] [phone] Subjective: * Chief Complaints: * 1 . [...] MD Date: 0 02/27/2025 Generated for Javi griggs/Cesia/eTmarthaitting on: 0 04/24/2025 12:56 PM EDT
--- OUTSIDE RECORDS SUMMARY | 2025-03-09 09:45 | XMS_ITS ---
Author Organization Jarrell Morse MD Address [address] [place], [place] [id number] Care Team Providers Care Dairy Equipment Repairer Name Role Phone Jarrell Morse Primary Care Provider [phone] Allergies Allergen (clinical drug ingredient) Drug/Non Drug [...] tablet Orally Once a day Active Ipratropium Petros 0.06 % 2 sprays in e ach [...] Location Date Provider Diagnosis Jarrell Morse MD [address] [place] [address] [place] [phone] 03/09/2025 Jarrell Morse Pure hypercholestero lemia E78.00 [...] Provider Name:Jarrell Mckeon ier, 08/18/2025 08:00:00 AM, [address] [place] [address], [address], [phone], Provider Name:Jarrell Mckeon ier, 08/27/2025 01:00:00 PM, [address] [place] [address], [place] [address], [place], [place], [phone], Progress Notes * MELISSARafael HDOB:[birth year] (89 yo M)Acc No.[id number]:03/09/2025 Progress Notes Patient: Rafael KOVACS Provider: Estrella Morse MD :1935 A ge:89 Y S ex:Male Date:03/09/2025 Address:[address] [place] [address] [id number] Subjective: * Chief Complaints: * 3 MO [...] TWICE A DAY FOR 30 DAYS Ipratropium Petros 0.06 % Solution 2 sprays in each [...] A DAY FOR 30 DAYS Taking Ipratropium Petros 0.06 % Solution 2 sprays in each [...] MD Date: 0 03/09/2025 Generated for Javi griggs/Cesia/Jackiesmitting on: 0 04/24/2025 12:57 PM EDT History and Physical Notes * [...]
--- NOTE | 2025-04-24 12:45 | CA_ITS ---
Transthoracic Echocardiogram Patient (Last, First, Middle): Rafael Franco H Gender: Male Date of : 1935 Age: 89 Procedure Date: 04/24/2025 Procedure Type: Transthoracic Echocardiogram Location: OP Height: 177.8 cm Weight: 57.61 kg BSA: 1.72 m2 Heart Rate: 88 bpm BP: 128 / 62 mmHg Law Office Manager: SB Referring MD: Demetrius Zamora MD Symptoms: I35.0 - Nonrheumatic aortic (valve) stenosis Study Quality: Fair but adequate ECG Rhythm: Atrial Fibrillation Conclusions: - Normal left ventricular cavity size. There is normal left ventricular wall thickness. The left ventricular systolic function is moderate to severely decreased. The visually estimated ejection fraction is between 25-30%. - The entire septum is akinetic. - Normal right ventricular cavity size. There is mildly decreased right ventricular systolic function. Findings Procedure Information The quality of the study was technically difficult. The study quality is limited by lung artifact. Left Ventricle Normal left ventricular cavity size. There is normal left ventricular wall thickness. The left ventricular systolic function is moderate to severely decreased. The visually estimated ejection fraction is between 25-30%. There is evidence of regional wall motion abnormalities. Diastolic function is indeterminate on the basis of available data. Wall Motion Rest Echo Findings The entire septum is akinetic. Right Ventricle Normal right ventricular cavity size. There is mildly decreased right ventricular systolic function. Atria The left atrium is mildly dilated. The right atrium is severely dilated. Aortic Valve There is severe calcification of the aortic valve. There is severely restricted aortic valve cusp separation. The peak aortic velocity is 2.16 m/s with a calculated peak gradient of 19 mmHg. The mean gradient is 10 mmHg. The aortic valve area is 1.00 cm2. There is no aortic valve regurgitation. Stroke volume index 23. Dimensionless index is 0.24. Low-flow low gradient severe aortic valve stenosis present. Mitral Valve There is mild mitral annular calcification. There is no mitral valve regurgitation. There is no mitral valve stenosis. Pulmonic Valve The pulmonic valve is normal. There is trace pulmonic valve regurgitation. Tricuspid Valve Normal tricuspid valve structure. There is mild tricuspid valve regurgitation. The right ventricular systolic pressure is 33 mmHg. Normal right atrial pressure. There is no evidence of pulmonary hypertension. Great Vessels All visible segments of the aorta are normal in size. The visualized portions of the pulmonary artery and branches are normal. Venous The inferior vena cava is normal in size and collapses greater than 50% with inspiration. Pericardium/Pleural There is no evidence of pericardial effusion. Prior Study Comparison Changes noted compared to prior study dated: 03/20/2024. [id number] LV dysfunction with EF 25-30%, low stroke volume index, low-flow low gradient severe aortic valve stenosis. Measurements 2D Linear Measurements IVSd: 0.78 0.6-0.9/0.6-1.0 cm LVIDd: 4.82 3.9-5.3/4.2-5.9 cm LVIDd Index: 2.80 2.4-3.2/2.2-3.1 cm/m2 LVIDs: 3.82 2.0-3.6 cm LVPWd: 0.63 0.7-1.1 cm LA Diam: 3.20 2.7-3.8/3.0-4.0 cm LAIDs Index: 1.86 1.5-2.3 cm/m2 LV Mass: 134.65 67-162/88-224 g LV Mass Index: 78.29 43-95/49-115 g/m2 LVOT Diam: 2.30 3.0+(-)1.3 cm 2D Systolic Function EF 4C: 31.40 >55% EF 2C: 39.70 >55% EF BiP: 37.00 >55% Mitral Valve MV VTI: 0.24 MV Pk Jax: 1.45 MV Mn Jax: 0.74 MV Pk Grad: 8.00 MV Mn Grad: 3.00 MV Pk E: 1.37 E'Lateral: 22.40 E'Medial: 14.30 E/E' Med: 9.60 E/E' Lat: 6.10 MVA Continuity: 2.03 Aortic Valve AoV Pk Jax: 2.16 AoV Mn Jax: 1.29 AoV VTI: 0.35 AoV Pk Grad: 19.00 Aov Mn Grad: 10.00 JOHN Cont.VTI: 1.00 LVOT LVOT Pk Jax: 0.61 LVOT Mn Jax: 0.43 LVOT VTI: 0.12 LVOT Pk Grad: 2.00 LVOT Mn Grad: 1.00 LVOT Diam: 2.30 LVOT Area: 4.15 Diastolic Function MV Pk E: 1.37 E'Medial: 14.30 E/E' Med: 9.60 E' Laterial: 22.40 E/E' Lat: 6.10 Right Ventricle TAPSE (mm): 16.10 TVS' Jax: 10.30 Tricuspid Valve TR Pk Jax: 2.51 TR Pk Grad: 25.00 RA Press: 8.00 RVSP: 33.00 Great Vessels Aorta Sinus of Valsalva: 3.40 2.0-3.5 cm Ao Asc: 2.80 2.1-3.4 cm Pulmonary Valve PV Pk Jax: 0.87 Peak PV Grad: 3.00 Updated in Other Vendor System with Status of Final Trent Correia MD electronically signed on 04/25/2025 1:05:53 PM with status of Final
--- OUTSIDE RECORDS SUMMARY | 2025-04-24 12:56 | XMS_ITS | Patient Health Record ---
Author Organization Jarrell Morse MD Address [address] [place], [place] [id number] Care Team Providers Care Cost Engineer Name Role Phone Jarrell Morse Primary [...] AM Interpretation: Performing Lab: Notes/Report: Value 104 Complete Blood Count Auto Di ff Reviewed date:08/19/2024 04:34:24 PM Interpretation: Performing Lab:[facility], [address] [place] [address] Notes/Report: White Blood Count 9.1 4.8-10.8 X10*3/uL [...] NRBC Abs Auto 0.000 0.0-0.012 X10*3/uL Comprehensive [place]. Panel Fa st Reviewed date:08/19/2024 04:37:15 PM Interpretation: Performing Lab:[facility], [address] [place] [address] Notes/Report: Sodium 137 135-145 mmol/L Potassium 4.4 [...] Panel Reviewed date:08/19/2024 04:30:04 PM Interpretation: Performing Lab:[address] [address] Notes/Report: Bilirubin Direct 0.4 0.0-0.5 mg/dL Lipid Panel with Reflex Reviewed date:08/19/2024 04:32:44 PM Interpretation: Performing Lab:[address] [address] Notes/Report: Triglycerides 34 <150 mg/dL Desirable Triglyceride: [...] (Free>4and<10) Reviewed date:08/19/2024 04:30:14 PM Interpretation: Performing Lab:[address] [address] Notes/Report: PSA,Total (Free>4and<10) 3.09 0.00-4.00 ng/mL A [...] Random Reviewed date:08/19/2024 04:39:28 PM Interpretation: Performing Lab:[address] [address] Notes/Report: Creatinine Urine 100.97 Microalbumin Urine 9.0 Microalbum/Creatinine Ratio Ur 8.9 <30 ug/mg cr Albumin/Creatinine Ratio Reference Ranges: Normal: < 30 ug/mg creatinine Microalbuminuria: 30 - 300 ug/mg creatinine Clinical Albuminuria: > 300 ug/mg creatinine Hemoglobin A1c Reviewed date:08/19/2024 04:30:37 PM Interpretation: Performing Lab:[address] [address] Notes/Report: Hemoglobin A1c % 5.8 <6.0 % [...] average glucose, using the formula of the I2Z-Cxpproi Average Glucose study (ADAG), Diabetes Care, Vol.31,#8, Mar. 2007 UA CC w/rflx Micro + Cult Reviewed date:08/19/2024 04:34:44 PM Interpretation: Performing Lab:[address] [address] Notes/Report: Urine, Clean Catch Color Urine Yellow Appearance Urine Clear PH 5.5 5.0-9.0 Glucose Urine UA Negative Negative mg/dL Urine Blood Negative Negative Specific [place] - Urine 1.020 1.005-1.025 Urine Protein Negative Neg-Trace mg/dL Urine Ketones Negative Negative mg/dL Nitrite Urine Negative Negative Leukocyte Esterase Urine Negative Negative CT chest wo con Reviewed date:09/08/2024 02:54:28 PM Interpretation: Performing Lab: Notes/Report: [address] [address] [address] Scan Report Signed Patient: Rafael Franco MR#: [id number] : 1935 Acct:[id number] Age/Sex: 89 / M ADM Date: 09/05/24 Loc: HO.CT Attending Dr: Jovanny Valdovinos MD Ordering Physician: Jovanny Valdovinos MD Date of Service: 09/05/24 Procedure(s): CT chest wo IV con Accession Number(s): [id number] cc: Jarrell Morse MD; Jovanny Valdovinos MD Report Number: [id number]: Total DLP = 120.00 mGy-cm EXAMINATION: CT [...] by: Chin Boyer MD 09/08/2024 07:10 AM [facility] Dictated By: Chin Boyer MD Signed By: <Electronically signed by Chin Boyer MD in OV> 09/08/24 0710 DD/ 1254 TD/TT: 09/05/24 1413 Meal Cook: [address] [address] [address] Scan Report Signed Patient: Rafael Franco MR#: [id number] : 1935 Acct:[id number] Age/Sex: 89 / M ADM Date: 09/05/24 Loc: HO.CT Attending Dr: Jovanny Valdovinos MD Ordering Physician: Jovanny Valdovinos MD Date of Service: 09/05/24 Procedure(s): CT lui st wo IV con Accession Number(s): [id number] cc: Jarrell Morse MD; Jovanny Valdovinos MD Report Number: [id number]: Total DLP = 120.00 mGy-cm EXAMINATION: CT [...] by: Chin Boyer MD 09/08/2024 07:10 AM [facility] Dictated By: Chin Boyer MD Signed By: <Electronically signed by Chin Boyer MD in OV> 09/08/24 0710 DD/ 1254 TD/TT: 09/05/24 1413 Meal Cook: Reason For Referral No Information Medications Medication SIG (Take, Route, Frequency, Duration) Notes Start Date End Date Status Wixela Inhub 500-50 MCG/ACT INHALE 1 PUFF INTO THE LUNGS TWICE A DAY FOR 30 DAYS Active Lisinopril 5 MG 1 tablet Orally Once a day Active Metoprolol Succinate ER 25 MG TAKE 1 TABLET BY MOUTH EVERY DAY for 90 Not-Taking Incruse Ellipta 62.5 MCG/ACT INHALE 1 PUFF DAILY Active Betamethasone Dipropionate 0.05 % as directed Externally daily for 90 days 10/26/2011 Active Celecoxib 200 MG 1 capsule with food Orally Once a day 03/14/2022 Not-Taking Ventolin HFA * 108 (90 Base) MCG/ACT INHALE 2 PUFFS EVERY 4 HOURS NEEDED 54 Active Aspir-Low 81 MG 1 tablet Orally Once a day for 30 day(s) 09/19/2019 Active Symbicort 160-4.5 MCG/ACT INHALE TWO PUF FS BY MOUTH TWICE A DAY Not-Taking PreserVision AREDS 2 - as directed Orally Active Ipratropium [place] 0.06 % 2 sprays in e ach nostril Nasally Four times a day for 30 days 11/21/2024 Active Atorvastatin Calcium 40 MG TAKE 1 TABLET BY MOUTH EVERY DAY Active Sulfamethoxazole-Trimethop rim 800-160 MG TAKE 1 TABLET BY MOUTH TWICE A DAY FOR 10 DAYS Oral Twice a day for 10 days Not-Taking Ipratropium-Albuterol 0.5-2.5 (3) MG/3ML INHALE CONTENTS OF 1 AMP VIA NEBULIZER EVERY 6 HOURS Inhalation every 6 hrs Active Viagra 50 MG 1 tablet as needed Orally Once a day as needed for 30 day(s) 12/14/2020 Not-Taking Tamsulosin HCl 0.4 MG TAKE 1 CAPSULE BY MOUTH TWICE A DAY for 90 Active LORazepam 0.5 MG TAKE 1 TABLET BY ALBERT TH TWICE A DAY for 30 04/21/2025 Active Immunizations Vaccine Route Administration Date Status Comme nts Flu Vaccine IM Intramuscular 05/09/2011 Administered Flu Vaccine IM Intramuscular 04/15/2012 Administered Prevnar 13 Unknown 06/27/2012 Administered TDaP Unknown 07/04/2012 Administered Shingles IM Intramuscular 10/10/2012 Administered Flu Vaccine IM Intramuscular 05/27/2013 Administered PPSV23 (Pnemovax) IM Intramuscular 06/05/2013 Administered Flu Vaccine Unknown 06/15/2014 Administered [employer] Fluarix Quadrivalent IM Intramuscular 05/06/2015 Administe red [...] Problem Status W/U Status Risk Notes Problem 58343070 Prostatism (N40.0) Active confirmed Problem 26168576 Anxiety (F41.9) Active confirmed Problem Arthritis of hip (56946394) Hip arthritis (M19.90) Active confirmed Problem 353306397650290 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 plaque (I25.83) Active confirmed Problem 486987384 Malignant neopla sm of sigmoid colon (C18.7) Active confirmed Problem 3103864 Panlobular emphy sema (J43.1) Active confirmed Problem Centrilobular emphysema (22803953) Centrilobular emphysema (J43.2) Active confirmed Problem 853271372 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 Problem Disorder of lumbar disc (015677441) Lumbar disc disease (M51.9) Active confirmed Problem 01119299 Essential hypert ension (I10) Active confirmed Problem Psoriasis (1597521) Psoriasis (L40.9) Active confirmed Problem 1854831 Prediabetes (R73.09) Active confirmed Problem Solitary nodule of lung (766526855) Lung nodule (R91.1) Active confirmed Problem Rhinitis (19966263) Rhinitis (J31.0) Active confirmed Problem 233228804 NSVT (nonsustain ed ventricular tachycardia) (I47.2) Active confirmed Problem 59211381 Sciatica of righ t side (M54.31) Active confirmed Problem 099654827 Pure hypercholesterolemia (E78.00) Active confirmed Problem 877112143 COPD with acute exacerbation (J44.1) Active confirmed Problem 93448701 Hip arthritis (M16.10) Active confirme d Vital Signs Blood pressure diastolic 60 mm Hg 03/09/2025 jamey ght is up 4 pounds since 11-21-24 Height 71.50 in 03/09/2025 weight is up 4 pounds since 4-4-25 Blood pressure systolic 98 mm Hg 03/09/2025 margaret ht is up 4 pounds since 11-21-24 Weight 126 lbs 03/09/2025 weight is up 4 pounds since 11-21-24 BMI 17.33 kg/m2 03/09/2025 weight is up 4 pounds since 11-21-24 Encounters Encounter Location Date Provider Diagnosis Jarrell Morse MD [address] [place] [id number] 08/22/2024 Jarrell Morse Panlobular emphysema J43.1 ; 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 plaque I25.83 ; Anxiety F41.9 ; Prediabetes R73.09 ; Pure hypercholesterolemia E78.00 ; Essential hypertension I10 ; Colon cancer screening Z12.11 and Depression screening Z13.31 Jarrell Morse MD [address] [place] [address] [id number] 09/15/2024 Jarrell Morse Impacted cerumen of left ear H61.22 Jarrell Morse MD [address] [place] [id number] 11/21/2024 Jarrell Morse Prediabetes R73.09 ; Weight loss R63.4 ; Rhinitis J31.0 and Panlobular emphysema J43.1 Jarrell Morse MD [address] [place] [id number] 03/09/2025 Jarrell Morse Pure hypercholestero lemia E78.00 ; Panlobular emphysema J43.1 ; Centrilobular emphysema J43.2 and Prediabetes R73.09 Jarrell Morse MD [address] [place] [id number] 05/09/2024 Jarrell Morse MD [address] [place] [id number] 05/23/2024 Jarrell Morse MD [address] [place] [id number] 07/31/2024 Jarrell Morse MD [address] [place] [id number] 07/31/2024 Jarrell Morse MD [address] [place] [address] [id number] 08/07/2024 Jarrell Morse MD [address] [place], [place] [id number] 10/03/2024 Jarrell Morse MD [address] [place] [id number] 12/04/2024 Jarrell Morse Rhinitis J31.0 Assessments Encounter [...] protein drinks. , will continue to monitor 03/09/2025 Pure hypercholesterolemia (ICD-10 - E78.00) well controlled, will continue current regiment 12/04/2024 Rhinitis (ICD-10 - J31.0) 08/22/2024 Anxiety (ICD-10 - F41.9) doi ng well on ativan, will continue current regiment 11/21/2024 Rhinitis (ICD-10 - J31.0) 03/09/2025 Panlobular emphysema (ICD-10 - J43.1) stable, will continue current regiment 08/22/2024 Prediabetes (ICD-10 - R73.09) no need for medication at this time 11/21/2024 Panlobular emphysema (ICD-10 - J43.1) good values.will continue current regiment 03/09/2025 Centrilobular emphys tyra (ICD-10 - J43.2) stable 08/22/2024 Pure hypercholesterolemia (ICD-10 - E78.00) stable, will continue current regiment 03/09/2025 Prediabetes (ICD-10 - R73.09) stable, no need for medication at this time 08/22/2024 Essential hypertensi on (ICD-10 - I10) [...] Name:Jarrell Mckeon ier, 08/18/2025 08:00:00 AM, [address] [place] [address], [phone], Provider Name:Jarrell Mckeon ier, 08/27/2025 01:00:00 PM, [address] [place] [address], [place], [place], [phone], Insurance Providers Payer Name Payer Address Payer Phone Subscriber Number Group Number Insured Name Patient Relationship to Insured Coverage Start Date Coverage End Date MEDICARE [facility] [address] [place] [address] [id number] Rafael Franco Self - patient is the insured MEDEX BC OF [facility] [id number] [place] [phone] [id number] Rafael Franco Self - patient is the insured Medical (General) History Medical History History ICD Code myocardial infarction colon cancer colonoscopy 2008 due 2012; c olonosscopy 06/25/2013; was told he needs no further colonoscopy per Dr. Marie
--- OUTSIDE RECORDS SUMMARY | 2025-04-24 12:57 | XMS_ITS | Clinical Summary ---
Author Organization [facility] Facility Address [address] [place] [address] Care Team Providers Care Can Feeder Name Role Phone Jarrell Morse MD Primary Care Provider [phone] Social History Tobacco Use Types Packs/Day Years [...] age to complete this topic Insurance Medicare [facility] Care Teams Can Feeder Relationship Specialty Start Date End Date Jarrell Morse MD [address] [place] [address] [address] [place], [place] PCP - General Internal Medicine 05/10/23
--- OUTSIDE RECORDS SUMMARY | 2025-04-24 12:57 | XMS_ITS | Patient Health Record ---
Author Organization [facility] Address [address] [place] [address] Care Team Providers Care Rental Sales Associate Name Role Phone Jarrell Morse MD Primary Care Provider Chin Healy Unavailable [phone] Reason For Referral No Information Medications Medication SIG (Take, Route, Frequency, Duration) Notes Start Date End Date Status Ventolin HFA Active Dulera Active Multi Vitamin/Minerals 08/20/20242024 Active Lipitor 40mg Active Aspir-81 81mg Active Fish Oil Active Problems Problem Type SNOMED Code ICD Code Onset Dates Problem Status W/U Status Risk Notes Problem Colon cancer screening (286155450) Colon cancer screening (V76.51) Active confirmed Problem History of adenomatous polyp of colon (906860368) History of adenomatous polyp of colon (V12.72) Active confirmed Problem History of malignant neoplasm of colon (682164546) H/O malignant neoplasm of colon (V10.05) Active confirmed Problem Long-term current use of aspirin (549325906528695 ) Aspirin long-term use (V58.66) Active confirmed Plan Of Treatment Future Test Test Name Order Date COLONOSCOPY 03/07/2013 Insurance Providers Payer Name Payer Address Payer Phone Subscriber Number Group Number Insured Name Patient Relationship to Insured Coverage Start Date Coverage End Date MEDICARE OF [place] [address] [place] [address] [phone] [id number] AAYUSH TORRES Self - patient is the insured MEDEX ATTN CLAIMS [address] [place] [address] [phone] [id number] AAYUSH TORRES Self - patient is the insured Medical (General) History Medical History History ICD Code Last colonoscopy 07-22-2009--negative colon polyps-tubular adenomas [place] in 1995-cardiac arrest-had a cath, bu t no intervention COPD colon cancer--malignant polyp removed fr om sigmoid colon Denies DM,CVA,renal disease Surgical History Surgery Date(Month/Year) Sigmoid resection for malignant polyp in 09/2001 knee surgery( left) fistula repair
== END ==
LOC: HO.CARD 12:41
PROVIDERS: PCP Internal Medicine; Visit Provider Internal Medicine
DX: I35.0 Nonrheumatic aortic (valve) stenosis (principal)
CPT/HCPCS: 93306

== ENCOUNTER → 2025-04-24 12:45 | Outpatient (BNV) | payer MEDICARE, SELFPAY | PROVIDERS: PCP Internal Medicine; Visit Provider Internal Medicine Cardiovascular Disease | DX: I50.20 Unspecified systolic (congestive) heart failure (principal); I35.8 Other nonrheumatic aortic valve disorders; I36.1 Nonrheumatic tricuspid (valve) insufficiency | CPT/HCPCS: 93306 ==

== ENCOUNTER 2025-05-07 13:19 | Outpatient (AMB) | payer MEDICARE, SELFPAY ==
--- NOTE | 2025-05-07 13:27 | A.OFFVIS_ITS ---
Vital Signs 05/07/25 13:28 Height 5 ft 10 in Weight 128 lb 4.944 oz BMI 18.4 BP 110/64 Blood Pressure Location Lt brachial Position Sitting Pulse 75 Pulse Source Monitor Intake Visit Reasons: 6m follow up/echo prior Health Science Writer Required: No Accompanied by: Spouse Allergies No Known Allergies (No Known Allergies*) Allergy (Verified 02/10/25 14:25) Medication List - Last Reconciled 05/07/25 by Demetrius Zamora MD albuterol sulfate 90 mcg/actuation 2 puffs inhalation QID aspirin 81 mg PO DAILY atorvastatin 40 mg PO DAILY betamethasone dipropionate 0.05% 1 appl topical BID fluticasone propion-salmeterol 500-50 mcg/dose (Wixela Inhub) inhalation ipratropium-albuterol 0.5 mg-3 mg(2.5 mg base)/3 mL 3 mL inhalation RQ4H WHILE AWAKE lisinopril 5 mg PO DAILY lorazepam 0.5 mg PO DAILY PRN multivitamin 1 tab PO DAILY nebulizers As directed Oxygen Home Use As directed tamsulosin 0.4 mg PO BEDTIME umeclidinium 62.5 mcg/actuation (Incruse Ellipta) 1 inh inhalation DAILY walker Folding front wheeled walker HPI Comments Details: Rafael returns for follow-up. In the past, he was seen in consultation regarding preoperative risk stratification for hip surgery. In the , he apparently had cardiac arrest that led to catheterization. Subsequently, he saw a swat team member for few years but none in the last 20+ years till he was seen here. He has got chronic shortness of breath from COPD and that is just about the same. No change whatsoever and he states he is actually quite active without any major limitations. He can do lawn work, mow with the lawn on a riding mower extra. However, states that he does get short of breath at times. He is also on supplemental oxygen that he can use as needed. [facility] Medical History Chronic cough Atherosclerotic cardiovascular disease BPH (benign prostatic hyperplasia) HLD (hyperlipidemia) HTN (hypertension) Chronic respiratory failure ILD (interstitial lung disease) COPD (chronic obstructive pulmonary disease) Family History Sister Cancer Mother Stroke Father Stroke Social History Household Members: Spouse Housing: House Do you presently have visiting nurse or other home services: No Alcohol intake: never Patient Tobacco Use Status: Former Tobacco user Tobacco use type: Cigarette Years Smoked: 30 yrs Second Hand Smoke Exposure: No Current occupational status: retired Review of Systems Const All systems reviewed & are unremarkable except as noted in HPI and below Reports as per HPI and Reports no additional complaints Eyes Reports as per HPI and Denies no additional complaints ENT Denies no additional complaints and Reports as per HPI Card Reports as per HPI, Reports no additional complaints, Denies acrocyanosis, Denies chest pain, Denies leg edema, Denies lightheadedness, Denies palpitations and Reports dyspnea Resp Reports as per HPI, Denies no additional complaints and Reports dyspnea GI Reports as per HPI and Denies no additional complaints Reports no additional complaints and Reports as per HPI Musc Reports no additional complaints and Reports as per HPI Skin/Breast Reports system reviewed and no additional complaints, except as documented Neuro Reports no additional complaints and Reports as per HPI Psych Reports no additional complaints and Reports as per HPI Endo Reports no additional complaints, Reports as per HPI and Denies palpitations Trevor/Lymph Reports no additional complaints and Reports as per HPI Aller/Immun Reports no additional complaints and Reports as per HPI Physical Exam Vital Signs: Last Vital Signs Pulse 75 05/07/25 13:28 BP 110/64 05/07/25 13:28 BMI result Body Mass Index 18.4 Const General: comfortable and no acute distress Orientation/consciousness: patient oriented x3 HEENT Other: Unremarkable Head: Yes normal to inspection Neck Neck: Yes normal visual inspection Chest Chest palpation & inspection: normal inspection of the chest Resp Auscultation: diminished lung sounds Cardio Other: Distant heart sounds; no obvious aortic murmurs but difficult to assess. GI Palpation (GI): Soft to palpation Back/Spine/Pelvis Other: unremarkable Skin General skin exam: no rashes or lesions noted Neuro General: patient oriented x3 Extrem General: Yes normal to inspection Psych Mental Status: mental status grossly normal Office Procedures EKG Details: EKG with underlying sinus rhythm at 75/Min; RI prolongation to 284 milliseconds; Mobitz type one av block; normal corrected QT; old inferior infarct. 06414-Nqyszuesdjqebhksq, Complete Assessment & Plan Assessment & Plan (1) Atherosclerotic cardiovascular disease: Code(s): I25.10 - Atherosclerotic heart disease of [place] coronary artery without angina pectoris Category: Medical Plan: Cardiac catheterization 2022- proximal RCA with 100% stenosis, AIRSET MOLDER. Otherwise, no significant coronary disease. Clinically, no angina. Continue aspirin and statins. (2) Ischemic cardiomyopathy: Code(s): I25.5 - Ischemic cardiomyopathy Category: Medical Plan: In the recent echocardiogram, LVEF is 25-30%. Prior to that, 45-50% and 35-40% at different times. He is not on any beta-blockers due to conduction system disease. On lisinopril. He does not really have any overt heart failure signs and shortness of breath seems to be primarily COPD related. (3) Non-rheumatic aortic stenosis: Code(s): I35.0 - Nonrheumatic aortic (valve) stenosis Category: Medical Plan: Discrepancy between echocardiogram and cardiac catheterization. On the echocardiogram, thought to be paradoxical low-flow, low gradient moderate to severe stenosis. However, not thought to be significant on catheterization. On physical examination, heart sounds are distant and difficult to evaluate for severe . Overall, as he has got no clear-cut worsening of his baseline shortness of breath and otherwise has a normal lifestyle considering frailty, use of supplemental oxygen, conduction system disease we will try to manage conservatively for now. We discussed about cardiac symptoms of aortic stenosis and if there is any progression of symptoms or any new concerns, advised him to contact us immediately. Then possibly consider a TAVR evaluation. (4) HTN (hypertension): Code(s): I10 - Essential (primary) hypertension Category: Medical Plan: Stable. (5) First degree heart block: Code(s): I44.0 - Atrioventricular block, first degree Category: Medical Plan: Avoid beta-blockers at this time. Can be followed for any progressive conduction system disease. (6) COPD (chronic obstructive pulmonary disease): Code(s): J44.9 - Chronic obstructive pulmonary disease, unspecified Category: Medical Qualifiers: COPD type: chronic bronchitis Chronic bronchitis type: simple Qualified Code(s): J41.0 - Simple chronic bronchitis Plan: Uses supplemental oxygen intermittently. Plan Discussed with significant other. They will contact us with any ongoing issues. Coding Level of Care Code Est Pt Level 4 (03440) Complex EM visit Add On G2211 Diagnoses Atherosclerotic cardiovascular disease I25.10 Ischemic cardiomyopathy I25.5 Non-rheumatic aortic stenosis I35.0 HTN (hypertension) I10 First degree heart block I44.0 Simple chronic bronchitis J41.0 COPD type: chronic bronchitis Chronic bronchitis type: simple CPT Codes EKG - CPT: 70142-Qzvmwjlhgrzxsvuaf, Complete ([id number])
[2025-05-07 13:28] VITALS: BP 110/64; PULSE 75; BMI 18.4
--- OUTSIDE RECORDS SUMMARY | 2025-05-07 15:20 | XMS_ITS | Clinical Summary ---
Author Organization [facility] Facility Address [address] [place] [address] Care Team Providers Care Network Program Manager Name Role Phone Jarrell Morse MD Primary Care Provider [phone] Social History Tobacco Use Types Packs/Day Years [...] Insurance Medicare [facility] Care Teams Network Program Manager Relationship Specialty Start Date End Date Jarrell Morse MD [address] [place] [address] [address] [place], [place] PCP - General Internal Medicine 05/10/23
== END 2025-05-07 13:51 | disposition home or self-care (01) ==
LOC: HO.HCS 13:20
PROVIDERS: PCP Internal Medicine; Visit Provider Internal Medicine
DX: I25.10 Atherosclerotic heart disease of native coronary artery without angina pectoris (principal); I25.5 Ischemic cardiomyopathy; I35.0 Nonrheumatic aortic (valve) stenosis; I10 Essential (primary) hypertension; I44.0 Atrioventricular block, first degree; J41.0 Simple chronic bronchitis
CPT/HCPCS: 93010; 99214; G2211

== ENCOUNTER → 2025-05-07 13:19 | Outpatient (BNVA) | payer MEDICARE, SELFPAY | PROVIDERS: PCP Internal Medicine; Visit Provider Internal Medicine | DX: I25.10 Atherosclerotic heart disease of native coronary artery without angina pectoris (principal); I25.5 Ischemic cardiomyopathy; I35.0 Nonrheumatic aortic (valve) stenosis; I10 Essential (primary) hypertension; I44.0 Atrioventricular block, first degree; J41.0 Simple chronic bronchitis; R94.31 Abnormal electrocardiogram [ECG] [EKG] | CPT/HCPCS: 93005; 99212 ==

== ENCOUNTER 2025-08-07 11:08 | Outpatient (REF) | payer MEDICARE, SELFPAY ==
--- OUTSIDE RECORDS SUMMARY | 2024-08-04 04:15 | XMS_ITS ---
Author Organization Jarrell Morse MD Address [address] [place], [place] [id number] Care Team Providers Care Certified Forklift Operator Name Role Phone Jarrell Morse Primary Care Provider [phone] REASON FOR VISIT FASTING LABS Encounters Encounter Location Date Provider Diagnosis Jarrell Morse MD [address] [place], [place] [id number] 08/04/2024 Jarrell Morse Panlobular emphysema J43.1 ; Prediabetes R73.09 ; Pure hypercholesterolemia E78.00 ; Essential hypertension I10 ; Prostatism N40.0 and Annual visit for general adult medical examination with abnormal findings Z00.01 Assessments Encounter Date Diagnosis (ICD Code) Assessment Notes Treatment Notes Treatment Clinical Notes Section Notes 08/04/2024 Panlobular emphysema (ICD-10 - J43.1) 08/04/2024 Prediabetes (ICD-10 - R73.09) 08/04/2024 Pure hypercholesterolemia (ICD-10 - E78.00) 08/04/2024 Essential hypertensi on (ICD-10 - I10) 08/04/2024 Prostatism (ICD-10 - N40.0) 08/04/2024 Annual visit for gen eral adult medical examination with abnormal findings (ICD-10 - Z00.01) Plan Of Treatment Next Appt Details Provider Name:Jarrell Mckeon ier, 08/18/2025 08:00:00 AM, [address], [address], [place], [place], [phone], Provider Name:Jarrell Mckeon ier, 08/27/2025 01:00:00 PM, [address], [address], [place], [place], [phone], Progress Notes * Rafael TORRES HDOB:[birth year] (89 yo M)Acc No.[id number]:08/04/2024 Progress Note Patient: Rafael KOVACS Provider: Estrella Morse MD :[id number] A ge:89 Y S ex:Male Date:08/04/2024 Address:[address] [place], [place] [id number] Subjective: * Chief Complaints: * 1 . FASTING LABS. * Medical History: Objective: * Vitals: Assessment: * Assessment: 1. P anlobular emphysema - J43.1 2 . P rediabetes - R73.09 3 . P ure hypercholesterolemia - E78.00 4 . E ssential hypertension - I10? 5. P rostatism - N40.0 6 . A nnual visit for general adult medical examination with abnormal findings - Z00.01 Plan: * Treatment: 2. P rediabetes L AB: Complete Blood Count Auto Diff (Order Cancelled) L AB: Comprehensive [place]. Panel Fast (Order Cancelled) L AB: Liver Panel (Order Cancelled) L AB: Lipid Panel with Reflex (Order Cancelled) L AB: PSA,Total (Free>4and<10) (Order Cancelled) L AB: Microalbumin, Random (Order Cancelled) L AB: Hemoglobin A1c (Order Cancelled) L AB: UA ClnCatch+Micro w/rflx Cult (Order Cancelled) 3. P ure hypercholesterolemia L AB: Complete Blood Count Auto Diff (Order Cancelled) L AB: Comprehensive [place]. Panel Fast (Order Cancelled) L AB: Liver Panel (Order Cancelled) L AB: Lipid Panel with Reflex (Order Cancelled) L AB: PSA,Total (Free>4and<10) (Order Cancelled) L AB: Microalbumin, Random (Order Cancelled) L AB: Hemoglobin A1c (Order Cancelled) L AB: UA ClnCatch+Micro w/rflx Cult (Order Cancelled) 4. E ssential hypertension L AB: Complete Blood Count Auto Diff (Order Cancelled) L AB: Comprehensive [place]. Panel Fast (Order Cancelled) L AB: Liver Panel (Order Cancelled) L AB: Lipid Panel with Reflex (Order Cancelled) L AB: PSA,Total (Free>4and<10) (Order Cancelled) L AB: Microalbumin, Random (Order Cancelled) L AB: Hemoglobin A1c (Order Cancelled) L AB: UA ClnCatch+Micro w/rflx Cult (Order Cancelled) 5. P rostatism L AB: Complete Blood Count Auto Diff (Order Cancelled) L AB: Comprehensive [place]. Panel Fast (Order Cancelled) L AB: Liver Panel (Order Cancelled) L AB: Lipid Panel with Reflex (Order Cancelled) L AB: PSA,Total (Free>4and<10) (Order Cancelled) L AB: Microalbumin, Random (Order Cancelled) L AB: Hemoglobin A1c (Order Cancelled) L AB: UA ClnCatch+Micro w/rflx Cult (Order Cancelled) 6. A nnual visit for general adult medical examination with abnormal findings L AB: Complete Blood Count Auto Diff (Order Cancelled) L AB: Comprehensive [place]. Panel Fast (Order Cancelled) L AB: Liver Panel (Order Cancelled) L AB: Lipid Panel with Reflex (Order Cancelled) L AB: PSA,Total (Free>4and<10) (Order Cancelled) L AB: Microalbumin, Random (Order Cancelled) L AB: Hemoglobin A1c (Order Cancelled) L AB: UA ClnCatch+Micro w/rflx Cult (Order Cancelled) * * The named appointment provid er may or may not be the originator of this progress note, and it is not deemed complete until electronically signed by the appointment provider. Sign off status: Pending * Provider: Estrella Morse MD Date: 10/05/2023 Generated for Javi griggs/Cesia/eTransmitting on: 1 10/08/2024 01:08 PM EST
--- OUTSIDE RECORDS SUMMARY | 2024-08-07 07:31 | XMS_ITS ---
Author Organization Jarrell Morse MD Address [address] [facility] [address] [place] [phone] Care Team Providers Care Global Human Resources Director Name Role Phone Jarrell Morse Primary Care Provider REASON FOR VISIT ? increase Lorazepam Encounters Encounter Location Date Provider Diagnosis Jarrell Morse MD [address] [place] [address] [place] [phone] 08/07/2024 Jarrell Morse Plan Of Treatment Next Appt Details Provider Name:Jarrell chow, 08/18/2025 08:00:00 AM, [address] [place] [address], [address] [place] [address], [phone], Provider Name:Jarrell Mckeon ier, 08/27/2025 01:00:00 PM, [address] [place] [address], [address], [phone], Progress Notes * Rafael TORRES HDOB:[birth year] (89 yo M)Acc No.[id number]:08/07/2024 Patient: Rafael Longo :1935 A ge:89 Y S ex:Male Address:[address] [place] [phone] * true * Date: Generated for Javi griggs/Cesia/Glo on: 10/08/2024 01:07 PM EST
--- OUTSIDE RECORDS SUMMARY | 2024-08-22 08:00 | XMS_ITS ---
Author Organization Jarrell Morse MD Address [address] [place], [place] [id number] Care Team Providers Care Obgyn Specialist Name Role Phone Jarrell Morse Primary Care Provider Allergies Allergen (clinical drug ingredient) Drug/Non Drug Allergy documented on EMR Reaction Allergy Type Onset Date Status doxycycline Doxycycline diarrhea Drug Allergy Act kevin tiotropium Spiriva HandiHaler hoarse Drug Allergy Active Results Component Value Reference Range Notes Occult Blood, Stool, Guaiac Reviewed date:08/22/2024 02:12:04 PM Interpretation:Negative Performing Lab: Notes/Report: Negative Occult Blood, Stool, Guaiac Neg REASON FOR VISIT review labs Medications Medication SIG (Take, Route, Frequency, Duration) Notes Start Date End Date Status Aspir-Low 81 MG 1 tablet Orally Once a day for 30 day(s) 09/19/2019 Active PreserVision AREDS 2 - as directed Orally Active Tamsulosin HCl 0.4 MG 1 capsule Orally T WICE PER DAY for 90 days Active Betamethasone Dipropionate 0.05 % as directed Externally daily for 90 days 10/26/2011 Active Ventolin HFA * 108 (90 Base) MCG/ACT INHALE 2 PUFFS EVERY 4 HOURS NEEDED Active Wixela Inhub 500-50 MCG/ACT 1 puff Inhalation Twice a day 10/22/2023 Active Ipratropium-Albuterol 0.5-2.5 (3) MG/3ML INHALE CONTENTS OF 1 AMP VIA NEBULIZER EVERY 6 HOURS Inhalation every 6 hrs Active Sulfamethoxazole-Trimethop rim 800-160 MG TAKE 1 TABLET BY MOUTH TWICE A DAY FOR 10 DAYS Oral Twice a day for 10 days Not-Taking Viagra 50 MG 1 tablet as needed Orally Once a day as needed for 30 day(s) 12/14/2020 Not-Taking Incruse Ellipta 62.5 MCG/ACT INHALE 1 PUFF DAILY FOR 90 DAYS Active Celecoxib 200 MG 1 capsule with food Orally Once a day 03/14/2022 Not-Taking Symbicort 160-4.5 MCG/ACT INHALE TWO PUF FS BY MOUTH TWICE A DAY Not-Taking Atorvastatin Calcium 40 MG TAKE 1 TABLET BY MOUTH EVERY DAY Active Albuterol Sulfate HFA 108 (90 Base) MCG/ACT inhale 2 puffs every 4 hours as needed Inhalation every 4 hrs Active Metoprolol Succinate ER 25 MG TAKE 1 TABLET BY MOUTH EVERY DAY for 90 Not-Taking Lisinopril 5 MG 1 tablet Orally Once a day Active LORazepam 0.5 MG TAKE 1 TABLET BY ALBERT TH TWICE A DAY Orally Twice a day for 30 days 07/31/2024 Active Social History Tobacco Use: Social History Observation Description Date Details (start date - stop date) Former Smoker NA - NA Tobacco Use/Smoking Question Answer Notes Patient is a former smoker How long has it been since y ou last smoked? > 10 years Additional Findings: Tobacco Non-User Fo rmer smoker, currently using no form of tobacco Alcohol Screen Question Answer Notes Did you have a drink containing alcohol in the p ast year? 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 I25.83 ; Anxiety F41.9 ; Prediabetes R73.09 ; Pure hypercholesterolemia E78.00 ; Essential hypertension I10 ; Colon cancer screening Z12.11 and Depression screening Z13.31 Assessments Encounter Date Diagnosis (ICD Code) Assessment Notes Treatment Notes Treatment Clinical Notes Section Notes 08/22/2024 Panlobular emphysema (ICD-10 - J43.1) continue with present meds and oxygen 08/22/2024 Coronary atheroscler osis due to lipid rich plaque (ICD-10 - I25.83) no pains 08/22/2024 Anxiety (ICD-10 - F41.9) doi ng well on ativan, will continue current regiment 08/22/2024 Prediabetes (ICD-10 - R73.09) no need for medication at this time 08/22/2024 Pure hypercholesterolemia (ICD-10 - E78.00) stable, will continue current regiment 08/22/2024 Essential hypertensi on (ICD-10 - I10) stable, will cntinue current regiment 08/22/2024 Colon cancer screeni ng (ICD-10 - Z12.11) guaiac negative 08/22/2024 Depression screening (ICD-10 - Z13.31) negative screen Plan Of Treatment Medication Medication Name Sig Start Date Stop Date Notes Ventolin HFA * 108 (90 Base) MCG/ACT INHALE 2 PUFFS EVERY 4 HOURS NEEDED Wixela Inhub 500-50 MCG/ACT 1 puff Inhal ation Twice a day 10/22/2023 Ipratropium-Albuterol 0.5-2. 5 (3) MG/3ML INHALE CONTENTS OF 1 AMP VIA NEBULIZER EVERY 6 HOURS Inhalation every 6 hrs Incruse Ellipta 62.5 MCG/ACT INHALE 1 PU FF DAILY FOR 90 DAYS Atorvastatin Calcium 40 MG TAKE 1 TABLET BY MOUTH EVERY DAY Albuterol Sulfate HFA 108 (9 0 Base) MCG/ACT inhale 2 puffs every 4 hours as needed Inhalation every 4 hrs Lisinopril 5 MG 1 tablet Orally Once a day Treatment Notes Assessment Notes Panlobular emphysema continue with prese nt meds and oxygen 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 plaque no pains Anxiety doing well on ativan , will continue current regiment Prediabetes no need for medicati on at this time Pure hypercholesterolemia stable, will c ontinue current regiment Essential hypertension stable, will cnti nue current regiment Colon cancer screening guaiac negative Depression screening negative screen Next Appt Details Follow Up: 3 Months,2 Weeks for ear, Reason: Provider Name:Jarrell Mckeon ier, 08/18/2025 08:00:00 AM, [address] [facility], [address], [place], [place], [phone], Provider Name:Jarrell Mckeon ier, 08/27/2025 01:00:00 PM, [address] [facility], [address], [place], [place], [phone], Procedure Notes * Category Sub-Category Detail Notes Cerumen removal Procedure under direct vis ualization , left ear , irrigated with water/H2O2 , right ear , irrigated with water/H2O2 Post-procedure Pt tolerated procedu re well left air unsuccessful to use debrox and return in 2 weeks/ rt air did well Progress Notes * Rafael TORRES HDOB:[birth year] (89 yo M)Acc No.[id number]:08/22/2024 Patient: Rafael Longo Gold Provider: Estrella Morse MD :[id number] A ge:89 Y S ex:Male Date:08/22/2024 Address:[address] [place] [address] [place], [id number] Subjective: * Chief Complaints: * R eview labs * HPI: D epression Screening: PHQ-9 L ittle interest or pleasure in doing things N ot at all, F eeling down, depressed, or hopeless N ot at all, T rouble falling or staying asleep, or sleeping too much N ot at all, F eeling tired or having little energy N ot at all, P oor appetite or overeating N ot at all, F eeling bad about yourself or that you are a failure, or have let yourself or your family down N ot at all, T rouble concentrating on things, such as reading the newspaper or watching television N ot at all, M oving or speaking so slowly that other people could have noticed; or the opposite, being so fidgety or restless that you have been moving around a lot more than usual N ot at all, T houghts that you would be better off or of hurting yourself in some way N ot at all, T otal Score 0 . I nterpretation and Intervention D epression Screening Findings N egative, F ollow-Up for Depression : review of PHQ-9 found negative result, no follow-up needed. pt is an 89 yo male here for follow up of chronic illnesses. C ommunication Needs: Communication Needs D oes the patient have a hearing impairment Y es, I f yes, what is the hearing impairment? H tomas of hearing, Hearing Aids, D oes the patient have a vision impairment? Y es, I f yes, what is the vision impairment? G lasses, D oes the patient have a cognition impairment? N o. F all Risk: History H ave you had any falls with injury in the past year? N o, H ave you had two or more falls in the past year? N o. S KAREY Questions: SDOH Questions I n the past year have you been worried about losing housing? N o, I n the past year have you or any family members you live with been unable to get any of the following when it was really needed? Check all that apply: N one. * ROS: G eneral/Constitutional: Change in appetite d enies. C hills d enies. F ever d enies. O phthalmologic: Blurred vision d enies. D ischarge d enies. P ain d enies. E NT: Decreased hearing d enies. S ore throat d enies.?Swollen glands d enies. E ndocrine: Cold intolerance d enies. E xcessive thirst d enies. H eat intolerance d enies. W eight loss d enies. R espiratory: Cough d enies. S hortness of breath at rest d enies. S hortness of breath with exertion d enies. W heezing d enies. C ardiovascular: Chest pain at rest d enies. C hest pain with exertion?denies. I rregular heartbeat d enies. S hortness of breath d enies. ? G astrointestinal: Abdominal pain d enies. C hange in bowel habits d enies. D iarrhea d enies. N ausea d enies. R ectal bleeding d enies. V omiting d enies . G enitourinary: Blood in urine d enies. D ifficulty urinating d enies. F requent urination d enies. M usculoskeletal: Painful joints d enies. W eakness d enies. ? S kin: Dry skin d enies. I tching d enies. D enies?Mole(s), changes in moles, new moles or any lesions of concern. D enies P hotosensitivity. R fabiano d enies. N eurologic: Dizziness d enies. F ainting d enies. H eadache?denies. * Medical History: * Surgical History: * Hospitalization/Major Diagno stic Procedure: * Family History: F ather: 75 yrs. M other: 83 yrs, family history unknown . 1 sister(s) . 3 daughter(s) - healthy. . father, CVA 1 sister at 53, [place], Denies mental health/substance abuse family history, Denies mental health/substance abuse family history, No pertinent family medical history, Denies mental health/substance abuse family history. * Social History: T obacco Use: T obacco Use/Smoking P atient is a f ormer smoker, H ow long has it been since you last smoked? > 10 years, A dditional Findings: Tobacco Non-User F ormer smoker, currently using no form of tobacco. D rugs/Alcohol: A lcohol Screen D id you have a drink containing alcohol in the past year? N o, P oints 0 , I nterpretation N egative. M iscellaneous: C affeine: yes, frequency:, 2 cups per day. Children: yes. no Community involvements. Exercise: yes, stretching and dancing. Home smoke detector use: yes. Housing: owning. Living with: spouse. Marital status: . Occupation: retired. Pets: none. no Travel outside of the [place]. * Medications: T akingLisinopril 5 MG Tablet 1 tablet Orally Once a dayPreserVision AREDS 2 - Tablet Chewable as directed Orally Aspir-Low 81 MG Tablet Delayed Release 1 tablet Orally Once a dayBetamethasone Dipropionate 0.05 % Cream as directed Externally dailyTamsulosin HCl 0.4 MG Capsule 1 capsule Orally TWICE PER DAYAlbuterol Sulfate HFA 108 (90 Base) MCG/ACT Aerosol Solution inhale 2 puffs every 4 hours as needed Inhalation every 4 hrsAtorvastatin Calcium 40 MG Tablet TAKE 1 TABLET BY MOUTH EVERY DAY Ipratropium-Albuterol 0.5-2.5 (3) MG/3ML Solution INHALE CONTENTS OF 1 AMP VIA NEBULIZER EVERY 6 HOURS Inhalation every 6 hrsWixela Inhub 500-50 MCG/ACT Aerosol Powder Breath Activated 1 puff Inhalation Twice a dayIncruse Ellipta 62.5 MCG/ACT Aerosol Powder Breath Activated INHALE 1 PUFF DAILY FOR 90 DAYS Ventolin HFA * 108 (90 Base) MCG/ACT Aerosol Solution INHALE 2 PUFFS EVERY 4 HOURS NEEDED LORazepam 0.5 MG Tablet TAKE 1 TABLET BY MOUTH TWICE A DAY Orally Twice a dayTaking Lisinopril 5 MG Tablet 1 tablet Orally Once a dayTaking PreserVision AREDS 2 - Tablet Chewable as directed Orally Taking Aspir-Low 81 MG Tablet Delayed Release 1 tablet Orally Once a dayTaking Betamethasone Dipropionate 0.05 % Cream as directed Externally dailyTaking Tamsulosin HCl 0.4 MG Capsule 1 capsule Orally TWICE PER DAYTaking Albuterol Sulfate HFA 108 (90 Base) MCG/ACT Aerosol Solution inhale 2 puffs every 4 hours as needed Inhalation every 4 hrsTaking Atorvastatin Calcium 40 MG Tablet TAKE 1 TABLET BY MOUTH EVERY DAY Taking Ipratropium-Albuterol 0.5-2.5 (3) MG/3ML Solution INHALE CONTENTS OF 1 AMP VIA NEBULIZER EVERY 6 HOURS Inhalation every 6 hrsTaking Wixela Inhub 500-50 MCG/ACT Aerosol Powder Breath Activated 1 puff Inhalation Twice a dayTaking Incruse Ellipta 62.5 MCG/ACT Aerosol Powder Breath Activated INHALE 1 PUFF DAILY FOR 90 DAYS Taking Ventolin HFA * 108 (90 Base) MCG/ACT Aerosol Solution INHALE 2 PUFFS EVERY 4 HOURS NEEDED Taking LORazepam 0.5 MG Tablet TAKE 1 TABLET BY MOUTH TWICE A DAY Orally Twice a dayNot-Taking/PRNSymbicort 160-4.5 MCG/ACT Aerosol INHALE TWO PUFFS BY MOUTH TWICE A DAY Celecoxib 200 MG Capsule 1 capsule with food Orally Once a dayMetoprolol Succinate ER 25 MG Tablet Extended Release 24 Hour TAKE 1 TABLET BY MOUTH EVERY DAY Viagra 50 MG Tablet 1 tablet as needed Orally Once a day as neededSulfamethoxazole-Trimethoprim 800-160 MG Tablet TAKE 1 TABLET BY MOUTH TWICE A DAY FOR 10 DAYS Oral Twice a dayMedication List reviewed and reconciled with the patientNot-Taking/PRN Symbicort 160-4.5 MCG/ACT Aerosol INHALE TWO PUFFS BY MOUTH TWICE A DAY Not-Taking/PRN Celecoxib 200 MG Capsule 1 capsule with food Orally Once a dayNot-Taking/PRN Metoprolol Succinate ER 25 MG Tablet Extended Release 24 Hour TAKE 1 TABLET BY MOUTH EVERY DAY Not-Taking/PRN Viagra 50 MG Tablet 1 tablet as needed Orally Once a day as neededNot-Taking/PRN Sulfamethoxazole-Trimethoprim 800-160 MG Tablet TAKE 1 TABLET BY MOUTH TWICE A DAY FOR 10 DAYS Oral Twice a dayMedication List reviewed and reconciled with the patient * Allergies: S piriva HandiHaler: hoarseDoxycycline: diarrheayes[Allergies Verified] Objective: * Vitals: H t: 71.50, Wt:130, BMI:17.88, BP:122/60. * P ast Orders: L ab:PSA,Total (Free>4and<10) (Order Date - 08/18/2024) (Collection Date - 08/18/2024) Value Reference Range PSA,Total (Free>4and<10) 3.09 0.00-4.00 - ng/ mL L ab:Microalbumin, Random (Order Date - 08/18/2024) (Collection Date - 08/18/2024) Value Reference Range Creatinine Urine 100.97 - mg/dL Microalbumin Urine 9.0 - mg/L Microalbum Creatinine Ratio Ur 8.9 <30 - ug/ mg cr L ab:Complete Blood Count Auto Diff (Order Date - 08/18/2024) (Collection Date - 08/18/2024) Value Reference Range White Blood Count 9.1 4.8-10.8 - X10*3/uL Red Blood Count 4.40 L 4.60-5.80 - X10*6/uL Hemoglobin 12.4 L 14.0-18.0 - g/dl Hematocrit 38.6 L 42.0-52.0 - % Mean Corpuscular Volume 87.7 80.0-98.0 - fL Mean Corpuscular Hemoglobin 28.2 27.0-33.0 - pg Mean Corpuscular HGB Conc 32.1 31.0-36.0 - g/ dl Red Cell Distribution Width 14.2 11.0-16.0 - % Platelet Count 221 160-400 - X10*3/uL Mean Platelet Volume 10.1 9.4-12.4 - fL Neutrophils Percent Auto 67.0 45-73 - % Imm Gran Pct Auto 0.4 0.0-0.4 - % Lymphocytes Percent Auto 22.4 20-40 - % Monocytes Percent Auto 7.4 2-11 - % Eosinophils Percent Auto 2.0 0-4 - % Basophils Percent Auto 0.8 0-2 - % NRBC Pct Auto 0.0 0.0-0.2 - /100WBC Neutrophils Absolute Auto 6.1 2.0-8.3 - x10* 3/uL Imm Gran Abs Auto 0.04 H 0.00-0.03 - X10*3/uL Lymphocytes Absolute Auto 2.1 1.2-4.9 - X10* 3/uL Monocytes Absolute Auto 0.7 0.1-1.2 - X10*3/ uL Eosinophils Absolute Auto 0.2 0.0-0.4 - X10* 3/uL Basophils Absolute Auto 0.1 0.0-0.2 - X10*3/ uL NRBC Abs Auto 0.000 0.0-0.012 - X10*3/uL L ab:Hemoglobin A1c (Order Date - 08/18/2024) (Collection Date - 08/18/2024) Value Reference Range Hemoglobin A1c % 5.8 <6.0 - % Estimated Average Glucose 120 - mg/dL L ab:Comprehensive [place]. Panel Fast (Order Date - 08/18/2024) (Collection Date - 08/18/2024) Value Reference Range Sodium 137 135-145 - mmol/L Bilirubin Total 0.9 0.0-1.0 - mg/dL Aspartate Amino Transferase 41 H 5-37 - U/L Alanine Aminotransferase 32 0-40 - U/L Total Protein 6.2 L 6.5-8.0 - g/dL Albumin Level 3.9 3.5-5.0 - g/dL Alkaline Phosphatase 134 H 39-117 - U/L Potassium 4.4 3.3-5.1 - mmol/L Chloride 102 96-108 - mmol/L Carbon Dioxide 29 22-29 - mmol/L Anion Gap 10 L 12-20 - Blood Urea Nitrogen 20 H 9-16 - mg/dL Creatinine 0.84 0.5-1.4 - mg/dL Estimated Glomerular Filt Rate > 60 - Glucose Fasting 101 H 60-99 - mg/dL Calcium 9.1 8.4-10.2 - mg/dL L ab:UA CC w/rflx Micro + Cult (Order Date - 08/18/2024) (Collection Date - 08/18/2024) Value Reference Range Color Urine Yellow - Appearance Urine Clear - PH 5.5 5.0-9.0 - Glucose Urine UA Negative Negative - mg/dL Urine Blood Negative Negative - Specific [place] - Urine 1.020 1.005-1.025 - Urine Protein Negative Neg-Trace - mg/dL Urine Ketones Negative Negative - mg/dL Nitrite Urine Negative Negative - Leukocyte Esterase Urine Negative Negative - L ab:Liver Panel (Order Date - 08/18/2024) (Collection Date - 08/18/2024) Value Reference Range Bilirubin Direct 0.4 0.0-0.5 - mg/dL L ab:Lipid Panel with Reflex (Order Date - 08/18/2024) (Collection Date - 08/18/2024) Value Reference Range Triglycerides 34 <150 - mg/dL Cholesterol 108 <200 - mg/dL LDL Cholesterol Calculated 45 <100 - mg/dL HDL Cholesterol 57 >40 - mg/dL * Examination: G eneral Examination: GENERAL APPEARANCE: w ell developed, well nourished, in no acute distress. HEAD: n ormocephalic, atraumatic. EYES: p upils equal, round, reactive to light and accommodation, sclera non-icteric. EARS: , BOTH EARS , auditory canal obscured with wax. ORAL CAVITY: m ucosa moist. THROAT: c lear. NECK/THYROID: n xiomara supple, full range of motion, no cervical lymphadenopathy, no bruits. SKIN: w arm and dry, no suspicious lesions. HEART: r egular rate and rhythm, S1, S2 normal, no murmurs.? LUNGS: c lear to auscultation bilaterally. ABDOMEN: s oft, nontender, nondistended, bowel sounds present, normal, no organomegaly , no masses palpable. RECTAL EXAM: n ormal tone, no external hemorrhoids, no masses palpable, prostate normal, stool guaiac negative. MALE GENITOURINARY: n ot examined. EXTREMITIES: n o clubbing, cyanosis, or edema. NEUROLOGIC: n onfocal, motor strength normal upper and lower extremities, sensory exam intact. Assessment: * Assessment: 1. P anlobular emphysema - J43.1 (Primary) 2 . C oronary atherosclerosis due to lipid rich plaque - I25.83 3 . A nxiety - F41.9 4 . P rediabetes - R73.09 5 . P ure hypercholesterolemia - E78.00 6 . E ssential hypertension - I10 7 . C olon cancer screening - Z12.11 8 . D epression screening - Z13.31 Plan: * Treatment: 2. C oronary atherosclerosis due to lipid rich plaque Notes: no pains 3. A nxiety Notes: doing well on ativan, will continue current regiment 4. P rediabetes Notes: no need for medication at this time 5. P ure hypercholesterolemia Continue Atorvastatin Calcium Tablet, 40 MG, TAKE 1 TABLET BY MOUTH EVERY DAY. Notes: stable, will continue current regiment 6. E ssential hypertension Continue Lisinopril Tablet, 5 MG, 1 tablet, Orally, Once a day. Notes: stable, will cntinue current regiment 7. C olon cancer screening L AB: Occult Blood, Stool, Guaiac N egative Value Reference Range O ccult Blood, Stool, Guaiac Neg Notes: guaiac negative??8.?Depression screening? Notes: negative screen?? * Procedures: C erumen removal: Procedure u nder direct visualization , left ear , irrigated with water/H2O2 , right ear , irrigated with water/H2O2. P ost-procedure P t tolerated procedure well left air unsuccessful to use debrox and return in 2 weeks/ rt air did well. * Procedure Codes: 8 2270 TEST FOR BLOOD, [id number] Complex e/m visit add on * Preventive Medicine: Counseling: C are goal follow-up plan: C ounseling for abnormal BMI provided?Yes, B elow Normal BMI Follow-up N utrition / feeding management. COPD Care Plan: P atient Lifestyle Goals R educe number of ED and hospitalizations. T reatment Goals t evelia medicine exactly as precribed and plan for RX refills. B arriers N o Specific barriers. S elf-Managment Plan E at a healthy diet. E xpected Outcome i mproving quality of life. * Follow Up: 3 Months,2 Weeks for ear * * Sign off status: Completed true * Provider: Estrella Morse MD Date: 0 08/22/2024 Generated for KamilaVoolgo anson/Cesia/eTransmitting on: 1 10/08/2024 01:07 PM EST History and Physical Notes * HPI (History of Present Illness) Category Sub-Category Detail Notes Category Not es Depression Screening PHQ-9 Little inte rest or pleasure in doing things: Not at all pt is an 89 yo male here for follow up of chronic illnesses Feeling down, depressed, or hopeless: No t at all Trouble falling or staying asleep, or sl eeping too much: Not at all Feeling tired or having little energy: N ot at all Poor appetite or overeating: Not at all Feeling bad about yourself o r that you are a failure, or have let yourself or your family down: Not at all Trouble concentrating on thi ngs, such as reading the newspaper or watching television: Not at all Moving or speaking so slowly that other people could have noticed; or the opposite, being so fidgety or restless that you have been moving around a lot more than usual: Not at all Thoughts that you would be b agustín off or of hurting yourself in some way: Not at all Total Score: 0 Interpretation and Intervention Depression aTmie bibi Findings: Negative Follow-Up for Depression: : review of PH Q-9 found negative result, no follow-up needed SDOH Questions SDOH Questions In the past year have you been worried about losing housing?: No In the past year have you or any family members you live with been unable to get any of the following when it was really needed? Check all that apply:: None Fall Risk History Have you had any falls with injury i n the past year?: No Have you had two or more falls in the st year?: No Communication Needs Communication Needs Does the patient have a hearing impairment: Yes If yes, what is the hearing impairment?: Hard of hearing, Hearing Aids Does the patient have a vision impairmen t?: Yes If yes, what is the vision impairment?: Glasses Does the patient have a cognition impair ment?: No Examination Category Sub-Category Detail Notes Category Not es General Examination GENERAL APPEARANCE: well dev eloped, well nourished, in no acute distress HEAD: normocephalic, atrau matic EYES: pupils equal, round, reactive to light and accommodation, sclera non-icteric EARS: , BOTH EARS , audito ry canal obscured with wax THROAT: clear NECK/THYROID: neck supple, full ra nge of motion, no cervical lymphadenopathy, no bruits HEART: regular rate and rhy thm, S1, S2 normal, no murmurs LUNGS: clear to auscultatio n bilaterally ABDOMEN: soft, nontender, non distended, bowel sounds present, normal, no organomegaly , no masses palpable NEUROLOGIC: nonfocal, motor stre ngth normal upper and lower extremities, sensory exam intact SKIN: warm and dry, no onur picious lesions EXTREMITIES: no clubbing, cyanosi s, or edema MALE GENITOURINARY: not examined RECTAL EXAM: normal tone, no exte rnal hemorrhoids, no masses palpable, prostate normal, stool guaiac negative ORAL CAVITY: mucosa moist
--- OUTSIDE RECORDS SUMMARY | 2024-09-15 08:30 | XMS_ITS ---
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 Role Phone Jarrell Morse Primary Care Provider Allergies Allergen (clinical drug ingredient) Drug/Non Drug Allergy documented on EMR Reaction Allergy Type Onset Date Status doxycycline Doxycycline diarrhea Drug Allergy Act kevin tiotropium Spiriva HandiHaler hoarse Drug Allergy Active REASON FOR VISIT EARS CLEANED Medications Medication SIG (Take, Route, Frequency, Duration) Notes Start Date End Date Status Ventolin HFA * 108 (90 Base) MCG/ACT INHALE 2 PUFFS EVERY 4 HOURS NEEDED Active Symbicort 160-4.5 MCG/ACT INHALE TWO PUF FS BY MOUTH TWICE A DAY Not-Taking Incruse Ellipta 62.5 MCG/ACT INHALE 1 PUFF DAILY FOR 90 DAYS Active Ipratropium-Albuterol 0.5-2.5 (3) MG/3ML INHALE CONTENTS OF 1 AMP VIA NEBULIZER EVERY 6 HOURS Inhalation every 6 hrs Active Wixela Inhub 500-50 MCG/ACT 1 puff Inhalation Twice a day 10/22/2023 Active Tamsulosin HCl 0.4 MG 1 capsule Orally T WICE PER DAY for 90 days Active Albuterol Sulfate HFA 108 (90 Base) MCG/ACT inhale 2 puffs every 4 hours as needed Inhalation every 4 hrs Active Atorvastatin Calcium 40 MG TAKE 1 TABLET BY MOUTH EVERY DAY Active LORazepam 0.5 MG TAKE 1 TABLET BY ALBERT TH TWICE A DAY Orally Twice a day for 30 days 07/31/2024 Active Lisinopril 5 MG 1 tablet Orally Once a day Active Betamethasone Dipropionate 0.05 % as directed Externally daily for 90 days 10/26/2011 Active Aspir-Low 81 MG 1 tablet Orally Once a day for 30 day(s) 09/19/2019 Active PreserVision AREDS 2 - as directed Orally Active Viagra 50 MG 1 tablet as needed Orally Once a day as needed for 30 day(s) 12/14/2020 Not-Taking Sulfamethoxazole-Trimethop rim 800-160 MG TAKE 1 TABLET BY MOUTH TWICE A DAY FOR 10 DAYS Oral Twice a day for 10 days Not-Taking Celecoxib 200 MG 1 capsule with food Orally Once a day 03/14/2022 Not-Taking Metoprolol Succinate ER 25 MG TAKE 1 TABLET BY MOUTH EVERY DAY for 90 Not-Taking Vital Signs Blood pressure systolic 112 mm Hg 09/15/19 25 Blood pressure diastolic 40 mm Hg 025 Height 71.50 in 09/15/2024 Weight 126 lbs 09/15/2024 BMI 17.33 kg/m2 09/15/2024 weight is down 4 pounds [facility] e 08-22-24 Encounters Encounter Location Date Provider Diagnosis Jarrell Morse MD [address] [place] [address] [place] [phone] 09/15/2024 Jarrell Morse Impacted cerumen of left ear H61.22 Assessments Encounter Date Diagnosis (ICD Code) Assessment Notes Treatment Notes Treatment Clinical Notes Section Notes 09/15/2024 Impacted cerumen of left ear (ICD-10 - H61.22) cerumen removed and did well. still little cerumen but not enough to effect hearing aids Plan Of Treatment Treatment Notes Assessment Notes Impacted cerumen of left ear cerumen rem mac and did well. still little cerumen but not enough to effect hearing aids Next Appt Details Provider Name:Jarrell chow, 08/18/2025 08:00:00 AM, [address], [address], [place], [place], [phone], Provider Name:Jarrell Mckeon ier, 08/27/2025 01:00:00 PM, [address] [facility], [address], [place], [phone], Procedure Notes * Category Sub-Category Detail Notes Cerumen removal Procedure under direct vis ualization, left ear, irrigated with water/H2O2 Post-procedure Pt tolerated procedu re well Progress Notes * NAHIDRafael TEAGUE HDOB:[birth year] (89 yo M)Acc No.[id number]:09/15/2024 Progress Notes Patient: Rafael KOVACS Provider: Estrella Morse MD :[id number] A ge:89 Y S ex:Male Date:09/15/2024 Address:[address] [place] [address] [place], [id number] Subjective: * Chief Complaints: * E ARS CLEANED * HPI: S ymptom(s): patient is a 89 yo male here with complaint of needing wax removed. * ROS: G eneral/Constitutional: Denies C hills. D enies F atigue. D enies F ever. D enies H eadache. E NT: Patient denies d ecreased sense of smell, any loss of taste, sore throat. D enies S ore throat. R espiratory: Denies C ough. D enies S hortness of breath at rest. D enies S hortness of breath with exertion. G astrointestinal: Denies D iarrhea. D enies N ausea. M usculoskeletal: Patient denies m uscle aches. P eripheral Vascular: Patient denies r ed and blue toes. * Medical History: * Surgical History: * Hospitalization/Major Diagno stic Procedure: * Medications: T akingPreserVision AREDS 2 - Tablet Chewable as directed Orally Aspir-Low 81 MG Tablet Delayed Release 1 tablet Orally Once a day Betamethasone Dipropionate 0.05 % Cream as directed Externally daily Tamsulosin HCl 0.4 MG Capsule 1 capsule Orally TWICE PER DAY LORazepam 0.5 MG Tablet TAKE 1 TABLET BY MOUTH TWICE A DAY Orally Twice a day Lisinopril 5 MG Tablet 1 tablet Orally Once a day Albuterol Sulfate HFA 108 (90 Base) MCG/ACT Aerosol Solution inhale 2 puffs every 4 hours as needed Inhalation every 4 hrs Atorvastatin Calcium 40 MG Tablet TAKE 1 TABLET BY MOUTH EVERY DAY Ipratropium-Albuterol 0.5-2.5 (3) MG/3ML Solution INHALE CONTENTS OF 1 AMP VIA NEBULIZER EVERY 6 HOURS Inhalation every 6 hrs Wixela Inhub 500-50 MCG/ACT Aerosol Powder Breath Activated 1 puff Inhalation Twice a day Incruse Ellipta 62.5 MCG/ACT Aerosol Powder Breath Activated INHALE 1 PUFF DAILY FOR 90 DAYS Ventolin HFA * 108 (90 Base) MCG/ACT Aerosol Solution INHALE 2 PUFFS EVERY 4 HOURS NEEDED Taking PreserVision AREDS 2 - Tablet Chewable as directed Orally Taking Aspir-Low 81 MG Tablet Delayed Release 1 tablet Orally Once a day Taking Betamethasone Dipropionate 0.05 % Cream as directed Externally daily Taking Tamsulosin HCl 0.4 MG Capsule 1 capsule Orally TWICE PER DAY Taking LORazepam 0.5 MG Tablet TAKE 1 TABLET BY MOUTH TWICE A DAY Orally Twice a day Taking Lisinopril 5 MG Tablet 1 tablet Orally Once a day Taking Albuterol Sulfate HFA 108 (90 Base) MCG/ACT Aerosol Solution inhale 2 puffs every 4 hours as needed Inhalation every 4 hrs Taking Atorvastatin Calcium 40 MG Tablet TAKE 1 TABLET BY MOUTH EVERY DAY Taking Ipratropium-Albuterol 0.5-2.5 (3) MG/3ML Solution INHALE CONTENTS OF 1 AMP VIA NEBULIZER EVERY 6 HOURS Inhalation every 6 hrs Taking Wixela Inhub 500-50 MCG/ACT Aerosol Powder Breath Activated 1 puff Inhalation Twice a day Taking Incruse Ellipta 62.5 MCG/ACT Aerosol Powder Breath Activated INHALE 1 PUFF DAILY FOR 90 DAYS Taking Ventolin HFA * 108 (90 Base) MCG/ACT Aerosol Solution INHALE 2 PUFFS EVERY 4 HOURS NEEDED Not-Taking/PRNSymbicort 160-4.5 MCG/ACT Aerosol INHALE TWO PUFFS BY MOUTH TWICE A DAY Celecoxib 200 MG Capsule 1 capsule with food Orally Once a day Metoprolol Succinate ER 25 MG Tablet Extended Release 24 Hour TAKE 1 TABLET BY MOUTH EVERY DAY Viagra 50 MG Tablet 1 tablet as needed Orally Once a day as needed Sulfamethoxazole-Trimethoprim 800- 160 MG Tablet TAKE 1 TABLET BY MOUTH TWICE A DAY FOR 10 DAYS Oral Twice a day Medication List reviewed and reconciled with the patientNot-Taking/PRN Symbicort 160-4.5 MCG/ACT Aerosol INHALE TWO PUFFS BY MOUTH TWICE A DAY Not-Taking/PRN Celecoxib 200 MG Capsule 1 capsule with food Orally Once a day Not-Taking/PRN Metoprolol Succinate ER 25 MG Tablet Extended Release 24 Hour TAKE 1 TABLET BY MOUTH EVERY DAY Not-Taking/PRN Viagra 50 MG Tablet 1 tablet as needed Orally Once a day as needed Not- Taking/PRN Sulfamethoxazole-Trimethoprim 800-160 MG Tablet TAKE 1 TABLET BY MOUTH TWICE A DAY FOR 10 DAYS Oral Twice a day Medication List reviewed and reconciled with the patient * Allergies: S piriva HandiHaler: hoarseDoxycycline: diarrheayes[Allergies Verified] Objective: * Vitals: H t: 71.50, Wt: 126, BMI:17.33, BP:112/40, Wt-k.15. weight is down 4 pounds since 08-22-24. * Examination: G eneral Examination: GENERAL APPEARANCE: a lert, well hydrated, in no distress.? EARS: R IGHT EAR, normal, auditory canal clear, LEFT EAR, abnormal with cerumen impacted. Assessment: * Assessment: 1. I mpacted cerumen of left ear - H61.22 (Primary) Plan: * Treatment: * Procedures: C erumen removal: Procedure u nder direct visualization, left ear, irrigated with water/H2O2. P ost-procedure P t tolerated procedure well. * Procedure Codes: * * Sign off status: Completed true * Provider: Estrella Morse MD Date: 0 09/15/2024 Generated for Javi griggs/Cesia/Glo on: 10/08/2024 01:08 PM EST History and Physical Notes * HPI (History of Present Illness) Category Sub-Category Detail Notes Category Not es Symptom(s) patient is a 89 yo male here with complaint of needing wax removed Examination Category Sub-Category Detail Notes Category Not es General Examination GENERAL APPEARANCE: alert, w ell hydrated, in no distress EARS: RIGHT EAR, normal, a uditory canal clear, LEFT EAR, abnormal with cerumen impacted
--- OUTSIDE RECORDS SUMMARY | 2024-10-03 06:34 | XMS_ITS ---
Author Organization Jarrell Morse MD Address [address] [place] [phone] Care Team Providers Care Materials Branch Chief Name Role Phone Jarrell Morse Primary Care Provider REASON FOR VISIT refill Medications Medication SIG (Take, Route, Fr equency, Duration) Notes Start Date End Date Status LORazepam 0.5 MG TAKE 1 TABLET BY ALBERT TH TWICE A DAY Orally Twice a day for 30 days 10/03/2024 A ctive Encounters Encounter Location Date Provider Diagnosis Jarrell Morse MD [address] [place] [address] [place] [phone] 10/03/2024 Jarrell Morse Plan Of Treatment Medication Medication Name Sig Start Date Stop Date Notes LORazepam 0.5 MG TAKE 1 TABLET BY ALBERT TH TWICE A DAY Orally Twice a day for 30 days 10/03/2024 Next Appt Details Provider Name:Jarrell chow, 08/18/2025 08:00:00 AM, [address] [place] [address], [address] [facility], [place], [place], [phone], Provider Name:Jarrell chow, 08/27/2025 01:00:00 PM, [address], [address], [place], [place], [phone], Progress Notes * Rafael TORRES HDOB:[birth year] (89 yo M)Acc No.[id number]:10/03/2024 Patient: Rafael KOVACS :1935 A ge:89 Y S ex:Male Address:[address] [place] [phone] * Refills Refill LORazepam Tablet, 0.5 MG, Orally, 60, TAKE 1 TABLET BY MOUTH TWICE A DAY, Twice a day, 30 days, Refills=0 * true * Date: Generated for Javi griggs/Cesia/Bobitting on: 10/08/2024 01:07 PM EST
--- OUTSIDE RECORDS SUMMARY | 2024-11-21 05:15 | XMS_ITS ---
Author Organization Jarrell Morse MD Address [address] [place], [place] [phone] Care Team Providers Care Diamond Sander Name Role Phone Jarrell Morse Primary Care Provider Allergies Allergen (clinical drug ingredient) Drug/Non Drug Allergy documented on EMR Reaction Allergy Type Onset Date Status doxycycline Doxycycline diarrhea Drug Allergy Act kevin tiotropium Spiriva HandiHaler hoarse Drug Allergy Active Results Component Value Reference Range Notes Hemoglobin A1c Reviewed date:11/21/2024 10:27:43 AM Interpretation: Performing Lab: Notes/Report: Hemoglobin A1c 5.7 Glucose, finger stick Reviewed date:11/21/2024 10:20:03 AM Interpretation: Performing Lab: Notes/Report: Value 104 REASON FOR VISIT 3 MO F/U Medications Medication SIG (Take, Route, Frequency, Duration) Notes Start Date End Date Status Viagra 50 MG 1 tablet as needed Orally Once a day as needed for 30 day(s) 12/14/2020 Not-Taking Metoprolol Succinate ER 25 MG TAKE 1 TABLET BY MOUTH EVERY DAY for 90 Not-Taking Celecoxib 200 MG 1 capsule with food Orally Once a day 03/14/2022 Not-Taking Symbicort 160-4.5 MCG/ACT INHALE TWO PUF FS BY MOUTH TWICE A DAY Not-Taking LORazepam 0.5 MG TAKE 1 TABLET BY ALBERT TH TWICE A DAY Orally Twice a day for 30 days 10/03/2024 Active Wixela Inhub 500-50 MCG/ACT INHALE 1 PUFF INTO THE LUNGS TWICE A DAY FOR 30 DAYS Active Incruse Ellipta 62.5 MCG/ACT INHALE 1 PUFF DAILY FOR 90 DAYS Active Ventolin HFA * 108 (90 Base) MCG/ACT INHALE 2 PUFFS EVERY 4 HOURS NEEDED Active Atorvastatin Calcium 40 MG TAKE 1 TABLET BY MOUTH EVERY DAY for 90 Active Lisinopril 5 MG 1 tablet Orally Once a day Active Tamsulosin HCl 0.4 MG 1 capsule Orally T WICE PER DAY for 90 days Active Betamethasone Dipropionate 0.05 % as directed Externally daily for 90 days 10/26/2011 Active Aspir-Low 81 MG 1 tablet Orally Once a day for 30 day(s) 09/19/2019 Active PreserVision AREDS 2 - as directed Orally Active Sulfamethoxazole-Trimethop rim 800-160 MG TAKE 1 TABLET BY MOUTH TWICE A DAY FOR 10 DAYS Oral Twice a day for 10 days Not-Taking Ipratropium [place] 0.06 % 4 2 sprays in each nostril Nasally Four times a day for 30 days 11/21/2024 Active Ipratropium-Albuterol 0.5-2.5 (3) MG/3ML INHALE CONTENTS OF 1 AMP VIA NEBULIZER EVERY 6 HOURS Inhalation every 6 hrs for 90 days Active Problems Problem Type SNOMED Code ICD Code Onset Dates Problem Status W/U Status Risk Notes Problem Rhinitis (42576634) Rhinitis (J31.0) Active confirmed Vital Signs Blood pressure systolic 122 mm Hg 11/22/19 25 Blood pressure diastolic 54 mm Hg 025 Height 71.50 in 11/21/2024 Weight 122 lbs 11/21/2024 BMI 16.78 kg/m2 11/21/2024 weight is down 4 pounds sin e 09-15-24 Encounters Encounter Location Date Provider Diagnosis Jarrell Morse MD [address] [place] [address] [address] [place], [place] [phone] 11/21/2024 Jarrell Morse Prediabetes R73.09 ; Weight loss R63.4 ; Rhinitis J31.0 and Panlobular emphysema J43.1 Assessments Encounter Date Diagnosis (ICD Code) Assessment Notes Treatment Notes Treatment Clinical Notes Section Notes 11/21/2024 Prediabetes (ICD-10 - R73.09) stable, no need for medication at this time 11/21/2024 Weight loss (ICD-10 - R63.4) starting to eat more and taking some protein drinks. , will continue to monitor 11/21/2024 Rhinitis (ICD-10 - J31.0) 11/21/2024 Panlobular emphysema (ICD-10 - J43.1) good values.will continue current regiment Plan Of Treatment Medication Medication Name Sig Start Date Stop Date Notes Wixela Inhub 500-50 MCG/ACT INHALE 1 PUF F INTO THE LUNGS TWICE A DAY FOR 30 DAYS Incruse Ellipta 62.5 MCG/ACT INHALE 1 PU FF DAILY FOR 90 DAYS Ventolin HFA * 108 (90 Base) MCG/ACT INHALE 2 PUFFS EVERY 4 HOURS NEEDED Ipratropium [place] 0.06 % 4 2 sprays in each nostril Nasally Four times a day for 30 days 11/21/2024 Ipratropium-Albuterol 0.5-2. 5 (3) MG/3ML INHALE CONTENTS OF 1 AMP VIA NEBULIZER EVERY 6 HOURS Inhalation every 6 hrs for 90 days Treatment Notes Assessment Notes Prediabetes stable, no need for medication at this time Weight loss starting to eat more and taking some protein drinks. , will continue to monitor Panlobular emphysema good values.will co ntinue current regiment Next Appt Details Follow Up: 3 Months, Reason: Provider Name:Jarrell chow, 08/18/2025 08:00:00 AM, [address] [place] [address], [address], [phone], Provider Name:Jarrell chow, 08/27/2025 01:00:00 PM, [address] [place] [address], Suite [facility], [place], [place], [phone], Progress Notes * Rafael TORRES HDOB:[birth year] (89 yo M)Acc No.[id number]:11/21/2024 Progress Notes Patient: Rafael KOVACS Provider: Estrella Morse MD :1935 A ge:89 Y S ex:Male Date:11/21/2024 Address:[id number] Subjective: * Chief Complaints: * 3 MO F/U * HPI: S ymptom(s): patient is a 89 yo male her for 3 month follow up visit/ has been losing weight since his hip surgery. started to eat some candy. nose drips all the time. * ROS: G eneral/Constitutional: Denies C hills. D enies F atigue. D enies F ever. D enies H eadache. E NT: Denies S ore throat. R espiratory: Denies C ough. A dmits S hortness of breath at rest. A dmits S hortness of breath with exertion. G astrointestinal: Denies N ausea. * Medical History: * Surgical History: * Hospitalization/Major Diagno stic Procedure: * Medications: T akingPreserVision AREDS 2 - Tablet Chewable as directed Orally Aspir-Low 81 MG Tablet Delayed Release 1 tablet Orally Once a day Betamethasone Dipropionate 0.05 % Cream as directed Externally daily Tamsulosin HCl 0.4 MG Capsule 1 capsule Orally TWICE PER DAY Lisinopril 5 MG Tablet 1 tablet Orally Once a day Ipratropium-Albuterol 0.5- 2.5 (3) MG/3ML Solution INHALE CONTENTS OF 1 AMP VIA NEBULIZER EVERY 6 HOURS Inhalation every 6 hrs Incruse Ellipta 62.5 MCG/ACT Aerosol Powder Breath Activated INHALE 1 PUFF DAILY FOR 90 DAYS Ventolin HFA * 108 (90 Base) MCG/ACT Aerosol Solution INHALE 2 PUFFS EVERY 4 HOURS NEEDED Atorvastatin Calcium 40 MG Tablet TAKE 1 TABLET BY MOUTH EVERY DAY LORazepam 0.5 MG Tablet TAKE 1 TABLET BY MOUTH TWICE A DAY Orally Twice a day Wixela Inhub 500-50 MCG/ACT Aerosol Powder Breath Activated INHALE 1 PUFF INTO THE LUNGS TWICE A DAY FOR 30 DAYS Taking PreserVision AREDS 2 - Tablet Chewable as directed Orally Taking Aspir-Low 81 MG Tablet Delayed Release 1 tablet Orally Once a day Taking Betamethasone Dipropionate 0.05 % Cream as directed Externally daily Taking Tamsulosin HCl 0.4 MG Capsule 1 capsule Orally TWICE PER DAY Taking Lisinopril 5 MG Tablet 1 tablet Orally Once a day Taking Ipratropium-Albuterol 0.5-2.5 (3) MG/3ML Solution INHALE CONTENTS OF 1 AMP VIA NEBULIZER EVERY 6 HOURS Inhalation every 6 hrs Taking Incruse Ellipta 62.5 MCG/ACT Aerosol Powder Breath Activated INHALE 1 PUFF DAILY FOR 90 DAYS Taking Ventolin HFA * 108 (90 Base) MCG/ACT Aerosol Solution INHALE 2 PUFFS EVERY 4 HOURS NEEDED Taking Atorvastatin Calcium 40 MG Tablet TAKE 1 TABLET BY MOUTH EVERY DAY Taking LORazepam 0.5 MG Tablet TAKE 1 TABLET BY MOUTH TWICE A DAY Orally Twice a day Taking Wixela Inhub 500-50 MCG/ACT Aerosol Powder Breath Activated INHALE 1 PUFF INTO THE LUNGS TWICE A DAY FOR 30 DAYS Not-Taking/PRNSymbicort 160-4.5 MCG/ACT Aerosol INHALE TWO PUFFS BY MOUTH TWICE A DAY Celecoxib 200 MG Capsule 1 capsule with food Orally Once a day Metoprolol Succinate ER 25 MG Tablet Extended Release 24 Hour TAKE 1 TABLET BY MOUTH EVERY DAY Viagra 50 MG Tablet 1 tablet as needed Orally Once a day as needed Sulfamethoxazole-Trimethoprim 800-160 MG Tablet TAKE 1 TABLET BY MOUTH TWICE A DAY FOR 10 DAYS Oral Twice a day Not-Taking/PRN Symbicort 160-4.5 MCG/ACT Aerosol INHALE TWO PUFFS BY MOUTH TWICE A DAY Not-Taking/PRN Celecoxib 200 MG Capsule 1 capsule with food Orally Once a day Not-Taking/PRN Metoprolol Succinate ER 25 MG Tablet Extended Release 24 Hour TAKE 1 TABLET BY MOUTH EVERY DAY Not-Taking/PRN Viagra 50 MG Tablet 1 tablet as needed Orally Once a day as needed Not-Taking/PRN Sulfamethoxazole-Trimethoprim 800-160 MG Tablet TAKE 1 TABLET BY MOUTH TWICE A DAY FOR 10 DAYS Oral Twice a day DiscontinuedAlbuterol Sulfate HFA 108 (90 Base) MCG/ACT Aerosol Solution inhale 2 puffs every 4 hours as needed Inhalation every 4 hrs Medication List reviewed and reconciled with the patientDiscontinued Albuterol Sulfate HFA 108 (90 Base) MCG/ACT Aerosol Solution inhale 2 puffs every 4 hours as needed Inhalation every 4 hrs Medication List reviewed and reconciled with the patient * Allergies: S piriva HandiHaler: bretarsexycycline: diarrheayes[Allergies Verified] Objective: * Vitals: H t: 71.50, Wt: 122, BMI:16.78, BP:122/54, Wt-k.34. weight is down 4 pounds since 09-15-24. * Examination: G eneral Examination: GENERAL APPEARANCE: a lert, well hydrated, in no distress.? HEAD: n ormocephalic. SKIN: g ood turgor. HEART: r egular rate and rhythm, grade 2/6 systolic murmur at left sternal border. LUNGS: d iminished breath sounds throughout, no wheezes, rales, rhonchi. Assessment: * Assessment: 1. P rediabetes - R73.09 (Primary) 2 . W eight loss - R63.4 ?3. R hinitis - J31.0 4 . P anlobular emphysema - J43.1 Plan: * Treatment: Value Reference Range H emoglobin A1c 5.7 ?LAB: Glucose, finger stick (Collection Date & Time - 11/21/2024)* Value Reference Range V alue 104 Notes: stable, no need for medication at this time??2.?Weight loss? Notes: starting to eat more and taking some protein drinks. , will continue to monitor??3.?Rhinitis? Start Ipratropium [place] Solution, 0.06 %, 4 2 sprays in each nostril, Nasally, Four times a day, 30 days, 1, Refills 11.??4.?Panlobular emphysema? Refill Ipratropium-Albuterol Solution, 0.5-2.5 (3) MG/3ML, INHALE CONTENTS OF 1 AMP VIA NEBULIZER EVERY 6 HOURS, Inhalation, every 6 hrs, 90 days, 100, Refills 5;?Continue Ventolin HFA * AerosolSolution, 108 (90 Base) MCG/ACT, INHALE 2 PUFFS EVERY 4 HOURS NEEDED;?Continue Incruse Ellipta Aerosol Powder Breath Activated, 62.5 MCG/ACT, INHALE 1 PUFF DAILY FOR 90 DAYS;?Continue Wixela Inhub Aerosol Powder Breath Activated, 500-50 MCG/ACT, INHALE 1 PUFF INTO THE LUNGS TWICE A DAYFOR 30 DAYS.?? Notes: good values.will continue current regiment?? * Procedure Codes: 8 2947 ASSAY, GLUCOSE, BLOOD QUANT, Modifiers: QW 75424 GLYCATED HEMOGLOBIN TEST, Modifiers: QW * Follow Up: 3 Months * * Sign off status: Completed true * Provider: Estrella Morse MD Date: 0 11/21/2024 Generated for Javi griggs/Cesia/Bobitting on: 1 10/08/2024 01:07 PM EST History and Physical Notes * HPI (History of Present Illness) Category Sub-Category Detail Notes Category Not es Symptom(s) patient is a 89 yo male her for 3 month follow up visit/ has been losing weight since his hip surgery. started to eat some candy. nose drips all the time. Examination Category Sub-Category Detail Notes Category Not es General Examination GENERAL APPEARANCE: alert, w ell hydrated, in no distress HEAD: normocephalic HEART: regular rate and rhy thm, grade 2/6 systolic murmur at left sternal border LUNGS: diminished breath so unds throughout, no wheezes, rales, rhonchi SKIN: good turgor
--- OUTSIDE RECORDS SUMMARY | 2024-12-04 05:22 | XMS_ITS ---
Author Organization Jarrell Morse MD Address [address] [place], [place] [phone] Care Team Providers Care Addiction Social Worker Name Role Phone Jarrell Morse Primary Care Provider REASON FOR VISIT med issue Medications Medication SIG (Take, Route, Frequency, Duration) Notes Start Date End Date Status Ipratropium [place] 0.06 % 2 sprays in e ach nostril Nasally Four times a day for 30 days 11/21/2024 Active Encounters Encounter Location Date Provider Diagnosis Jarrell Morse MD [address] [place] [phone] 12/04/2024 Jarrell Morse Rhinitis J31.0 Assessments Encounter Date Diagnosis (ICD Code) Assessment Notes Treatment Notes Treatment Clinical Notes Section Notes 12/04/2024 Rhinitis (ICD-10 - J31.0) Plan Of Treatment Medication Medication Name Sig Start Date Stop Date Notes Ipratropium [place] 0.06 % 2 sprays in e ach nostril Nasally Four times a day for 30 days 11/21/2024 Next Appt Details Provider Name:Jarrell chow, 08/18/2025 08:00:00 AM, [address], [address], [place], [place], [phone], Provider Name:Jarrell Mckeon ier, 08/27/2025 01:00:00 PM, [address], [address], [place], [phone], Progress Notes * Rafael TORRES HDOB:[birth year] (89 yo M)Acc No.[id number]:12/04/2024 Patient: Rafael KOVACS :1935 A ge:89 Y S ex:Male Address:[address] [place] [phone] * Refills Refill Ipratropium [place] Solution, 0.06 %, Nasally, 1, 2 sprays in each nostril, Four times a day, 30 days, Refills=11 * true * Date: Generated for Javi griggs/Cesia/Bobitting on: 10/08/2024 01:08 PM EST
--- OUTSIDE RECORDS SUMMARY | 2025-02-27 03:15 | XMS_ITS ---
Author Organization Jarrell Morse MD Address [address] [place], [place] [id number] Care Team Providers Care Bear Keeper Name Role Phone Jarrell Morse Primary Care Provider [phone] Results Component Value Reference Range Notes Liver Panel Reviewed date:02/27/2025 12:50:57 PM Interpretation: Performing Lab:[facility], [address] [place] [phone] Notes/Report: Bilirubin Total 0.8 0.0-1.0 mg/dL Bilirubin Direct 0.3 0.0-0.5 mg/dL Aspartate Amino Transferase 42 5-37 U/L Alanine Aminotransferase 30 0-40 U/L Total Protein 6.6 6.5-8.0 g/dL Albumin Level 4.1 3.5-5.0 g/dL Alkaline Phosphatase 122 39-117 U/L Glucose Fasting Reviewed date:02/27/2025 12:50:19 PM Interpretation: Performing Lab:[facility], [address] [place] [phone] Notes/Report: Glucose Fasting 91 60-99 mg/dL Lipid Panel with Reflex Reviewed date:02/27/2025 12:54:19 PM Interpretation: Performing Lab:[facility], [address] [place] [phone] Notes/Report: Triglycerides 43 <150 mg/dL Desirable Triglyceride: less than 150 mg/dL Borderline High Triglyceride 150-199 mg/dL High Triglyceride: 200-499 mg/dL Very High Triglyceride: greater than or equal to 5OO mg/dL Cholesterol 112 <200 mg/dL Desirable Cholesterol: less than 200 mg/dL Borderline High Cholesterol: 200-239 mg/dL High Cholesterol: greater than 239 mg/dL LDL Cholesterol Calculated 48 <100 mg/dL Desirable LDL: less than 100 mg/dL Near Optimal/Above Optimal LDL: 110-129 mg/dL Borderline High LDL: 130-159 mg/dL High LDL: 160-189 mg/dL Very High LDL: greater than or equal to 190 mg/dL HDL Cholesterol 56 >40 mg/dL Desirable HDL: greater than 40 mg/dL Note: This HDL assay may give artificially low results in patients with liver disease. Hemoglobin A1c Reviewed date:02/27/2025 12:46:48 PM Interpretation: Performing Lab:[facility], [address] [place] [phone] Notes/Report: Hemoglobin A1c % 5.7 <6.0 % [...] average glucose, using the formula of the M6B-Ludamkk Average Glucose study (ADAG), Diabetes Care, Vol.31,#8, Mar. 2007 REASON FOR VISIT FASTING LIPIDS Encounters Encounter Location Date Provider Diagnosis Jarrell Morse MD [address] [place] [address] Drive [address] [place], [place] [phone] 02/27/2025 Jarrell Morse Pure hypercholestero lemia E78.00 and Prediabetes R73.09 Assessments Encounter Date Diagnosis (ICD Code) Assessment Notes Treatment Notes Treatment Clinical Notes Section Notes 02/27/2025 Pure hypercholesterolemia (ICD-10 - E78.00) 02/27/2025 Prediabetes (ICD-10 - R73.09) Plan Of Treatment Next Appt Details Provider Name:Jarrell Mckeon ier, 08/18/2025 08:00:00 AM, [address], [address], [place], [place], [id number], Provider Name:Jarrell Mckeon ier, 08/27/2025 01:00:00 PM, [address], [address], [place], [place], [phone], Progress Notes * Rafael TORRES HDOB:[birth year] (89 yo M)Acc No.[id number]:02/27/2025 Progress Note Patient: Rafael KOVACS Provider: Estrella Morse MD :1935 A ge:89 Y S ex:Male Date:02/27/2025 Address:[address] [place], [place] [id number] Subjective: * Chief Complaints: * 1 . FASTING LIPIDS. * Medical History: Objective: * Vitals: Assessment: * Assessment: 1. P ure hypercholesterolemia - E78.00 (Primary) 2 . P rediabetes - R73.09? Plan: * Treatment: 2. P rediabetes L AB: Liver Panel (Collection Date & Time - 02/27/2025 09:37 AM) L AB: Glucose Fasting (Collection Date & Time - 02/27/2025 09:37 AM) L AB: Lipid Panel with Reflex (Collection Date & Time - 02/27/2025 09:37 AM) L AB: Hemoglobin A1c (Collection Date & Time - 02/27/2025 09:37 AM) * * The named appointment provid er may or may not be the originator of this progress note, and it is not deemed complete until electronically signed by the appointment provider. Sign off status: Pending * Provider: Estrella Morse MD Date: 0 02/27/2025 Generated for Javi griggs/Cesia/Bobitting on: 1 10/08/2024 01:07 PM EST
--- OUTSIDE RECORDS SUMMARY | 2025-03-09 08:45 | XMS_ITS ---
Author Organization Jarrell Morse MD Address [address] [place], [place] [id number] Care Team Providers Care Screener And Blender Name Role Phone Jarrell Morse Primary Care Provider Allergies Allergen (clinical drug ingredient) Drug/Non Drug Allergy documented on EMR Reaction Allergy Type Onset Date Status doxycycline Doxycycline diarrhea Drug Allergy Act kevin tiotropium Spiriva HandiHaler hoarse Drug Allergy Active REASON FOR VISIT 3 MO F/U Medications Medication SIG (Take, Route, Frequency, Duration) Notes Start Date End Date Status Tamsulosin HCl 0.4 MG TAKE 1 CAPSULE BY MOUTH TWICE A DAY for 90 Active LORazepam 0.5 MG TAKE 1 TABLET BY ALBERT TH TWICE A DAY for 30 12/08/2024 Active Incruse Ellipta 62.5 MCG/ACT INHALE 1 PUFF DAILY Active Ventolin HFA * 108 (90 Base) MCG/ACT INHALE 2 PUFFS EVERY 4 HOURS NEEDED 54 Active Symbicort 160-4.5 MCG/ACT INHALE TWO PUF FS BY MOUTH TWICE A DAY Not-Taking Wixela Inhub 500-50 MCG/ACT INHALE 1 PUFF INTO THE LUNGS TWICE A DAY FOR 30 DAYS Active Lisinopril 5 MG 1 tablet Orally Once a day Active Ipratropium [place] 0.06 % 2 sprays in e ach nostril Nasally Four times a day for 30 days 11/21/2024 Active Atorvastatin Calcium 40 MG TAKE 1 TABLET BY MOUTH EVERY DAY Active Ipratropium-Albuterol 0.5-2.5 (3) MG/3ML INHALE CONTENTS OF 1 AMP VIA NEBULIZER EVERY 6 HOURS Inhalation every 6 hrs Active Betamethasone Dipropionate 0.05 % as directed [...] food Orally Once a day 03/14/2022 Not-Taking Vital Signs Blood pressure systolic 98 mm Hg 03/09/20 25 Blood pressure diastolic 60 mm Hg 025 Height 71.50 in 03/09/2025 Weight 126 lbs 03/09/2025 BMI 17.33 kg/m2 03/09/2025 weight is up 4 pounds since 11-21-24 Encounters Encounter Location Date Provider Diagnosis Jarrell Morse MD [address] [place] [address] [place] [phone] 03/09/2025 Jarrell Morse Pure hypercholestero lemia E78.00 ; Panlobular emphysema J43.1 ; Centrilobular emphysema J43.2 and Prediabetes R73.09 Assessments Encounter Date Diagnosis (ICD Code) Assessment Notes Treatment Notes Treatment Clinical Notes Section Notes 03/09/2025 Pure hypercholesterolemia (ICD-10 - E78.00) well controlled, will continue current regiment 03/09/2025 Panlobular emphysema (ICD-10 - J43.1) stable, will continue current regiment 03/09/2025 Centrilobular emphys tyra (ICD-10 - J43.2) stable 03/09/2025 Prediabetes (ICD-10 - R73.09) stable, no need for medication at this time Plan Of Treatment Medication Medication Name Sig Start Date Stop Date Notes Incruse Ellipta 62.5 MCG/ACT INHALE 1 PUFF DAILY Ventolin HFA * 108 (90 Base) MCG/ACT INHALE 2 PUFFS EVERY 4 HOURS NEEDED 54 Wixela Inhub 500-50 MCG/ACT INHALE 1 PUF F INTO THE LUNGS TWICE A DAY FOR 30 DAYS Atorvastatin Calcium 40 MG TAKE 1 TABLET BY MOUTH EVERY DAY Ipratropium-Albuterol 0.5-2. 5 (3) MG/3ML INHALE CONTENTS OF 1 AMP VIA NEBULIZER EVERY 6 HOURS Inhalation every 6 hrs Treatment Notes Assessment Notes Pure hypercholesterolemia well controlle d, will continue current regiment Panlobular emphysema stable, will contin ue current regiment Centrilobular emphysema stable Prediabetes stable, no need for medication at this time Next Appt Details Provider Name:Jarrell Mckeon ier, 08/18/2025 08:00:00 AM, [address] [place] [address], [address], [phone], Provider Name:Jarrell Mckeon ier, 08/27/2025 01:00:00 PM, [address] [place] [address], [place] [address], [place], [place], [phone], Progress Notes * MELISSARafael HDOB:[birth year] (89 yo M)Acc No.[id number]:03/09/2025 Progress Notes Patient: Rafael KOVACS Provider: Estrella Morse MD :1935 A ge:89 Y S ex:Male Date:03/09/2025 Address:[address] [place] [address] [place] [id number] Subjective: * Chief Complaints: * 3 MO F/U * HPI: S ymptom(s): patient is a 89 yo male here for 3 month follow up visit. * ROS: G eneral/Constitutional: Denies C hills. D enies F atigue. D enies F ever. D enies H eadache. E NT: Denies S ore throat. R espiratory: Comments f eels that he doesn't need any oxygen during the day. has been doing exercise. D enrafiq Dickerson ough. A dmits S hortness of breath at rest.?Admits S hortness of breath with exertion. G astrointestinal: Denies D iarrhea. D aleshia N ausea. * Medical History: * Surgical History: * Hospitalization/Major Diagno stic Procedure: * Medications: T akingPreserVision AREDS 2 - Tablet Chewable as directed Orally Aspir-Low 81 MG Tablet Delayed Release 1 tablet Orally Once a day Betamethasone Dipropionate 0.05 % Cream as directed Externally daily Lisinopril 5 MG Tablet 1 tablet Orally Once a day Atorvastatin Calcium 40 MG Tablet TAKE 1 TABLET BY MOUTH EVERY DAY Ipratropium-Albuterol 0.5-2.5 (3) MG/3ML Solution INHALE CONTENTS OF 1 AMP VIA NEBULIZER EVERY 6 HOURS Inhalation every 6 hrs Wixela Inhub 500-50 MCG/ACT Aerosol Powder Breath Activated INHALE 1 PUFF INTO THE LUNGS TWICE A DAY FOR 30 DAYS Ipratropium [place] 0.06 % Solution 2 sprays in each nostril Nasally Four times a day LORazepam 0.5 MG Tablet TAKE 1 TABLET BY MOUTH TWICE A DAY Incruse Ellipta 62.5 MCG/ACT Aerosol Powder Breath Activated INHALE 1 PUFF DAILY Tamsulosin HCl 0.4 MG Capsule TAKE 1 CAPSULE BY MOUTH TWICE A DAY Ventolin HFA * 108 (90 Base) MCG/ACT Aerosol Solution INHALE 2 PUFFS EVERY 4 HOURS NEEDED 54 Taking PreserVision AREDS 2 - Tablet Chewable as directed Orally Taking Aspir-Low 81 MG Tablet Delayed Release 1 tablet Orally Once a day Taking Betamethasone Dipropionate 0.05 % Cream as directed Externally daily Taking Lisinopril 5 MG Tablet 1 tablet Orally Once a day Taking Atorvastatin Calcium 40 MG Tablet TAKE 1 TABLET BY MOUTH EVERY DAY Taking Ipratropium-Albuterol 0.5-2.5 (3) MG/3ML Solution INHALE CONTENTS OF 1 AMP VIA NEBULIZER EVERY 6 HOURS Inhalation every 6 hrs Taking Wixela Inhub 500-50 MCG/ACT Aerosol Powder Breath Activated INHALE 1 PUFF INTO THE LUNGS TWICE A DAY FOR 30 DAYS Taking Ipratropium [place] 0.06 % Solution 2 sprays in each nostril Nasally Four times a day Taking LORazepam 0.5 MG Tablet TAKE 1 TABLET BY MOUTH TWICE A DAY Taking Incruse Ellipta 62.5 MCG/ACT Aerosol Powder Breath Activated INHALE 1 PUFF DAILY Taking Tamsulosin HCl 0.4 MG Capsule TAKE 1 CAPSULE BY MOUTH TWICE A DAY Taking Ventolin HFA * 108 (90 Base) MCG/ACT Aerosol Solution INHALE 2 PUFFS EVERY 4 HOURS NEEDED 54 Not-Taking/PRNSymbicort 160-4.5 MCG/ACT Aerosol INHALE TWO PUFFS [...] Vitals: H t: 71.50, Wt: 126, BMI:17.33, BP:98/60, Wt-k.15. weight is up 4 pounds since 11-21-24. * P ast Orders: L ab:Liver Panel (Order Date - 02/27/2025) (Collection Date & Time - 02/27/2025 09:37 AM) Value Reference Range Bilirubin Total 0.8 0.0-1.0 - mg/dL Bilirubin Direct 0.3 0.0-0.5 - mg/dL Aspartate Amino Transferase 42 H 5-37 - U/L Alanine Aminotransferase 30 0-40 - U/L Total Protein 6.6 6.5-8.0 - g/dL Albumin Level 4.1 3.5-5.0 - g/dL Alkaline Phosphatase 122 H 39-117 - U/L L ab:Glucose Fasting (Order Date - 02/27/2025) (Collection Date & Time - 02/27/2025 09:37 AM) Value Reference Range Glucose Fasting 91 60-99 - mg/dL L ab:Lipid Panel with Reflex (Order Date - 02/27/2025) (Collection Date & Time - 02/27/2025 09:37 AM) Value Reference Range Triglycerides 43 <150 - mg/dL Cholesterol 112 <200 - mg/dL LDL Cholesterol Calculated 48 <100 - mg/dL HDL Cholesterol 56 >40 - mg/dL L ab:Hemoglobin A1c (Order Date - 02/27/2025) (Collection Date & Time - 02/27/2025 09:37 AM) Value Reference Range Hemoglobin A1c % 5.7 <6.0 - % Estimated Average Glucose 117 - mg/dL * Examination: G eneral Examination: GENERAL APPEARANCE: p leasant, well nourished, well developed, in no acute distress. HEAD: n ormocephalic. SKIN: g ood turgor. HEART: r egular rate and rhythm, no murmurs, rubs, gallops.? LUNGS: d iminished breath sounds throughout. ? Assessment: * Assessment: 1. P ure hypercholesterolemia - E78.00 (Primary) 2 . P anlobular emphysema - J43.1 3 . C entrilobular emphysema - J43.2 4 . P rediabetes - R73.09 Plan: * Treatment: 2. P anlobular emphysema Continue Ipratropium-Albuterol Solution, 0.5-2.5 (3) MG/3ML, INHALE CONTENTS OF 1 AMP VIA NEBULIZER EVERY 6 HOURS, Inhalation, every 6 hrs; C ontinue Wixela Inhub Aerosol Powder Breath Activated, 500-50 MCG/ACT, INHALE 1 PUFF INTO THE LUNGS TWICE A DAY FOR 30 DAYS; C ontinue Incruse Ellipta Aerosol Powder Breath Activated, 62.5 MCG/ACT, INHALE 1 PUFF DAILY; C onttawandaue Ventolin HFA * Aerosol Solution, 108 (90 Base) MCG/ACT, INHALE 2 PUFFS EVERY 4 HOURS NEEDED 54. Notes: stable, will continue current regiment 3. C entrilobular emphysema Notes: stable 4. P rediabetes Notes: stable, no need for medication at this time * Procedure Codes: G 2211 Complex e/m visit add on * * Sign off status: Completed true * Provider: Estrella Morse MD Date: 0 03/09/2025 Generated for Javi griggs/Cesia/eTransmitting on: 1 10/08/2024 01:08 PM EST History and Physical Notes * HPI (History of Present Illness) Category Sub-Category Detail Notes Category Not es Symptom(s) patient is a 89 yo male here for 3 month follow up visit Examination Category Sub-Category Detail Notes Category Not es General Examination GENERAL APPEARANCE: pleasant , well nourished, well developed, in no acute distress HEAD: normocephalic HEART: regular rate and rhy thm, no murmurs, rubs, gallops LUNGS: diminished breath so unds throughout SKIN: good turgor
--- OUTSIDE RECORDS SUMMARY | 2025-05-11 05:47 | XMS_ITS ---
Author Organization Jarrell Morse MD Address [address] [facility] [address] [place] [phone] Care Team Providers Care Welding Machine Operator Arc Name Role Phone Jarrell Morse Primary Care Provider [phone] REASON FOR VISIT REFFERAL Encounters Encounter Location Date Provider Diagnosis Jarrell Morse MD [address] [place] [address] [address] [place] [id number] 05/11/2025 Jarrell Morse Plan Of Treatment Next Appt Details Provider Name:Jarrell chow, 08/18/2025 08:00:00 AM, [address] [place] [address], [address] [place] [address], [phone], Provider Name:Jarrell Mckeon ier, 08/27/2025 01:00:00 PM, [address] [place] [address], [address], [phone], Progress Notes * Rafael TORRES HDOB:[birth year] (89 yo M)Acc No.[id number]:05/11/2025 Patient: Rafael KOVACS :1935 A ge:89 Y S ex:Male Address:[address] [place] [phone] * true * Date: Generated for Javi griggs/Cesia/Glo on: 10/08/2024 01:08 PM EST
--- OUTSIDE RECORDS SUMMARY | 2025-08-07 13:07 | XMS_ITS | Patient Health Record ---
Author Organization Jarrell Morse MD Address [address] [place], [place] [id number] Care Team Providers Care Group Fitness Instructor Name Role Phone Jarrell Morse Primary Care [...] ff Reviewed date:08/19/2024 04:34:24 PM Interpretation: Performing Lab:[facility], [address] [place] [address] Notes/Report: White Blood Count 9.1 4.8-10.8 X10*3/uL [...] NRBC Abs Auto 0.000 0.0-0.012 X10*3/uL Comprehensive [place]. Panel Fa st Reviewed date:08/19/2024 04:37:15 PM Interpretation: Performing Lab:[facility], [address] [place] [phone] Notes/Report: Sodium 137 135-145 mmol/L Potassium 4.4 [...] Panel Reviewed date:08/19/2024 04:30:04 PM Interpretation: Performing Lab:[address] [address] Notes/Report: Bilirubin Direct 0.4 0.0-0.5 mg/dL Lipid Panel with Reflex Reviewed date:08/19/2024 04:32:44 PM Interpretation: Performing Lab:[address] [address] Notes/Report: Triglycerides 34 <150 mg/dL Desirable Triglyceride: [...] (Free>4and<10) Reviewed date:08/19/2024 04:30:14 PM Interpretation: Performing Lab:[address] [address] Notes/Report: PSA,Total (Free>4and<10) 3.09 0.00-4.00 ng/mL A [...] Random Reviewed date:08/19/2024 04:39:28 PM Interpretation: Performing Lab:[address] [address] Notes/Report: Creatinine Urine 100.97 Microalbumin Urine 9.0 Microalbum/Creatinine Ratio Ur 8.9 <30 ug/mg cr Albumin/Creatinine Ratio Reference Ranges: Normal: < 30 ug/mg creatinine Microalbuminuria: 30 - 300 ug/mg creatinine Clinical Albuminuria: > 300 ug/mg creatinine Hemoglobin A1c Reviewed date:08/19/2024 04:30:37 PM Interpretation: Performing Lab:[address] [address] Notes/Report: Hemoglobin A1c % 5.8 <6.0 % [...] average glucose, using the formula of the [place] Average Glucose study (ADAG), Diabetes Care, Vol.31,#8, Mar. 2007 UA CC w/rflx Micro + Cult Reviewed date:08/19/2024 04:34:44 PM Interpretation: Performing Lab:[address] [address] Notes/Report: Urine, Clean Catch Color Urine Yellow Appearance Urine Clear PH 5.5 5.0-9.0 Glucose Urine UA Negative Negative mg/dL Urine Blood Negative Negative Specific [place] - Urine 1.020 1.005-1.025 Urine Protein Negative Neg-Trace mg/dL Urine Ketones Negative Negative mg/dL Nitrite Urine Negative Negative Leukocyte Esterase Urine Negative Negative CT chest wo con Reviewed date:09/08/2024 02:54:28 PM Interpretation: Performing Lab: Notes/Report: [address] [address] [address] Scan Report Signed Patient: Rafael Franco MR#: [id number] : 1935 Acct:[id number] Age/Sex: 89 / M ADM Date: 09/05/24 Loc: HO.CT Attending Dr: Jovanny Valdovinos MD Ordering Physician: Jovanny Valdovinos MD Date of Service: 09/05/24 Procedure(s): CT chest wo IV con Accession Number(s): [id number] cc: Jarrell Morse MD; Jovanny Valdovinos MD Report Number: [id number]: Total DLP = 120.00 mGy-cm EXAMINATION: CT [...] by: Chin Boyer MD 09/08/2024 07:[address] [facility] Dictated By: Chin Boyer MD Signed By: <Electronically signed by Chin Boyer MD in OV> 09/08/24 0710 DD/ 1254 TD/TT: 09/05/24 1413 Air Tube Releaser: [address] [address] [address] Scan Report Signed Patient: Rafael Franco MR#: [id number] : 1935 Acct:[id number] Age/Sex: 89 / M ADM Date: 09/05/24 Loc: HO.CT Attending Dr: Jovanny Valdovinos MD Ordering Physician: Jovanny Valdovinos MD Date of Service: 09/05/24 Procedure(s): CT lui st wo IV con Accession Number(s): [id number] cc: Jarrell Morse MD; Jovanny Valdovinos MD Report Number: [id number]: Total DLP = 120.00 mGy-cm EXAMINATION: CT [...] by: Chin Boyer MD 09/08/2024 07:[address] [facility] Dictated By: Chin Boyer MD Signed By: <Electronically signed by Chin Boyer MD in OV> 09/08/24 0710 DD/ 1254 TD/TT: 09/05/24 1413 Air Tube Releaser: Reason For Referral Reason CORONARY ATHEROSCLER OSIS DUE TO LIPID RICH PLAQUE Diagnosis 1 Coronary atheroscler osis due to lipid rich plaque (I25.83) Referral Organization Jarrell Morse MD Referring Provider First Name Jarrell Referring Provider Last Name Mini Referring Provider Speciality Internal M edicine Referred Provider LEANDRO RAMIREZ Referred Provider Specialty Cardiology General Notes Carolyn Villatoro 05/11/2025 11:07:54 AM >REFFERAL FAXED TO DR JUVENCIO RAMIREZ@ CARDIOLOGY Referral Priority Routine Medications Medication SIG (Take, Route, Frequency, Duration) [...] 62.5 MCG/ACT INHALE 1 PUFF DAILY Active Ipratropium-Albuterol 0.5-2.5 (3) MG/3ML INHALE CONTENTS OF 1 AMP VIA NEBULIZER EVERY 6 HOURS INHALATION EVERY 6 HRS 90 DAYS for 21 Active Betamethasone Dipropionate 0.05 % as directed [...] 2 - as directed Orally Active Ipratropium [place] 0.06 % 2 sprays in e ach [...] Problem Status W/U Status Risk Notes Problem 37871424 Prostatism (N40.0) Active confirmed Problem 69097352 Anxiety (F41.9) Active confirmed Problem Arthritis of hip (28474661) Hip arthritis (M19.90) Active confirmed Problem 541747112118309 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 plaque (I25.83) Active confirmed Problem 057073905 Malignant neopla sm of sigmoid colon (C18.7) Active confirmed Problem 1098161 Panlobular emphy sema (J43.1) Active confirmed Problem Centrilobular emphysema (76776898) Centrilobular emphysema (J43.2) Active confirmed Problem 440860385 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 Problem Disorder of lumbar disc (907466971) Lumbar disc disease (M51.9) Active confirmed Problem 79156454 Essential hypert ension (I10) Active confirmed Problem Psoriasis (6686299) Psoriasis (L40.9) Active confirmed Problem 8861331 Prediabetes (R73.09) Active confirmed Problem Solitary nodule of lung (151842132) Lung nodule (R91.1) Active confirmed Problem Rhinitis (00012005) Rhinitis (J31.0) Active confirmed Problem 669027334 NSVT (nonsustain ed ventricular tachycardia) (I47.2) Active confirmed Problem 70586583 Sciatica of righ t side (M54.31) Active confirmed Problem 616241269 Pure hypercholesterolemia (E78.00) Active confirmed Problem 475293814 COPD with acute exacerbation (J44.1) Active confirmed Problem 77309881 Hip arthritis (M16.10) Active confirme d Vital Signs Blood pressure diastolic 60 mm Hg 03/09/2025 jamey ght is up 4 pounds since 11-21-24 Height 71.50 in 03/09/2025 weight is up 4 pounds since 11-21-24 Blood pressure systolic 98 mm Hg 03/09/2025 weig ht is up 4 pounds since 11-21-24 Weight 126 lbs 03/09/2025 weight is up 4 pounds since 11-21-24 BMI 17.33 kg/m2 03/09/2025 weight is up 4 pounds since 11-21-24 Encounters Encounter Location Date Provider Diagnosis Jarrell Morse MD [address] [place] [id number] 08/22/2024 Jarrell Morse Panlobular emphysema J43.1 ; 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 plaque I25.83 ; Anxiety F41.9 ; Prediabetes R73.09 ; Pure hypercholesterolemia E78.00 ; Essential hypertension I10 ; Colon cancer screening Z12.11 and Depression screening Z13.31 Jarrell Morse MD [address] [place] [id number] 09/15/2024 Jarrell Morse Impacted cerumen of left ear H61.22 Jarrell Morse MD [address] [place] [address] [id number] 11/21/2024 Jarrell Morse Prediabetes R73.09 ; Weight loss R63.4 ; Rhinitis J31.0 and Panlobular emphysema J43.1 Jarrell Morse MD [address] [place] [address] [id number] 03/09/2025 Jarrell Morse Pure hypercholestero lemia E78.00 ; Panlobular emphysema J43.1 ; Centrilobular emphysema J43.2 and Prediabetes R73.09 Jarrell Morse MD [address] [place] [address] [id number] 08/07/2024 Jarrell Morse MD [address] [place] [address] [id number] 10/03/2024 Jarrell Morse MD [address] [place] [address] [id number] 12/04/2024 Jarrell Morse Rhinitis J31.0 Jarrell Morse MD [address] [place] [address] [id number] 05/11/2025 Jarrell Morse Assessments Encounter Date Diagnosis (ICD Code) Assessment [...] Provider Name:Jarrell Mckeon ier, 08/18/2025 08:00:00 AM, [address] [place] [address], [phone], Provider Name:Jarrell Mckeon ier, 08/27/2025 01:00:00 PM, [address] [place] [address], [place] [address], [place], [place], [id number], Insurance Providers Payer Name Payer Address Payer Phone Subscriber Number Group Number Insured Name Patient Relationship to Insured Coverage Start Date Coverage End Date [employer] [address] [place] [address] [id number] Salvador Rafael Self - patient is the insured MEDEX BC OF [facility] [address] [place] [address] [id number] Salvador Rafael Self - patient is the insured Medical (General) History Medical History History ICD Code myocardial infarction colon cancer colonoscopy 2008 due 2012; c olonosscopy 06/25/2013; was told he needs no further colonoscopy per Dr. Marie
--- OUTSIDE RECORDS SUMMARY | 2025-08-07 13:07 | XMS_ITS | Clinical Summary ---
Author Organization [facility] Facility Address [address] [place] [address] Care Team Providers Care Clean In Places Operator Name Role Phone Jarrell Morse MD Primary Care Provider [phone] Social History Tobacco Use Types Packs/Day Years [...] age to complete this topic Insurance Medicare [facility] Care Teams Clean In Places Operator Relationship Specialty Start Date End Date Jarrell Morse MD [address] [place] [address] [address] [place], [place] PCP - General Internal Medicine 05/10/23
--- OUTSIDE RECORDS SUMMARY | 2025-08-07 13:09 | XMS_ITS | Patient Health Record ---
Author Organization [facility] Address [address] [place] [address] Care Team Providers Care Cosmetologist Name Role Phone Jarrell Morse MD Primary Care Provider Chin Healy Unavailable [phone] Reason For Referral No Information Medications Medication SIG (Take, Route, Frequency, Duration) Notes Start Date End Date Status Ventolin HFA Active Dulera Active Multi Vitamin/Minerals 08/20/19001900 Active Lipitor 40mg Active Aspir-81 81mg Active Fish Oil Active Social History Social History Additional Details Category Social Info Options Details Miscellaneous: Marital status: Occupation: retired Section Notes: Nonsmoker since 1995; no alc ohol Problems Problem Type SNOMED Code ICD Code Onset Dates Problem Status W/U Status Risk Notes Problem Colon cancer screening (656586008) Colon cancer screening (V76.51) Active confirmed Problem History of adenomatous polyp of colon (294725110) History of adenomatous polyp of colon (V12.72) Active confirmed Problem History of malignant neoplasm of colon (164319799) H/O malignant neoplasm of colon (V10.05) Active confirmed Problem Long-term current use of aspirin (301091057816340 ) Aspirin long-term use (V58.66) Active confirmed Plan Of Treatment Future Test Test Name Order Date COLONOSCOPY 03/07/2013 Insurance Providers Payer Name Payer Address Payer Phone Subscriber Number Group Number Insured Name Patient Relationship to Insured Coverage Start Date Coverage End Date MEDICARE OF [place] [address] [place] [address] [id number] AAYUSH TORRES Self - patient is the insured MEDEX ATTN CLAIMS [address] [place] [address] [id number] AAYUSH TORRES Self - patient is the insured Medical (General) History Medical History History ICD Code Last colonoscopy 07-22-2009--negative colon polyps-tubular adenomas SC in 1995-cardiac arrest-had a cath, bu t no intervention COPD colon cancer--malignant polyp removed fr om sigmoid colon Denies DM,CVA,renal disease Surgical History Surgery Date(Month/Year) Sigmoid resection for malignant polyp in 09/2001 knee surgery( left) fistula repair
[2025-08-07 16:03] LABS: Anion Gap 12 (12-20); Blood Urea Nitrogen 24 mg/dL (9-16); Calcium 9.0 mg/dL (8.4-10.2); Carbon Dioxide 31 mmol/L (22-29); Chloride 104 mmol/L (96-108); Estimated Glomerular Filt Rate > 60; Potassium 4.5 mmol/L (3.3-5.1); Sodium 142 mmol/L (135-145)
[2025-08-07 17:50] LABS: NT Pro B Type Natriuretic Pept 2671.6 pg/mL (<300)
== END 2025-08-07 11:09 | disposition home or self-care (01) ==
LOC: HO.HMGCLDS 11:08
PROVIDERS: PCP Internal Medicine
DX: I25.5 Ischemic cardiomyopathy (principal)
CPT/HCPCS: 36415; 80048; 83880

== ENCOUNTER → 2025-08-18 09:48 | Outpatient (BNV) | payer MEDICARE, SELFPAY | PROVIDERS: Admitting Provider Student in an Organized Health Care Education/Training Program; Emergency Provider Emergency Medicine; PCP Internal Medicine; Visit Provider Internal Medicine | DX: I48.92 Unspecified atrial flutter (principal) | CPT/HCPCS: 93010 ==

== ENCOUNTER → 2025-08-18 09:49 | Outpatient (BNV) | payer MEDICARE, SELFPAY | PROVIDERS: Emergency Provider Emergency Medicine; Visit Provider Radiology Diagnostic Radiology | DX: J43.9 Emphysema, unspecified (principal); J90 Pleural effusion, not elsewhere classified; R91.8 Other nonspecific abnormal finding of lung field | CPT/HCPCS: 71045; 71275 ==

== ENCOUNTER 2025-08-18 12:45 | Outpatient (BNV) | payer MEDICARE, SELFPAY | END 2025-08-19 04:56 | PROVIDERS: Admitting Provider Student in an Organized Health Care Education/Training Program; Emergency Provider Emergency Medicine; PCP Internal Medicine; Visit Provider Internal Medicine | DX: I48.92 Unspecified atrial flutter (principal); I25.2 Old myocardial infarction | CPT/HCPCS: 93010 ==

== ENCOUNTER → 2025-08-18 12:45 | Outpatient (BNV) | payer MEDICARE, SELFPAY | PROVIDERS: Admitting Provider Student in an Organized Health Care Education/Training Program; Emergency Provider Emergency Medicine; PCP Internal Medicine; Visit Provider Student in an Organized Health Care Education/Training Program | DX: J96.21 Acute and chronic respiratory failure with hypoxia (principal) | CPT/HCPCS: 99233 ==

== ENCOUNTER → 2025-08-18 12:45 | Outpatient (BNV) | payer MEDICARE, SELFPAY | PROVIDERS: Admitting Provider Student in an Organized Health Care Education/Training Program; Emergency Provider Emergency Medicine; PCP Internal Medicine; Visit Provider Internal Medicine Pulmonary Disease | DX: J41.0 Simple chronic bronchitis (principal); J84.9 Interstitial pulmonary disease, unspecified; J90 Pleural effusion, not elsewhere classified; J96.21 Acute and chronic respiratory failure with hypoxia | CPT/HCPCS: 99222 ==

== ENCOUNTER → 2025-08-18 12:45 | Outpatient (BNV) | payer MEDICARE, SELFPAY | PROVIDERS: Admitting Provider Student in an Organized Health Care Education/Training Program; Emergency Provider Emergency Medicine; PCP Internal Medicine; Visit Provider Internal Medicine | DX: I48.92 Unspecified atrial flutter (principal); I25.10 Atherosclerotic heart disease of native coronary artery without angina pectoris; I25.5 Ischemic cardiomyopathy; I35.0 Nonrheumatic aortic (valve) stenosis | CPT/HCPCS: 99223 ==